=== PATIENT | male | born 1955 | race Caucasian/White ===

== ENCOUNTER 2019-11-02 08:08 | Outpatient (CLI) | payer OTHER, SELFPAY ==
--- NOTE | ~2019-11-02 | CT_ITS ---
EXAMINATION: CT chest abdomen pelvis w con EXAM DATE: 11/02/2019 08:56 INDICATION: Mantle cell lymphoma. TECHNIQUE: Spiral CT of the chest, abdomen and pelvis was performed following intravenous injection o f 100 mL Omnipaque 350. Axial, coronal and sagittal images were reviewed. Coronal maximum intensity pixel images of chest reviewed. The dose-length product (DLP) for this examination was 1792.43 mGy- cm. The exposure was tailored according to patient size (auto mA exposure control), and iterative re construction (ASIR) was used as additional dose reduction technique. Comparison is made to prior exam ination from 09/05/2018. FINDINGS: CHEST: Right-sided Chemo-Port. Numerous punctate lung granulomas, most of which are calcified, unchan ged. No suspicious pulmonary opacities. Mediastinal calcifications from prior treated lymphoma or gr anulomatous process. Tracheobronchial tree is patent. There is no mediastinal, hilar or axillary l ymphadenopathy. There are no pleural or pericardial effusions. There is no pneumothorax. Heart normal in size. No evidence of coronary arterial calcification. Mild emphysema. ABDOMEN PELVIS: The liver, spleen, adrenal glands and pancreas are unremarkable. Gallbladder is unre markable. No biliary obstruction. Portal and splenic veins are patent. Kidneys enhance symmetrical ly. There is no hydronephrosis. There is exophytic left renal cyst measuring 2.6 cm. There is puncta te right superior calyceal stone. The prostate is unremarkable. The bladder is unremarkable. There is no retroperitoneal or pelvic lymphadenopathy. 2 lipomas along the musculature, largest in right thigh measuring about 10 x 4 cm. The appendix is normal. There is minimal scattered colonic diverticulosis. There is no adjacent infl ammatory change to suggest diverticulitis. The stomach and small bowel are unremarkable. There is ex pected amount of colonic stool. No free intraperitoneal gas. Lumbar fusion hardware. There are no osteoblastic or osteolytic lesions identified. IMPRESSION: 1. No chest, abdomen or pelvis lymphadenopathy. Stable exam. 2. Mild scattered colonic diverticulosis. 3. Punctate right nephrolithiasis. 4. Mild emphysema. Reviewed, dictated and finalized at location A.
[2019-11-02 08:47] LABS: Estimated Glomerular Filt Rate > 60
== END 2019-11-02 08:09 | disposition home or self-care (01) ==
LOC: ANHIMG 08:18
PROVIDERS: PCP Family Medicine; Visit Provider Internal Medicine Hematology & Oncology
DX: C83.13 Mantle cell lymphoma, intra-abdominal lymph nodes (principal); J43.9 Emphysema, unspecified; N20.0 Calculus of kidney; K57.30 Diverticulosis of large intestine without perforation or abscess without bleeding
CPT/HCPCS: 36415; 71260; 74177; Q9967

== ENCOUNTER 2021-08-17 12:08 | Outpatient (CLI) | payer MEDICARE, BC, SELFPAY ==
--- NOTE | ~2021-08-17 | XR_ITS ---
EXAMINATION: XR fl port a cath w contrast DATE: 08/17/2021 13:01 INDICATION: Mantle cell lymphoma. Malfunctioning port catheter. TECHNIQUE: 180 images of the chest were obtained during injection of intravenous contrast into the pa warren's existing left subclavian central venous port catheter. The patient was flushed with sterile s erick at the conclusion of the procedure. The port was accessed and injections performed by the PICC line nurse, Maria A Akbar. The amount of fluoroscopy time used during this procedure was 0.7 minutes. COMPARISON: None. FINDINGS: Left subclavian central venous port catheter with distal tip at the caudal superior vena cava. There is free flow of the injected contrast from the tip of the catheter which extends into the right atriu m. No contrast tracking along the catheter to suggest a fibrin sleeve. Blood was able to be aspirated from the catheter both with the arms raised and at the patient's side. Visualized portion of the upp er lungs are clear. Plate and screw fixation for lower cervical anterior spinal fusion. IMPRESSION: 1. Patent tip of a left subclavian central venous port catheter. Reviewed, dictated and finalized at location A.
== END 2021-08-17 12:09 | disposition home or self-care (01) ==
PROVIDERS: PCP Family Medicine; Visit Provider Internal Medicine Hematology & Oncology
DX: Z45.2 Encounter for adjustment and management of vascular access device (principal); C83.13 Mantle cell lymphoma, intra-abdominal lymph nodes; Z98.1 Arthrodesis status
CPT/HCPCS: 36598; Q9966

== ENCOUNTER 2021-08-22 06:30 | Outpatient (CLI) | payer MEDICARE, BC, SELFPAY ==
--- NOTE | ~2021-08-22 | CT_ITS ---
EXAMINATION: CT abdomen pelvis w con INDICATION: Mantle cell lymphoma TECHNIQUE: Computed tomographic images of the abdomen and pelvis were obtained after the administrati on of 100 cc of Omnipaque 350 intravenous contrast. The dose-length product (DLP) was 1660.17 mGy-cm. Automated exposure control and iterative reconstruction technique were employed. COMPARISON: 11/02/2019 FINDINGS: Minimal dependent atelectasis is present in the lung bases. The heart size is normal. Calci fied pulmonary nodules are consistent with old granulomatous disease. Punctate calcifications in an o therwise normal spleen likely represent healed granulomatous disease. The liver, pancreas, gallbladde r, and adrenal glands are normal. There is a 3.2 cm cyst of the left kidney. There is a 4 mm nonobstr ucting stone of the right kidney. No pathologically enlarged abdominal or pelvic lymph nodes are iden tified. There is no free intraperitoneal gas or evidence of bowel obstruction. The appendix is normal . Intramuscular lipomas are again noted. There are changes of anterior and posterior fusion from L3 t hrough L5. There is severe disc space disease at L2-3. A small fat-containing umbilical hernia is not ed. IMPRESSION: 1. No pathologically enlarged lymph nodes in the abdomen or pelvis. 2. Right nephrolithiasis. Reviewed, dictated and finalized at location B.
== END 2021-08-22 06:31 | disposition home or self-care (01) ==
PROVIDERS: PCP Family Medicine; Visit Provider Internal Medicine Hematology & Oncology
DX: C83.13 Mantle cell lymphoma, intra-abdominal lymph nodes (principal); N20.0 Calculus of kidney
CPT/HCPCS: 74177; Q9967

== ENCOUNTER 2021-09-13 18:33 | Emergency (ER) | payer MEDICARE, BC, SELFPAY ==
--- NOTE | 2021-09-13 18:39 | ED.SKABFB ---
HPI - Skin/Abscess/Foreign Bdy General Chief complaint: Skin/Abscess/Foreign Body Stated complaint: L ARM INFECTION Time Seen by Provider: 09/13/21 18:39 Source: patient, family and RN notes reviewed History of Present Illness HPI narrative: Patient is 65-year-old male who presents the urgent care with complaints of possible infection to the left arm. Patient states that a couple days ago he hit the arm and is now having increased redness, swelling and pain. Patient states he is use hydrocortisone and Pred without any relief. States it is very itchy and feels warm to the touch. Denies any fevers, nausea or vomiting. No other complaints. No acute distress noted. Patient aware of the plan of care. Some parts of this dictation were generated by voice recognition software and may contain typographical and/or grammatical inaccuracies. Related Data Home Medications Medication Instructions Recorded Confirmed cyclobenzaprine 10 mg PO TID PRN 03/20/19 08/30/21 naproxen 500 mg PO BID PRN 03/20/19 08/30/21 tramadol 50 mg PO BID PRN 03/20/19 08/30/21 zolpidem 10 mg PO HS PRN 03/20/19 08/30/21 tramadol 100 mg tablet,extended 100 mg PO DAILY 07/25/20 08/30/21 release 24 hr vitamin B complex 1 cap PO DAILY 07/25/20 08/30/21 Allergies Allergy/AdvReac Type Severity Reaction Status Date / Time No Known Drug Allergies Allergy Unknown NKA Verified 08/30/21 08:21 Review of Systems Review of Systems: CONSTITUTIONAL: Denies fever, chills, or sweats. EYES: Denies visual changes, redness, or discharge. ENT: Denies rhinorrhea, congestion, sore throat, or otalgia. CARDIOVASCULAR: Denies chest pain, palpitations, or edema. RESPIRATORY: Denies cough or dyspnea. GASTROINTESTINAL: Denies abdominal pain, nausea, vomiting, or diarrhea. GENITOURINARY: Denies dysuria or hematuria. SKIN: Reports a possible infection to the left arm MUSCULOSKELETAL: Denies back pain, joint pain, or myalgia. NEUROLOGIC: Denies headache, numbness, or weakness. All other systems reviewed are negative, except as documented in HPI. [facility] Past Medical History Medical History (Updated 09/13/21 @ 18:50 by MARITZA Strong) Anxiety Diaphragmatic hernia without mention of obstruction or gangrene Encounter for monitoring diuretic therapy Enlarged prostate without lower urinary tract symptoms (luts) Essential hypertension Hypersomnolence Libido, decreased Mantle cell lymphoma Mixed hyperlipidemia Narcolepsy Other spondylosis, cervical region Personal history of colonic polyps Raynaud's syndrome Sleep paralysis Testicular hypofunction Vitamin D deficiency Family History Family History Father Family history of malignant neoplasm Hypertension Sibling Hypertension Social History Social History Second hand tobacco smoke exposure: Yes Smoking end date: 06/03/01 Alcohol intake: never Substance use: never Substance use type: does not use Gender identity (if verbalized by the patient): Male Comments At the time of my signature, I reviewed and agree with the nursing past medical, surgical, social, and family history. There is no relevant family history pertinent to the patient complaint. Exam Narrative: GENERAL: This is a well-nourished, well-developed patient, in no apparent distress. HEAD: normocephalic, atraumatic. EYES: PERRL. Sclera clear/white. Vision is grossly intact. EARS: External ears normal NOSE: External nose normal with no obvious nasal discharge, nares without redness, no rhinorrhea. THROAT: Mucous membranes moist NECK: Neck supple, non-tender without lymphadenopathy, masses or thyromegaly. CARDIOVASCULAR: Regular rate and rhythm without murmurs, gallops, or rubs. RESPIRATORY: Clear to auscultation. Breath sounds equal bilaterally. No wheezes, rales, or rhonchi. SKIN: 9 x 7 cm area of erythema and firm edema noted to th
[2021-09-13 18:42] VITALS: BP 170/85; PULSE 94; RESP 16; TEMP 36.2; O2SAT 98
== END 2021-09-13 18:55 | disposition home or self-care (01) ==
PROVIDERS: Emergency Provider Nurse Practitioner Family; PCP Family Medicine
DX: L03.114 Cellulitis of left upper limb (principal); I10 Essential (primary) hypertension; E78.2 Mixed hyperlipidemia; I73.00 Raynaud's syndrome without gangrene; N40.0 Benign prostatic hyperplasia without lower urinary tract symptoms; Z85.72 Personal history of non-Hodgkin lymphomas; G47.53 Recurrent isolated sleep paralysis
CPT/HCPCS: 99213; G0463

== ENCOUNTER 2022-01-24 08:52 | Outpatient (CLI) | payer MEDICARE, OTHER, SELFPAY ==
--- NOTE | ~2022-01-24 | CT_ITS ---
EXAMINATION: CT abdomen pelvis wo con DATE: 01/24/2022 09:07 INDICATION: Right flank pain, history of lymphoma TECHNIQUE: Computed tomography (CT) of the abdomen and pelvis was performed without intravenous contr ast. The dose-length product (DLP) was 630.87 mGy-cm. Automated exposure control and iterative recons truction technique were employed. COMPARISON: 08/22/2021 FINDINGS: Minimal dependent atelectasis is present in the lung bases. The heart size is normal. Punct ate calcifications in an otherwise normal spleen likely represent healed granulomatous disease. The l iver, pancreas, gallbladder, and adrenal glands are normal. There are two nonobstructing stones of th e right kidney which measure 2 mm and 1 mm. There is a 3.4 cm cyst of the left kidney. No stones are identified in the ureters or bladder. There is no hydronephrosis or hydroureter. The appendix is norm al. No pathologically enlarged abdominal or pelvic lymph nodes are identified. There is no free intra peritoneal gas or evidence of bowel obstruction. Intramuscular lipomas are again noted in the left ab dominal wall and proximal right leg. There are changes of anterior and posterior fusion from L3 throu gh L5. There is severe loss of intervertebral disc space height at L2-3. A fat-containing umbilical h ernia is noted. IMPRESSION: 1. No CT correlate for right flank pain. 2. Nonobstructing right nephrolithiasis. Reviewed, dictated and finalized at location B.
== END 2022-01-24 08:53 | disposition home or self-care (01) ==
LOC: ANHIMG 08:55
PROVIDERS: PCP Family Medicine; Visit Provider Physician Assistant Medical
DX: R10.9 Unspecified abdominal pain (principal); N20.0 Calculus of kidney
CPT/HCPCS: 74176

== ENCOUNTER 2022-02-28 10:01 | Outpatient (CLI) | payer MEDICARE, OTHER, SELFPAY ==
--- NOTE | ~2022-02-28 | XR_ITS ---
EXAMINATION: XR abdomen/kub 1V INDICATION: History of right-sided kidney stones TECHNIQUE: Supine views of the abdomen were obtained on 2 radiographs. COMPARISON: 01/24/2022 FINDINGS: Bowel contents project over the kidneys limiting sensitivity for renal stones. Right nephro lithiasis described on the comparison CT is not definitely identified. No stones are identified along the expected courses of the ureters or at the urinary bladder. There are phleboliths of the pelvis. The bowel gas pattern is normal. Surgical changes are noted in the lower lumbar spine. IMPRESSION: 1. No urolithiasis identified. Reviewed, dictated and finalized at location A.
== END 2022-02-28 10:02 | disposition home or self-care (01) ==
PROVIDERS: PCP Family Medicine; Visit Provider Family Medicine
DX: N20.0 Calculus of kidney (principal)
CPT/HCPCS: 74018

== ENCOUNTER 2022-06-14 06:42 | Day surgery (SDC) | payer MEDICARE, OTHER, SELFPAY ==
--- NOTE | ~2022-06-14 | BM_ITS ---
EXAMINATION: CCL bone marrow asp w bx diag DATE: 06/14/2022 09:07 INDICATION: Mantle cell lymphoma. TECHNIQUE: A time-out was performed to verify the patient's name, date of , and procedure to b e performed. The procedure including the risks, benefits, and alternatives was discussed with the pat ient. Risks discussed included bleeding and infection. The patient understood the risks and agreed to proceed. The skin overlying the left ilium was prepped and draped in usual sterile fashion. Anesth etic was administered with 1% lidocaine subcutaneously. Moderate sedation was achieved with 1 mg Vers ed IV and 50 mg fentanyl IV. An 11 gauge needle was inserted into the ilium with fluoroscopic guidan ce. Bone marrow was aspirated. An 8 gauge needle was then inserted into the ilium with fluoroscopic g uidance. A core bone marrow biopsy was obtained. There were no immediate complications. Fluoroscopy e xposure time was 0.0 minutes. The total number of images was 20. FINDINGS: Real-time fluoroscopy demonstrates a marker overlying the left posterior superior iliac spi ne. IMPRESSION: 1. Fluoro-guided bone marrow aspiration. 2. Fluoro-guided bone marrow core biopsy. Reviewed, dictated and finalized at location A. 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
[2022-06-14 07:10] VITALS: BP 134/79; PULSE 73; RESP 14; TEMP 36.6; O2SAT 96; BMI 32.8
[2022-06-14 07:26] LABS: Basophils Percent Auto 0.5 % (0.2-1.2); Eosinophils Absolute Auto 0.1 K/mm3 (0-0.3); Eosinophils Percent Auto 2.7 % (0-4.4); Hematocrit 32.6 % (42.0-52.0); Hemoglobin 10.7 g/dL (14.0-18.0); Immature Granulocyte Absolute 0.04 K/mm3 (0.00-0.031); Lymphocytes Absolute Auto 0.78 K/mm3 (0.9-3.2); Lymphocytes Percent Auto 18.9 % (18.3-44.2); Mean Corpuscular HGB Conc 32.8 g/dl (32-36); Mean Corpuscular Hemoglobin 29.9 pg (26-34); Mean Corpuscular Volume 91.1 fl (80-100); Monocytes Absolute Auto 0.5 K/mm3 (0.1-0.6); Monocytes Percent Auto 12.1 % (2.6-8.5); Neutrophils Absolute Auto 2.7 K/mm3 (1.3-6.7); Neutrophils Percent Auto 64.8 % (45.5-73.1); Platelet Count Result 150 k/mm3 (150-375); Red Blood Count 3.58 M/mm3 (4.6-6.20); Red Cell Distribution Width 14.8 % (11.5-14.5); White Blood Count 4.1 K/mm3 (4.5-10.0)
[2022-06-14 07:43] LABS: Prothrombin Time 12.6 Seconds (11.1-14.7)
--- NOTE | 2022-06-14 08:09 | WPDMODSED ---
Moderate Sedation Note-Pt Data Patient Data Diagnosis: Mantel cell lymphoma. Present Complaint: Mantle cell lymphoma. Procedure to be performed/Plan: Fluoro-guided bone marrow biopsy of ilium. Allergies Allergy/AdvReac Type Severity Reaction Status Date / Time cephalexin Allergy Mild mobiliform Verified 06/13/22 13:17 rash Home Medications Medication Instructions Recorded Confirmed Type cyclobenzaprine 10 mg tablet 10 mg PO TID 03/20/19 06/14/22 History zolpidem 10 mg tablet 10 mg PO HS PRN Insomnia 03/20/19 06/13/22 History tramadol 100 mg tablet,extended 100 mg PO TID 10/02/21 06/14/22 History release 24 hr multivitamin 1 tablet PO DAILY 01/22/22 06/13/22 History lisinopril 20 mg tablet 20 mg PO DAILY #90 tabs 02/20/22 06/13/22 Rx tamsulosin 0.4 mg capsule 0.4 mg PO DAILY #30 caps 04/30/22 06/13/22 Rx armodafinil 250 mg tablet (Nuvigil) 250 mg PO QAM #30 tabs 05/29/22 06/13/22 Rx diazepam 5 mg tablet 5 mg PO BID PRN anxiety #60 tabs 05/29/22 06/13/22 Rx hydrochlorothiazide 12.5 mg tablet 12.5 mg PO DAILY 06/13/22 06/13/22 History mupirocin 2 % topical ointment 1 applic topical BID PRN Wound Care 06/13/22 06/13/22 History mupirocin 2 % topical ointment 1 applic topical TID PRN Wound Care 06/13/22 06/13/22 History testosterone 1.62 % (20.25 mg/1.25 60.75 packet topical DAILY 06/13/22 06/13/22 History gram) transdermal gel packet tramadol 50 mg tablet 50 mg PO BID 06/13/22 06/14/22 History Sedation/Anesthesia: No previous sedation/anesthesia problems (including family history). ON LICENSE OF [facility] Past Medical History Medical History (Updated 02/20/22 @ 08:58 by Melanie Chavez MD) Acute parotitis Anxiety Calculus of kidney Cardiomegaly Chest pain, unspecified Chronic neck and back pain Degeneration of intervertebral disc at L5-S1 level Degeneration of L4-L5 intervertebral disc Diaphragmatic hernia without mention of obstruction or gangrene Disorder of intervertebral disc at C5-C6 level Dorsalgia, unspecified Encounter for monitoring diuretic therapy Enlarged prostate without lower urinary tract symptoms (luts) Essential hypertension Fibromyalgia Frostbite of other and unspecified sites Hematuria, unspecified Hypersomnolence Hypogonadism Libido, decreased Lower resp. 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 dysfunction with inhibited sexual excitement Pure hypercholesterolemia, unspecified Raynaud's syndrome Recurrent oral aphthae Right flank pain Sleep paralysis Testicular hypofunction Tick bite of neck Vitamin D deficiency Surgical History Surgical History Status post lumbar spinal fusion Family History Family History Father Family history of malignant neoplasm Hypertension Sibling Hypertension Social History Social History Smoking packs per day: 2 Smoking cigarettes per day: 40.0 Years smoked: 29 Smoking pack-years: 58.00 Smoking status: Former smoker Tobacco type: cigarettes Second hand tobacco smoke exposure: No Smoking end date: 06/03/03 Alcohol intake: former Drinks per week: 0 Substance use: never Substance use type: does not use Living arrangements: with family Gender identity (if verbalized by the patient): Male Spiritual care concerns: No Mod Sed Physical Exam Physical Exam Pre Procedural Exam: Normal:
[2022-06-14 08:45] VITALS: BP 111/68; PULSE 74; RESP 17; O2SAT 95
[2022-06-14 09:00] VITALS: BP 104/65; PULSE 67; RESP 19; O2SAT 96
[2022-06-14 09:15] VITALS: BP 102/55; PULSE 63; RESP 18; O2SAT 96
== END 2022-06-14 09:35 | disposition home or self-care (01) ==
PROVIDERS: Absent Provider Internal Medicine Hematology & Oncology; PCP Family Medicine; Referring Provider Internal Medicine Hematology & Oncology; Visit Provider Radiology Diagnostic Radiology
DX: C83.10 Mantle cell lymphoma, unspecified site (principal); I10 Essential (primary) hypertension; E78.2 Mixed hyperlipidemia; F41.9 Anxiety disorder, unspecified; Z98.1 Arthrodesis status; Z87.891 Personal history of nicotine dependence
CPT/HCPCS: 36415; 38222; 85025; 85610; 88184; 88185; 88305; 88311; 88313; 88341; 88342; J1642; J2250; J3010; J7040

== ENCOUNTER 2022-08-15 08:35 | Outpatient (CLI) | payer MEDICARE, OTHER, SELFPAY ==
--- NOTE | ~2022-08-15 | CT_ITS ---
Clinical Indication: Mantle cell lymphoma CT Scan of the Chest, Abdomen, and Pelvis with Contrast: Technique: Contiguous sections were acquired throughout the chest, abdomen, and pelvis after intraven ous administration of 100 cc of Omnipaque 350. Dose reduction technique was used on this scan by ailyn omer automated exposure control and iterative reconstruction technique. The dose-length product (DL P) was 1889.77 mGy-cm. COMPARISON: 01/24/2022 Findings: Densely calcified right paratracheal lymph nodes are present. No other enlarged lymphadenopathy ident ified in the chest.. The mediastinal vascular structures appear normal. There is no evidence of pleural or pericardial effusion. There are focal areas of irregular airspace space opacity in the right upper lobe (axial images 33 11 47). There is mild apparent dependent atelectatic change or residual prominence. Scattered calcified granulomas are noted. The liver, pancreas, gallbladder, adrenals and kidneys are within normal limits. Splenomegaly noted, spleen measuring 20.4 cm in length. No evidence of aortic aneurysm. No lymphadenopathy. No bowel obstruction or bowel wall thickening. There is no evidence to suggest acute appendicitis. Urinary bladder is unremarkable. Single mildly enlarged right inguinal lymph node measures 15 mm in s hort axis (axial image 267), essentially unchanged. Impression: Single mildly enlarged right inguinal lymph node is stable from prior exam. Lymphomatous involvement is not excluded. Marked splenomegaly. This is nonspecific, but could be due to lymphomatous infiltration. Again, clini janette correlation required. Focal irregular areas of airspace opacification in the right upper lobe, nonspecific. Appearance sugg ests infectious process or postinflammatory change. Morphology is not typical of neoplasm/lymphoma. Reviewed, dictated and finalized at [facility]. Impression: Single mildly enlarged right inguinal lymph node is stable from prior exam. Lym phomatous involvement is not excluded. Marked splenomegaly. This is nonspecific, but could be due to lymphomatous infi ltration. Again, clinical correlation required. Focal irregular areas of airspace opacification in the right upper lobe, nonspe cific. Appearance suggests infectious process or postinflammatory change. Morph ology is not typical of neoplasm/lymphoma.
[2022-08-15 08:56] LABS: Estimated Glomerular Filt Rate > 60
== END 2022-08-15 08:36 | disposition home or self-care (01) ==
PROVIDERS: PCP Family Medicine; Visit Provider Internal Medicine Hematology & Oncology
DX: C83.13 Mantle cell lymphoma, intra-abdominal lymph nodes (principal)
CPT/HCPCS: 36415; 71260; 74177; 80053; 85025; Q9967

== ENCOUNTER 2022-09-03 09:18 | Outpatient (CLI) | payer MEDICARE, OTHER, SELFPAY ==
[2022-09-03 10:30] LABS: Alanine Aminotransferase 22 U/L (6-50); Albumin Level 4.3 g/dL (3.5-5.1); Alkaline Phosphatase 118 U/L (38-126); Anion Gap 6 mmol/L (8-16); Aspartate Amino Transferase 36 U/L (17-59); Bilirubin,Total 1.4 mg/dL (0.2-1.3); Blood Urea Nitrogen 17 mg/dL (9-20); Calcium 8.6 mg/dL (8.4-10.2); Carbon Dioxide 31 mmol/L (22-30); Chloride 97 mmol/L (98-107); Cholesterol 202 mg/dL (0-200); Estimated Glomerular Filt Rate > 60; Glucose 108 mg/dL (65-110); HDL Direct 31 mg/dL; Potassium 4.1 mmol/L (3.4-5.0); Sodium 134 mmol/L (137-145); Triglycerides 128 mg/dL (<150)
[2022-09-03 10:38] LABS: Hemoglobin A1C 4.3 % (<5.7)
[2022-09-03 10:40] LABS: LDL Cholesterol Direct 137 mg/dL
== END 2022-09-03 09:19 | disposition home or self-care (01) ==
LOC: ANHLAB 09:21
PROVIDERS: PCP Family Medicine; Visit Provider Family Medicine
DX: E78.2 Mixed hyperlipidemia (principal); I10 Essential (primary) hypertension; R73.03 Prediabetes
CPT/HCPCS: 36415; 80053; 80061; 83036

== ENCOUNTER 2022-10-29 10:10 | Inpatient (IN) | payer MEDICARE, OTHER, SELFPAY ==
[2022-10-29] VITALS (7 sets, daily range): BP systolic 103–118; BP diastolic 63–79; PULSE 83–94; RESP 16–18; TEMP 36.3–37.2; O2SAT 93–100; BMI 34.3
--- NOTE | ~2022-10-29 | XR_ITS ---
EXAMINATION: XR chest 2V DATE: 10/29/2022 11:09 INDICATION: Spider bite. Weakness and shortness of breath. TECHNIQUE: Frontal and lateral views of the chest were obtained. COMPARISON: Chest 2 views 05/16/2018, chest CT 08/15/2022 FINDINGS: There is mild atelectasis in left lower lung zone. Calcified right lung nodules and calcifi ed mediastinal lymph nodes are consistent with old granulomatous disease. No pleural effusion or pneu mothorax. The heart size is normal. There is a left subclavian port with tip in superior vena cava. T here are changes of anterior fusion procedure in cervical spine. IMPRESSION: 1. Mild atelectasis in left lower lung zone. Reviewed, dictated and finalized at location A.
--- NOTE | ~2022-10-29 | US_ITS ---
. EXAMINATION: US renal BI DATE: 10/30/2022 10:12 INDICATION: Acute kidney injury. TECHNIQUE: Multiple ultrasound grayscale images of the kidneys were obtained. COMPARISON: CT abdomen and pelvis 08/15/2022 FINDINGS: The right kidney measures 12.1 x 5.4 x 5.6 cm. The left kidney measures 11.6 x 5.9 x 5.1 cm. The kidn eys demonstrate normal parenchymal echogenicity. There is a 3.1 cm cyst of left kidney. There is no h ydronephrosis. The bladder is normal. IMPRESSION: 1. Normal kidney sizes. No hydronephrosis. Reviewed, dictated and finalized at location L.
--- NOTE | 2022-10-29 10:22 | ED.GENADULT ---
HPI - General Adult General Chief complaint: Unspecified Stated complaint: bloody sputum Time Seen by Provider: 10/29/22 10:15 Source: patient and family Mode of arrival: ambulatory History of Present Illness HPI narrative: Patient is 66 years old white male came to the emergency room with his because of coughing, sore throat, fever, nasal congestion started 2 days ago. Patient is telling me that he had a brown recluse spider bite to his left lower leg and left arm x4, 1 week ago. Denies any systemic symptoms at that time. 5 days later went see his family physician and received a tetanus shot, 1 dose of antibiotic IM, and was discharged on doxycycline. 2 days later started having upper respiratory symptoms. Patient did not had any antipyretic medication today. Related Data Home Medications Medication Instructions Recorded Confirmed cyclobenzaprine 10 mg tablet 10 mg PO TID 03/20/19 10/10/22 zolpidem 10 mg tablet 10 mg PO HS PRN Insomnia 03/20/19 10/10/22 tramadol 100 mg tablet,extended 100 mg PO TID 10/02/21 10/10/22 release 24 hr multivitamin 1 tablet PO DAILY 01/22/22 10/10/22 hydrochlorothiazide 12.5 mg tablet 12.5 mg PO DAILY 06/13/22 10/10/22 testosterone 1.62 % (20.25 mg/1.25 60.75 packet topical DAILY 06/13/22 10/10/22 gram) transdermal gel packet tramadol 50 mg tablet 50 mg PO BID 06/13/22 10/10/22 turmeric 400 mg capsule mg PO 10/25/22 Allergies Allergy/AdvReac Type Severity Reaction Status Date / Time cephalexin Allergy Mild mobiliform Verified 10/29/22 10:29 rash Review of Systems Review of Systems: All systems reviewed & are unremarkable except as noted in HPI and below PMFSH Past Medical History Medical History Acute parotitis Anxiety Calculus of kidney Cardiomegaly Chest pain, unspecified Chronic neck and back pain Degeneration of intervertebral disc at L5-S1 level Degeneration of L4-L5 intervertebral disc Diaphragmatic hernia without mention of obstruction or gangrene Disorder of intervertebral disc at C5-C6 level Dorsalgia, unspecified Encounter for monitoring diuretic therapy Enlarged prostate without lower urinary tract symptoms (luts) Essential hypertension Fibromyalgia Frostbite of other and unspecified sites Hematuria, unspecified Hypersomnolence Hypogonadism Libido, decreased Lower resp. 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 dysfunction with inhibited sexual excitement Pure hypercholesterolemia, unspecified Raynaud's syndrome Recurrent oral aphthae Right flank pain Sleep paralysis Testicular hypofunction Tick bite of neck Vitamin D deficiency Surgical History Surgical History Status post lumbar spinal fusion Family History Family History Father Family history of malignant neoplasm Hypertension Sibling Hypertension Social History Social History Smoking packs per day: 2 Smoking cigarettes per day: 40.0 Years smoked: 29 Smoking pack-years: 58.00 Smoking status: Former smoker Tobacco type: cigarettes Second hand tobacco smoke exposure: No Smoking end date: 06/03/03 Alcohol intake: former Drinks per week: 0 Substance use: never Substance use type: does not use Lack of Transportation: No Lack of Food: Never True Current Housing: I Have Housing
--- NOTE | 2022-10-29 10:33 | ECG_ITS ---
Measurements Intervals [place] Rate: 87 P: 36 TX: 156 QRS: 13 QRSD: 117 T: 17 QT: 361 QTc: 435 Interpretive Statements SINUS RHYTHM INTRAVENTRICULAR CONDUCTION DELAY DELAYED PRECORDIAL R/S TRANSITION CONSIDER INFERIOR INFARCT, AGE INDETERMINATE ABNORMAL ECG NO PREVIOUS ECG AVAILABLE FOR COMPARISON Electronically Signed On 10-29-2022 13:50:50 CDT by Venu Roman D.O.
[2022-10-29] MEDS: ACETAMINOPHEN 325 MG TABLET 650 MG PO (11:00)
[2022-10-29] MEDS: KETOROLAC 30 MG/ML VIAL (*BKC) IV PUSH (11:05)
[2022-10-29] MEDS: SODIUM CHLORIDE 0.9% IV 1,000 ML 999 ML IV CONT ×2 (11:05→13:35)
[2022-10-29 11:27] LABS: Hematocrit 34.3 % (42.0-52.0); Mean Corpuscular Hemoglobin 31.2 pg (26-34); Mean Corpuscular Volume 89.1 fl (80-100); Platelet Count Result 201 k/mm3 (150-375); Red Blood Count 3.85 M/mm3 (4.6-6.20); White Blood Count 13.5 K/mm3 (4.5-10.0)
[2022-10-29 11:38] LABS: Alveolar/Arterial O2 Gradient 14.8 mmHg; Base Excess ABG -0.3 mEq/l (+/-2.0); Fractional Inspired Oxygen 21 %; HCO3 ABG 23.6 mEq/l (22.0-26.0); Oxygen Content ABG 17.2 %vol (16.0-22.0); Oxygen Saturation ABG 97.3 % (95.0-100.0); Oxyhemoglobin 95.9 % THb (90.0-100.0); PO2 ABG 91.8 mmHg (80.0-100.0); PO2 FiO2 Ratio Arterial Blood 4.37 %; Total Hemoglobin 12.7 g/dL (12.0-18.0); pH ABG 7.434 (7.350-7.450)
[2022-10-29 11:48] LABS: Device ROOM AIR; Modified Allen's Test Pass; Site Drawn RIGHT RADIAL
[2022-10-29 11:50] LABS: Alanine Aminotransferase 20 U/L (6-50); Albumin Level 3.3 g/dL (3.5-5.1); Alkaline Phosphatase 150 U/L (38-126); Anion Gap 11 mmol/L (8-16); Aspartate Amino Transferase 34 U/L (17-59); Bilirubin,Total 1.2 mg/dL (0.2-1.3); Blood Urea Nitrogen 72 mg/dL (9-20); Calcium 8.2 mg/dL (8.4-10.2); Carbon Dioxide 24 mmol/L (22-30); Chloride 88 mmol/L (98-107); Estimated CRCL calculation 29 ml/min; Estimated Glomerular Filt Rate 21; Glucose 105 mg/dL (65-110); Potassium 3.7 mmol/L (3.4-5.0); Sodium 123 mmol/L (137-145)
[2022-10-29 11:52] LABS: Band Neutrophils Percent 13 % (0-6); Basophils Absolute Manual 0.13 K/mm3 (0.0-0.1); Basophils Percent Manual 1 % (0-1); Lymphocytes Absolute Manual 0.27 K/mm3 (1.1-4.5); Metamyelocytes Percent 2 %; Monocytes Absolute Manual 0.94 K/mm3 (0.1-0.90); Monocytes Percent Manual 7 % (3-9); Myelocytes Percent 1 %; Neutrophils Absolute Manual 11.74 K/mm3 (1.3-6.7); Neutrophils Percent Manual 74 % (46-73); Total Cells Counted 100
[2022-10-29 11:53] LABS: Burr Cells 2+ (NORMAL); Platelet Estimate Adequate (Adequate); Schistocytes None Seen (NORMAL); Toxic Granulation Present (NORMAL)
[2022-10-29 11:53] LABS: Strep Group A RT-PCR NOT DETECTED (Negative)
[2022-10-29 11:54] LABS: Large Platelets Present
[2022-10-29 12:02] LABS: Influenza A QL RT-PCR Negative (Negative); Influenza B QL RT-PCR Negative (Negative); RSV RNA, RT-PCR Negative (Negative); SARS-CoV-2 RNA PCR Negative (Negative)
[2022-10-29 12:11] LABS: CRP 34.6 mg/dL (<1.0)
[2022-10-29 12:17] LABS: Appearance Urine Cloudy (Clear); Bacteria Urine None Seen /hpf; Bilirubin Urine Negative (Negative); Blood Urine Negative (Negative); Color Urine Dark Yellow (Yellow); Glucose Urine UA Negative (Negative); Ketones Urine Negative (Negative); Leukocyte Esterase Ur Negative LEU/UL (Negative); Nitrate Urine Negative (Negative); Protein Urine 1+ mg/dL (Negative); Specific Grav Ur 1.012 (1.001-1.035); Squamous Epithelial Cell Urine Few /hpf (Few); WBC Urine 0-5 /hpf
[2022-10-29 12:18] LABS: Add Urine Microscopic? YES
--- NOTE | 2022-10-29 14:30 | PM.IMHP ---
H&P: HPI History of Present Illness Date/Time: 10/29/22 14:30 Chief Complaint: Bloody sputum Narrative: this is a 66-year-old male patient who has a history of mantle cell lymphoma. The patient was in remission at 1 time but now is getting treatment. He came to the emergency room today with his because he was coughing had fever chills sinus congestion and sore throat for the past 2 days. Also the patient stated that he was in his father's garage and had gotten bitten by several brown recluse to his left foot and his left forearm. This was approximately 4 days ago and he has been taking doxycycline. The patient also received a tetanus shot and a dose of Rocephin IM at the clinic. His white count is noted to be 13.5 and his H&H is 12.0 in 34.3. He has 74% neutrophils. 13% bands. 2.0 lymphocytes. Absolute neutrophils is 11.74. ABGs were within normal limits. His sodium is 123, 121 and now 122 however it does appear that the patient recently had a sodium of 132. Initially the patient had 3 L of normal saline and he also had ketorolac for discomfort. His potassium is 3.2. BUN is 71 and his creatinine is 2.7. Early this month his creatinine was normal. Nephrology has been consulted for his acute renal failure as well as his hyponatremia. Patient's IV fluids were stopped and the patient was placed on a fluid restriction. Oncology was also consulted for the mantle cell Lymphoma The patient is being admitted to inpatient status on the date of service of 10/29/2022. Review of Systems Review of Systems: All systems reviewed & are unremarkable except as noted in HPI and below Constitutional: Constitutional: Reports as per HPI and Reports no additional constitutional complaints Eyes: Eyes: Reports as per HPI and Reports no additional eye complaints ENT: Reports system reviewed and no additional complaints, except as documented and Reports Normal hearing present Cardiovascular: Cardiovascular: Reports no additional cardiovascular complaints Respiratory: Respiratory: Reports no additional respiratory complaints and Reports no additional respiratory complaints Gastrointestinal: Gastrointestinal: Reports as per HPI and Reports no additional gastrointestinal complaints Musculoskeletal: Musculoskeletal: Reports no additional musculoskeletal complaints Integumentary/Breasts: Skin/Breast: Reports system reviewed and no additional complaints, except as docu and Reports as per HPI Neurologic: Reports system reviewed and no additional complaints, except as documented, Reports as per HPI and Reports Normal hearing present Psychiatric: Psychiatric: Reports no additional psychiatric complaints and Reports as per HPI Endocrine: Endocrine: Reports no additional endocrine complaints Hematologic/Lymphatic: Hematologic/Lymphatic: Reports no additional hematologic/lymphatic complaints Allergic/Immunologic: Allergic/Immunologic: Reports no additional allergic/immunologic complaints [facility] Past Medical History Medical History (Updated 10/29/22 @ 21:48 by Selene Galaviz NP) Acute parotitis Anxiety Calculus of kidney Cardiomegaly Chest pain, unspecified Chronic neck and back pain Degeneration of intervertebral disc at L5-S1 level Degeneration of L4-L5 intervertebral disc Diaphragmatic hernia without mention of obstruction or gangrene Disorder of intervertebral disc at C5-C6 level Dorsalgia, unspecified Encounter for monitoring diuretic therapy Enlarged prostate without lower urinary tract symptoms (luts) Essential hypertension Fibromyalgia Frostbite of other and unspecified sites Hematuria, unspecified Hypersomnolence Hypogonadism Libido, decreased Lower resp. tract infection Mantle cell lymphoma Memory loss Mixed hyperlipidemia Myalgia and myositis, unspecified Narcolepsy Non-recurrent acute serous otitis media of both ears Obesity, unspecified Other and unspecified hyperlipidemia Other chronic pain Other fatigue Other lym
--- NOTE | 2022-10-29 15:12 | ADMGEN ---
This patient, Min Toro, was admitted to [facility] Surg Room 307-02 at 1410. Patient/family oriented to hospital policies and general routines including ID bracelet, bed and alarms, visiting hours, pain management, procedures, bathroom and other care routines, personal items, smoking policy, room service/diet, and visiting hours. Information on how to activate the Rapid Response Team has been discussed. Patient/Family are encouraged to report perceived risks to care and to ask questions if they do not understand what they are told or what they should do.
--- NOTE | 2022-10-29 15:20 | P.CONNP_ITS ---
Assessment and Plan Assessment and plan (1) JOANN (acute kidney injury): Code(s): N17.9 - Acute kidney failure, unspecified Status: Acute Assessment and Plan: * etiology not clear * normal renal function by last 2 weeks ago (creatinine 1.0mg/dl on 10/10/22) * reported brown recluse spider bites around 10/22; since that time he reports: * fever up to 101 (about 48 hours after this incident) * mild headache * mild diffuse abdominal pain * coughing * sore throat * nasal congestion * drug reaction from chemotherapy or doxycycline (?) * however, the chemotherapy he is on not usually associated with JOANN... * doxycycline (and all tetracyclines) can cause a rise in BUN but not really affect creatinine.... * check urine electrolytes, urine eosinophils, and CPK * trial of IVFs (depending on trend of sodium levels - see #2) * check renal ultrasound * follow trend of repeat labs (2) Hyponatremia: Code(s): E87.1 - Hypo-osmolality and hyponatremia Status: Acute Assessment and Plan: * acute on chronic * some degree of hyponatremia since 2019 * sodium has been runnning 132 - 136mmol/L * although has been as high as 139mmol/L in the past * risk factors include: * HCTZ use * underlying malignancy * pain issues * checking urine electrolytes, TSH, cortisol, SPEP, UPEP, and serum/urine osmo * on trial of IVFs * if sodium worsens on normal saline IVF trial, will stop and add fluid restriction * follow repeat sodium levels (3) Upper respiratory infection, viral: Code(s): J06.9 - Acute upper respiratory infection, unspecified Status: Acute Assessment and Plan: * follow respiratory status * nebulizer treatments PRN * hold doxycycline and antibiotics (suspect more viral etiology) * supportive measures (4) Essential hypertension: Code(s): I10 - Essential (primary) hypertension Status: Acute Assessment and Plan: * reasonable control * HCTZ on hold * follow trend of hemodynamics (5) Mantle cell lymphoma: Code(s): C83.10 - Mantle cell lymphoma, unspecified site Status: Chronic Assessment and Plan: * follows with Oncology/Dr. Tripathi Long extensive discussion (greater than 20 minutes) with the patient as well as at bedside regarding his renal dysfunction, his hyponatremia, the proposed possible reasons for it and the treatment/therapy geared toward correcting these issues. I will continue to follow the patient with you while he remains hospitalized to make further recommendations during his hospital course Thank you for allowing me to participate in care this patient. History of Present Illness Reason for Consult Consult date: 10/29/22 Reason for consult: acute renal failure and hyponatremia Chief Complaint Chief complaint: JOANN,Hyponatremia,Upper Respiratory Infection History of Present Illness Narrative: The patient is a 66-year-old male with a past medical history as outlined below who presented to the emergency room for further evaluation of frequent coughing and generalized fatigue. The patient reports that he has been having coughing in association with subjective fevers and chills, some sinus congestion and a sore throat for the past 2-3 days. It should be noted that about a week ago he was cleaning his father's garage and apparently may have been bitten by several brown recluse spiders on his left lower extremity and left upper extremity. He did see his primary care physician about day or 2 after this occurred and given his
--- NOTE | 2022-10-29 15:20 | PM.CNNEP ---
Assessment and Plan Assessment and plan (1) JOANN (acute kidney injury): Code(s): N17.9 - Acute kidney failure, unspecified Status: Acute Assessment and Plan: etiology not clear normal renal function by last 2 weeks ago (creatinine 1.0mg/dl on 10/10/22) reported brown recluse spider bites around 10/22; since that time he reports: fever up to 101 (about 48 hours after this incident) mild headache mild diffuse abdominal pain coughing sore throat nasal congestion drug reaction from chemotherapy or doxycycline (?) however, the chemotherapy he is on not usually associated with JOANN... doxycycline (and all tetracyclines) can cause a rise in BUN but not really affect creatinine.... check urine electrolytes, urine eosinophils, and CPK trial of IVFs (depending on trend of sodium levels - see #2) check renal ultrasound follow trend of repeat labs (2) Hyponatremia: Code(s): E87.1 - Hypo-osmolality and hyponatremia Status: Acute Assessment and Plan: acute on chronic some degree of hyponatremia since 2019 sodium has been runnning 132 - 136mmol/L although has been as high as 139mmol/L in the past risk factors include: HCTZ use underlying malignancy pain issues checking urine electrolytes, TSH, cortisol, SPEP, UPEP, and serum/urine osmo on trial of IVFs if sodium worsens on normal saline IVF trial, will stop and add fluid restriction follow repeat sodium levels (3) Upper respiratory infection, viral: Code(s): J06.9 - Acute upper respiratory infection, unspecified Status: Acute Assessment and Plan: follow respiratory status nebulizer treatments PRN hold doxycycline and antibiotics (suspect more viral etiology) supportive measures (4) Essential hypertension: Code(s): I10 - Essential (primary) hypertension Status: Acute Assessment and Plan: reasonable control HCTZ on hold follow trend of hemodynamics (5) Mantle cell lymphoma: Code(s): C83.10 - Mantle cell lymphoma, unspecified site Status: Chronic Assessment and Plan: follows with Oncology/Dr. Tripathi Long extensive discussion (greater than 20 minutes) with the patient as well as at bedside regarding his renal dysfunction, his hyponatremia, the proposed possible reasons for it and the treatment/therapy geared toward correcting these issues. I will continue to follow the patient with you while he remains hospitalized to make further recommendations during his hospital course Thank you for allowing me to participate in care this patient. History of Present Illness Reason for Consult Consult date: 10/29/22 Reason for consult: acute renal failure and hyponatremia Chief Complaint Chief complaint: JOANN,Hyponatremia,Upper Respiratory Infection History of Present Illness Narrative: The patient is a 66-year-old male with a past medical history as outlined below who presented to the emergency room for further evaluation of frequent coughing and generalized fatigue. The patient reports that he has been having coughing in association with subjective fevers and chills, some sinus congestion and a sore throat for the past 2-3 days. It should be noted that about a week ago he was cleaning his father's garage and apparently may have been bitten by several brown recluse spiders on his left lower extremity and left upper extremity. He did see his primary care physician about day or 2 after this occurred and given his immunocompromised status, he received IM ceftriaxone and oral doxycycline for treatment of these spider bites. However, as already mentioned, the more recent symptoms the last few days concerned him and his and he was brought into the ER for further assessment. Workup and evaluation emergency room demonstrated the patient be hemodynamically stable but routine blood tests were significant for a mildly elevated white blood cell count with
[2022-10-29] MEDS: SODIUM CHLORIDE 0.9% IV 1,000 ML 150 ML IV CONT (15:49)
[2022-10-29 15:56] LABS: Sodium 121 mmol/L (137-145)
[2022-10-29 16:11] LABS: Total Protein Urine Random 24 mg/dL
[2022-10-29 16:55] LABS: Eosinophil Urine None Seen % (None Seen); Urine Eos QC 2nd Tech Confirmed
[2022-10-29 16:59] LABS: Creatinine Urine 89.3 mg/dL; Sodium Urine Random 16 meq/L; Ur Ttl Prot Creatinine Ratio 0.27 mg/mg (0-0.20)
[2022-10-29 17:00] LABS: Creatinine Urine 90.8 mg/dL
[2022-10-29 20:30] LABS: Anion Gap 12 mmol/L (8-16); Blood Urea Nitrogen 71 mg/dL (9-20); Calcium 7.8 mg/dL (8.4-10.2); Carbon Dioxide 20 mmol/L (22-30); Chloride 90 mmol/L (98-107); Estimated CRCL calculation 34 ml/min; Estimated Glomerular Filt Rate 24; Glucose 99 mg/dL (65-110); Potassium 3.2 mmol/L (3.4-5.0); Sodium 122 mmol/L (137-145)
[2022-10-30] VITALS (10 sets, daily range): BP systolic 105–122; BP diastolic 57–71; PULSE 86–95; RESP 14–20; TEMP 36.3–36.8; O2SAT 91–97
[2022-10-30] MEDS: IPRATROPIUM BR 0.02% INH SOLN 0.5 MG/2.5 ML VIAL INHALATION ×4 (01:14→21:57)
[2022-10-30] MEDS: LEVALBUTEROL NEB 1.25 MG/3 ML 0.63 MG INHALATION ×4 (01:14→21:57)
[2022-10-30 06:22] LABS: Basophils Percent Auto 0.2 % (0.2-1.2); Eosinophils Absolute Auto 0.1 K/mm3 (0-0.3); Eosinophils Percent Auto 0.6 % (0-4.4); Hematocrit 35.8 % (42.0-52.0); Hemoglobin 12.3 g/dL (14.0-18.0); Immature Granulocyte Absolute 0.89 K/mm3 (0.00-0.031); Immature Granulocyte Percent A 6.7 % (0-0.5); Lymphocytes Absolute Auto 0.14 K/mm3 (0.9-3.2); Lymphocytes Percent Auto 1.1 % (18.3-44.2); Mean Corpuscular HGB Conc 34.4 g/dl (32-36); Mean Corpuscular Hemoglobin 31.4 pg (26-34); Mean Corpuscular Volume 91.3 fl (80-100); Mean Platelet Volume 8.9 fl (7.4-10.4); Monocytes Absolute Auto 1.2 K/mm3 (0.1-0.6); Monocytes Percent Auto 8.7 % (2.6-8.5); Neutrophils Absolute Auto 10.9 K/mm3 (1.3-6.7); Neutrophils Percent Auto 82.7 % (45.5-73.1); Platelet Count Result 200 k/mm3 (150-375); Red Blood Count 3.92 M/mm3 (4.6-6.20); Red Cell Distribution Width 13.5 % (11.5-14.5); White Blood Count 13.2 K/mm3 (4.5-10.0)
[2022-10-30 06:35] LABS: Lactic Acid Reflex 0.9 mmol/L (0.7-2.0)
[2022-10-30 06:37] LABS: Anion Gap 13 mmol/L (8-16); Blood Urea Nitrogen 67 mg/dL (9-20); Calcium 8.4 mg/dL (8.4-10.2); Carbon Dioxide 23 mmol/L (22-30); Chloride 92 mmol/L (98-107); Estimated CRCL calculation 38 ml/min; Estimated Glomerular Filt Rate 27; Glucose 99 mg/dL (65-110); Magnesium 2.3 mg/dL (1.6-2.3); Phosphorus 4.5 mg/dL (2.5-4.5); Potassium 3.3 mmol/L (3.4-5.0); Sodium 128 mmol/L (137-145)
[2022-10-30] MEDS: ACETAMINOPHEN 325 MG TABLET 650 MG PO ×2 (09:25→20:00)
[2022-10-30] MEDS: TAMSULOSIN HCL 0.4 MG CAPSULE PO (09:26)
[2022-10-30] MEDS: CYCLOBENZAPRINE HCL 10 MG TABLET PO ×3 (09:26→17:25)
[2022-10-30] MEDS: MULTIVITAMINS THERAPEUTIC TAB (*BKC) 1 TABLET PO (09:26)
[2022-10-30] MEDS: POTASSIUM CHLORIDE 20 MEQ TABLET 40 MEQ PO (09:39)
--- NOTE | 2022-10-30 11:03 | P.PNNP_ITS ---
Progress Note: A&P Assessment and Plan (1) JOANN (acute kidney injury): Code(s): N17.9 - Acute kidney failure, unspecified Status: Acute Assessment and Plan: * resolving * normal renal function by last 2 weeks ago (creatinine 1.0mg/dl on 10/10/22) * reported brown recluse spider bites around 10/22; since that time he reports: * fever up to 101 (about 48 hours after this incident) * mild headache * mild diffuse abdominal pain * coughing * sore throat * nasal congestion * drug reaction from chemotherapy or doxycycline (?) * however, the chemotherapy he is on not usually associated with JOANN... * doxycycline (and all tetracyclines) can cause a rise in BUN but not really affect creatinine.... * evaluation to date: * renal ultrasound normal * urine electrolytes look prerena * urine eosinophils negative * CPK okay * trial of IVFs (improvement noted with use) * follow trend of repeat labs (2) Hyponatremia: Code(s): E87.1 - Hypo-osmolality and hyponatremia Status: Acute Assessment and Plan: * acute on chronic * some degree of hyponatremia since 2019 * sodium has been runnning 132 - 136mmol/L * although has been as high as 139mmol/L in the past * risk factors include: * HCTZ use * underlying malignancy * pain issues * evaluation to date: * TSH and cortisol okay * SPEP, UPEP, and serum/urine osmo * on trial of IVFs - wean as sodium improves * follow repeat sodium levels (3) Upper respiratory infection, viral: Code(s): J06.9 - Acute upper respiratory infection, unspecified Status: Acute Assessment and Plan: * follow respiratory status * nebulizer treatments PRN * hold doxycycline and antibiotics (suspect more viral etiology) * supportive measures (4) Essential hypertension: Code(s): I10 - Essential (primary) hypertension Status: Acute Assessment and Plan: * reasonable control * HCTZ on hold * follow trend of hemodynamics (5) Mantle cell lymphoma: Code(s): C83.10 - Mantle cell lymphoma, unspecified site Status: Chronic Assessment and Plan: * follows with Oncology/Dr. Tripathi Will continue to follow. Subjective Date/time seen: 10/30/22 11:03 Interval history: Follow-up for acute kidney injury/acute renal failure and acute hyponatremia. Renal function and sodium levels appear to be improving with current interventions; still has some cough and sore throat but seems a tad better in comparison to admission; no apparent distress noted. Exam Narrative: General: WD/WN male in NAD Heart: normal S1 and S2; no rub Lungs: coarse at bases Abdomen: soft, nontender, nondistended, positive bowel sounds Extremities: no cyanosis or clubbing; no edema Skin: warm and dry Objective Data Vital Signs Vital Signs: Vital Signs Temp Pulse Resp BP Pulse Ox O2 Del Method 10/30/22 08:00 Room Air 10/30/22 09:32 117/67 10/30/22 08:51 95 16 10/30/22 08:41 91 Room Air 10/30/22 08:40 94 16 10/30/22 06:00 97.4 F L 90 14 105/57 L 93 10/29/22 21:39 97.3 F L 83 16 103/63 94 10/29/22 17:09 Room Air 10/29/22 15:04 98.0 F 85 16 114/79 97 10/29/22 14:28 98.0 F 85 16 114/79 97
--- NOTE | 2022-10-30 11:03 | PM.PNNEP ---
Progress Note: A&P Assessment and Plan (1) JOANN (acute kidney injury): Code(s): N17.9 - Acute kidney failure, unspecified Status: Acute Assessment and Plan: resolving normal renal function by last 2 weeks ago (creatinine 1.0mg/dl on 10/10/22) reported brown recluse spider bites around 10/22; since that time he reports: fever up to 101 (about 48 hours after this incident) mild headache mild diffuse abdominal pain coughing sore throat nasal congestion drug reaction from chemotherapy or doxycycline (?) however, the chemotherapy he is on not usually associated with JOANN... doxycycline (and all tetracyclines) can cause a rise in BUN but not really affect creatinine.... evaluation to date: renal ultrasound normal urine electrolytes look prerena urine eosinophils negative CPK okay trial of IVFs (improvement noted with use) follow trend of repeat labs (2) Hyponatremia: Code(s): E87.1 - Hypo-osmolality and hyponatremia Status: Acute Assessment and Plan: acute on chronic some degree of hyponatremia since 2019 sodium has been runnning 132 - 136mmol/L although has been as high as 139mmol/L in the past risk factors include: HCTZ use underlying malignancy pain issues evaluation to date: TSH and cortisol okay SPEP, UPEP, and serum/urine osmo on trial of IVFs - wean as sodium improves follow repeat sodium levels (3) Upper respiratory infection, viral: Code(s): J06.9 - Acute upper respiratory infection, unspecified Status: Acute Assessment and Plan: follow respiratory status nebulizer treatments PRN hold doxycycline and antibiotics (suspect more viral etiology) supportive measures (4) Essential hypertension: Code(s): I10 - Essential (primary) hypertension Status: Acute Assessment and Plan: reasonable control HCTZ on hold follow trend of hemodynamics (5) Mantle cell lymphoma: Code(s): C83.10 - Mantle cell lymphoma, unspecified site Status: Chronic Assessment and Plan: follows with Oncology/Dr. Tripathi Will continue to follow. Subjective Date/time seen: 10/30/22 11:03 Interval history: Follow-up for acute kidney injury/acute renal failure and acute hyponatremia. Renal function and sodium levels appear to be improving with current interventions; still has some cough and sore throat but seems a tad better in comparison to admission; no apparent distress noted. Exam Narrative: General: WD/WN male in NAD Heart: normal S1 and S2; no rub Lungs: coarse at bases Abdomen: soft, nontender, nondistended, positive bowel sounds Extremities: no cyanosis or clubbing; no edema Skin: warm and dry Objective Data Vital Signs Vital Signs: Vital Signs Temp Pulse Resp BP Pulse Ox O2 Del Method 10/30/22 08:00 Room Air 10/30/22 09:32 117/67 10/30/22 08:51 95 16 10/30/22 08:41 91 Room Air 10/30/22 08:40 94 16 10/30/22 06:00 97.4 F L 90 14 105/57 L 93 10/29/22 21:39 97.3 F L 83 16 103/63 94 10/29/22 17:09 Room Air 10/29/22 15:04 98.0 F 85 16 114/79 97 10/29/22 14:28 98.0 F 85 16 114/79 97 10/29/22 14:04 85 18 111/75 100 Intake/Output Intake/Output: Intake & Output 10/27/22 10/28/22 10/29/22 10/30/22 23:59 23:59 23:59 23:59 Intake Total 1440 880 Output Total 400 350 Balance 1040 530 Meds/Results Medications: Active Medications Generic Name Dose Route Start Last Admin Trade Name Freq PRN Reason Stop Dose Admin Acetaminophen 650 mg 10/29/22 13:26 10/30/22 09:25 Acetaminophen 325 Mg Tablet PO 650 mg Q4H PRN Administration Mild Pain (1-3) or Fever Cyclobenzaprine HCl 10 mg 10/29/22 21:30 10/30/22 09:26 Cyclobenzaprine Hcl 10 Mg Tablet PO 10 mg TID DIANE Administration Diazepam 5 mg 10/29/22 21:30 Diazepam (*Crx) 5 Mg Table
[2022-10-30 11:11] LABS: Anion Gap 9 mmol/L (8-16); Blood Urea Nitrogen 65 mg/dL (9-20); Calcium 8.5 mg/dL (8.4-10.2); Carbon Dioxide 26 mmol/L (22-30); Chloride 95 mmol/L (98-107); Estimated CRCL calculation 39 ml/min; Estimated Glomerular Filt Rate 29; Glucose 116 mg/dL (65-110); Potassium 3.5 mmol/L (3.4-5.0); Sodium 130 mmol/L (137-145)
--- NOTE | 2022-10-30 12:53 | PDONCCN ---
HPI - Date of Consult Date/Time: 10/30/22 12:53 Requesting Physician: Gume Sharpe MD Primary Care Provider: Melanie Chavez MD - Consult Narrative Reason for consult: Mantle cell lymphoma and hypogammaglobinemia. Narrative: Min Toro is a 66 year old male with history of stage IV mantle cell lymphoma, splenomegaly and bone marrow involvement status post chemotherapy initially in September 2016. He had maintenance chemotherapy with Rituxan completed in November 2017. Recently he had relapse and had bone marrow biopsy done in June that showed bone marrow involvement with 30% mantle cell lymphoma. He was started treatment on a CT ibrutinib which he was not able to tolerate due to bilateral lower extremity edema and rash and treatment was subsequently discontinued in August of 2022. He was then started on chemotherapy with bendamustine Rituxan regimen and received cycle 2 on October 11, 2021. Patient also had brown recluse spider bite on left foot and left forearm. He received tetanus injection and Rocephin intramuscular at the primary care office. Labs showed creatinine of 2.7 with sodium of 123. Chest x-ray showed no evidence of pneumonia. Review of Systems - Review of Systems All systems reviewed & are unremarkable except as noted in HPI and bel - Neurologic Reports system reviewed and no additional complaints, except as documented, Reports hearing normal [facility] Medical History: Medical History (Last Updated 10/29/22 @ 21:48 by Selene Galaviz NP) Acute parotitis Anxiety Calculus of kidney Cardiomegaly Chest pain, unspecified Chronic neck and back pain Degeneration of intervertebral disc at L5-S1 level Degeneration of L4-L5 intervertebral disc Diaphragmatic hernia without mention of obstruction or gangrene Disorder of intervertebral disc at C5-C6 level Dorsalgia, unspecified Encounter for monitoring diuretic therapy Enlarged prostate without lower urinary tract symptoms (luts) Essential hypertension Fibromyalgia Frostbite of other and unspecified sites Hematuria, unspecified Hypersomnolence Hypogonadism Libido, decreased Lower resp. 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 dysfunction with inhibited sexual excitement Pure hypercholesterolemia, unspecified Raynaud's syndrome Recurrent oral aphthae Right flank pain Sleep paralysis Testicular hypofunction Tick bite of neck Vitamin D deficiency Surgical History: Surgical History (Last Updated 10/29/22 @ 21:38 by Selene Galaviz NP) H/O colonoscopy with polypectomy History of carpal tunnel release Status post lumbar spinal fusion Family History: Family History (Last Reviewed 10/29/22 @ 21:38 by Selene Galaviz NP) Father Family history of malignant neoplasm Hypertension Sibling Hypertension - Social History Social History: Social History (Last Updated 10/29/22 @ 21:39 by Selene Galaviz NP) Gender Identity: Gender identity (if verbalized by the patient): Male Alcohol Use: Alcohol intake: former Drinks per week: 0 Substance Use: Substance use: never Substance use type: does not use Others: Spiritual care concerns: No Living Arrangements: Living arrangements: with family Smoking Status: Smoking status: Former smoker Tobacco type: cigarettes Second hand tobacco smoke exposure: No Smoking Pack-years: Smoking packs per day: 2 Smoking cigarettes per day: 40.0 Years smoked: 29
[2022-10-30] MEDS: SODIUM CHLORIDE 0.45% 1,000 ML 75 ML IV CONT (13:14)
--- NOTE | 2022-10-30 13:18 | PM.IMPN ---
Progress Note: A&P Assessment and Plan (1) Hyponatremia: Code(s): E87.1 - Hypo-osmolality and hyponatremia Status: Acute Assessment and Plan: The patient was given 3 L of IV fluids without much difference in his sodium level. As a matter fact his sodium levels going down. Nephrology had been consulted and the patient is now off of his IV fluids in on a fluid restriction. Hold hydrochlorothiazide. Urine osmolarity has been ordered. Cortisol and TSH within normal limits. (2) JOANN (acute kidney injury): Code(s): N17.9 - Acute kidney failure, unspecified Status: Acute Assessment and Plan: Hold nephrotoxic medication. Hold hydrochlorothiazide. Hold turmeric. Initially the patient's creatinine was 3.0 with BUN is 72. Nephrology consulted 10/30 Patient's BUN creatinine 55/ 2.3 Patient on fluid restriction of 1800 mL Knee failure workup pending. Renal ultrasound normal kidney size, no hydronephrosis (3) Upper respiratory infection, viral: Code(s): J06.9 - Acute upper respiratory infection, unspecified Status: Acute Assessment and Plan: Continue with nebulizer treatments and obtain a sputum specimen. His doxycycline is D.C.. Chest x-ray showing mild atelectasis. Do not believe antibiotics for pneumonia are necessary at this time. (4) Anxiety: Code(s): F41.9 - Anxiety disorder, unspecified Status: Acute Assessment and Plan: Continue with Valium (5) Essential hypertension: Code(s): I10 - Essential (primary) hypertension Status: Acute Assessment and Plan: p.r.n. hydralazine hold hydrochlorothiazide (6) Mantle cell lymphoma: Code(s): C83.10 - Mantle cell lymphoma, unspecified site Status: Chronic Assessment and Plan: Oncology has been consulted. Patient has been started on prophylactic antibiotics. 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 He continues to have cough, shortness of breath, sore throat and sinus drainage. His spider bites are not as painful as they once were. I suspect that patient probably got bit by some insect, rather be a spider not, and developed cellulitis on his left ankle. Review of Systems Review of Systems: All systems reviewed & are unremarkable except as noted in HPI and below Exam Narrative: GENERAL: Comfortable, no acute distress HENMT: moist mucous membranes EYES: EOM intact b/l NECK: no lymphadenopathy RESPIRATORY: diffuse crackles CARDIO: RRR GI: soft, nontender, bowel sounds present SKIN: no rashes EXTREMITIES: no edema, redness or tenderness Objective Data Vital Signs Vital Signs: Vital Signs - 24 hr 10/29/22 14:04 10/29/22 14:28 10/29/22 15:04 Temperature 98.0 F 98.0 F Pulse Rate 85 85 85 Respiratory Rate 18 16 16 Blood Pressure 111/75 114/79 114/79 Pulse Oximetry 100 97 97 Oxygen Delivery 10/29/22 17:09 10/29/22 21:39 10/30/22 06:00 Temperature 97.3 F L 97.4 F L Pulse Rate 83 90 Respiratory Rate 16 14 Blood Pressure 103/63 105/57 L Pulse Oximetry 94 93 Oxygen Delivery Room Air 10/30/22 08:40 10/30/22 08:41 10/30/22 08:51 Temperature Pulse Rate 94 95 Respiratory Rate 16 16 Blood Pressure Pulse Oximetry 91 Oxygen Delivery Room Air 10/30/22 09:32 10/30/22 08:00 Temperature Pulse Rate Respiratory Rate Blood Pressure 117/67 Pulse Oximetry Oxygen Delivery Room Air Intake/Output Intake/Output: Intake & Output 10/27/22 10/28/22 10/29/22 10/30/22
[2022-10-30 13:24] LABS: Immunoglobulin G 289 mg/dL (700-1600)
[2022-10-30 13:25] LABS: Immunoglobulin A < 40 mg/dL (70-400); Immunoglobulin M < 25 mg/dL (40-230)
[2022-10-30 16:29] LABS: Anion Gap 10 mmol/L (8-16); Blood Urea Nitrogen 62 mg/dL (9-20); Calcium 8.8 mg/dL (8.4-10.2); Carbon Dioxide 26 mmol/L (22-30); Chloride 97 mmol/L (98-107); Estimated CRCL calculation 39 ml/min; Estimated Glomerular Filt Rate 29; Glucose 124 mg/dL (65-110); Potassium 3.3 mmol/L (3.4-5.0); Sodium 133 mmol/L (137-145)
[2022-10-30] MEDS: CEPHALEXIN 500 MG CAPSULE PO (17:25)
[2022-10-31] VITALS (7 sets, daily range): BP systolic 104–122; BP diastolic 62–67; PULSE 83–94; RESP 16–20; TEMP 36.2; O2SAT 93–98
[2022-10-31] MEDS: CEPHALEXIN 500 MG CAPSULE PO ×4 (01:15→17:34)
[2022-10-31] MEDS: SODIUM CHLORIDE 0.45% 1,000 ML 75 ML IV CONT ×2 (01:15→15:58)
[2022-10-31] MEDS: LEVALBUTEROL NEB 1.25 MG/3 ML 0.63 MG INHALATION ×3 (02:20→13:20)
[2022-10-31] MEDS: IPRATROPIUM BR 0.02% INH SOLN 0.5 MG/2.5 ML VIAL INHALATION ×3 (02:20→13:20)
[2022-10-31 06:28] LABS: Hematocrit 34.4 % (42.0-52.0); Hemoglobin 11.4 g/dL (14.0-18.0); Mean Corpuscular HGB Conc 33.1 g/dl (32-36); Mean Corpuscular Hemoglobin 30.5 pg (26-34); Mean Platelet Volume 8.4 fl (7.4-10.4); Platelet Count Result 224 k/mm3 (150-375); Red Blood Count 3.74 M/mm3 (4.6-6.20); White Blood Count 12.9 K/mm3 (4.5-10.0)
[2022-10-31 06:50] LABS: Alanine Aminotransferase 17 U/L (6-50); Albumin Level 3.1 g/dL (3.5-5.1); Alkaline Phosphatase 188 U/L (38-126); Anion Gap 8 mmol/L (8-16); Aspartate Amino Transferase 24 U/L (17-59); Bilirubin,Total 0.6 mg/dL (0.2-1.3); Blood Urea Nitrogen 46 mg/dL (9-20); Calcium 8.5 mg/dL (8.4-10.2); Carbon Dioxide 27 mmol/L (22-30); Chloride 101 mmol/L (98-107); Estimated CRCL calculation 60 ml/min; Estimated Glomerular Filt Rate 47; Glucose 120 mg/dL (65-110); Potassium 3.3 mmol/L (3.4-5.0); Sodium 136 mmol/L (137-145)
[2022-10-31 07:07] LABS: Band Neutrophils Percent 6 % (0-6); Lymphocytes Absolute Manual 0.38 K/mm3 (1.1-4.5); Lymphocytes Percent Manual 3 % (18-44); Monocytes Percent Manual 7 % (3-9); Neutrophils Absolute Manual 11.48 K/mm3 (1.3-6.7); Neutrophils Percent Manual 83 % (46-73); Total Cells Counted 100
[2022-10-31 07:08] LABS: Myelocytes Percent 1 %; Platelet Estimate Adequate (Adequate); Schistocytes None Seen (NORMAL)
[2022-10-31] MEDS: CYCLOBENZAPRINE HCL 10 MG TABLET PO ×3 (08:01→17:34)
[2022-10-31] MEDS: MULTIVITAMINS THERAPEUTIC TAB (*BKC) 1 TABLET PO (08:01)
[2022-10-31] MEDS: TAMSULOSIN HCL 0.4 MG CAPSULE PO (08:02)
--- NOTE | 2022-10-31 10:17 | PM.IMPN ---
Progress Note: A&P Assessment and Plan (1) Hyponatremia: Code(s): E87.1 - Hypo-osmolality and hyponatremia Status: Acute Assessment and Plan: The patient was given 3 L of IV fluids without much difference in his sodium level. As a matter fact his sodium levels going down. Nephrology had been consulted and the patient is now off of his IV fluids in on a fluid restriction. Hold hydrochlorothiazide. Urine osmolarity has been ordered. Cortisol and TSH within normal limits. (2) JOANN (acute kidney injury): Code(s): N17.9 - Acute kidney failure, unspecified Status: Acute Assessment and Plan: Hold nephrotoxic medication. Hold hydrochlorothiazide. Hold turmeric. Initially the patient's creatinine was 3.0 with BUN is 72. Nephrology consulted 10/30 Patient's BUN creatinine 55/ 2.3 Patient on fluid restriction of 1800 mL Knee failure workup pending. Renal ultrasound normal kidney size, no hydronephrosis (3) Upper respiratory infection, viral: Code(s): J06.9 - Acute upper respiratory infection, unspecified Status: Acute Assessment and Plan: Continue with nebulizer treatments and obtain a sputum specimen. His doxycycline is D.C.. Chest x-ray showing mild atelectasis. Do not believe antibiotics for pneumonia are necessary at this time. (4) Anxiety: Code(s): F41.9 - Anxiety disorder, unspecified Status: Acute Assessment and Plan: Continue with Valium (5) Essential hypertension: Code(s): I10 - Essential (primary) hypertension Status: Acute Assessment and Plan: p.r.n. hydralazine hold hydrochlorothiazide (6) Mantle cell lymphoma: Code(s): C83.10 - Mantle cell lymphoma, unspecified site Status: Chronic Assessment and Plan: Oncology has been consulted. Patient has been started on prophylactic antibiotics. 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 Mental Status/Psych: Awake, alert and oriented x4 with clear speech. Pleasant and cooperative. Skin: Skin fair, warm, dry and intact without rashes or lesions. No open wounds. Good turgor. HEENT: Normocephalic. Sclera is non-icteric. Pupils equal and round. Oral mucosa pink and moist. Neck: No JVD. Heart: S1 and S2 regular rate and rhythm. No murmurs, gallops, or rubs auscultated. Chest: Respirations even and unlabored. Lung sounds are clear to auscultation without wheezes, rhonchi, or rales. Abdomen: Soft, obese and non-tender to palpation. Bowel sounds present in all 4 quadrants. No guarding. Extremities: No edema, erythema or calf tenderness. Point tenderness right knee with palpation. No effusion. Grossly normal ROM. Neurological: No focal deficits. Sensation intact all extremities Objective Data Vital Signs Vital Signs: Vital Signs - 24 hr 10/30/22 13:44 10/30/22 14:29 10/30/22 14:36 Temperature 97.5 F L Pulse Rate 86 86 86 Respiratory Rate 20 16 16 Blood Pressure 113/59 L Pulse Oximetry 97 Oxygen Delivery 10/30/22 20:00 10/30/22 21:58 10/30/22 21:58 Temperature 98.3 F Pulse Rate 92 89 Respiratory Rate 18 16 Blood Pressure 122/71 Pulse Oximetry 94 Oxygen Delivery Room Air 10/30/22 22:13 10/30/22 22:13 10/31/22 02:20 Temperature Pulse Rate 92 88 Respiratory Rate 16 18 Blood Pressure Pulse Oximetry 93 Oxygen Delivery Room Air 10/31/22 02:30 10/31/22 03:45 10/31/22 06:00 Temperature 97.1 F L Pulse Rate 90 89 Respiratory Rate 16 20 Blood Pressure 104/67 Pulse Oximetry 93 Oxygen Delivery Ro
[2022-10-31] MEDS: POTASSIUM CHLORIDE 20 MEQ TABLET 40 MEQ PO (12:41)
--- NOTE | 2022-10-31 12:45 | PM.PNNEP ---
Progress Note: A&P Assessment and Plan (1) JOANN (acute kidney injury): Code(s): N17.9 - Acute kidney failure, unspecified Status: Acute Assessment and Plan: resolving normal renal function by last 2 weeks ago (creatinine 1.0mg/dl on 10/10/22) reported brown recluse spider bites around 10/22; since that time he reports: fever up to 101 (about 48 hours after this incident) mild headache mild diffuse abdominal pain coughing sore throat nasal congestion drug reaction from chemotherapy or doxycycline (?) however, the chemotherapy he is on not usually associated with JOANN... doxycycline (and all tetracyclines) can cause a rise in BUN but not really affect creatinine.... evaluation to date: renal ultrasound normal urine electrolytes look prerenal urine eosinophils negative CPK okay trial of IVFs (improvement noted with use) follow trend of repeat labs (2) Hyponatremia: Code(s): E87.1 - Hypo-osmolality and hyponatremia Status: Acute Assessment and Plan: improving acute on chronic some degree of hyponatremia since 2019 sodium has been runnning 132 - 136mmol/L although has been as high as 139mmol/L in the past risk factors include: HCTZ use underlying malignancy pain issues evaluation to date: TSH and cortisol okay SPEP, UPEP, and serum/urine osmo on trial of IVFs - probably okay to wean off follow repeat sodium levels (3) Upper respiratory infection, viral: Code(s): J06.9 - Acute upper respiratory infection, unspecified Status: Acute Assessment and Plan: follow respiratory status nebulizer treatments PRN hold doxycycline and antibiotics (suspect more viral etiology) supportive measures (4) Essential hypertension: Code(s): I10 - Essential (primary) hypertension Status: Acute Assessment and Plan: reasonable control HCTZ on hold follow trend of hemodynamics (5) Mantle cell lymphoma: Code(s): C83.10 - Mantle cell lymphoma, unspecified site Status: Chronic Assessment and Plan: follows with Oncology/Dr. Tripathi Will continue to follow. Subjective Date/time seen: 10/31/22 12:45 Interval history: Follow-up for acute kidney injury/acute renal failure and acute hyponatremia. Renal function and sodium levels continue to improve with current therapy; upper URI symptoms seems to be doing better; eating and drinking okay (eating lunch at the time of my visit); no other issues/evetns overnight or earlier this morning. Exam Narrative: General: WD/WN male in NAD Heart: normal S1 and S2; no rub Lungs: coarse at bases Abdomen: soft, nontender, nondistended, positive bowel sounds Extremities: no cyanosis or clubbing; no edema Skin: warm and intact Objective Data Vital Signs Vital Signs: Vital Signs Temp Pulse Resp BP Pulse Ox O2 Del Method 10/31/22 12:24 89 18 10/31/22 09:27 83 18 10/31/22 08:00 Room Air 10/31/22 09:17 85 18 10/31/22 06:00 97.1 F L 89 20 104/67 93 10/31/22 03:45 Room Air 10/31/22 02:30 90 16 10/31/22 02:20 88 18 10/30/22 22:13 93 Room Air 10/30/22 22:13 92 16 10/30/22 21:58 89 16 10/30/22 21:58 98.3 F 92 18 122/71 94 10/30/22 20:00 Room Air Intake/Output Intake/Output: Intake & Output 10/28/22 10/29/22 10/30/22 10/31/22 23:59 23:59 23:59 23:59 Intake Total 1440 1280 2360 Output Total 466 815 9777 Balance 1040 780 250 Meds/Results Medications: Active Medications Generic Name Dose Route Start Last Admin Trade Name Freq PRN Reason Stop Dose Admin Acetaminophen 650 mg 10/29/22 13:26 10/30/22 20:00 Acetaminophen 325 Mg Tablet PO 650 mg Q4H PRN Administration Mild Pain (1-3) or Fever Cephalexin HCl 500 mg 10/30/22 18:00 10/31/22 12:38 Cephalexin 500 Mg Capsule PO 11/06/22 17:59 500 mg
--- NOTE | 2022-10-31 12:45 | P.PNNP_ITS ---
Progress Note: A&P Assessment and Plan (1) JOANN (acute kidney injury): Code(s): N17.9 - Acute kidney failure, unspecified Status: Acute Assessment and Plan: * resolving * normal renal function by last 2 weeks ago (creatinine 1.0mg/dl on 10/10/22) * reported brown recluse spider bites around 10/22; since that time he reports: * fever up to 101 (about 48 hours after this incident) * mild headache * mild diffuse abdominal pain * coughing * sore throat * nasal congestion * drug reaction from chemotherapy or doxycycline (?) * however, the chemotherapy he is on not usually associated with JOANN... * doxycycline (and all tetracyclines) can cause a rise in BUN but not really affect creatinine.... * evaluation to date: * renal ultrasound normal * urine electrolytes look prerenal * urine eosinophils negative * CPK okay * trial of IVFs (improvement noted with use) * follow trend of repeat labs (2) Hyponatremia: Code(s): E87.1 - Hypo-osmolality and hyponatremia Status: Acute Assessment and Plan: * improving * acute on chronic * some degree of hyponatremia since 2019 * sodium has been runnning 132 - 136mmol/L * although has been as high as 139mmol/L in the past * risk factors include: * HCTZ use * underlying malignancy * pain issues * evaluation to date: * TSH and cortisol okay * SPEP, UPEP, and serum/urine osmo * on trial of IVFs - probably okay to wean off * follow repeat sodium levels (3) Upper respiratory infection, viral: Code(s): J06.9 - Acute upper respiratory infection, unspecified Status: Acute Assessment and Plan: * follow respiratory status * nebulizer treatments PRN * hold doxycycline and antibiotics (suspect more viral etiology) * supportive measures (4) Essential hypertension: Code(s): I10 - Essential (primary) hypertension Status: Acute Assessment and Plan: * reasonable control * HCTZ on hold * follow trend of hemodynamics (5) Mantle cell lymphoma: Code(s): C83.10 - Mantle cell lymphoma, unspecified site Status: Chronic Assessment and Plan: * follows with Oncology/Dr. Tripathi Will continue to follow. Subjective Date/time seen: 10/31/22 12:45 Interval history: Follow-up for acute kidney injury/acute renal failure and acute hyponatremia. Renal function and sodium levels continue to improve with current therapy; upper URI symptoms seems to be doing better; eating and drinking okay (eating lunch at the time of my visit); no other issues/evetns overnight or earlier this morning. Exam Narrative: General: WD/WN male in NAD Heart: normal S1 and S2; no rub Lungs: coarse at bases Abdomen: soft, nontender, nondistended, positive bowel sounds Extremities: no cyanosis or clubbing; no edema Skin: warm and intact Objective Data Vital Signs Vital Signs: Vital Signs Temp Pulse Resp BP Pulse Ox O2 Del Method 10/31/22 12:24 89 18 10/31/22 09:27 83 18 10/31/22 08:00 Room Air 10/31/22 09:17 85 18 10/31/22 06:00 97.1 F L 89 20 104/67 93 10/31/22 03:45 Room Air 10/31/22 02:30 90 16 10/31/22 02:20 88 18 10/30/22 22:13 93 Room Air 10/30/22 22:13 92 16
--- NOTE | 2022-10-31 16:59 | P.DS_ITS ---
DS: Admitting Diagnosis Discharge Date 10/31/2022 Admitting Diagnosis Hyponatremia Acute kidney failure, unspecified Acute upper respiratory infection, unspecified Anxiety disorder, unspecified, chronic Essential hypertension Mantle cell lymphoma DS: Discharge Diagnosis Discharge Diagnosis (1) Hyponatremia: Code(s): E87.1 - Hypo-osmolality and hyponatremia Status: Acute Assessment and Plan: The patient was given 3 L of IV fluids without improvement in his sodium level and was noted to have somewhat worsening sodium level following fluids. * Nephrology consulted and patient placed on a fluid restriction. * Held hydrochlorothiazide. * Urine osmolarity 203, urine sodium 16 * Cortisol and TSH within normal limits. * Sodium improved with HCTZ on hold and fluid restriction. Last sodium 136 (2) JOANN (acute kidney injury): Code(s): N17.9 - Acute kidney failure, unspecified Status: Acute Assessment and Plan: Initially the patient's creatinine was 3.0 with BUN is 72 on admission. Baseline renal function within normal limits prior to admission. * Nephrology consulted * Patient was treated with IV fluids with some improvement. * Held hydrochlorothiazide and turmeric which patient takes at home. .?? * fluid restriction of 1800 mL per Nephrology * SPEP and UPEP pending. * Renal ultrasound normal kidney size, no hydronephrosis * Renal function trending down. Cleared for discharge per Nephrology. * Repeat chemistry in 1 week and follow up with Nephrology outpatient. Patient was counseled on avoiding NSAID medications, dehydration, tumeric and HCTZ stopped at discharge. (3) Upper respiratory infection, viral: Code(s): J06.9 - Acute upper respiratory infection, unspecified Status: Acute Assessment and Plan: Continue with nebulizer treatments and obtain a sputum specimen. * doxycycline DC'd * Chest x-ray showing mild atelectasis. * Empiric keflex recommended per Hematology/Oncology. Patient with listed allergy to Keflex, however, he endorses rash may have been related to something else and was monitored on 24 hours of antibiotic therapy wihtout symptoms. * he was counseled on when to seek immediate care and s/s to stop taking antibiotics. * Patient discharged with PRN albuterol inhaler and supportive care. * Afebrile >24 hours piror to discharge and no supplemental O2 needs. (4) Anxiety: Code(s): F41.9 - Anxiety disorder, unspecified Status: Chronic Assessment and Plan: Continue with Valium. Stable. (5) Essential hypertension: Code(s): I10 - Essential (primary) hypertension Status: Chronic Assessment and Plan: Holding HCTZ due to JOANN. BP 122/62 and stable. * p.r.n. hydralazine ordered but not needed. * Discharged off HCTZ with stable BP. Continue to monitor at home. (6) Mantle cell lymphoma: Qualifiers: Lymphoma site: unspecified region Qualified Code(s): C83.10 - Mantle cell lymphoma, unspecified site Code(s): C83.10 - Mantle cell lymphoma, unspecified site Status: Chronic Assessment and Plan: Oncology has been consulted. Patient has been started on prophylactic antibiotics. 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
--- NOTE | 2022-10-31 16:59 | PM.DS ---
DS: Admitting Diagnosis Discharge Date 10/31/2022 Admitting Diagnosis Hyponatremia Acute kidney failure, unspecified Acute upper respiratory infection, unspecified Anxiety disorder, unspecified, chronic Essential hypertension Mantle cell lymphoma DS: Discharge Diagnosis Discharge Diagnosis (1) Hyponatremia: Code(s): E87.1 - Hypo-osmolality and hyponatremia Status: Acute Assessment and Plan: The patient was given 3 L of IV fluids without improvement in his sodium level and was noted to have somewhat worsening sodium level following fluids. Nephrology consulted and patient placed on a fluid restriction. Held hydrochlorothiazide. Urine osmolarity 203, urine sodium 16 Cortisol and TSH within normal limits. Sodium improved with HCTZ on hold and fluid restriction. Last sodium 136 (2) JOANN (acute kidney injury): Code(s): N17.9 - Acute kidney failure, unspecified Status: Acute Assessment and Plan: Initially the patient's creatinine was 3.0 with BUN is 72 on admission. Baseline renal function within normal limits prior to admission. Nephrology consulted Patient was treated with IV fluids with some improvement. Held hydrochlorothiazide and turmeric which patient takes at home. .?? fluid restriction of 1800 mL per Nephrology SPEP and UPEP pending. Renal ultrasound normal kidney size, no hydronephrosis Renal function trending down. Cleared for discharge per Nephrology. Repeat chemistry in 1 week and follow up with Nephrology outpatient. Patient was counseled on avoiding NSAID medications, dehydration, tumeric and HCTZ stopped at discharge. (3) Upper respiratory infection, viral: Code(s): J06.9 - Acute upper respiratory infection, unspecified Status: Acute Assessment and Plan: Continue with nebulizer treatments and obtain a sputum specimen. doxycycline DC'd Chest x-ray showing mild atelectasis. Empiric keflex recommended per Hematology/Oncology. Patient with listed allergy to Keflex, however, he endorses rash may have been related to something else and was monitored on 24 hours of antibiotic therapy wihtout symptoms. he was counseled on when to seek immediate care and s/s to stop taking antibiotics. Patient discharged with PRN albuterol inhaler and supportive care. Afebrile >24 hours piror to discharge and no supplemental O2 needs. (4) Anxiety: Code(s): F41.9 - Anxiety disorder, unspecified Status: Chronic Assessment and Plan: Continue with Valium. Stable. (5) Essential hypertension: Code(s): I10 - Essential (primary) hypertension Status: Chronic Assessment and Plan: Holding HCTZ due to JOANN. BP 122/62 and stable. p.r.n. hydralazine ordered but not needed. Discharged off HCTZ with stable BP. Continue to monitor at home. (6) Mantle cell lymphoma: Qualifiers: Lymphoma site: unspecified region Qualified Code(s): C83.10 - Mantle cell lymphoma, unspecified site Code(s): C83.10 - Mantle cell lymphoma, unspecified site Status: Chronic Assessment and Plan: Oncology has been consulted. Patient has been started on prophylactic antibiotics. 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 He presented to the emergency room with his for coughing, fever, chills, sinus congestion and sore throat for 2 days.? He also endorsed being bitten by several brown recluse spiders
[2022-11-01 23:49] LABS: Osmolality, Urine 203 mOsm/kg (50-1200)
[2022-11-02 20:54] LABS: Albumin 2.4 g/dL (3.8-4.8); Alpha 1 Globulin 0.7 g/dL (0.2-0.3); Alpha 2 Globulin 0.8 g/dL (0.5-0.9); Beta 1 Globulin 0.4 g/dL (0.4-0.6); Gamma Globulin 0.3 g/dL (0.8-1.7); Protein, Total 4.8 g/dL (6.1-8.1)
[2022-11-04 01:17] LABS: Creatinine, Random Urine 86 mg/dL (20-320); Total Protein/Creatinine Ratio 314 mg/g creat (25-148)
== END 2022-10-31 17:55 | disposition home or self-care (01) | DRG 683 ==
LOC: ANHED 13:26 → ANH3MEDSUR 13:42
PROVIDERS: Internal Medicine Critical Care Medicine; Internal Medicine Hematology & Oncology; Internal Medicine Nephrology; Nurse Practitioner; Admitting Provider Internal Medicine; Emergency Provider Emergency Medicine; PCP Family Medicine; Visit Provider Nurse Practitioner Family
DX: N17.9 Acute kidney failure, unspecified (principal); C83.10 Mantle cell lymphoma, unspecified site; E87.1 Hypo-osmolality and hyponatremia; J06.9 Acute upper respiratory infection, unspecified; T63.331A Toxic effect of venom of brown recluse spider, accidental (unintentional), initial encounter; F41.9 Anxiety disorder, unspecified; G47.419 Narcolepsy without cataplexy; M79.7 Fibromyalgia; Z20.822 Contact with and (suspected) exposure to COVID-19; I10 Essential (primary) hypertension; E66.9 Obesity, unspecified; Z68.34 Body mass index [BMI] 34.0-34.9, adult; Z87.891 Personal history of nicotine dependence; Z98.1 Arthrodesis status
CPT/HCPCS: 36415; 36600; 71046; 76775; 80048; 80053; 81001; 81050; 82533; 82570; 82784; 82805; 83605; 83735; 83930; 83935; 84100; 84155; 84156; 84165; 84166; 84295; 84300; 84443; 85025; 85999; 86140; 87040; 87070; 87205; 87637; 87651; 93005; 94640; 96361; 96374; 99285; A9270; J1885; J7030

== ENCOUNTER 2022-11-07 08:34 | Outpatient (CLI) | payer MEDICARE, OTHER, SELFPAY ==
[2022-11-07 10:08] LABS: Phosphorus 3.5 mg/dL (2.5-4.5)
== END 2022-11-07 08:35 | disposition home or self-care (01) ==
LOC: ANHLAB 08:36
PROVIDERS: Nurse Practitioner Family; PCP Family Medicine; Visit Provider Internal Medicine Hematology & Oncology
DX: E87.1 Hypo-osmolality and hyponatremia (principal); N17.9 Acute kidney failure, unspecified
CPT/HCPCS: 36415; 84100

== ENCOUNTER 2022-11-22 13:18 | Outpatient (CLI) | payer MEDICARE, OTHER, SELFPAY ==
--- NOTE | ~2022-11-22 | XR_ITS ---
EXAMINATION: XR chest 2V 11/22/2022 13:38 INDICATION: Cough for one month PROCEDURE: 2 view chest COMPARISON: Comparison to multiple prior studies sequentially, with oldest reviewed study dated 11/2015. FINDINGS: The lungs are clear. The cardiomediastinal silhouette is within normal limits. There are no pleural effusions. There is no pneumothorax suspected. Portacatheter tip in the SVC. There are c alcified mediastinal lymph nodes, consistent with chronic granulomatous disease. IMPRESSION: 1: NO ACUTE CARDIOPULMONARY DISEASE. Reviewed, dictated and finalized at location L.
== END 2022-11-22 13:19 | disposition home or self-care (01) ==
PROVIDERS: PCP Family Medicine; Visit Provider Physician Assistant
DX: R05.9 Cough, unspecified (principal)
CPT/HCPCS: 71046

== ENCOUNTER 2023-02-21 08:36 | Outpatient (CLI) | payer MEDICARE, OTHER, SELFPAY ==
--- NOTE | ~2023-02-21 | CT_ITS ---
Clinical Indication: Mantle cell lymphoma CT Scan of the Chest, Abdomen, and Pelvis with Contrast: Technique: Contiguous sections were acquired throughout the chest, abdomen, and pelvis after intraven ous administration of 100 cc of Omnipaque 350. Dose reduction technique was used on this scan by ailyn omer automated exposure control and iterative reconstruction technique. The dose-length product (DL P) was 1384.11 mGy-cm. COMPARISON: 08/15/2022 Findings: There is no evidence of any significant mediastinal, hilar or axillary lymphadenopathy. Stable densel y calcified right tracheal lymph node. No pulmonary embolus evident. No aortic aneurysm or dissection .. There is no evidence of pleural or pericardial effusion. Calcified granulomas are unchanged. No suspicious pulmonary nodule identified. The liver, spleen, pancreas, gallbladder, adrenals and kidneys are within normal limits. No evidence of aortic aneurysm. No lymphadenopathy. No bowel obstruction or bowel wall thickening. There is no evidence to suggest acute appendicitis. Urinary bladder is unremarkable. No pelvic mass seen. No ascites. Impression: No lymphadenopathy identified. No evidence for active malignancy or metastatic disease. Previously noted right inguinal lymphadenopathy is resolved. Spleen is now within normal size limits. Reviewed, dictated and finalized at location . Impression: No lymphadenopathy identified. No evidence for active malignancy or metastatic disease. Previously noted right inguinal lymphadenopathy is resolved. Spleen is now with in normal size limits.
== END 2023-02-21 08:37 | disposition home or self-care (01) ==
LOC: ANHIMG 08:40
PROVIDERS: PCP Family Medicine; Visit Provider Internal Medicine Hematology & Oncology
DX: C83.13 Mantle cell lymphoma, intra-abdominal lymph nodes (principal)
CPT/HCPCS: 71260; 74177; Q9967

== ENCOUNTER 2023-03-18 08:17 | Outpatient (CLI) | payer MEDICARE, OTHER, SELFPAY ==
[2023-03-18 12:05] LABS: Alanine Aminotransferase 88 U/L (6-50); Albumin Level 4.6 g/dL (3.5-5.1); Alkaline Phosphatase 153 U/L (38-126); Anion Gap 7 mmol/L (8-16); Aspartate Amino Transferase 74 U/L (17-59); Bilirubin,Total 0.6 mg/dL (0.2-1.3); Blood Urea Nitrogen 23 mg/dL (9-20); Calcium 9.9 mg/dL (8.4-10.2); Carbon Dioxide 29 mmol/L (22-30); Chloride 97 mmol/L (98-107); Cholesterol 321 mg/dL (0-200); Estimated CRCL calculation 90 ml/min; Estimated Glomerular Filt Rate > 60; Glucose 101 mg/dL (65-110); HDL Direct 60 mg/dL; Potassium 4.6 mmol/L (3.4-5.0); Sodium 133 mmol/L (137-145); Triglycerides 99 mg/dL (<150)
[2023-03-18 12:10] LABS: Immunoglobulin G 766 mg/dL (700-1600)
[2023-03-18 12:13] LABS: Hemoglobin A1C 5.4 % (<5.7)
[2023-03-18 12:16] LABS: LDL Cholesterol Direct 183 mg/dL
== END 2023-03-18 08:18 | disposition home or self-care (01) ==
LOC: ANHLAB 03-25 11:26
PROVIDERS: PCP Family Medicine; Visit Provider Family Medicine
DX: I10 Essential (primary) hypertension (principal); R73.9 Hyperglycemia, unspecified; E78.2 Mixed hyperlipidemia; R53.83 Other fatigue
CPT/HCPCS: 36415; 80053; 80061; 82784; 83036; 84443

== ENCOUNTER 2023-06-10 01:18 | Day surgery (SDC) | payer MEDICARE, OTHER, SELFPAY ==
[2023-05-16 09:46] VITALS: BMI 31.6
--- NOTE | 2023-06-07 10:17 | SUR.PREOP ---
Patient called regarding upcoming procedure. Reviewed preop instructions, appointment times, and procedure prep.
[2023-06-10 10:24] VITALS: BP 131/86; PULSE 92; RESP 18; TEMP 36.2; O2SAT 98
[2023-06-10] MEDS: LACTATED RINGERS 1,000 ML 150 ML IV CONT (10:39)
--- NOTE | 2023-06-10 11:13 | WPDANESEPPF ---
Anes - Initial Pre Proc Eval Procedure: Operation Date: 06/10/23 11:30 Proposed Procedures p Colonoscopy - Jamil Zuniga MD Date/Time: 06/10/23 11:13 Surgeon: Jamil Zuniga MD Pre Op Diagnosis: Mantle cell lymphoma unspecified, HX colon polyp Patient Data Age: 67 Gender: M Height: 1.85 m Weight: 106.5 kg Last Vital Signs Temp 97.2 F L 06/10/23 10:24 Pulse 92 06/10/23 10:24 Resp 18 06/10/23 10:24 BP 131/86 06/10/23 10:24 Pulse Ox 98 06/10/23 10:24 O2 Del Method Room Air 06/10/23 10:24 Allergies Allergy/AdvReac Type Severity Reaction Status Date / Time cephalexin Allergy Mild mobiliform Verified 06/10/23 10:22 rash Home Medications Medication Instructions Recorded Confirmed Type cyclobenzaprine 10 mg tablet 10 mg PO TID 03/20/19 05/16/23 History zolpidem 10 mg tablet 10 mg PO HS PRN Insomnia 03/20/19 05/16/23 History tramadol 100 mg tablet,extended 100 mg PO TID 10/02/21 05/16/23 History release 24 hr multivitamin 1 tablet PO DAILY 01/22/22 05/16/23 History testosterone 1.62 % (20.25 mg/1.25 60.75 packet topical DAILY 06/13/22 05/16/23 History gram) transdermal gel packet tramadol 50 mg tablet 50 mg PO BID 06/13/22 05/16/23 History mupirocin 2 % topical ointment 1 applic topical TID PRN Wound 10/25/22 05/16/23 Rx Care #22 grams albuterol sulfate 90 mcg/actuation 2 puff inhalation QID PRN 10/31/22 05/16/23 Rx aerosol inhaler shortness of breath or wheezing #8.5 grams ferrous sulfate 325 mg (65 mg 325 mg PO DAILY 11/15/22 05/16/23 History iron) tablet (FeroSul) tamsulosin 0.4 mg capsule 0.4 mg PO DAILY #30 caps 12/10/22 05/16/23 Rx hydrochlorothiazide 12.5 mg tablet 12.5 mg PO DAILY #90 tabs 12/12/22 05/16/23 Rx armodafinil 250 mg tablet (Nuvigil) 250 mg PO QAM #30 tabs 05/08/23 05/16/23 Rx diazepam 5 mg tablet 5 mg PO BID PRN anxiety #60 tabs 06/06/23 Rx lisinopril 10 mg tablet 20 mg PO DAILY #180 tabs 06/07/23 Rx Patient hx anesthesia problems: none Family hx anesthesia problems: none Results Review: All pre-operative results and documents have been reviewed as part of the pre-operative evaluation. [facility] Past Medical History Medical History Acute parotitis Anxiety Calculus of kidney Cardiomegaly Chest pain, unspecified Chronic neck and back pain Degeneration of intervertebral disc at L5-S1 level Degeneration of L4-L5 intervertebral disc Diaphragmatic hernia without mention of obstruction or gangrene Disorder of intervertebral disc at C5-C6 level Dorsalgia, unspecified Encounter for monitoring diuretic therapy Enlarged prostate without lower urinary tract symptoms (luts) Essential hypertension Fibromyalgia Frostbite of other and unspecified sites Hematuria, unspecified Hypersomnolence Hypogonadism Libido, decreased Lower resp. 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 dysfunction with inhibited sexual excitement Pure hypercholesterolemia, unspecified Raynaud's syndrome Recurrent oral aphthae Right flank pain Sleep paralysis Testicular hypofunction Tick bite of neck Vitamin D deficiency Surgical History Surgical History H/O colonoscopy with polypectomy History of carpal tunnel release Status post lumbar spinal fusion Family History Family History Father Family history of mal
--- NOTE | 2023-06-10 11:16 | PM.HPGS ---
History of Present Illness History of Present Illness Consent: Risks, benefits, and alternatives have been discussed and questions answered. Patient agrees to proceed with procedure. Chief complaint: Mantle cell lymphoma unspecified, HX colon polyp Narrative: Min Toro is a 67 year old male here for screening colonoscopy, last one about 10 years ago Review of Systems Constitutional: Constitutional: Denies headache(s) and Denies weakness Eyes: Eyes: Denies blurry vision ENT: Reports Normal hearing present, Denies headache(s) and Denies neck pain Cardiovascular: Cardiovascular: Denies chest pain and Denies dyspnea Respiratory: Respiratory: Denies dyspnea Gastrointestinal: Gastrointestinal: Reports no additional gastrointestinal complaints Genitourinary: Genitourinary: Denies dysuria Musculoskeletal: Musculoskeletal: Denies neck pain Integumentary/Breasts: Skin/Breast: Denies dry skin Neurologic: Reports Normal hearing present, Denies headache(s) and Denies weakness Psychiatric: Psychiatric: Denies anxiety Endocrine: Endocrine: Denies change in body appearance Hematologic/Lymphatic: Hematologic/Lymphatic: Denies easy bleeding Allergic/Immunologic: Allergic/Immunologic: Denies urticaria PMFSH Past Medical History Medical History (Updated 06/10/23 @ 11:17 by Jamil Zuniga MD) Acute parotitis Anxiety Calculus of kidney Cardiomegaly Chest pain, unspecified Chronic neck and back pain Colon cancer screening Degeneration of intervertebral disc at L5-S1 level Degeneration of L4-L5 intervertebral disc Diaphragmatic hernia without mention of obstruction or gangrene Disorder of intervertebral disc at C5-C6 level Dorsalgia, unspecified Encounter for monitoring diuretic therapy Enlarged prostate without lower urinary tract symptoms (luts) Essential hypertension Fibromyalgia Frostbite of other and unspecified sites Hematuria, unspecified Hypersomnolence Hypogonadism Libido, decreased Lower resp. 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 dysfunction with inhibited sexual excitement Pure hypercholesterolemia, unspecified Raynaud's syndrome Recurrent oral aphthae Right flank pain Sleep paralysis Testicular hypofunction Tick bite of neck Vitamin D deficiency Surgical History Surgical History H/O colonoscopy with polypectomy History of carpal tunnel release Status post lumbar spinal fusion Family History Family History Father Family history of malignant neoplasm Hypertension Sibling Hypertension Social History Social History Social History: the patient is to his share in they have 2 children. The patient is on disability. His is the durable power workers compensation attorney for healthcare. Code status full code Smoking packs per day: 2 Smoking cigarettes per day: 40.0 Years smoked: 30 Smoking pack-years: 60.00 Smoking status: Former smoker Tobacco type: cigarettes Second hand tobacco smoke exposure: No Alcohol intake: former Drinks per week: 0 Substance use: never Substance use type: does not use Lack of Transportation: No Lack of Food: Never True Current Housing: I Have Housing Concerned About Future Housing: No Difficulty Paying Gas/Electric Bills: No Difficulty Paying for Meds: No Currently Unemployed: No
[2023-06-10 11:36] VITALS: BP 91/59; PULSE 78; RESP 18; O2SAT 93
[2023-06-10 11:46] VITALS: BP 92/61; PULSE 73; RESP 18; O2SAT 96
[2023-06-10 11:55] VITALS: BP 107/68; PULSE 73; RESP 18; O2SAT 97
== END 2023-06-10 12:04 | disposition home or self-care (01) ==
PROVIDERS: PCP Family Medicine; Visit Provider Internal Medicine Gastroenterology
PROC: 0DJD8ZZ Inspection of Lower Intestinal Tract, Via Natural or Artificial Opening Endoscopic (ICD-10-PCS; CPT 45378; principal; 2023-06-10 11:30)
DX: Z12.11 Encounter for screening for malignant neoplasm of colon (principal); D12.3 Benign neoplasm of transverse colon; D12.4 Benign neoplasm of descending colon; K57.30 Diverticulosis of large intestine without perforation or abscess without bleeding; C83.10 Mantle cell lymphoma, unspecified site; I10 Essential (primary) hypertension; E78.2 Mixed hyperlipidemia; F41.9 Anxiety disorder, unspecified; E55.9 Vitamin D deficiency, unspecified; G89.29 Other chronic pain; R41.3 Other amnesia; I73.00 Raynaud's syndrome without gangrene; Z79.891 Long term (current) use of opiate analgesic; Z79.51 Long term (current) use of inhaled steroids; Z98.1 Arthrodesis status; Z87.891 Personal history of nicotine dependence; Z80.9 Family history of malignant neoplasm, unspecified
CPT/HCPCS: 45385; 88305; J2704; J7120

== ENCOUNTER 2023-09-04 09:40 | Outpatient (CLI) | payer MEDICARE, OTHER, SELFPAY ==
[2023-09-04 12:48] LABS: Alanine Aminotransferase 42 U/L (6-50); Albumin Level 4.5 g/dL (3.5-5.1); Alkaline Phosphatase 116 U/L (38-126); Anion Gap 5 mmol/L (4-12); Aspartate Amino Transferase 35 U/L (17-59); Bilirubin,Total 0.6 mg/dL (0.2-1.3); Blood Urea Nitrogen 22 mg/dL (9-20); Calcium 9.8 mg/dL (8.4-10.2); Carbon Dioxide 31 mmol/L (22-30); Chloride 97 mmol/L (98-107); Cholesterol 277 mg/dL (0-200); Estimated Glomerular Filt Rate > 60; Glucose 96 mg/dL (65-110); HDL Direct 50 mg/dL; Potassium 4.5 mmol/L (3.4-5.0); Sodium 133 mmol/L (137-145); Triglycerides 116 mg/dL (<150)
[2023-09-04 12:59] LABS: LDL Cholesterol Direct 184 mg/dL
[2023-09-05 00:41] LABS: Hemoglobin A1C 5.4 % (<5.7)
[2023-09-05 02:00] LABS: Iron 170 ug/dL (49-181)
[2023-09-05 02:16] LABS: Percent Iron Saturation 48 % (20-50)
== END 2023-09-04 09:41 | disposition home or self-care (01) ==
LOC: ANHLAB 09:43
PROVIDERS: PCP Family Medicine; Visit Provider Internal Medicine Hematology & Oncology
DX: E61.1 Iron deficiency (principal); E55.9 Vitamin D deficiency, unspecified; R73.03 Prediabetes; E78.2 Mixed hyperlipidemia; E87.1 Hypo-osmolality and hyponatremia
CPT/HCPCS: 36415; 80053; 80061; 82306; 82728; 83036; 83540; 83550

== ENCOUNTER 2023-09-25 10:20 | Outpatient (CLI) | payer MEDICARE, OTHER, SELFPAY ==
[2023-09-25 13:13] LABS: Anion Gap 5 mmol/L (4-12); Blood Urea Nitrogen 24 mg/dL (9-20); Calcium 10.2 mg/dL (8.4-10.2); Carbon Dioxide 30 mmol/L (22-30); Chloride 100 mmol/L (98-107); Estimated Glomerular Filt Rate > 60; Glucose 81 mg/dL (65-110); Potassium 4.1 mmol/L (3.4-5.0); Sodium 135 mmol/L (137-145)
[2023-09-25 13:16] LABS: Sodium Urine Random 62 meq/L
[2023-09-25 13:32] LABS: Immunoglobulin G 489 mg/dL (700-1600)
[2023-09-25 13:47] LABS: Cortisol Random 3.06 ug/dL
[2023-09-25 14:18] LABS: Immunoglobulin A < 40 mg/dL (70-400); Immunoglobulin M < 25 mg/dL (40-230)
[2023-09-27 15:07] LABS: Osmolality, Urine 254 mOsm/kg (50-1200)
== END 2023-09-25 10:21 | disposition home or self-care (01) ==
LOC: ANHLAB 10:23
PROVIDERS: PCP Family Medicine; Visit Provider Internal Medicine Hematology & Oncology
DX: C83.13 Mantle cell lymphoma, intra-abdominal lymph nodes (principal); E87.1 Hypo-osmolality and hyponatremia
CPT/HCPCS: 36415; 80048; 82533; 82784; 83930; 83935; 84300

== ENCOUNTER 2023-09-30 08:32 | Outpatient (CLI) | payer MEDICARE, OTHER, SELFPAY ==
--- NOTE | ~2023-09-30 | CT_ITS ---
EXAMINATION: CT chest abdomen pelvis w con DATE: 09/30/2023 09:08 CDT INDICATION: CT dated 02/21/2023 TECHNIQUE: Computed tomography (CT) of the chest, abdomen, and pelvis was performed without intraveno us contrast. The dose-length product was 1678.20 mGy-cm. Automated exposure control and iterative rec onstruction technique were employed. COMPARISON: CT dated 02/21/2023 FINDINGS: CHEST CT: Portacatheter tip in the SVC. Heart size normal. No significant pleural or pericardial effusion. Dens grecia calcified right paratracheal lymph nodes, consistent with chronic granulomatous disease. There is emphysema. There is calcified granulomas in the lungs bilaterally with focal scarring in the right u pper lobe unchanged. There is dependent atelectasis. There is gynecomastia. ABDOMEN/PELVIS CT: There are calcified granulomas of the spleen. Fatty infiltration of the liver. Gallbladder is present . The pancreas, adrenal glands are unremarkable. There is a 3 mm nonobstructing right renal stone. Th ere is an exophytic left renal cyst measuring 3.7 cm. Nonobstructive bowel gas pattern. No lymphadeno ilia. There are surgical fusion changes at the lumbosacral junction. No free air or free fluid. Smal l fat-containing inguinal hernias. IMPRESSION: 1. No evidence for adenopathy or malignancy. Reviewed, dictated and finalized at location B.
== END 2023-09-30 08:33 | disposition home or self-care (01) ==
LOC: ANHIMG 08:35
PROVIDERS: PCP Family Medicine; Visit Provider Internal Medicine Hematology & Oncology
DX: C83.13 Mantle cell lymphoma, intra-abdominal lymph nodes (principal)
CPT/HCPCS: 71260; 74177; Q9967

== ENCOUNTER 2023-10-07 09:22 | Outpatient (CLI) | payer MEDICARE, OTHER, SELFPAY ==
--- NOTE | 2023-10-24 22:06 | WPDSLEEPSTUD ---
Sleep Study Date of Study: 10/07/23 Ordering Provider: Christine Beck DO Interpreting Physician: Katelyn Putnam MD Sleep Study Type: Split Polysomnogram Height: 1.85 m Weight: 106.594 kg Body Mass Index: 30.9 Neck Circumference (inches): 15.5 [place]: 3 Reason for Sleep Study Hypersomnolence; narcolepsy Sleep History Min Toro is a 67-year-old man with a history of narcolepsy diagnosed in 2005 treated with armodafinil 250 mg since then. Armodafinil helps his symptoms. 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 Since 2018, he has had problems with his mind racing, not able to stop thinking when he is trying to go to sleep. He had a recurrence of lymphoma in June of 2023. His son has some of the narcolepsy symptoms that the patient has, however his son has not been evaluated. The patient answered the questions on this sleep questionnaire according to his symptoms while he is taking armodafinil 250 mg. If he were not to take armodafinil, he would have different responses including severe excessive daytime sleepiness, severe involuntary episodes of sleeping and frequent episodes of sleeping while driving. He would also have rare episodes of cataplexy, frequent episodes of sleep paralysis and frequent episodes of vivid dreamlike scenes upon awakening or falling asleep. He would frequently have nightmares as well as frequently remember his dreams. The patient stopped armodafinil for 3 days prior to this test. The patient never awakens from sleep feeling short of breath. He never wakes at night with heartburn, belching or coughing.??He occasionally snores, rarely snores loudly enough that others complain. He never has trouble sleeping when he has a cold. He never wakes up gasping for breath during the night. He never has breathing problems at night. He occasionally sweats excessively at night. He never notices his heart pounding or beating irregularly during the night. While taking armodafinil 250 mg, he never falls asleep during the day. He never falls asleep involuntarily, never falls asleep while driving. He never experiences loss of muscle tone with strong emotion. He never has daytime difficulty at work due to excessive sleepiness. He never feels paralyzed on waking or falling asleep. He occasional experiences vivid dreams upon waking or falling asleep. He never feels afraid of going to sleep. He rarely has nightmares. He frequently recalls his dreams. He frequently has thoughts racing through his mind. He rarely feels sad or depressed. He occasionally feels anxiety. He rarely notices parts of his body jerk. He never kicks during the night. He rarely feels crawling or aching feelings in his legs. He frequently feels leg pain at night. He never has morning jaw pain, rarely grinds his teeth at night. He constantly feels bothered by pain during the day, frequently awakened by pain during the night. He occasionally wakes up feeling stiff in the morning, and he occasionally wakes feeling sore or achy. He occasionally awakens with pain in his neck, spine, or joints. Normal bedtime is between 9:00 p.m. and 11:00 p.m., falling asleep almost instantly, probably within 3 minutes. He wakes once or maybe twice at night to urinate. He is able to return to sleep, wakes between 4:00 a.m. and 5:00 a.m.. His weekend schedule is the same. He is currently getting between 5 hours and 7 hours of sleep at night. When he was on armodafinil, he was getting closer to 8 hours of sleep at night. He takes no naps in the day. Habits:??Tobacco: never smoker Caffeine: 2-3 cups in the morning. Alcohol: none Recreational substances: none [facility] Past Medical History Medical History Acute parotitis Anxiety Calculus of kidney Cardiomegaly Cataracts, both eyes Chest pain, unspecified Chronic neck and b
[2023-10-24 22:52] VITALS: BMI 30.9
== END 2023-10-08 05:30 | disposition home or self-care (01) ==
LOC: ANHCSM 09:23
PROVIDERS: PCP Family Medicine; Visit Provider Family Medicine
DX: G47.33 Obstructive sleep apnea (adult) (pediatric) (principal); G47.10 Hypersomnia, unspecified; I10 Essential (primary) hypertension
CPT/HCPCS: 36415; 80047; 80053; 85025; 95811

== ENCOUNTER 2023-10-25 13:40 | Outpatient (CLI) | payer MEDICARE, OTHER, SELFPAY ==
--- NOTE | ~2023-10-25 | US_ITS ---
EXAMINATION: US arterial ankle brachial ind DATE: 10/25/2023 14:21 INDICATION: Peripheral vascular disease TECHNIQUE: Segmental pressures and plethysmographic and Doppler waveforms of the brachial and lower e xtremity arteries were obtained. COMPARISON: None. FINDINGS: Right and left brachial artery pressures of 115 mm Hg and 117 mm Hg, respectively, are concordant (no rmal difference <= 30 mmHg). The right ankle-brachial index (ROSE) is 1.19 (normal >= 0.9-1.0). The right great toe-brachial index (TBI) is 0.90 (normal >= 0.65). Arterial Doppler waveforms and biphasic with brisk systolic upstrokes at both right posterior tibial and dorsalis pedis arteries. The left ROSE is 1.12. The left TBI is 0.88. Arterial Doppler waveforms are biphasic with brisk systol ic upstrokes at both left posterior tibial and dorsalis pedis arteries. IMPRESSION: 1. No significant arterial occlusive disease to either lower limb with normal bilateral ABIs and TBIs Reviewed, dictated and finalized at location A. IMPRESSION: 1. No significant arterial occlusive disease to either lower limb with normal b ilateral ABIs and TBIs
== END 2023-10-25 13:41 | disposition home or self-care (01) ==
PROVIDERS: PCP Family Medicine; Visit Provider Family Medicine
DX: I73.9 Peripheral vascular disease, unspecified (principal)
CPT/HCPCS: 36415; 82784; 93922

== ENCOUNTER 2024-04-15 09:23 | Outpatient (CLI) | payer MEDICARE, OTHER, SELFPAY ==
[2024-04-15 17:37] LABS: Alanine Aminotransferase 49 U/L (6-50); Albumin Level 4.3 g/dL (3.5-5.1); Alkaline Phosphatase 99 U/L (38-126); Anion Gap 5 mmol/L (4-12); Aspartate Amino Transferase 68 U/L (17-59); Bilirubin,Total 0.8 mg/dL (0.2-1.3); Blood Urea Nitrogen 18 mg/dL (9-20); Calcium 9.3 mg/dL (8.4-10.2); Carbon Dioxide 32 mmol/L (22-30); Chloride 99 mmol/L (98-107); Cholesterol 166 mg/dL (0-200); Estimated Glomerular Filt Rate > 60; Glucose 88 mg/dL (65-110); HDL Direct 47 mg/dL; Potassium 4.6 mmol/L (3.4-5.0); Sodium 136 mmol/L (137-145); Triglycerides 89 mg/dL (<150)
[2024-04-15 17:48] LABS: LDL Cholesterol Direct 89 mg/dL
[2024-04-15 18:40] LABS: Hemoglobin A1C 5.7 % (<5.7)
== END 2024-04-15 09:24 | disposition home or self-care (01) ==
PROVIDERS: PCP Family Medicine; Visit Provider Internal Medicine Hematology & Oncology
DX: E78.2 Mixed hyperlipidemia (principal); R73.03 Prediabetes; I10 Essential (primary) hypertension; R53.83 Other fatigue
CPT/HCPCS: 36415; 80053; 80061; 83036; 84443

== ENCOUNTER 2024-06-15 08:25 | Outpatient (CLI) | payer MEDICARE, OTHER, SELFPAY ==
--- NOTE | ~2024-06-15 | CT_ITS ---
EXAMINATION: CT soft tiss nk chst ab pel w DATE: 06/15/2024 08:58 INDICATION: Mantle cell lymphoma. TECHNIQUE: Computed tomography (CT) of the neck, chest, abdomen, and pelvis was performed without int ravenous contrast. Automated exposure control and iterative reconstruction technique were employed. T he dose-length product was 2278.25 mGy-cm. COMPARISON: CT chest, abdomen, and pelvis 09/30/2023, neck CT 09/05/2018 FINDINGS: NECK CT: There are likely changes of ocular lens replacement surgeries. There are no pathologically enlarged l ymph nodes. There is a 2.8 x 1.6 cm mass in right parotid gland. CHEST CT: A calcified right lung nodule and calcified right hilar and mediastinal lymph nodes are consistent wi th old granulomatous disease. There is dependent atelectasis bilaterally. There is mild emphysema. No pleural effusion. The heart size is normal. No pericardial effusion. There is a left internal jugula r port with tip in the superior vena cava. There is mild bilateral gynecomastia. There is mild thorac ic spondylosis. ABDOMEN/PELVIS CT: The liver, gallbladder, spleen, pancreas, and adrenal glands are normal. There is cortical thinning o f the kidneys. There is a 3.7 cm cyst in left kidney. There are bilateral inguinal hernias containing fat. There is diverticulosis of the colon without evidence of diverticulitis. The appendix is normal . There are no dilated loops of bowel. There are no pathologically enlarged lymph nodes. There is no free intraperitoneal fluid. There are changes of anterior and posterior fusion procedures from L4 to S1 with interbody devices and pedicle screws. There is severe lumbar spondylosis. IMPRESSION: 1. 2.8 cm mass in right parotid gland, new from 09/05/2018. The differential diagnosis includes benign mixed tumor, Warthin tumor, primary malignancy, and domenica metastatic disease. Ultrasound-guided fine- needle aspiration is recommended. Reviewed, dictated and finalized at location A. [facility]ER IMPRESSION: 1. 2.8 cm mass in right parotid gland, new from 09/05/2018. The differential diag nosis includes benign mixed tumor, Warthin tumor, primary malignancy, and domenica metastatic disease. Ultrasound-guided fine-needle aspiration is recommended.
== END 2024-06-15 08:26 | disposition home or self-care (01) ==
PROVIDERS: PCP Family Medicine; Visit Provider Internal Medicine Hematology & Oncology
DX: K11.8 Other diseases of salivary glands (principal); C83.10 Mantle cell lymphoma, unspecified site; R59.0 Localized enlarged lymph nodes
CPT/HCPCS: 70491; 71260; 74177; Q9967

== ENCOUNTER 2024-07-15 12:33 | Outpatient (CLI) | payer MEDICARE, OTHER, SELFPAY ==
--- NOTE | ~2024-07-15 | US_ITS ---
EXAMINATION: US FNA w image guidance DATE: 07/15/2024 13:25 INDICATION: Right parotid mass. TECHNIQUE: The procedure and its benefits and risks were discussed with the patient. Risks specifically discusse d included bleeding. The patient verbalized understanding of the risks and agreed to proceed. The nec k was prepped and draped in the usual sterile manner. 1% lidocaine was used for local anesthesia. 6 passes were made with a 25G needle into the lesion under ultrasound guidance. There were no immedia te complications. FINDINGS: Grayscale ultrasound images demonstrate needles advanced into a 3.0 cm heterogeneously hypoechoic mas s in superficial right parotid gland for biopsy. IMPRESSION: 1. Ultrasound-guided fine needle aspiration of a right parotid mass. Reviewed, dictated and finalized at location A. INE TACK PULLER
--- OUTSIDE RECORDS SUMMARY | 2024-07-15 12:38 | XMS_ITS | Encounter Summary ---
Author Organization [facility] Address 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 Gender Identity Not on file Sexual Orientation Not on file documented as of this encounter Plan of Treatment Upcoming Encounters Date Type Department Care Team (Late st Contact Info) Description 07/22/2024 4:30 PM WIRELESS NETWORK ENGINEER Telephone Check Up [facility] Oncology and Hematology [facility] [address] [place] [address] Robbi Tripathi MD [address] [facility] [address] [place] [id number] 08/21/2024 10:45 AM CDT Office Visit [facility] Oncology and Hematology [facility] [address] [place] [address] Robbi Tripathi MD [address] [facility] [address] [place] [id number] documented as of this encounter Visit Diagnoses Diagnosis Displacement of lumbar intervertebral disc without myelopathy- Primary documented in this encounter Care Teams Solder Making Supervisor Relationship Specialty Start Date End Date Melanie Chavez MD [address] [place] [address] PCP - General Family Practice 09/12/18 documented as of this encounter
--- OUTSIDE RECORDS SUMMARY | 2024-07-15 12:38 | XMS_ITS | Encounter Summary ---
Author Organization [facility] Address [address] [place] [address] Care Team Providers Care Quality Assurance Supervisor Body Name Role Phone Melanie Chavez MD Primary Care Provider [phone] Encounter Details Date Type Department Care Team (Late Contact Info) Description 06/28/1999 Outpatient [facility] Division of [facility]rology [address] [facility] [address] [address] (Excluded Provider) [place] [address] [facility] [address] [place] [address] Social History Tobacco Use Types Packs/Day Years Used Date Smoking Tobacco: Never Assessed Sex and Gender Information Value Date Recorded Sex Assigned at Not on file Legal Sex Male 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 Gender Identity Not on file Sexual Orientation Not on file documented as of this encounter Plan of Treatment Upcoming Encounters Date Type Department Care Team (Late Contact Info) Description 07/22/2024 4:30 PM EMERGENCY VETERINARY TECHNICIAN Telephone Check Up [facility] Oncology and Hematology [place] [address] [place] [address] Robbi Tripathi MD [address] [facility] [address] [place] [address] 08/21/2024 10:45 AM CDT Office Visit [facility] Oncology and Hematology [place] [address] [place] [address] Robbi Tripathi MD [address] [id number] documented as of this encounter Visit Diagnoses Not on filedocumented in this encounter Care Teams Quality Assurance Supervisor Body Relationship Specialty Start Date End Date Melanie Chavez MD [address] [place] [address] PCP - General Family Practice 09/12/18 documented as of this encounter
--- OUTSIDE RECORDS SUMMARY | 2024-07-15 12:38 | XMS_ITS | Clinical Summary ---
Author Organization [facility] Address Replaced by [facility] [place] [address] Care Team Providers Care Methodologist Name Role Phone Melanie Chavez MD Primary Care Provider [phone] Allergies Active Allergy Reactions Criticality Noted Date Comments Adhesive Rash Medium 04/17/2016 Medications hydroCHLOROthia zide (HYDRODIURIL) 12.5 mg tablet take 1 tablet by oral route every day 0 09/29/2010 Active diazePAM (VALIUM) 10 mg tablet take 1 tablet (10MG) by oral route every day as needed 0 09/29/2010 Active lisinopril (PRINIVIL,ZESTR IL) 10 mg tablet take 1 tablet by oral route every day 0 09/29/2010 Active armodafinil (NUVIGIL) 250 mg tablet take 1 by Oral route every day 0 09/29/2010 Active traMADol (ULTRAM) 50 mg tablet take 1 tablet (50MG) by oral route every 6 hours as needed 0 09/29/2010 Active naproxen (NAPROSYN) 500 mg tablet Take 1 tablet (500 mg total) by mouth 2 (two) times a day 02/06/2022 Active cyclobenzaprine (FLEXERIL) 10 mg tablet 1 tablet (10 mg total) 04/03/2022 Active zolpidem (AMBIEN) 10 mg tablet TAKE 1 TABLET(10 MG) BY MOUTH EVERY NIGHT NEEDED FOR INSOMNIA 04/02/2022 Active tamsulosin (FLOMAX) 0.4 mg extended release capsule Take 1 capsule (0.4 mg total) by mouth daily 01/31/2022 Active Active Problems Problem Noted Date Diagnosed Date Hypogammaglobulinemia 03/11/2020 Non morbid obesity due to excess calories 2016 Benign hypertension 04/17/2016 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 Mantle cell lymphoma 04/17/2016 Osteoarthritis of lumbar spine 09/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 Lumbago 12/08/2012 Carpal tunnel syndrome 04/11/2012 Spinal stenosis of cervical region 10/12/2011 Cervical disc disorder with myelopathy 2 Cervicalgia 10/08/2011 Immunizations Name Administration Dates Next Due Influenza, Quadrivalent, Raina l Culture-based MDCK, Preservative Free, Antibiotic Free, Intramuscular 06/04/2017 Influenza, Unspecified 06/03/2015 Tetanus Toxoid, Unspecified 06/03/2013 Surgical History Surgery Date Site/Laterality Comments SPINE SURGERY Medical History Medical History Date Comments Hypertension Hypertension Hx Other Medical Back Pain Adiposity Obesity Anemia Cancer (CMS/HCC) (HCC) Disc disorder of lumbar region Lumbar stenosis Family History Medical History Relation Name Comments Other Brother 2 Renal Cell Canc er; Cancer Father Mitral valve prolapse Father Multip le Myeloma; Cancer Mother Hypertension Mother Relation Name Status Comments Brother 1 Alive Brother 2 Father Alive Mother Social History Tobacco Use Types Packs/Day Years Used Date Smoking Tobacco: Former Cigarettes 1 6 2001 Tobacco Cessation:Counseling Given: Not Answered AUDIT-C Answer Date Recorded Q1: How often do you have a drink containing alcohol? Never 04/16/2022 Q2: How many drinks containi ng alcohol do you have on a typical day when you are drinking? Patient does not drink Q3: How often do you have si x or more drinks on one occasion? Never 04/16/2022 Sex and Gender Information Value Date Recorded Sex Assigned at Not on file Legal Sex Male 5:48 AM CORPORATE TRAINER Gender Identity Not on file Sexual Orientation Not on file Obstetrics History Last Filed Vital Signs Vital Sign Reading Time Taken Comments Blood Pressure 116/78 04/16/2022 9:31 AM CORPORATE TRAINER Pulse 83 04/16/2022 9:31 AM CORPORATE TRAINER Temperature - - Respiratory Rate - - Oxygen Saturation 96% 08/11/2013 12: 30 PM CDT Inhaled Oxygen Concentration - - Weight 113.2 kg (249 lb 9.6 oz) 04/16/2022 9:31 AM CORPORATE TRAINER Height 185.4 cm (6' 1 ) 04/16/2022 9:31 AM CORPORATE TRAINER Body Mass Index 32.93 04/16/2022 9:31 AM CORPORATE TRAINER Plan of Treatment Health Maintenance Due Date Last Done Comments Colon Cancer Screening-Colonoscopy 1955 Depression Screening 1956 Fall Risk Assessment 1956 Hepatitis C Screening 1956 Prostate Cancer Screening-PSA 1956 Pneumococcal vaccine 65+ (1 of 2 - PCV) 1962 DTaP/Tdap/Td Vaccine (1 - Tdap) 12/31/1967 Hepatitis B Screening 1974 Zoster Vaccine (1 of 2) 12/31/1975 Abdominal Aortic Aneurysm (AAA) Screen 2021 Well Visit 65+ 2021 Influenza Vaccine (#1) 2024 06/04/2017, 2015 Insurance MEDICARE [facility] Address: [facility] [address] [place] [address] [facility] [address] [place] [id number] MEDICARE [employer] [facility] Care Teams Methodologist Relationship Specialty Start Date End Date Melanie Chavez MD PCP - General Family Medicine 03/09/22
--- OUTSIDE RECORDS SUMMARY | 2024-07-15 12:38 | XMS_ITS | Encounter Summary ---
Author Organization [facility] Address [address] [place] [address] Care Team Providers Care Railroad Car Repair Supervisor Name Role Phone Melanie Chavez MD Primary Care Provider [phone] Encounter Details Date Type Department Care Team (Latest Contact Info) Description 01/10/2005 Outpatient Historical [facility] BackerAkhil MD NO ADDRESS ON FILE LUMBAR DISC DISPLACEMENT (Primary Dx) Social History Tobacco Use Types Packs/Day Years Used Date Smoking Tobacco: Never Assessed Sex and Gender Information Value Date Recorded Sex Assigned at Not on file Legal Sex Male 4:57 AM TENT ASSEMBLER Gender Identity Not on file Sexual Orientation Not on file documented as of this encounter Plan of Treatment Upcoming Encounters Date Type Department Care Team (Late st Contact Info) Description 07/22/2024 4:30 PM TENT ASSEMBLER Telephone Check Up [facility] Oncology and Hematology [facility] [address] [place] [address] Robbi Tripathi MD [address] [facility] [employer] [address] [place] [address] 08/21/2024 10:45 AM CDT Office Visit [facility] Oncology and Hematology [facility] [address] [place] [address] Robbi Tripathi MD [address] [facility] [employer] [address] [place] [phone] documented as of this encounter Procedures Procedure Name Priority Date/Time Associated Diagnosis Comments HEMOGLOBIN AND HEMATOCRIT Routine 01/05/2005 3:12 PM CDT documented in this encounter Results * HEMOGLOBIN AND HEMATOCRIT (01/05/2005 3:12 PM CDT) HEMOGLOBIN 14.1 13.6 - 16.5 g/dL INTERFACE SYSTEM HEMATOCRIT 41.7 40.0 - 48.0 % INTERFACE SYSTEM 01/05/2005 3:12 PM CDT us Akhil Van MD HEMATOLOGY ORDERABLES Final R esult INTERFACE SYSTEM Refer to clinic/hospital department documented in this encounter Visit Diagnoses Diagnosis Displacement of lumbar intervertebral disc without myelopathy- Primary documented in this encounter Care Teams Railroad Car Repair Supervisor Relationship Specialty Start Date End Date Melanie Chavez MD [address] [place] [id number] PCP - General Family Practice 09/12/18 documented as of this encounter
--- OUTSIDE RECORDS SUMMARY | 2024-07-15 12:38 | XMS_ITS | Clinical Summary ---
Author Organization [facility] Address [address] [place] [address] Care Team Providers Care Labor Relations Or Personnel Negotiator Name Role Phone Mohan Daly MD Primary Care Provider [phone] Source Comments [facility],non-owned Affiliates and Associated Physician Practices is amultiple site organization consisting of ambulatory clinics and hospital sitesin [place], [place], [place] and [place]. This disclosure is being madepursuant to the Care Everywhere program and may not contain all information available regarding this patient. Last updated 18.[facility] [employer] Social History Tobacco Use Types Packs/Day Years Used Date Smoking Tobacco: Never Assessed Sex and Gender Information Value Date Recorded Sex Assigned at Not on file Gender Identity Not on file Sexual Orientation Not on file Plan of Treatment Health Maintenance Due Date Last Done Comments COLOGUARD (AGES 45-75) - COL ON CA SCREENING 1956 COLON MONITORING 1956 COLONOSCOPY - COLON CA SCREENING 1956 CT COLONOGRAPHY - COLON CA SCREENING 1956 Colorectal Cancer Screening 1956 FIT - COLON CA SCREENING 1956 FLEX SIG - COLON CA SCREENING 1956 LIPID TESTING 1956 MEDICARE AWV 12 MONTHS 1956 HEPATITIS C SCREENING 12/26/1974 DTAP/TDAP/TD VACCINES (1 - Tdap) 12/31/1975 PNEUMOCOCCAL VACCINE 50+ (1 of 1 - PCV) 2006 ZOSTER VACCINE (1 of 2) 2006 COVID-19 VACCINE (1 - 2023-2 5 season) 2024 INFLUENZA VACCINE (#1) 2024 DEPRESSION SCREENING 06/03/2024 Respiratory Syncytial Virus (RSV) Vaccine Pt: or over 60 yrs (1 - 1-dose 75+ series) 12/31/2031 HEPATITIS B VACCINE Aged Out No longe r eligible based on patient's age to complete this topic HIB VACCINE Aged Out No longer eligi ble based on patient's age to complete this topic HPV VACCINE Aged Out No longer eligi ble based on patient's age to complete this topic MENINGOCOCCAL (Group B) VACCINE Aged Out No longer eligible based on patient's age to complete this topic MENINGOCOCCAL VACCINE Aged Out No dago lula eligible based on patient's age to complete this topic Care Teams Labor Relations Or Personnel Negotiator Relationship Specialty Start Date End Date Mohan Daly MD [facility] [place] [address] PCP - General 03/12/08
--- OUTSIDE RECORDS SUMMARY | 2024-07-15 12:38 | XMS_ITS | Encounter Summary ---
Author Organization [facility] Address [address] [place] [address] Care Team Providers Care Printing Supervisor Name Role Phone Melanie Chavez MD Primary Care Provider [phone] Encounter Details Date Type Department Care Team (Latest Contact Info) Description 07/19/1999 Outpatient Historical [facility] Akhil Tiwari Disturbance of skin sensation (Primary Dx) Social History Tobacco Use Types Packs/Day Years Used Date Smoking Tobacco: Never Assessed Sex and Gender Information Value Date Recorded Sex Assigned at Not on file Legal Sex Male 4:57 AM CRAPS MANAGER Gender Identity Not on file Sexual Orientation Not on file documented as of this encounter Plan of Treatment Upcoming Encounters Date Type Department Care Team (Late st Contact Info) Description 07/22/2024 4:30 PM CRAPS MANAGER Telephone Check Up [facility] Oncology and Hematology [facility] [address] [place] [address] Robbi Tripathi MD [address] [employer] [address] [place] [phone] 08/21/2024 10:45 AM CDT Office Visit [facility] Oncology and Hematology [facility] [address] [place] [address] Robbi Tripathi MD [address] [employer] [address] [place] [phone] documented as of this encounter Visit Diagnoses Diagnosis Disturbance of skin sensation- Primary documented in this encounter Care Teams Printing Supervisor Relationship Specialty Start Date End Date Melanie Chavez MD [address] [place] [address] PCP - General Family Practice 09/12/18 documented as of this encounter
--- OUTSIDE RECORDS SUMMARY | 2024-07-15 12:38 | XMS_ITS | Encounter Summary ---
Author Organization [facility] Address [address] [place] [address] Care Team Providers Care Phosphorus Processing Supervisor Name Role Phone Melanie Chavez MD Primary Care Provider [phone] Encounter Details Date Type Department Care Team (Late st Contact Info) Description 04/26/2004 Outpatient Historical [facility] Support [facility]. ([facility]) [address] [place] [address] Miguel Carias Social History Tobacco Use Types Packs/Day Years Used Date Smoking Tobacco: Never Assessed Sex and Gender Information Value Date Recorded Sex Assigned at Not on file Legal Sex Male 4:57 AM GREEN MEAT PACKER Gender Identity Not on file Sexual Orientation Not on file documented as of this encounter Plan of Treatment Upcoming Encounters Date Type Department Care Team (Late st Contact Info) Description 07/22/2024 4:30 PM GREEN MEAT PACKER Telephone Check Up [facility] Oncology and Hematology - [facility] [address] [place] [address] Robbi Tripathi MD [facility] [employer] [address] [place] [phone] 08/21/2024 10:45 AM CDT Office Visit [facility] Oncology and Hematology - [facility] [address] [place] [address] Robbi Tripathi MD [address] [employer] [address] [place] [phone] documented as of this encounter Visit Diagnoses Not on filedocumented in this encounter Care Teams Phosphorus Processing Supervisor Relationship Specialty Start Date End Date Melanie Chavez MD [address] [place] [address] PCP - General Family Practice 09/12/18 documented as of this encounter
--- OUTSIDE RECORDS SUMMARY | 2024-07-15 12:38 | XMS_ITS | Encounter Summary ---
Author Organization [facility] Address [address] [facility] [place] [address] Care Team Providers Care Pharmacy Sales Assistant Name Role Phone Mohan Daly MD Primary Care Provider [phone] Encounter Details Date Type Department Care Team (Late st Contact Info) Description 06/14/2022 Lab Requisition [facility] Pathology Lab [address] [place] [address] Luiza Moncada MD [address] [place] [address] Mantle cell lymphoma, intra-abdominal lymph nodes (HCC) Social History Tobacco Use Types Packs/Day Years Used Date Smoking Tobacco: Never Assessed Sex and Gender Information Value Date Recorded Sex Assigned at Not on file Gender Identity Not on file Sexual Orientation Not on file documented as of this encounter Plan of Treatment Not on file documented as of this encounter Procedures Procedure Name Priority Date/Time Associated Diagnosis Comments FLOW CYTOMETRY BONE MARROW Routine 06/14/2022 8:30 AM DEPENDENCY PROGRAM DIRECTOR Mantle cell lymphoma, intra-abdominal lymph nodes (CMS/HCC) documented in this encounter Results * FLOW CYTOMETRY BONE MARROW (06/14/2022 8:30 AM DEPENDENCY PROGRAM DIRECTOR) Case Report Flow Cytometry Case: [id number] Authorizing Provider: Luiza Moncada MD Collected: 06/14/2022 08:30 AM Ordering Location: [facility] Pathology Lab Received: 06/14/2022 03:26 PM Pathologist: Kelsea Navarro Mai, DO Specimen: Bone Marrow, L Hip 06/14/2022 6:00 PM [facility] PATHOLOGY LAB Final Diagnosis Bone marrow, flow cytometric immunophenotypic analysis: - CD5-positive mature B-cell leukemia/lymphoma - See interpretation 06/14/2022 6:00 PM [facility] PATHOLOGY LAB Flow Cytometry Interpretation The bone marrow specimen has a viability of 93%. Within the lymphocyte gate, there is a CD5-positive, lambda restricted B-cell population expressing CD19, and CD20 (moderate). These cells lack/show no significant expression of CD10, CD23, CD34 and kappa light chains. There is no expanded T-cell population seen. By CD34, 0.5% of all events analyzed are blasts. A bone marrow aspirate smear prepared from the flow cytometry specimen is reviewed for quality analyst/technical writer purposes. The sample shows a minute marrow particle. The bone marrow aspirate specimen shows involvement by a CD5-positive mature B-cell leukemia/lymphoma. The patient's diagnosis of mantle cell lymphoma is noted and the immunophenotypic findings are compatible with the diagosis. Correlation with clinical findings, the concurrent bone marrow core biopsy (accession number pending), and relevant cytogenetic/molecu lar studies is required. 06/14/2022 6:00 PM [facility] PATHOLOGY LAB Flow Cytometry Results Differential Result Comment Flow Cell Count /uL 26,700 Total Viability % 93.0 Lymphocytes % 31 Dim CD45 Region % 6 Monocytes % 7 Granulocytes % 56 06/14/2022 6:00 PM [facility] PATHOLOGY LAB Reason for test Mantle cell lymphoma, intra-abdominal lymph nodes (CMS/HCC) 200.43 06/14/2022 6:00 PM [facility] PATHOLOGY LAB Client Specimen ID # [id number] 06/14/2022 6:00 PM [facility] PATHOLOGY LAB Number of markers 10 were performed. A-1 Flow CD3 A-3 Flow CD10 A-5 Flow CD20 A-6 Flow CD23 A-2 Flow CD5 A-4 Flow CD19 A-7 Flow CD34 A-8 Flow CD45 A-9 [place]+CD19+ A-10 Lambda+CD19+ 06/14/2022 6:00 PM [facility] PATHOLOGY LAB Disclaimer Test performed at [facility], [address] [place] [address], [id number]. *The established laboratory minimum viability is 70%. Values below the minimum may result in the failure to find an abnormal population of cells. This test was developed and its performance characteristics determined by the Flow Cytometry Laboratory. It has not been cleared by the [place] Food and Drug Administration (FDA). The FDA has determined that such clearance or approval is not necessary. This test is used for clinical purposes. It should not be regarded as investigational or for research. This laboratory is regulated under the Clinical Laboratory Improvement Amendments of 1998 (CLIA) as a qualified to perform high complexity clinical testing. 06/14/2022 6:00 PM DEPENDENCY PROGRAM DIRECTOR [facility] PATHOLOGY LAB Embedded Images 6:00 PM DEPENDENCY PROGRAM DIRECTOR [facility] PATHOLOGY LAB Pathology/Cytolo gy BONE MARROW SPECIMEN / Unknown 06/14/2022 8:30 AM DEPENDENCY PROGRAM DIRECTOR 06/14/2022 3:26 PM DEPENDENCY PROGRAM DIRECTOR Luiza Moncada MD LAB - PATHOLOGY/CYTO LOGY ORDERABLES Performing Organization Address City/State/[facility] Phone Number [facility] PATHOLOGY LAB [address] [phone] documented in this encounter Visit Diagnoses Diagnosis Mantle cell lymphoma, intra-abdominal lymph nodes (HCC) Mantle cell lymphoma, intra-abdominal lymph nodes documented in this encounter Care Teams Pharmacy Sales Assistant Relationship Specialty Start Date End Date Mohan Daly MD [address] [place] [phone] PCP - General 03/12/08 documented as of this encounter
--- OUTSIDE RECORDS SUMMARY | 2024-07-15 12:38 | XMS_ITS | Encounter Summary ---
Author Organization [facility] Address [address] [facility] [place] [address] Care Team Providers Care Lab Coordinator Name Role Phone Mohan Daly MD Primary Care Provider [phone] Encounter Details Date Type Department Care Team (Late st Contact Info) Description 06/18/2022 Lab Requisition [facility] Pathology Lab [address] [place] [address] Luiza Moncada MD [address] [place] [address] Illness, unspecified Social History Tobacco Use Types Packs/Day Years Used Date Smoking Tobacco: Never Assessed Sex and Gender Information Value Date Recorded Sex Assigned at Not on file Gender Identity Not on file Sexual Orientation Not on file documented as of this encounter Plan of Treatment Not on file documented as of this encounter Procedures Procedure Name Priority Date/Time Associated Diagnosis Comments BONE MARROW BIOPSY (STL) Routine 06/14/2022 8:30 AM ENGINEER INTERN Illness, unspecified documented in this encounter Results * BONE MARROW BIOPSY (STL) (06/14/2022 8:30 AM ENGINEER INTERN) Case Report Bone Marrow Patholog y Report Case: [id number] Authorizing Provider: Luiza Moncada MD Collected: 06/14/2022 08:30 AM Ordering Location: [facility] Pathology Lab Received: 06/18/2022 09:02 AM Pathologist: Ilene Nguyen MD Specimens: A) - Bone Marrow Clot B) - Bone Marrow Core 06/18/2022 4:[address] [facility] Final Diagnosis Bone marrow, aspirate, clot section, and core biopsy: - Variably cellular marrow with maturing trilineage hematopoiesis and ~30% involvement by mantle cell lymphoma. - See description. Peripheral blood smear: - Leukopenia. - Normochromic, normocytic anemia. - See description. 06/18/2022 4:[address] [facility] Comment Overall, the bone marrow specimen is variably cellular with foci of maturing trilineage hematopoiesis. There is extensive involvement by recurrent/residual mantle cell lymphoma, estimated to comprise 30% of the marrow cellularity by immunohistochemistry. Correlation with clinical findings and relevant cytogenetic/molecular testing is required. 06/18/2022 4:[address] [facility] Peripheral Smear Description CBC Data: WBC - 4.1, Hgb - 10.7, MCV - 91.1, MCHC - 32.8, and Platelets - 150. Manual Differential Count (100 cells): 76% neutrophils, 13% lymphocytes, 10% monocytes, and 1% eosinophils. Leukocyte number: decreased. Granulocyte morphology: normal. Lymphocyte morphology: normal. Erythrocyte number: decreased. Erythrocyte morphology: normochromic/normocyti c. Anisopoikilocytosis: not significant. Polychromasia: not significant. Platelet number: normal. Platelet morphology: normal. 06/18/2022 4:[address] [facility] Bone Marrow Aspirate Differential count (200 cells): 32% maturing myeloid precursors, 38% erythroid progenitors, 0.5% monocytes, 1.5% eosinophils, and 28% lymphocytes. Specimen quality: suboptimal. Spicules: few and small. Trilineage Hematopoiesis: present, but limited megakaryocytes present. Myeloid:Erythroid ratio: 0.9:1. Myeloid Maturation: normal. Erythroid Maturation: normal. Megakaryocyte morphology: too few to assess. Lymphocytes are small and mature in morphology. Storage iron (by special stain): focal, but limited by small, rare spicule. 06/18/2022 4:[address] [facility] Bone Marrow Core Biopsy and Clot Section Description Specimen quality: The decalcified bone marrow core biopsy is adequate with 1.7 cm of evaluable marrow. Cellularity: variable; areas of residual normal hematopoiesis are normocellular, estimated 30%; areas of lymphoid infiltrate are essentially 100% cellular. Trilineage Hematopoiesis: present. Myeloid to Erythroid ratio: normal. Myeloid maturation and localization: normal. Erythroid maturation and localization: normal. Megakaryocyte number: normal. Megakaryocyte distribution: normal. Lymphoid aggregates: present, comprised of small lymphocytes. Core biopsy iron (by special stain): decreased. Clot section marrow particles: few. Clot section morphology: similar to core biopsy. Given the suboptimal aspirate smears and the degree of core involvement by lymphoma, immunohistochemistry is performed to further characterize the infiltrate. Controls are appropriately reactive. The lymphoid aggregates and infiltrate is positive for CD20, CD5, cyclin D1, and SOX-11. CD23 is negative. CD3 and CD5 are expressed by admixed T-cells. RZ47-vplspxzh B-cells are estimated to comprise 30% of the marrow cellularity. 06/18/2022 4:[address] [facility] Flow Cytometry Summary Concurrent flow cytometry ([id number]) shows a CD5-positive mature B-cell leukemia/lymphoma. 06/18/2022 4:[address] [facility] Clinical History History of mantle cell lymphoma; last treatment in 2018. 06/18/2022 4:[address] [facility] Materials Received Received are 21 slides and three blocks (A1, A2, B1) labeled [id number] along with a copy of the outside pathology report. [place] [address]. All original materials are returned to the referring institution, along with a copy of our final report. 06/18/2022 4:[address] [facility] Disclaimer The performance characteristics of all immunohistochemical and indirect immunofluorescence stains (if any) cited in this report were determined by the Histopathology Laboratory of [facility]. Some of these tests were developed by our own laboratory and have not been cleared or approved by the US Food and Drug Administration. The FDA does not require this test to go through premarket FDA review. These tests are used for clinical purposes. They should not be regarded as investigational or for research. This laboratory is certified under the Clinical Laboratory Improvement Amendments (CLIA) as qualified to perform high complexity clinical laboratory testing. This case has been personally reviewed and interpreted by the attending (teaching) pathologist. The interpretation of this case is performed by [facility], [address] [place] [address]. 06/18/2022 4:38 PM ENGINEER INTERN [facility] Embedded Images 06/18/2022 4:38 PM ENGINEER INTERN [facility] Pathology/Cytology BONE MARROW SPECIMEN / Unknown 06/14/2022 8:30 AM ENGINEER INTERN 06/18/2022 9:02 AM ENGINEER INTERN Miscellaneous samples (specimen) BONE MARROW SPECIMEN / Unknown 06/14/2022 8:30 AM ENGINEER INTERN 06/18/2022 9:02 AM ENGINEER INTERN Luiza Moncada MD LAB - PATHOLOGY/CYTO LOGY ORDERABLES [facility] [address] [phone] documented in this encounter Visit Diagnoses Diagnosis Illness, unspecified documented in this encounter Care Teams Lab Coordinator Relationship Specialty Start Date End Date Mohan Daly MD [address] [place] [address] PCP - General 03/12/08 documented as of this encounter
--- OUTSIDE RECORDS SUMMARY | 2024-07-15 12:38 | XMS_ITS | Encounter Summary ---
Author Organization [facility] Address [address] [place] [address] Care Team Providers Care Manager Database Name Role Phone Melanie Chavez MD Primary Care Provider Encounter Details Date Type Department Care Team (Late Contact Info) Description 07/18/1999 Outpatient Historical HIS MRI DEPT (Excluded Provider) [place] [address] [facility] [address] [place], [place] [id number] Neuralgia, neuritis, and radiculitis, unspecified (Primary Dx) Social History Tobacco Use Types Packs/Day Years Used Date Smoking Tobacco: Never Assessed Sex and Gender Information Value Date Recorded Sex Assigned at Not on file Legal Sex Male 4:57 AM INDUSTRIAL CHEMISTRY TEACHER Gender Identity Not on file Sexual Orientation Not on file documented as of this encounter Plan of Treatment Upcoming Encounters Date Type Department Care Team ([facility] Contact Info) Description 07/22/2024 4:30 PM INDUSTRIAL CHEMISTRY TEACHER Telephone Check Up [facility] Oncology and Hematology - [address] [place] [address] Robbi Tripathi MD [address] [facility] [address] [place] [address] 08/21/2024 10:45 AM CDT Office Visit [facility] Oncology and Hematology [address] [place] [address] Robbi Tripathi MD [address] [address] documented as of this encounter Visit Diagnoses Diagnosis Neuralgia, neuritis, and radiculitis, unspecified- Primary documented in this encounter Care Teams Manager Database Relationship Specialty Start Date End Date Melanie Chavez MD [address] [place] [address] PCP - General Family Practice 09/12/18 documented as of this encounter
--- OUTSIDE RECORDS SUMMARY | 2024-07-15 12:38 | XMS_ITS | Referral Summary ---
Author Organization [facility] Address [address] [facility] [place] [place] [address] Care Team Providers Care Technical Designer Name Role Phone Mohan Daly MD Primary Care Provider [phone] Source Comments [facility],non-owned Affiliates and Associated Physician Practices is amultiple site organization consisting of ambulatory clinics and hospital sitesin [place], [place], [place] and [place]. This disclosure is being madepursuant to the Care Everywhere program and may not contain all information available regarding this patient. Last updated 18.[facility] Social History Tobacco Use Types Packs/Day Years Used Date Smoking Tobacco: Never Assessed Sex and Gender Information Value Date Recorded Sex Assigned at Not on file Gender Identity Not on file Sexual Orientation Not on file Plan of Treatment Not on file Care Teams Technical Designer Relationship Specialty Start Date End Date Mohan Daly MD [address] [place] [address] PCP - General 03/12/08
--- OUTSIDE RECORDS SUMMARY | 2024-07-15 12:38 | XMS_ITS | Encounter Summary ---
Author Organization [facility] Address [address] [place] [address] Care Team Providers Care Ring Rolling Machine Operator Name Role Phone Melanie Chavez MD Primary Care Provider [phone] Encounter Details Date Type Department Care Team (Late Contact Info) Description 02/03/2004 Outpatient Historical [facility] MRI DEPT Jacob Arshad MD [address] [place] [address] BACKACHE NOS (Primary Dx) Social History Tobacco Use Types Packs/Day Years Used Date Smoking Tobacco: Never Assessed Sex and Gender Information Value Date Recorded Sex Assigned at Not on file Legal Sex Male 4:57 AM PREPRINT ANALYST Gender Identity Not on file Sexual Orientation Not on file documented as of this encounter Plan of Treatment Upcoming Encounters Date Type Department Care Team ([facility] Contact Info) Description 07/22/2024 4:30 PM PREPRINT ANALYST Telephone Check Up [facility] Oncology and Hematology - [address] [place] [address] Robbi Tripathi MD [address] [employer] [address] [place] [address] 08/21/2024 10:45 AM CDT Office Visit [facility] Oncology and Hematology - [address] [place] [address] Robbi Tripathi MD [address] [employer] [address] [place] [address] documented as of this encounter Visit Diagnoses Diagnosis Backache, unspecified- Primary documented in this encounter Care Teams Ring Rolling Machine Operator Relationship Specialty Start Date End Date Melanie Chavez MD [address] [place] [address] PCP - General Family Practice 09/12/18 documented as of this encounter
--- OUTSIDE RECORDS SUMMARY | 2024-07-15 12:38 | XMS_ITS | Referral Summary ---
Author Organization [facility] Address [address] [place] [address] Care Team Providers Care Typewriter Aligner Name Role Phone Melanie Chavez MD Primary Care Provider [phone] Allergies Active Allergy Reactions Criticality Noted Date [...] Influenza, Unspecified 06/03/2015 Tetanus Toxoid, Unspecified 06/03/2013 Social History Tobacco Use Types Packs/Day Years Used Date Smoking Tobacco: Former Cigarettes 1 976 - 2001 Tobacco Cessation:Counseling Given: Not Answered AUDIT-C [...] on file Legal Sex Male 5:48 AM GLOBAL TECHNICAL WRITER Gender Identity Not on file Sexual Orientation Not on file Last Filed Vital Signs Vital Sign Reading Time Taken Comments Blood Pressure 116/78 04/16/2022 9:31 AM GLOBAL TECHNICAL WRITER Pulse 83 04/16/2022 9:31 AM GLOBAL TECHNICAL WRITER Temperature - - Respiratory Rate - - Oxygen Saturation 96% 08/11/2013 12: 30 PM CDT Inhaled Oxygen Concentration - - Weight 113.2 kg (249 lb 9.6 oz) 04/16/2022 9:31 AM GLOBAL TECHNICAL WRITER Height 185.4 cm (6' 1 ) 04/16/2022 9:31 AM GLOBAL TECHNICAL WRITER Body Mass Index 32.93 04/16/2022 9:31 AM GLOBAL TECHNICAL WRITER Plan of Treatment Not on file Insurance MEDICARE [place] [address] MEDICARE [facility] [place] [address] Care Teams Typewriter Aligner Relationship Specialty Start Date End Date Melanie Chavez MD PCP - General Family Medicine 03/09/22
--- OUTSIDE RECORDS SUMMARY | 2024-07-15 12:38 | XMS_ITS | Encounter Summary ---
Author Organization [facility] Address [address] [place] [address] Care Team Providers Care Salesperson China And Glassware Name Role Phone Melanie Chavez MD Primary Care Provider [phone] Encounter Details Date Type Department Care Team (Late Contact Info) Description 08/08/1999 Outpatient Historical HIS MRI DEPT (Excluded Provider) [place] [address] [facility] [address] [place] [id number] Cervicalgia (Primary Dx) Social History Tobacco Use Types Packs/Day Years Used Date Smoking Tobacco: Never Assessed Sex and Gender Information Value Date Recorded Sex Assigned at Not on file Legal Sex Male 4:57 AM ENGINEERING AND SCIENTIFIC PROGRAMMER Gender Identity Not on file Sexual Orientation Not on file documented as of this encounter Plan of Treatment Upcoming Encounters Date Type Department Care Team ([facility] Contact Info) Description 07/22/2024 4:30 PM ENGINEERING AND SCIENTIFIC PROGRAMMER Telephone Check Up [facility] Oncology and Hematology - [address] [place] [address] Robbi Tripathi MD [address] [employer] [address] [place] [address] 08/21/2024 10:45 AM CDT Office Visit [facility] Oncology and Hematology - [address] [place] [address] Robbi Tripathi MD [address] [address] documented as of this encounter Visit Diagnoses Diagnosis Cervicalgia- Primary documented in this encounter Care Teams Salesperson [employer] Relationship Specialty Start Date End Date Melanie Chavez MD [address] [place] [address] PCP - General Family Practice 09/12/18 documented as of this encounter
--- OUTSIDE RECORDS SUMMARY | 2024-07-15 12:38 | XMS_ITS | Encounter Summary ---
Author Organization [facility] [employer] [facility] Address [address] [place] [address] Care Team Providers Care Advanced Manager Name Role Phone Melanie Chavez MD Primary Care Provider [phone] Encounter Details Date Type Department Care Team (Late st Contact Info) Description 02/05/2019 Telephone [facility] Oncology and Hematology - [address] [facility] [address] [place] [address] Robbi Tripathi MD [address] [facility] [address] [place] [address] Social History Tobacco Use Types Packs/Day Years Used Date Smoking Tobacco: Former Cigarettes Q uit: 04/17/2004 Alcohol Use Standard Drinks/Week Comments No 0 (1 standard drink = 0.6 oz pur e alcohol) Sex and Gender Information Value Date Recorded Sex Assigned at Not on file Legal Sex Male 4:57 AM CUSTOMER SERVICE TECHNICIAN Gender Identity Not on file Sexual Orientation Not on file documented as of this encounter Miscellaneous Notes * Telephone Encounter - Magda Robbins - 02/05/2019 4:11 PM CDT Let pharmacy know that medicine will not be in on original date that was given pharmacy will call to let us know when medicine will be filled * Telephone Encounter - Chantal Valiente - 02/05/2019 10:46 AM CDT Kathie troy [place] [facility] Spec Pharm; [phone]; medication Privigen in all strenglths not available - not coming on 02/06/19. All IVIG drugs in this category are affected as well. Meds are sent out randomly, in different strengths & different quantity; not sent on supply & demand. documented in this encounter Plan of Treatment Upcoming Encounters Date Type Department Care Team (Late st Contact Info) Description 07/22/2024 4:30 PM CUSTOMER SERVICE TECHNICIAN Telephone Check Up [facility] Oncology and Hematology - Gio [facility] [address] [place] [phone] Robbi Tripathi MD [address] [place] [address] [employer] [address] [place] [address] 08/21/2024 10:45 AM CDT Office Visit [facility] Oncology and Hematology - [address] [place] [address] Robbi Tripathi MD [address] [place] [address] [employer] [address] [place] [address] documented as of this encounter Visit Diagnoses Not on filedocumented in this encounter Care Teams Advanced Manager Relationship Specialty Start Date End Date Melanie Chavez MD [address] [place] [address] PCP - General Family Practice 09/12/18 documented as of this encounter
--- OUTSIDE RECORDS SUMMARY | 2024-07-15 12:38 | XMS_ITS | Encounter Summary ---
Author Organization [facility] Address [address] [place] [address] Care Team Providers Care Junior Manufacturing Engineer Name Role Phone Melanie Chavez MD Primary Care Provider [phone] Reason for Visit * Reason Comments Medication Refill Encounter Details Date Type Department Care Team (Late Contact Info) Description 02/02/2019 Refill [facility] Oncology and Hematology [facility] [address] [place] [address] Robbi Tripathi MD [address] [employer] [address] [place] [address] Mantle cell lymphoma, unspecified body region (CMS/HCC) Social History Tobacco Use Types Packs/Day Years Used Date Smoking Tobacco: Former Cigarettes Q uit: 04/17/2004 Alcohol Use Standard Drinks/Week Comments No 0 (1 standard drink = 0.6 oz pur e alcohol) Sex and Gender Information Value Date Recorded Sex Assigned at Not on file Legal Sex Male 4:57 AM METAL TREATER Gender Identity Not on file Sexual Orientation Not on file documented as of this encounter Plan of Treatment Upcoming Encounters Date Type Department Care Team (Late Contact Info) Description 07/22/2024 4:30 PM METAL TREATER Telephone Check Up [facility] Oncology and Hematology [facility] [address] [place] [address] Robbi Tripathi MD [address] [employer] [address] [place] [address] 08/21/2024 10:45 AM CDT Office Visit [facility] Oncology and Hematology [facility] [address] [facility] [address] [place] [address] Robbi Tripathi MD [address] [facility] [address] [place] [address] documented as of this encounter Visit Diagnoses Diagnosis Mantle cell lymphoma, unspecified body region (CMS/HCC) documented in this encounter Care Teams Junior Manufacturing Engineer Relationship Specialty Start Date End Date Melanie Chavez MD [address] [place] [address] PCP - General Family Practice 09/12/18 documented as of this encounter
--- OUTSIDE RECORDS SUMMARY | 2024-07-15 12:38 | XMS_ITS | Encounter Summary ---
Author Organization [facility] Address [address] [place] [address] Care Team Providers Care Quality Control Supervisor Name Role Phone Melanie Chavez MD Primary Care Provider Reason for Visit * Reason Comments Medication Refill Encounter Details Date Type Department Care Team (Late Contact Info) Description 08/15/2018 Refill [facility] Oncology and Hematology [address] [place] [address] Robbi Tripathi MD [address] [employer] [address] [place] [address] Social History Tobacco Use Types Packs/Day Years Used Date Smoking Tobacco: Former Cigarettes Q uit: 04/17/2004 Alcohol Use Standard Drinks/Week Comments No 0 (1 standard drink = 0.6 oz pur e alcohol) Sex and Gender Information Value Date Recorded Sex Assigned at Not on file Legal Sex Male 4:57 AM HEEL MOLDER Gender Identity Not on file Sexual Orientation Not on file documented as of this encounter Plan of Treatment Upcoming Encounters Date Type Department Care Team (Late Contact Info) Description 07/22/2024 4:30 PM HEEL MOLDER Telephone Check Up [facility] Oncology and Hematology [address] [place] [address] Robbi Tripathi MD [address] [employer] [address] [place] [address] 08/21/2024 10:45 AM CDT Office Visit [facility] Oncology and Hematology - [place] [facility] [address] [place] [address] Robbi Tripathi MD [address] [facility] [address] [place] [address] documented as of this encounter Visit Diagnoses Not on filedocumented in this encounter Care Teams Quality Control Supervisor Relationship Specialty Start Date End Date Melanie Chavez MD [address] [place] [address] PCP - General Family Practice 09/12/18 documented as of this encounter
--- OUTSIDE RECORDS SUMMARY | 2024-07-15 12:38 | XMS_ITS | Encounter Summary ---
Author Organization [facility]z [facility] Address [address] [place] [address] Care Team Providers Care Byproducts Pump Operator Name Role Phone Melanie Chavez MD Primary Care Provider [phone] Reason for Visit * Reason Comments Medication Refill Encounter Details Date Type Department Care Team (Late Contact Info) Description 03/05/2019 Refill [facility] Oncology [facility] Hematology [facility] [address] [place] [address] Robbi Tripathi MD [address] [employer] [address] [place] [address] Mantle cell lymphoma, unspecified body region (CMS/HCC) Social History Tobacco Use Types Packs/Day Years Used Date Smoking Tobacco: Former Cigarettes Q uit: 04/17/2004 Alcohol Use Standard Drinks/Week Comments No 0 (1 standard drink = 0.6 oz pur e alcohol) Sex and Gender Information Value Date Recorded Sex Assigned at Not on file Legal Sex Male 4:57 AM ORACLE DBA Gender Identity Not on file Sexual Orientation Not on file documented as of this encounter Plan of Treatment Upcoming Encounters Date Type Department Care Team (Late Contact Info) Description 07/22/2024 4:30 PM ORACLE DBA Telephone Check Up [facility] Hematology [facility] [address] [place] [address] Robbi Tripathi MD [address] [employer] [address] [place] [address] 08/21/2024 10:45 AM CDT Office Visit [facility] [address] [facility] [address] [place] [address] Robbi Tripathi MD [address] [facility] [address] [place] [address] documented as of this encounter Visit Diagnoses Diagnosis Mantle cell lymphoma, unspecified body region (CMS/HCC) documented in this encounter Care Teams Byproducts Pump Operator Relationship Specialty Start Date End Date Melanie Chavez MD [address] [place] [address] PCP - General Family Practice 09/12/18 documented as of this encounter
--- OUTSIDE RECORDS SUMMARY | 2024-07-15 12:38 | XMS_ITS | Patient Health Summary ---
Author Organization [facility] Address [address] [address] Care Team Providers Care Leather Production Artisan Name Role Phone Mohan Daly MD Primary Care Provider [phone] Note from [facility],non-owned Affiliates and Associated Physician Practices is amultiple site organization consisting of ambulatory clinics and hospital sitesin [place], [place], [place] and [place]. This disclosure is being madepursuant to the Care Everywhere program and may not contain all information available regarding this patient. Last updated 18.[facility] Social History Tobacco Use Types Packs/Day Years Used Date Smoking Tobacco: Never Assessed Sex and Gender Information Value Date Recorded Sex Assigned at Not on file Gender Identity Not on file Sexual Orientation Not on file Procedures * BONE MARROW BIOPSY (STL)(Performed 06/14/2022) Performed for Illness, unspecified * FLOW CYTOMETRY BONE MARROW(Performed 06/14/2022) Performed for Mantle cell lymphoma, intra-abdominal lymph nodes (CMS/HCC) * PATHOLOGY/GENETICS HISTORICAL-ONBASE(Performed 04/23/2016) Results * FLOW CYTOMETRY BONE MARROW (06/14/2022 8:30 AM ARCHIVIST POLITICAL HISTORY) Case Report Flow Cytometry Case: [id number] Authorizing Provider: Luiza Moncada MD Collected: 06/14/2022 08:30 AM Ordering Location: [facility] Pathology Lab Received: 06/14/2022 03:26 PM Pathologist: Kelsea Navarro Mai, DO Specimen: Bone Marrow, L Hip 06/14/2022 6:00 PM ARCHIVIST POLITICAL HISTORY [facility] Final Diagnosis Bone [...] flow cytometry specimen is reviewed for quality control engineer purposes. The sample shows a minute marrow [...] CENTER PATHOLOGY LAB Client Specimen ID # [id number] 06/14/2022 6:00 PM [facility] PATHOLOGY LAB Number of markers 10 were performed. A-1 Flow CD3 A-3 Flow CD10 A-5 Flow CD20 A-6 Flow CD23 A-2 Flow CD5 A-4 Flow CD19 A-7 Flow CD34 A-8 Flow CD45 A-9 Pineland+CD19+ A-10 Lambda+CD19+ 06/14/2022 6:00 PM [facility] PATHOLOGY LAB Disclaimer Test performed at [facility], [address] [place] [address], [address]. *The established laboratory minimum viability is 70%. [...] high complexity clinical testing. 06/14/2022 6:00 PM [facility] PATHOLOGY LAB Embedded Images 6:00 PM [facility] PATH[facility] LAB Pathology/Cytolo gy BONE MARROW SPECIMEN / Unknown 06/14/2022 8:30 AM ARCHIVIST POLITICAL HISTORY 06/14/2022 3:26 PM ARCHIVIST POLITICAL HISTORY Luiza Moncada MD LAB - PATHOLOGY/CYTO LOGY ORDERABLES Performing Organization Address City/State/[facility] de Phone Number [facility] [address] [phone] * BONE MARROW BIOPSY (STL) (06/14/2022 8:30 AM ARCHIVIST POLITICAL HISTORY) Case Report Bone Marrow Patholog y Report Case: [id number] Authorizing Provider: Luiza Moncada MD Collected: 06/14/2022 08:30 AM Ordering Location: [facility] Pathology Lab Received: 06/18/2022 09:02 AM Pathologist: Ilene Nguyen MD Specimens: A) - Bone Marrow Clot B) - Bone Marrow Core 06/18/2022 4:38 PM [facility] PATH[facility] Final Diagnosis Bone marrow, aspirate, clot section, and core biopsy: - Variably cellular marrow with maturing trilineage hematopoiesis and ~30% involvement by mantle cell lymphoma. - See description. Peripheral blood smear: - Leukopenia. - Normochromic, normocytic anemia. - See description. 06/18/2022 4:38 PM [facility] Comment Overall, the bone marrow specimen is variably cellular with foci of maturing trilineage hematopoiesis. There is extensive involvement by recurrent/residual mantle cell lymphoma, estimated to comprise 30% of the marrow cellularity by immunohistochemistry. Correlation with clinical findings and relevant cytogenetic/molecular testing is required. 06/18/2022 4:38 PM [facility] PATH[facility] Peripheral Smear Description [...] normal. Platelet morphology: normal. 06/18/2022 4:38 PM [facility] Bone Marrow Aspirate [...] by small, rare spicule. 06/18/2022 4:38 PM [facility] Bone Marrow Core [...] and CD5 are expressed by admixed T-cells. QP41-smecgrxa B-cells are estimated to comprise 30% of the marrow cellularity. 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 06/18/2022 4:38 PM [facility] Clinical History History of mantle cell lymphoma; last treatment in 2018. 06/18/2022 4:38 PM [facility] Materials Received Received are 21 slides and three blocks (A1, A2, B1) labeled [id number] along with a copy of the outside pathology report. [place] [address]. All original materials are returned to the referring institution, along with a copy of our final report. 06/18/2022 4:38 PM [facility] Disclaimer The performance characteristics of all immunohistochemical and indirect immunofluorescence stains (if any) cited in this report were determined by the Histopathology Laboratory of [facility]. Some of these tests were developed by [...] interpretation of this case is performed [facility] at [facility], [address] [place] [address]. 06/18/2022 4:38 PM [facility] PATH[facility] LAB Embedded Images 06/18/2022 4:38 PM [facility] Pathology/Cytology BONE MARROW SPECIMEN / Unknown 06/14/2022 8:30 AM ARCHIVIST POLITICAL HISTORY 06/18/2022 9:02 AM ARCHIVIST POLITICAL HISTORY Miscellaneous samples (specimen) BONE MARROW SPECIMEN / Unknown 06/14/2022 8:30 AM ARCHIVIST POLITICAL HISTORY 06/18/2022 9:02 AM ARCHIVIST POLITICAL HISTORY Luiza Moncada MD LAB - PATHOLOGY/CYTO LOGY ORDERABLES Performing Organization Address City/[facility] Co de Phone Number [facility] [address] [facility] [phone] * PATHOLOGY/GENETICS HISTORICAL-ONBASE (04/23/2016) 04/23/2016 Historical Provider LAB - CHEMISTRY O RDERABLES Performing Organization Address [facility] Co de Phone Number [facility] [address] Care Teams Leather Production Artisan Relationship Specialty Start Date End Date Mohan Daly MD [address] [place] [phone] PCP - General 03/12/08
--- OUTSIDE RECORDS SUMMARY | 2024-07-15 12:38 | XMS_ITS | Encounter Summary ---
Author Organization [facility] Address [address] [place] [address] Care Team Providers Care Corporate Pilot Name Role Phone Melanie Chavez MD Primary Care Provider [phone] Encounter Details Date Type Department Care Team (Late Contact Info) Description 04/11/2004 Outpatient Historical HIS CARD LEGAL CONTRACTS SPECIALIST Anabella Otero MD [address] [facility] [address] [facility] [address] [place] [address] Akhil Van MD NO ADDRESS ON FILE LUMBAR DISC DISPLACEMENT (Primary Dx) Social History Tobacco Use Types Packs/Day Years Used Date Smoking Tobacco: Never Assessed Sex and Gender Information Value Date Recorded Sex Assigned at Not on file Legal Sex Male 4:57 AM ASSOCIATE ARTISTIC DIRECTOR Gender Identity Not on file Sexual Orientation Not on file documented as of this encounter Plan of Treatment Upcoming Encounters Date Type Department Care Team ([facility] Contact Info) Description 07/22/2024 4:30 PM ASSOCIATE ARTISTIC DIRECTOR Telephone Check Up [facility] Oncology and Hematology [place] [address] [place] [address] Robbi Tripathi MD [address] [place] [address] 08/21/2024 10:45 AM CDT Office Visit [facility] Oncology and Hematology [place] [address] [place] [address] oRbbi Tripathi MD [address] [address] documented as of this encounter Visit Diagnoses Diagnosis Displacement of lumbar intervertebral disc without myelopathy- Primary documented in this encounter Care Teams Corporate Pilot Relationship Specialty Start Date End Date Melanie Chavez MD [address] [place] [address] PCP - General Family Practice 09/12/18 documented as of this encounter
--- OUTSIDE RECORDS SUMMARY | 2024-07-15 12:38 | XMS_ITS | Clinical Summary ---
Author Organization [facility] Address [address] [facility] [facility] [place] [address] Care Team Providers Care Caretaker Name Role Phone Melanie Chavez MD Primary Care Provider [phone] Allergies Active Allergy Reactions Criticality Noted Date Comments Adhesive Rash Low 04/17/2016 Medications tamsulosin (FLOMAX) 0.4 mg capsule Take 0.4 mg by mouth daily. Active traMADol (ULTRAM) 50 mg tablet Take 100 mg by mouth 2 times daily. Active traMADol (ULTRAM ER) 100 mg Extended Release 24 hour tablet Take 100 mg by mouth 3 times daily. Active naproxen (NAPROSYN) 500 mg tablet Take 500 mg by mouth 2 times daily with meals. Active immune globulin G, IgG,-pro-IgA (PRIVIGEN) 10 % Solution injection INFUSE 120 GRAMS INTRAVENOUSLY EVERY 4 MONTHS (GIVEN AT PRESCRIBERS OFFICE). 1200 mL 6 9 Active armodafiniL (NUVIGIL) 250 mg tablet TK 1 T PO QD IN THE MORNING 0 Active cyclobenzaprin e (FLEXERIL) 10 mg tablet TAKE 1 TABLET BY MOUTH EVERY 8 HOURS NEEDED 0 Active lisinopriL (PRINIVIL) 10 mg tablet Take 10 mg by mouth daily. Active hydroCHLOROthi azide 12.5 mg tablet Take 12.5 mg by mouth daily. Active ferrous sulfate 325 mg (65 mg iron) tablet Take 325 mg by mouth daily. Active cyanocobalamin 1,000 mcg Tablet Take 1,000 mcg by mouth daily. Active Cholecalcifero l, Vitamin D3, 50 mcg (2,000 unit) Capsule Take by mouth. 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) 06/30/2024 External Device Data STL ABSTRACTION Provider, Abstract 06/24/2024 External Device Data STL ABSTRACTION Provider, Abstract 06/24/2024 External Device Data STL ABSTRACTION Provider, Abstract 06/22/2024 9:45 AM AIRPORT MAINTENANCE CHIEF Office Visit [facility] Oncology and Hematology - [address] [place] [address] Robbi Tripathi MD Parotid mass (Primary Dx); 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 ([facility]/HCC) 06/16/2024 Orders Only [facility] Oncology and Hematology - [address] [place] [address] Robbi Tripathi MD 06/15/2024 Orders Only [facility] Oncology and Hematology - [address] [place] [address] Robbi Tripathi MD 06/09/2024 External Device Data STL ABSTRACTION Provider, Abstract 06/08/2024 Orders Only [facility] Oncology and Hematology - [address] [place] [address] Robbi Tripathi MD 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) 05/25/2024 Orders Only [facility] Oncology and Hematology - [address] [place] [phone] Robbi Tripathi MD 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) 05/11/2024 Orders Only [facility] Oncology and Hematology - [address] [place] [phone] Robbi Tripathi MD 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) 04/27/2024 Orders Only [facility] Oncology and Hematology - [address] [place] [phone] Robbi Tripathi MD 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) 04/17/2024 Orders Only [facility] Oncology and Hematology - [address] [place] [phone] Scanning, Provider 04/15/2024 Orders Only [facility] Oncology and Hematology - [address] [place] [phone] Robbi Tripathi MD from Last 3 Months Family History Medical History Relation Name Comments Cancer Brother Cancer Father Relation Name Status Comments Brother Father Mother Alive Social History Tobacco Use Types Packs/Day Years Used Date Smoking Tobacco: Former Cigarettes Q uit: 04/17/2004 Tobacco Cessation:Counseling Given: Not Answered Alcohol Use Standard Drinks/Week Comments No 0 (1 standard drink = 0.6 oz pur e alcohol) Sex and Gender Information Value Date Recorded Sex Assigned at Not on file Legal Sex Male 4:57 AM AIRPORT MAINTENANCE CHIEF Gender Identity Not on file Sexual Orientation Not on file Last Filed Vital Signs Vital Sign Reading Time Taken Comments Blood Pressure 138/85 06/22/2024 9:41 AM AIRPORT MAINTENANCE CHIEF Pulse 72 06/22/2024 9:41 AM AIRPORT MAINTENANCE CHIEF Temperature 36.6 C (97.8 F) 06/22/2024 9:41 AM AIRPORT MAINTENANCE CHIEF Respiratory Rate 15 06/22/2024 9:41 AM AIRPORT MAINTENANCE CHIEF Oxygen Saturation 94% 06/22/2024 9:41 AM AIRPORT MAINTENANCE CHIEF Inhaled Oxygen Concentration - - Weight 109.5 kg (241 lb 6.4 oz) 06/22/2024 9:41 AM AIRPORT MAINTENANCE CHIEF Height 182.9 cm (6') 08/18/2021 9:05 AM CDT Body Mass Index 32.74 08/18/2021 9:05 AM CDT Plan of Treatment Upcoming Encounters Date Type Department Care Team (Late st Contact Info) Description 07/22/2024 4:30 PM AIRPORT MAINTENANCE CHIEF Telephone Check Up [facility] Oncology and Hematology [place] [address] [place] [phone] [place] [address] [place] [address] [employer] [address] [place] [phone] 08/21/2024 10:45 AM CDT Office Visit [facility] Oncology [facility] [address] [place] [address] Robbi Tripathi MD [address] [place] [address] [employer] [address] [place] [phone] Health Maintenance Due Date Last Done Comments Pre-Diabetes and Diabetes Screening 1955 DTAP/TDAP/TD VACCINES (1 - Tdap) 12/31/1975 PNEUMOCOCCAL VACCINE 65+ YEARS (1 of 2 - PCV) 12/30/18 77 Traditional Medicare ([facility]) Annual Wellness Visit 12/30 ZOSTER VACCINE (1 of 2) 12/31/1975 FIT-DNA Q 3 years 2001 FIT/FOBT Q 1 year 2001 Flex Sig/CT Colonography Q 5 years 2001 RSV VACCINE (60+ or ) (1 - Risk 60-74 years 1-dose series) 2016 Abdominal Aortic Aneurysm (AAA) Screening 2021 INFLUENZA VACCINE (#1) 2024 06/04/2017 COLORECTAL SCREENING 06/10/2033 06/10/2023 Colorectal Cancer Screening 06/10/2033 Procedures Procedure Name Priority Date/Time Associated Diagnosis Comments CT ST NECK CHEST PEL W + ABD W WO CONT Routine 06/15/2024 11:21 AM AIRPORT MAINTENANCE CHIEF COMPREHENSIVE METABOLIC PANEL Routine 06/10/2024 11:45 AM AIRPORT MAINTENANCE CHIEF TSH Routine 04/16/2024 11:02 AM AIRPORT MAINTENANCE CHIEF BASIC METABOLIC PANEL Routine 04/15/2024 3:40 PM AIRPORT MAINTENANCE CHIEF from Last 3 Months Results * CT ST NECK CHEST PEL W + ABD W WO CONT (06/15/2024 11:21 AM AIRPORT MAINTENANCE CHIEF) Anatomical Region Laterality Modality Neck Other Robbi Tripathi MD CT ORDERABLES Final Result * COMPREHENSIVE METABOLIC PANEL (06/10/2024 11:45 AM AIRPORT MAINTENANCE CHIEF) Blood Robbi Tripathi MD CHEMISTRY ORDERABLES Final Resu lt * TSH (04/16/2024 11:02 AM AIRPORT MAINTENANCE CHIEF) Blood Provider Scanning CHEMISTRY ORDERABLES Final Res ult * BASIC METABOLIC PANEL (04/15/2024 3:40 PM AIRPORT MAINTENANCE CHIEF) Blood Robbi Tripathi MD CHEMISTRY ORDERABLES Final Resu lt from Last 3 Months Insurance MEDICARE PART A AND B [facility] [place] [address] [place] [address] [place] [address] RX [employer] Member Subscriber Plan / Payer (Ef fective 2021-Present) Name:Min Toro Tio Relation to Subscriber:Self Name:Min Toro Payer ID:Not on file Group ID:[id number] Type:RX Medicare Part D Address: [address] [employer] [place] Commercial Advance Directives For more information, please contact: [phone] Documents on File Type Date Recorded Patient Coding Team Lead Expl anation Advance Directive Living Will 04/17/2016 1:05 PM Care Teams Caretaker Relationship Specialty Start Date End Date Melnaie Chavez MD [address] [place] [phone] PCP - General Family Practice 09/12/18
== END 2024-07-15 12:34 | disposition home or self-care (01) ==
PROVIDERS: PCP Family Medicine; Visit Provider Internal Medicine Hematology & Oncology
DX: K11.8 Other diseases of salivary glands (principal)
CPT/HCPCS: 10005; 88108; 88305; 88342

== ENCOUNTER 2024-09-28 07:52 | Outpatient (CLI) | payer MEDICARE, OTHER, SELFPAY ==
--- NOTE | 2024-09-28 08:00 | ECG_ITS ---
Test Date: 2024-09-28 08:10:07 Measurements Intervals [place] Rate: 67 P: 57 WA: 164 QRS: 48 QRSD: 115 T: 42 QT: 381 QTc: 402 Interpretive Statements SINUS RHYTHM INTRAVENTRICULAR CONDUCTION DELAY DELAYED PRECORDIAL R/S TRANSITION BASELINE ARTIFACT- I, II, III, AVR, AVL, AVF BORDERLINE ECG No previous ECG available for comparison Electronically Signed On 09-28-2024 08:28:57 CDT by Venu Roman D.O.
--- OUTSIDE RECORDS SUMMARY | 2024-09-28 08:02 | XMS_ITS | Encounter Summary ---
Author Organization [facility] Address [address] [place] [address] Care Team Providers Care Business Project Manager Name Role Phone Melanie Chavez MD Primary Care Provider [phone] Encounter Details Date Type Department Care Team (Latest Contact Info) Description 01/10/2005 Outpatient Historical [facility] BackerAkhil MD NO ADDRESS ON FILE LUMBAR DISC DISPLACEMENT (Primary Dx) Social History Tobacco Use Types Packs/Day Years Used Date Smoking Tobacco: Never Assessed Sex and Gender Information Value Date Recorded Sex Assigned at Not on file Legal Sex Male 4:57 AM MATERIAL CUTTER Gender Identity Not on file Sexual Orientation Not on file documented as of this encounter Plan of Treatment Upcoming Encounters Date Type Department Care Team (Late st Contact Info) Description 11/27/2024 8:45 AM CDT Office Visit [facility] Oncology and Hematology - Gio [address] [facility] [address] [place] [address] Robbi Tripathi MD [address] [facility] [address] [place] [address] documented as of this encounter Procedures [...] Primary documented in this encounter Care Teams Business Project Manager Relationship Specialty Start Date End Date Melanie Chavez MD [address] [place] [address] PCP - General Family Practice 09/12/18 documented as of this encounter
--- OUTSIDE RECORDS SUMMARY | 2024-09-28 08:02 | XMS_ITS | Encounter Summary ---
Author Organization [facility] Address [address] [place] [address] Care Team Providers Care Straw Hat Brim Raiser Operator Name Role Phone Melanie Chavez MD Primary Care Provider [phone] Encounter Details Date Type Department Care Team (Latest Contact Info) Description 04/26/2004 Outpatient Historical [facility] BackerAkhil MD NO ADDRESS ON FILE LUMBAR DISC DISPLACEMENT (Primary Dx) Social History Tobacco Use Types Packs/Day Years Used Date Smoking Tobacco: Never Assessed Sex and Gender Information Value Date Recorded Sex Assigned at Not on file Legal Sex Male 4:57 AM SCHOOL OF NURSING DIRECTOR Gender Identity Not on file Sexual Orientation Not on file documented as of this encounter Plan of Treatment Upcoming Encounters Date Type Department Care Team (Late st Contact Info) Description 11/27/2024 8:45 AM CDT Office Visit [facility] Oncology and Hematology - Gio [address] [facility] [address] [address] [place] [address] [place] [address] documented as of this encounter Visit Diagnoses Diagnosis Displacement of lumbar intervertebral disc without myelopathy- Primary documented in this encounter Care Teams Straw Hat Brim Raiser Operator Relationship Specialty Start Date End Date Melanie Chavez MD [address] [place] [address] PCP - General Family Practice 09/12/18 documented as of this encounter
--- OUTSIDE RECORDS SUMMARY | 2024-09-28 08:02 | XMS_ITS | Encounter Summary ---
Author Organization [facility] Address [address] [place] [address] Care Team Providers Care Hyperion Developer Name Role Phone Melanie Chavez MD Primary Care Provider [phone] Encounter Details Date Type Department Care Team (Late st Contact Info) Description 04/26/2004 Outpatient Historical [facility] [address] [place] [address] Miguel Carias Social History Tobacco Use Types Packs/Day Years Used Date Smoking Tobacco: Never Assessed Sex and Gender Information Value Date Recorded Sex Assigned at Not on file Legal Sex Male 4:57 AM ROLLER MACHINE OPERATOR Gender Identity Not on file Sexual Orientation Not on file documented as of this encounter Plan of Treatment Upcoming Encounters Date Type Department Care Team (Late st Contact Info) Description 11/27/2024 8:45 AM CDT Office Visit [facility] Oncology and Hematology - Gio [address] [address] Robbi Tripathi MD [address] [facility] [address] [place] [address] documented as of this encounter Visit Diagnoses Not on filedocumented in this encounter Care Teams Hyperion Developer Relationship Specialty Start Date End Date Melanie Chavez MD [address] [place] [address] PCP - General Family Practice 09/12/18 documented as of this encounter
--- OUTSIDE RECORDS SUMMARY | 2024-09-28 08:02 | XMS_ITS | Encounter Summary ---
Author Organization [facility] Address [address] [place] [address] Care Team Providers Care Chemical Radiation Technician Name Role Phone Melanie Chavez MD Primary Care Provider [phone] Encounter Details Date Type Department Care Team ([facility] Contact Info) Description 06/28/1999 Outpatient [facility] Division of Neurology [address] [address] (Excluded Provider) [place] [address] [address] [facility] [address] [place] [address] Social History Tobacco Use Types Packs/Day Years Used Date Smoking Tobacco: Never Assessed Sex and Gender Information Value Date Recorded Sex Assigned at Not on file Legal Sex Male 4:57 AM HEAD WAITER/WAITRESS Gender Identity Not on file Sexual Orientation Not on file documented as of this encounter Plan of Treatment Upcoming Encounters Date Type Department Care Team (Late Contact Info) Description 11/27/2024 8:45 AM CDT Office Visit [facility] Oncology and Hematology - Gio [address] [facility] [address] [place] [address] Robbi Tripathi MD [address] [facility] [address] [place] [address] documented as of this encounter Visit Diagnoses Not on filedocumented in this encounter Care Teams Chemical Radiation Technician Relationship Specialty Start Date End Date Melanie Chavez MD [address] [place] [phone] PCP - General Family Practice 09/12/18 documented as of this encounter
--- OUTSIDE RECORDS SUMMARY | 2024-09-28 08:02 | XMS_ITS | Clinical Summary ---
Author Organization [facility] Address [facility] [place] [address] Care Team Providers Care Computer Applications Engineer Name Role Phone Melanie Chavez MD Primary Care Provider [phone] Allergies Active Allergy Reactions Criticality Noted Date [...] disorder with myelopathy 2 Cervicalgia 10/08/2011 Immunizations Immunization Administration Dates Next Due Influenza, Quadrivalent, Raina l Culture-based MDCK, Preservative Free, Antibiotic Free, Intramuscular 06/04/2017 Influenza, Unspecified 06/03/2015 Tetanus Toxoid, Unspecified 06/03/2013 Surgical History Surgery Date Site/Laterality Comments SPINE SURGERY Medical History Medical History Date Comments Hypertension Hypertension Hx Other Medical Back Pain Adiposity Obesity Anemia Cancer (HCC) Disc disorder of lumbar region Lumbar stenosis Family History Medical History Relation Name Comments Other Brother 2 Renal Cell Canc er; Cancer Father Mitral valve prolapse Father Multip le Myeloma; Cancer Mother Hypertension Mother Relation Name Status Comments Brother 1 Alive Brother 2 Father Alive Mother Social History Tobacco Use Types Packs/Day Years Used Date Smoking Tobacco: Former Cigarettes 1 976 2001 Tobacco Cessation:Counseling Given: Not Answered AUDIT-C [...] on file Legal Sex Male 5:48 AM CANTEEN MANAGER Gender Identity Not on file Sexual Orientation Not on file Obstetrics History Last Filed Vital Signs Vital Sign Reading Time Taken Comments Blood Pressure 116/78 04/16/2022 9:31 AM CANTEEN MANAGER Pulse 83 04/16/2022 9:31 AM CANTEEN MANAGER Temperature - - Respiratory Rate - - Oxygen Saturation 96% 08/11/2013 12: 30 PM CDT Inhaled Oxygen Concentration - - Weight 113.2 kg (249 lb 9.6 oz) 04/16/2022 9:31 AM CANTEEN MANAGER Height 185.4 cm (6' 1 ) 04/16/2022 9:31 AM CANTEEN MANAGER Body Mass Index 32.93 04/16/2022 9:31 AM CANTEEN MANAGER Plan of Treatment Health Maintenance Due Date Last Done Comments Colon Cancer Screening-Colonoscopy 1956 Depression Screening 1956 Fall Risk Assessment 1956 Hepatitis C Screening 1956 Prostate Cancer Screening-PSA 1956 DTaP/Tdap/Td Vaccine (1 - Tdap) 12/31/1967 Hepatitis B Screening 1974 Pneumococcal vaccine 65+ (1 of 2 - PCV) 12/31/1975 Zoster Vaccine (1 of 2) 12/31/1975 Abdominal Aortic Aneurysm (AAA) Screen 2021 Well Visit 65+ 2021 Influenza Vaccine (Season Ended) 2025 06/04/19 18, 06/03/2015 Insurance MEDICARE [facility] [place] [id number] MEDICARE [employer] Care Teams Computer Applications Engineer Relationship Specialty Start Date End Date Melanie Chavez MD PCP - General Family Medicine 03/09/22
--- OUTSIDE RECORDS SUMMARY | 2024-09-28 08:02 | XMS_ITS | Encounter Summary ---
Author Organization [facility] Address [address] [place] [address] Care Team Providers Care Cinder Pit Worker Name Role Phone Melanie Chavez MD Primary Care Provider [phone] Encounter Details Date Type Department Care Team (Late Contact Info) Description 02/03/2004 Outpatient Historical [facility] Jacob Arshad MD [address] [place] [address] BACKACHE NOS (Primary Dx) Social History Tobacco Use Types Packs/Day Years Used Date Smoking Tobacco: Never Assessed Sex and Gender Information Value Date Recorded Sex Assigned at Not on file Legal Sex Male 4:57 AM SURVEYOR'S ASSISTANT Gender Identity Not on file Sexual Orientation Not on file documented as of this encounter Plan of Treatment Upcoming Encounters Date Type Department Care Team ([facility] Contact Info) Description 11/27/2024 8:45 AM CDT Office Visit [facility] Oncology and Hematology - Gio [address] [facility] [address] [address] Robbi Tripathi MD [address] [facility] [address] [place] [address] documented as of this encounter Visit Diagnoses Diagnosis Backache, unspecified- Primary documented in this encounter Care Teams Cinder Pit Worker Relationship Specialty Start Date End Date Melanie Chavez MD [address] [place] [address] PCP - General Family Practice 09/12/18 documented as of this encounter
--- OUTSIDE RECORDS SUMMARY | 2024-09-28 08:02 | XMS_ITS | Referral Summary ---
Author Organization [facility] Address [address] [place] [address] Care Team Providers Care Dispensing Optician Apprentice Name Role Phone Melanie Chavez MD Primary Care Provider [phone] Allergies Active Allergy Reactions Criticality Noted Date [...] on file Legal Sex Male 5:48 AM EDITORIAL ASSISTANT Gender Identity Not on file Sexual Orientation Not on file Last Filed Vital Signs Vital Sign Reading Time Taken Comments Blood Pressure 116/78 04/16/2022 9:31 AM EDITORIAL ASSISTANT Pulse 83 04/16/2022 9:31 AM EDITORIAL ASSISTANT Temperature - - Respiratory Rate - - Oxygen Saturation 96% 08/11/2013 12: 30 PM CDT Inhaled Oxygen Concentration - - Weight 113.2 kg (249 lb 9.6 oz) 04/16/2022 9:31 AM EDITORIAL ASSISTANT Height 185.4 cm (6' 1 ) 04/16/2022 9:31 AM EDITORIAL ASSISTANT Body Mass Index 32.93 04/16/2022 9:31 AM EDITORIAL ASSISTANT Plan of Treatment Not on file Insurance MEDICARE [address] [address] [facility] [place] [address] Care Teams Dispensing Optician Apprentice Relationship Specialty Start Date End Date Melanie Chavez MD PCP - General Family Medicine 03/09/22
--- OUTSIDE RECORDS SUMMARY | 2024-09-28 08:02 | XMS_ITS | Encounter Summary ---
Author Organization [facility] [employer] [facility] Address [address] [place] [address] Care Team Providers Care Hand Hose Cutter Name Role Phone Melanie Chavez MD Primary Care Provider [phone] Reason for Visit * Reason Comments Medication Refill Encounter Details Date Type Department Care Team (Late Contact Info) Description 03/05/2019 Refill [facility] Oncology and Hematology [facility] [address] [place] [address] Robbi Tripathi MD [address] [address] [place] [address] Mantle cell lymphoma, unspecified body region (CMS/HCC) Social History Tobacco Use Types Packs/Day Years Used Date Smoking Tobacco: Former Cigarettes Q uit: 04/17/2004 Alcohol Use Standard Drinks/Week Comments No 0 (1 standard drink = 0.6 oz pur e alcohol) Sex and Gender Information Value Date Recorded Sex Assigned at Not on file Legal Sex Male 4:57 AM HEAD OF MAINTENANCE Gender Identity Not on file Sexual Orientation Not on file documented as of this encounter Plan of Treatment Upcoming Encounters Date Type Department Care Team (Late Contact Info) Description 11/27/2024 8:45 AM CDT Office Visit [facility] Oncology and Hematology [facility] [address] [place] [address] Robbi Tripathi MD [address] [place] [address] documented as of this encounter Visit Diagnoses Diagnosis Mantle cell lymphoma, unspecified body region (CMS/HCC) documented in this encounter Care Teams Hand Hose Cutter Relationship Specialty Start Date End Date Melanie Chavez MD [address] [place] [address] PCP - General Family Practice 09/12/18 documented as of this encounter
--- OUTSIDE RECORDS SUMMARY | 2024-09-28 08:02 | XMS_ITS | Encounter Summary ---
Author Organization [facility] Address [address] [place] [address] Care Team Providers Care Sociology Research Assistant Name Role Phone Melanie Chavez MD Primary Care Provider [phone] Encounter Details Date Type Department Care Team (Late Contact Info) Description 07/18/1999 Outpatient Historical [facility] DEPT (Excluded Provider) [place] [address] [facility] [address] [place] [address] Neuralgia, neuritis, and radiculitis, unspecified (Primary Dx) Social History Tobacco Use Types Packs/Day Years Used Date Smoking Tobacco: Never Assessed Sex and Gender Information Value Date Recorded Sex Assigned at Not on file Legal 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 Gender Identity Not on file Sexual Orientation Not on file documented as of this encounter Plan of Treatment Upcoming Encounters Date Type Department Care Team ([facility] Contact Info) Description 11/27/2024 8:45 AM CDT Office Visit [facility] Oncology and Hematology - Gio [address] [facility] [address] [place] [address] Robbi Tripathi MD [address] [facility] [address] [place] [address] documented as of this encounter Visit Diagnoses Diagnosis Neuralgia, neuritis, and radiculitis, unspecified- Primary documented in this encounter Care Teams Sociology Research Assistant Relationship Specialty Start Date End Date Melanie Chavez MD [address] [place] [address] PCP - General Family Practice 09/12/18 documented as of this encounter
--- OUTSIDE RECORDS SUMMARY | 2024-09-28 08:02 | XMS_ITS | Encounter Summary ---
Author Organization [facility] Address 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 Gender Identity Not on file Sexual Orientation Not on file documented as of this encounter Plan of Treatment Upcoming Encounters Date Type Department Care Team ([facility] Contact Info) Description 11/27/2024 8:45 AM CDT [facility] Visit [facility] Oncology and Hematology - Gio [address] [facility] [address] [place] [address] Robbi Tripathi MD [address] [facility] [address] [place] [address] documented as of this encounter Visit Diagnoses Diagnosis Cervicalgia- Primary documented in this encounter Care Teams Machine Setter And Repairer Relationship Specialty Start Date End Date Melanie Chavez MD [address] [place] [address] PCP - General Family Practice 09/12/18 documented as of this encounter
--- OUTSIDE RECORDS SUMMARY | 2024-09-28 08:02 | XMS_ITS | Encounter Summary ---
Author Organization [facility] Address [address] [place] [address] Care Team Providers Care Vrt Mechanic Name Role Phone Melanie Chavez MD Primary Care Provider [phone] Encounter Details Date Type Department Care Team (Latest Contact Info) Description 07/19/1999 Outpatient Historical [facility] Akhil Tiwari Disturbance of skin sensation (Primary Dx) Social History Tobacco Use Types Packs/Day Years Used Date Smoking Tobacco: Never Assessed Sex and Gender Information Value Date Recorded Sex Assigned at Not on file Legal Sex Male 4:57 AM PLASTIC SURGERY COORDINATOR Gender Identity Not on file Sexual Orientation Not on file documented as of this encounter Plan of Treatment Upcoming Encounters Date Type Department Care Team (Late st Contact Info) Description 11/27/2024 8:45 AM CDT Office Visit [facility] Oncology and Hematology - Gio [address] [place] [address] [address] [place] [address] [place] [address] documented as of this encounter Visit Diagnoses Diagnosis Disturbance of skin sensation- Primary documented in this encounter Care Teams Vrt Mechanic Relationship Specialty Start Date End Date Melanie Chavez MD [address] [place] [address] PCP - General Family Practice 09/12/18 documented as of this encounter
--- OUTSIDE RECORDS SUMMARY | 2024-09-28 08:02 | XMS_ITS | Encounter Summary ---
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) Social History Tobacco Use Types Packs/Day Years Used Date Smoking Tobacco: Former Cigarettes Q uit: 04/17/2004 Alcohol Use Standard Drinks/Week Comments No 0 (1 standard drink = 0.6 oz pur e alcohol) Sex and Gender Information Value Date Recorded Sex Assigned at Not on file Legal Sex Male 4:57 AM 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 PUMP OPERATOR Gender Identity Not on file Sexual Orientation Not on file documented as of this encounter Plan of Treatment Upcoming Encounters Date Type Department Care Team (Late st Contact Info) Description 11/27/2024 8:45 AM CDT Office Visit [facility] Oncology and Hematology [facility] [address] [place] [address] Robbi Tripathi MD [address] [place] [address] documented as of this encounter Visit Diagnoses Diagnosis 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
--- OUTSIDE RECORDS SUMMARY | 2024-09-28 08:02 | XMS_ITS | Encounter Summary ---
Author Organization [facility] Address [address] [facility] [place] [address] Care Team Providers Care Career Transition Specialist Name Role Phone Mohan Daly MD Primary Care Provider [phone] Encounter Details Date Type Department Care Team (Late st Contact Info) Description 06/14/2022 Lab Requisition [facility] Care Pathology Lab [address] [place] [address] Luiza Moncada MD [facility] [address] [address] Mantle cell lymphoma, intra-abdominal lymph nodes Social History Tobacco Use Types Packs/Day Years Used Date Smoking Tobacco: Never Assessed Sex and Gender Information Value Date Recorded Sex Assigned at Not on file Legal Sex Male 5:48 PM FOOD SCIENCE TECHNICIAN Gender Identity Not on file Sexual Orientation Not on file documented as of this encounter Plan of Treatment Not on file documented as of this encounter Procedures Procedure Name Priority Date/Time Associated Diagnosis Comments FLOW CYTOMETRY BONE MARROW Routine 06/14/2022 8:30 AM FOOD SCIENCE TECHNICIAN Mantle cell lymphoma, intra-abdominal lymph nodes (CMS/HCC) documented in this encounter Results * FLOW CYTOMETRY BONE MARROW (06/14/2022 8:30 AM FOOD SCIENCE TECHNICIAN) Case Report Flow Cytometry Case: [id number] Authorizing Provider: Luiza Moncada MD Collected: 06/14/2022 08:30 AM Ordering Location: [facility] Pathology Lab Received: 06/14/2022 03:26 PM Pathologist: Kelsea Navarro Mai, DO Specimen: Bone Marrow, L Hip 06/14/2022 6:00 PM [facility] Final Diagnosis Bone marrow, flow cytometric immunophenotypic analysis: - CD5-positive mature B-cell leukemia/lymphoma - See interpretation 06/14/2022 6:00 PM [facility] Flow Cytometry Interpretation [...] the flow cytometry specimen is reviewed for senior software quality analyst purposes. The sample shows a minute marrow particle. The bone marrow aspirate specimen shows involvement by a CD5-positive mature B-cell leukemia/lymphoma. The patient's diagnosis of mantle cell lymphoma is noted and the immunophenotypic findings are compatible with the diagosis. Correlation with clinical findings, the concurrent bone marrow core biopsy (accession number pending), and relevant cytogenetic/molecu lar studies is required. 06/14/2022 6:00 PM [facility] Flow Cytometry Results Differential Result Comment Flow Cell Count /uL 26,700 Total Viability % 93.0 Lymphocytes % 31 Dim CD45 Region % 6 Monocytes % 7 Granulocytes % 56 06/14/2022 6:00 PM [facility] Reason for test Mantle cell lymphoma, intra-abdominal lymph nodes (CMS/HCC) 200.43 06/14/2022 6:00 PM [facility] Client Specimen ID # [id number] 06/14/2022 6:00 PM [facility] Number of markers 10 were performed. A-1 Flow CD3 A-3 Flow CD10 A-5 Flow CD20 A-6 Flow CD23 A-2 Flow CD5 A-4 Flow CD19 A-7 Flow CD34 A-8 Flow CD45 A-9 [place]+CD19+ A-10 Lambda+CD19+ 06/14/2022 6:00 PM [facility] Disclaimer Test performed at [facility], [address] [facility], [place], [place], [address]. *The established laboratory minimum viability is 70%. [...] high complexity clinical testing. 06/14/2022 6:00 PM [facility] Embedded Images 6:00 PM [facility] Pathology/Cytolo gy BONE MARROW SPECIMEN / Unknown 06/14/2022 8:30 AM FOOD SCIENCE TECHNICIAN 06/14/2022 3:26 PM FOOD SCIENCE TECHNICIAN Luiza Moncada MD LAB - PATHOLOGY/CYTOLOGY ORDERAB LES Final Result [facility] [address] [facility]. [address] [phone] documented in this encounter Visit Diagnoses Diagnosis Mantle cell lymphoma, intra-abdominal lymph nodes (HCC) Mantle cell lymphoma, intra-abdominal lymph nodes documented in this encounter Care Teams Career Transition Specialist Relationship Specialty Start Date End Date Mohan Daly MD [address] [place] [phone] PCP - General 03/12/08 documented as of this encounter
--- OUTSIDE RECORDS SUMMARY | 2024-09-28 08:02 | XMS_ITS | Encounter Summary ---
Author Organization [facility] Address [address] [place] [address] Care Team Providers Care Hands Parter Name Role Phone Melanie Chavez MD Primary Care Provider [phone] Encounter Details Date Type Department Care Team ([facility] Contact Info) Description 04/11/2004 Outpatient Historical [employer] LABORER Anabella Otero MD [address] [facility] [address] [place] [address] Akhil Van MD NO ADDRESS ON FILE LUMBAR DISC DISPLACEMENT (Primary Dx) Social History Tobacco Use Types Packs/Day Years Used Date Smoking Tobacco: Never Assessed Sex and Gender Information Value Date Recorded Sex Assigned at Not on file Legal 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 Male 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 Gender Identity Not on file Sexual Orientation Not on file documented as of this encounter Plan of Treatment Upcoming Encounters Date Type Department Care Team ([facility] Contact Info) Description 11/27/2024 8:45 AM CDT Office Visit [facility] Oncology and Hematology - Gio [address] [facility] [address] [place] [address] Robbi Tripathi MD [address] [facility] [address] [place] [address] documented as of this encounter Visit Diagnoses Diagnosis Displacement of lumbar intervertebral disc without myelopathy- Primary documented in this encounter Care Teams Hands Parter Relationship Specialty Start Date End Date Melanie Chavez MD [address] [place] [address] PCP - General Family Practice 09/12/18 documented as of this encounter
--- OUTSIDE RECORDS SUMMARY | 2024-09-28 08:02 | XMS_ITS | Encounter Summary ---
Author Organization [facility] Address [address] [place] [address] Care Team Providers Care Senior Principal Software Engineer Name Role Phone Melanie Chavez MD Primary Care Provider Encounter Details Date Type Department Care Team (Late st Contact Info) Description 02/05/[address] [facility] Oncology and Hematology - Gio [address] [facility] [address] [place] [address] Robbi Tripathi MD [address] [facility] [address] [place] [address] Social History Tobacco Use Types Packs/Day Years Used Date Smoking Tobacco: Former Cigarettes Q uit: 04/17/2004 Alcohol Use Standard Drinks/Week Comments No 0 (1 standard drink = 0.6 oz pur e alcohol) Sex and Gender Information Value Date Recorded Sex Assigned at Not on file Legal Sex Male 4:57 AM PERCOLATOR OPERATOR Gender Identity Not on file Sexual [...] - 02/05/2019 10:46 AM CDT [address] [facility] Spec Pharm; [phone]; medication Privigen in all strenglths not available [...] Description 11/27/2024 8:45 AM CDT Office Visit [facility] Oncology and Hematology - Gio [address] [facility] [address] [place] [address] Robbi Tripathi MD [address] [facility] [address] [place] [address] documented as of this encounter Visit Diagnoses Not on filedocumented in this encounter Care Teams Senior Principal Software Engineer Relationship Specialty Start Date End Date Melanie Chavez MD [address] [place] [address] PCP - General Family Practice 09/12/18 documented as of this encounter
--- OUTSIDE RECORDS SUMMARY | 2024-09-28 08:02 | XMS_ITS | Encounter Summary ---
Author Organization [facility] Address [address] [facility] [place] [address] Care Team Providers Care Animal Health Technician Name Role Phone Mohan Daly MD Primary Care Provider [phone] Encounter Details Date Type Department Care Team (Late st Contact Info) Description 06/18/2022 Lab Requisition [facility] [address] [place] [address] Luiza Moncada MD [facility] [address] [address] Illness, unspecified Social History Tobacco Use Types Packs/Day Years Used Date Smoking Tobacco: Never Assessed Sex and Gender Information Value Date Recorded Sex Assigned at Not on file Legal Sex Male 5:48 PM LAUNDRY MANAGER Gender Identity Not on file Sexual Orientation Not on file documented as of this encounter Plan of Treatment Not on file documented as of this encounter Procedures Procedure Name Priority Date/Time Associated Diagnosis Comments BONE MARROW BIOPSY (STL) Routine 06/14/2022 8:30 AM LAUNDRY MANAGER Illness, unspecified documented in this encounter Results * BONE MARROW BIOPSY (STL) (06/14/2022 8:30 AM LAUNDRY MANAGER) Case Report Bone Marrow Patholog y Report Case: [id number] Authorizing Provider: Luiza Moncada MD Collected: 06/14/2022 08:30 AM Ordering Location: [facility]ology Lab Received: 06/18/2022 09:02 AM Pathologist: Ilene Nguyen MD Specimens: A) - Bone Marrow Clot B) - Bone Marrow Core 06/18/2022 4:38 PM [facility] Final Diagnosis Bone marrow, aspirate, clot section, and core biopsy: - Variably cellular marrow with maturing trilineage hematopoiesis and ~30% involvement by mantle cell lymphoma. - See description. Peripheral blood smear: - Leukopenia. - Normochromic, normocytic anemia. - See description. 06/18/2022 4:38 PM [facility] Comment Overall, the bone marrow specimen is variably cellular with foci of maturing trilineage hematopoiesis. There is extensive involvement by recurrent/residual mantle cell lymphoma, estimated to comprise 30% of the marrow cellularity by immunohistochemistry. Correlation with clinical findings and relevant cytogenetic/molecular testing is required. 06/18/2022 4:38 PM [facility] Peripheral Smear Description CBC Data: [...] normal. Platelet morphology: normal. 06/18/2022 4:38 PM [facility] Bone Marrow Aspirate Differential count [...] by small, rare spicule. 06/18/2022 4:38 PM [facility] Bone Marrow Core Biopsy and [...] and CD5 are expressed by admixed T-cells. [id number] B-cells are estimated to comprise 30% of the marrow cellularity. 06/18/2022 4:38 PM [facility] Flow Cytometry Summary Concurrent flow cytometry ([id number]) shows a CD5-positive mature B-cell leukemia/lymphoma. 06/18/2022 4:38 PM [facility] Clinical History History of mantle cell lymphoma; last treatment in 2018. 06/18/2022 4:38 PM [facility] Materials Received Received are 21 slides and three blocks (A1, A2, B1) labeled [id number] along with a copy of the outside pathology report. [place] [address]. All original materials are returned to the referring institution, along with a copy of our final report. 06/18/2022 4:38 PM [facility] Disclaimer The performance characteristics of all immunohistochemical and indirect immunofluorescence stains (if any) cited in this report were determined by the Histopathology Laboratory of [facility]. Some of these tests were developed [...] interpretation of this case is performed by [facility] at [facility], [address] [place] [address]. 06/18/2022 4:38 PM LAUNDRY MANAGER [facility] Embedded Images 06/18/2022 4:38 PM LAUNDRY MANAGER [facility] Pathology/Cytology BONE MARROW SPECIMEN / Unknown 06/14/2022 8:30 AM LAUNDRY MANAGER 06/18/2022 9:02 AM LAUNDRY MANAGER Miscellaneous samples (specimen) BONE MARROW SPECIMEN / Unknown 06/14/2022 8:30 AM LAUNDRY MANAGER 06/18/2022 9:02 AM LAUNDRY MANAGER Luiza Moncada MD LAB - PATHOLOGY/CYTOLOGY ORDERAB LES Final Result [facility] [address] [phone] documented in this encounter Visit Diagnoses Diagnosis Illness, unspecified documented in this encounter Care Teams Animal Health Technician Relationship Specialty Start Date End Date Mohan Daly MD [address] [place] [address] PCP - General 03/12/08 documented as of this encounter
--- OUTSIDE RECORDS SUMMARY | 2024-09-28 08:02 | XMS_ITS | Clinical Summary ---
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) 09/25/2024 10:00 AM CDT Office Visit [facility] Oncology and Hematology - Gio Fatimah [address] [place] [address] Delfina Steele MD 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); Hypogammaglobulinem ia 09/15/2024 External Device Data STL ABSTRACTION Provider, Abstract 09/14/2024 Orders Only [facility] Oncology and Hematology - Gio Fatimah [address] [place] [address] Robbi Tripathi MD 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) 09/02/2024 Abstract [facility] Oncology and Hematology - Gio Fatimah [address]uff [address] [place] [address] Robbi Tripathi MD 09/01/2024 External Device Data STL ABSTRACTION Provider, Abstract 08/31/2024 Orders Only [facility] Oncology and Hematology - Gio Fatimah [address]uff [address] [place] [address] Robbi Tripathi MD 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) 08/19/2024 External Device Data STL ABSTRACTION Provider, Abstract 08/17/2024 Orders Only [facility] Oncology and Hematology - Gio Fatimah Duff [address] [place] [address] Robbi Tripathi MD 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) 08/08/2024 External Device Data STL ABSTRACTION Provider, Abstract 08/07/2024 External Device Data STL ABSTRACTION Provider, Abstract 08/04/2024 External Device Data STL ABSTRACTION Provider, Abstract 08/04/2024 Orders Only [facility] Oncology and Hematology - Gio [address] [place] [address] Robbi Tripathi MD 08/03/2024 Orders Only [facility] Oncology and Hematology - Gio [address] Robbi Tripathi MD 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) 07/22/2024 4:30 PM ACCOUNTS PAYABLE COORDINATOR Telephone Check Up [facility] Oncology and Hematology - Gio [address] Robbi Tripathi MD Parotid mass (Primary Dx); 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) 07/22/2024 External Device Data STL ABSTRACTION Provider, Abstract 07/21/2024 External Device Data STL ABSTRACTION Provider, Abstract 07/21/2024 Orders Only [facility] Oncology and Hematology - Gio [address] [place] [address] Robbi Tripathi MD 07/21/2024 Abstract [facility] Oncology and Hematology - Gio [address] [place] [address] Robbi Tripathi MD 07/20/2024 Orders Only [facility] Oncology and Hematology - Gio [address] [place] [address] Robbi Tripathi MD 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) 07/06/2024 Orders Only [facility] Oncology and Hematology - Gio [address] [place] [address] Robbi Tripathi MD 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) 06/30/2024 External Device Data STL ABSTRACTION Provider, Abstract from Last 3 Months Family History Medical [...] on file Legal Sex Male 4:57 AM ACCOUNTS PAYABLE COORDINATOR Gender Identity Not on file Sexual Orientation Not on file Last Filed Vital Signs Vital Sign Reading Time Taken Comments Blood Pressure 127/81 09/25/2024 9:49 AM CDT Pulse 69 09/25/2024 9:49 AM CDT Temperature 36.3 C (97.4 F) 09/25/2024 9:49 AM CDT Respiratory Rate 15 09/25/2024 9:49 AM CDT Oxygen Saturation 97% 09/25/2024 9:49 AM CDT Inhaled Oxygen Concentration - - Weight 106 kg (233 lb 9.6 oz) 09/25/2024 9:49 AM CDT Height 182.9 cm (6') 08/18/2021 9:05 AM CDT Body Mass Index 31.68 08/18/2021 9:05 AM CDT Plan of Treatment Upcoming Encounters Date Type Department Care Team (Late st Contact Info) Description 11/27/2024 8:45 AM CDT Office Visit [facility] Oncology and Hematology - Gio [address] [facility] [address] [place] [address] Robbi Tripathi MD [address] [facility] [address] [place] [address] Health Maintenance Due Date Last Done Comments Pre-Diabetes and Diabetes Screening 1955 DTAP/TDAP/TD VACCINES (1 - Tdap) 12/31/1975 PNEUMOCOCCAL VACCINE 50+ YEARS (1 of 2 - PCV) 12/30/18 76 ZOSTER VACCINE (1 of 2) 12/31/1975 FIT-DNA Q 3 years 2001 FIT/FOBT Q 1 year 2001 Flex Sig/CT Colonography Q 5 years 2001 RSV VACCINE (60+ or ) (1 - Risk 60-74 years 1-dose series) 2016 Abdominal Aortic Aneurysm (AAA) Screening 2021 INFLUENZA VACCINE (#1) 2024 06/04/2017 COLORECTAL SCREENING 06/10/2033 06/10/2023 Colorectal Cancer Screening 06/10/2033 Procedures Procedure Name Priority Date/Time Associated Diagnosis Comments COMPREHENSIVE METABOLIC PANEL Routine 08/04/2024 4:13 PM ACCOUNTS PAYABLE COORDINATOR CBC WITH AUTODIFFERENTIAL Routine 2024 2:25 PM ACCOUNTS PAYABLE COORDINATOR PATHOLOGY Routine 07/15/2024 1:00 PM ACCOUNTS PAYABLE COORDINATOR from Last 3 Months Results * COMPREHENSIVE METABOLIC PANEL (08/04/2024 4:13 PM ACCOUNTS PAYABLE COORDINATOR) Blood us Robbi Tripathi MD CHEMISTRY ORDERABLES Final Resu lt * CBC WITH AUTODIFFERENTIAL (08/04/2024 2:25 PM ACCOUNTS PAYABLE COORDINATOR) Blood us Robbi Tripathi MD HEMATOLOGY ORDERABLES Final Res ult * PATHOLOGY (07/15/2024 1:00 PM ACCOUNTS PAYABLE COORDINATOR) Tissue us Robbi Tripathi MD PATHOLOGY/CYTOLOGY ORDERABLES F inal Result from Last 3 Months Insurance MEDICARE PART A AND B [facility] [place] [address] [place] [address] RX [employer] RX Member Subscriber Plan / Payer (Ef fective 2021-Present) Name:Min Toro Relation to Subscriber:Self Name:Min Toro Payer ID:Not on file Group ID:[id number] Type:RX Medicare Part D Address: [address] [employer] [place] Commercial Advance Directives For more information, please contact: [phone] Documents on File Type Date Recorded Patient Livestock Ranch Hand Expl anation Advance Directive Living Will 04/17/2016 1:05 PM Care Teams Performing Arts Technicians Relationship Specialty Start Date End Date Melanie Chavez MD [address] [place] [address] PCP - General Family Practice 09/12/18
--- OUTSIDE RECORDS SUMMARY | 2024-09-28 08:02 | XMS_ITS | Encounter Summary ---
Author Organization [facility] Address [address] [place] [address] Care Team Providers Care Ladies Attendant Name Role Phone Melanie Chavez MD Primary Care Provider [phone] Reason for Visit * Reason Comments Medication Refill Encounter Details Date Type Department Care Team (Late Contact Info) Description 02/02/2019 Refill [facility] Oncology and [facility] [address] [place] [address] Robbi Tripathi MD [address] [employer] [facility] [employer] [address] [place] [address] Mantle cell lymphoma, unspecified body region (CMS/HCC) Social History Tobacco Use Types Packs/Day Years Used Date Smoking Tobacco: Former Cigarettes Q uit: 04/17/2004 Alcohol Use Standard Drinks/Week Comments No 0 (1 standard drink = 0.6 oz pur e alcohol) Sex and Gender Information Value Date Recorded Sex Assigned at Not on file 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 Gender Identity Not on file Sexual Orientation Not on file documented as of this encounter Plan of Treatment Upcoming Encounters Date Type Department Care Team (Late Contact Info) Description 11/27/2024 8:45 AM CDT Office Visit [facility] Oncology and Hematology [facility] [address] [place] [address] Robbi Tripathi MD [address] [facility] [address] [place] [address] documented as of this encounter Visit Diagnoses Diagnosis Mantle cell lymphoma, unspecified body region (CMS/HCC) documented in this encounter Care Teams Ladies Attendant Relationship Specialty Start Date End Date Melanie Chavez MD [address] [place] [address] PCP - General Family Practice 09/12/18 documented as of this encounter
--- OUTSIDE RECORDS SUMMARY | 2024-09-28 08:02 | XMS_ITS | Encounter Summary ---
Author Organization [facility] Address [address] [place] [address] Care Team Providers Care Supervisor Abattoir Name Role Phone Melanie Chavez MD Primary Care Provider [phone] Reason for Visit * Reason Comments Medication Refill Encounter Details Date Type Department Care Team (Late Contact Info) Description 02/03/[address] 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 Oncology and Hematology [facility] [address] [place] [address] Robbi Tripathi MD [address] [employer] [address] [place] [address] documented as of this encounter Visit Diagnoses Diagnosis Mantle cell lymphoma, unspecified body region (CMS/HCC) documented in this encounter Care Teams Supervisor Abattoir Relationship Specialty Start Date End Date Melanie Chavez MD [address] [place] [address] PCP - General Family Practice 09/12/18 documented as of this encounter
--- OUTSIDE RECORDS SUMMARY | 2024-09-28 08:02 | XMS_ITS | Clinical Summary ---
Author Organization [facility] Address [address] [facility] [place] [address] Care Team Providers Care Automotive Repair Technician Name Role Phone Mohan Daly MD Primary Care Provider [phone] Source Comments [facility],non-owned Affiliates and Associated Physician Practices is amultiple site organization consisting of ambulatory clinics and hospital sitesin [place], [place], [place] and [place]. This disclosure is being madepursuant to the Care Everywhere program and may not contain all information available regarding this patient. Last updated 18.[facility] Social History Tobacco Use Types Packs/Day Years Used Date Smoking Tobacco: Never Assessed Sex and Gender Information Value Date Recorded Sex Assigned at Not on file Legal Sex Male 5:48 PM SEQUINS WINDER Gender Identity Not on file Sexual Orientation [...] VACCINE (1 of 2) 2006 COVID-19 VACCINE (2023-2 5 season) 2024 DEPRESSION SCREENING 06/03/2024 INFLUENZA VACCINE (Season Ended) 2025 Respiratory Syncytial Virus (RSV) Vaccine Pt: or [...] to complete this topic MENINGOCOCCAL (Group B) VACC INE SHARED DECISION-MAKING Aged Out No longer eligibl e based on patient's age to complete this topic MENINGOCOCCAL GROUPS A/C/Y/W VACCINE Aged Out No longer eligible b ased on patient's age to complete this topic Insurance MEDICARE MEDICARE [employer] Care Teams Automotive Repair Technician Relationship Specialty Start Date End Date Mohan Daly MD [address] [place] [id number] PCP - General 03/12/08
--- OUTSIDE RECORDS SUMMARY | 2024-09-28 08:02 | XMS_ITS | Encounter Summary ---
Author Organization [facility] Address [address] [place] [address] Care Team Providers Care Valet Manager Name Role Phone Melanie Chavez MD Primary Care Provider [phone] Reason for Visit * Reason Comments Medication Refill Encounter Details Date Type Department Care Team (Late Contact Info) Description 08/15/2018 Refill [facility] Oncology and Hematology Gio [address] [place] [address] Robbi Tripathi MD [address] [place] [address] Social History Tobacco Use Types Packs/Day Years Used Date Smoking Tobacco: Former Cigarettes Q uit: 04/17/2004 Alcohol Use Standard Drinks/Week Comments No 0 (1 standard drink = 0.6 oz pur e alcohol) Sex and Gender Information Value Date Recorded Sex Assigned at Not on file 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 Gender Identity Not on file Sexual Orientation Not on file documented as of this encounter Plan of Treatment Upcoming Encounters Date Type Department Care Team (Late Contact Info) Description 11/27/2024 8:45 AM CDT Office Visit [facility] Oncology and Hematology Gio [address] [place] [address] Robbi Tripathi MD [address] [place] [address] documented as of this encounter Visit Diagnoses Not on filedocumented in this encounter Care Teams Valet Manager Relationship Specialty Start Date End Date Melanie Chavez MD [address] [place] [address] PCP - General Family Practice 09/12/18 documented as of this encounter
== END 2024-09-28 07:53 | disposition home or self-care (01) ==
LOC: ANHSURGERY 07:56
PROVIDERS: PCP Family Medicine; Visit Provider Otolaryngology
DX: R94.31 Abnormal electrocardiogram [ECG] [EKG] (principal); I10 Essential (primary) hypertension
CPT/HCPCS: 93005

== ENCOUNTER 2024-10-05 01:07 | Day surgery (SDC) | payer MEDICARE, OTHER, SELFPAY ==
--- NOTE | 2024-09-18 09:30 | PC.NURSE ---
Report to the Outpatient Waiting Room, entrance under the green pavilion located off [facility], at time __6AM on date __10/05/24 . Planned Procedure Time: _8 AM .? Time changes happen often and if your time is changed the preop area will call you the afternoon before. - You and your visitor will be asked to self-screen and do not enter if you have any COVID symptoms. Please call surgeon if you need to reschedule. - A mask is optional within the hospital at this time. Patients may have clear liquids (water, carbonated beverages, clear teas, apple juice) until 3 hours prior to surgery ( 5AM) with a maximum of 20 ounces. - No food from midnight until time of surgery and no smoking, or chewing tobacco (or any form of nicotine). No chewing gum, candy or mints. Take only the following medications with a SIP of water on the morning of surgery: ___TRAMADOL DO NOT STOP ANY OF YOUR OTHER PRESCRIPTION MEDICATIONS PRIOR TO SURGERY EXCEPT THE FOLLOWING Hold all vitamins and supplements for 3 days per anesthesiologist.LAST DOSE 10/01/24 Medications to discontinue per physician NONE Please no make-up, nail vietnamese, hairspray, perfume, deodorant, or body powder the day of surgery.? No jewelry (including any body piercings) or valuables the day of surgery, leave them at home.? Please take a shower or bath the night before, or the morning of, surgery with an antibacterial soap.? Wear comfortable, loose fitting clothing.? Children are encouraged to wear pajamas. - Jewelry must be removed prior to entering the operating room.? Rings and piercings that are not removed may be cut off. - The hospital will not accept responsibility for valuables.? - Please leave all valuables, including medications, at home the day of surgery. If you are going home after surgery, a licensed goat driver must drive you home.? - NO public transportation without another adult if you receive anesthesia. - We recommend that an adult stay with you for 24 hours following discharge. - We also recommend that you do not drive, make important decision, drink alcoholic beverages, or take any drugs that were not prescribed by your health care provider for at least 24 hours after your discharge time. For Pediatric surgeries, we recommend two adults accompany the child home. Follow any additional instructions given to you from your surgeon. Telephone instructions given to __PT'S SPOUSE AUGUSTINE and asked if any additional questions and then verbalized understanding. Patient advised to call surgeon office or pre surgery nurse liaison [phone] if any additional questions.
[2024-09-18 09:54] VITALS: BMI 30.3
[2024-10-05] VITALS (8 sets, daily range): BP systolic 112–154; BP diastolic 76–88; PULSE 64–71; RESP 14–15; TEMP 36.2; O2SAT 99–100
--- OUTSIDE RECORDS SUMMARY | 2024-10-05 01:12 | XMS_ITS | Clinical Summary ---
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 Gender Identity Not on file Sexual Orientation Not on file Obstetrics History Last Filed Vital Signs Vital Sign Reading Time Taken Comments Blood Pressure 116/78 04/16/2022 9:31 AM VOICE DATA COMMUNICATIONS ENGINEER Pulse 83 04/16/2022 9:31 AM VOICE DATA COMMUNICATIONS ENGINEER Temperature - - Respiratory Rate - - Oxygen Saturation 96% 08/11/2013 12: 30 PM CDT Inhaled Oxygen Concentration - - Weight 113.2 kg (249 lb 9.6 oz) 04/16/2022 9:31 AM VOICE DATA COMMUNICATIONS ENGINEER Height 185.4 cm (6' 1 ) 04/16/2022 9:31 AM VOICE DATA COMMUNICATIONS ENGINEER Body Mass Index 32.93 04/16/2022 9:31 AM VOICE DATA COMMUNICATIONS ENGINEER Plan of Treatment Health Maintenance Due Date [...] Ended) 2025 06/04/19 18, 06/03/2015 Insurance MEDICARE [facility] [place] [id number] MEDICARE [employer] [place] [employer] Care Teams Folder Tier Relationship Specialty Start Date End Date Melanie Chavez MD PCP - General Family Medicine 03/09/22
--- OUTSIDE RECORDS SUMMARY | 2024-10-05 01:12 | XMS_ITS | Encounter Summary ---
Author Organization [facility] Address [address] [place] [address] Care Team Providers Care Drawing In Machine Tender Helper Name Role Phone Melanie Chavez MD Primary [...] on file Legal Sex Male 4:57 AM RECEIVING CHECKER Gender Identity Not on file Sexual Orientation Not on file documented as of this encounter Plan of Treatment Upcoming Encounters Date Type Department Care Team (Late st Contact Info) Description 11/27/2024 8:45 AM CDT Office Visit [facility] Oncology and Hematology - Gio [address] [facility] [address] [address] [place] [address] [place] [address] documented as of this encounter Visit Diagnoses Diagnosis 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
--- OUTSIDE RECORDS SUMMARY | 2024-10-05 01:12 | XMS_ITS | Encounter Summary ---
Author Organization [facility] Address [address] [place] [address] Care Team Providers Care Claims Examiner Name Role Phone Melanie Chavez MD Primary Care Provider [phone] Encounter Details Date Type Department Care Team (Late st Contact Info) Description 02/05/2019 Telephone [facility] Oncology and Hematology - Gio [address] [facility] [address] [place] [address] Robbi Tripathi MD [address] [facility] [address] [place] [address] Social History Tobacco Use Types Packs/Day Years Used Date Smoking Tobacco: Former Cigarettes Q uit: 04/17/2004 Alcohol Use Standard Drinks/Week Comments No 0 (1 standard drink = 0.6 oz pur e alcohol) Sex and Gender Information Value Date Recorded Sex Assigned at Not on file 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 Spec Pharm; [phone]; medication Privigen in all strenglths not available [...] Description 11/27/2024 8:45 AM CDT Office Visit [facility] Oncology and Hematology - Gio 2227 [facility] [address] [place] [address] Robbi Tripathi MD [address] [facility] [address] [place] [address] documented as of this encounter Visit Diagnoses Not on filedocumented in this encounter Care Teams Claims Examiner Relationship Specialty Start Date End Date Melanie Chavez MD [address] [place] [address] PCP - General Family Practice 09/12/18 documented as of this encounter
--- OUTSIDE RECORDS SUMMARY | 2024-10-05 01:12 | XMS_ITS | Encounter Summary ---
Author Organization [facility] Address [address] [place] [address] Care Team Providers Care Senior Hr Business Partner Name Role Phone Melanie Chavez MD Primary Care Provider [phone] Encounter Details Date Type Department Care Team (Late Contact Info) Description 10/01/2024 Orders Only [facility] Oncology and Hematology Gio [address] [place] [address] Robbi Tripathi MD [address] [place] [address] Social History Tobacco Use Types Packs/Day Years Used Date Smoking Tobacco: Former Cigarettes Q uit: 04/17/2004 Alcohol Use Standard Drinks/Week Comments No 0 (1 standard drink = 0.6 oz pur e alcohol) Sex and Gender Information Value Date Recorded Sex Assigned at Not on file Legal Sex Male 4:57 AM MEDICAL COLLECTIONS SPECIALIST Gender Identity Not on file Sexual Orientation Not on file documented as of this encounter Plan of Treatment Upcoming Encounters Date Type Department Care Team (Late st Contact Info) Description 11/27/2024 8:45 AM CDT Office Visit [facility] Oncology and Hematology - Gio [address] [place] [address] Robbi Tripathi MD [address] [place] [address] documented as of this encounter Procedures Procedure Name Priority Date/Time Associated Diagnosis Comments HEPATITIS B SURFACE ANTIGEN Routine 10/01/2024 4:07 PM CDT documented in this encounter Results * HEPATITIS B SURFACE ANTIGEN (10/01/2024 4:07 PM CDT) Blood Robbi Tripathi MD CHEMISTRY ORDERABLES Final Resu lt documented in this encounter Visit Diagnoses Not on filedocumented in this encounter Care Teams Senior Hr Business Partner Relationship Specialty Start Date End Date Melanie Chavez MD [address] [place] [phone] PCP - General Family Practice 09/12/18 documented as of this encounter
--- OUTSIDE RECORDS SUMMARY | 2024-10-05 01:12 | XMS_ITS | Clinical Summary ---
Author Organization [facility] Address [address] [facility] [place] [address] Care Team Providers Care Ladle Car Operator Name Role Phone Mohan Daly MD Primary Care Provider [phone] Source Comments [facility],non-owned Affiliates and Associated Physician Practices is amultiple site organization consisting of ambulatory clinics and hospital sitesin [place], [place], [place] and [place]. This disclosure is being madepursuant to the Care Everywhere program and may not contain all information available regarding this patient. Last updated 18.[facility] Social History Tobacco Use Types Packs/Day Years Used Date Smoking Tobacco: Never Assessed Sex and Gender Information Value Date Recorded Sex Assigned at Not on file Legal Sex Male 5:48 PM ICE GRINDER Gender Identity Not on file Sexual Orientation [...] this topic Insurance MEDICARE MEDICARE [employer] Care Teams Ladle Car Operator Relationship Specialty Start Date End Date Mohan Daly MD [address] [place] [id number] PCP - General 03/12/08
--- OUTSIDE RECORDS SUMMARY | 2024-10-05 01:12 | XMS_ITS | Encounter Summary ---
Author Organization [facility] Address [address] [place] [address] Care Team Providers Care Finance Consultant Name Role Phone Melanie Chavez MD Primary Care Provider [phone] Encounter Details Date Type Department Care Team (Late Contact Info) Description 08/08/1999 Outpatient Historical [facility] MRI DEPT (Excluded Provider) [place] [address] [facility] [address] [place] [address] Cervicalgia (Primary Dx) Social History Tobacco Use Types Packs/Day Years Used Date Smoking Tobacco: Never Assessed Sex and Gender Information Value Date Recorded Sex Assigned at Not on file Legal 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 Male 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 Gender Identity Not on file Sexual Orientation Not on file documented as of this encounter Plan of Treatment Upcoming Encounters Date Type Department Care Team ([facility] Contact Info) Description 11/27/2024 8:45 AM CDT Office Visit [facility] Oncology and Hematology - Gio [address] [facility] [address] [place] [address] Robbi Tripathi MD 2227 [facility] [address] [place] [address] documented as of this encounter Visit Diagnoses Diagnosis Cervicalgia- Primary documented in this encounter Care Teams Finance Consultant Relationship Specialty Start Date End Date Melanie Chavez MD [address] [place] [address] PCP - General Family Practice 09/12/18 documented as of this encounter
--- OUTSIDE RECORDS SUMMARY | 2024-10-05 01:12 | XMS_ITS | Encounter Summary ---
Author Organization [facility] Address [address] [place] [address] Care Team Providers Care Engine Room Helper Name Role Phone Melanie Chavez MD Primary Care Provider Reason for Visit * Reason Comments Medication Refill Encounter Details Date Type Department Care Team (Late Contact Info) Description 02/02/2019 Refill [facility] On[facility] and [facility] [address] [place] [address] Robbi Tripathi MD [address] [employer] [address] [place] [address] Mantle cell lymphoma, unspecified body region (CMS/HCC) Social History Tobacco Use Types Packs/Day Years Used Date Smoking Tobacco: Former Cigarettes Q uit: 04/17/2004 Alcohol Use Standard Drinks/Week Comments No 0 (1 standard drink = 0.6 oz pur e alcohol) Sex and Gender Information Value Date Recorded Sex Assigned at Not on file 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 Gender Identity Not on file Sexual Orientation Not on file documented as of this encounter Plan of Treatment Upcoming Encounters Date Type Department Care Team (Late Contact Info) Description 11/27/2024 8:45 AM CDT Office Visit [facility] Oncology and Hematology [facility] [address] [place] [address] Robbi Tripathi MD [address] [employer] [address] [place] [address] documented as of this encounter Visit Diagnoses Diagnosis Mantle cell lymphoma, unspecified body region (CMS/HCC) documented in this encounter Care Teams Engine Room Helper Relationship Specialty Start Date End Date Melanie Chavez MD [address] [place] [address] PCP - General Family Practice 09/12/18 documented as of this encounter
--- OUTSIDE RECORDS SUMMARY | 2024-10-05 01:12 | XMS_ITS | Encounter Summary ---
Author Organization [facility] Address [address] [place] [address] Care Team Providers Care Evp Managing Director Name Role Phone Melanie Chavez MD Primary Care Provider Encounter Details Date Type Department Care Team (Late st Contact Info) Description 04/26/2004 Outpatient Historical [facility] [place] [place] Support Serv. ([facility] Cardiology[facility]) [address] 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 Gender Identity Not on file Sexual Orientation Not on file documented as of this encounter Plan of Treatment Upcoming Encounters Date Type Department Care Team (Late st Contact Info) Description 11/27/2024 8:45 AM CDT Office Visit [facility] Oncology and Hematology - Gio [address] [address] Robbi Tripathi MD 2227 [facility] [address] [place] [address] documented as of this encounter Visit Diagnoses Not on filedocumented in this encounter Care Teams Evp Managing Director Relationship Specialty Start Date End Date Melanie Chavez MD [address] [place] [address] PCP - General Family Practice 09/12/18 documented as of this encounter
--- OUTSIDE RECORDS SUMMARY | 2024-10-05 01:12 | XMS_ITS | Encounter Summary ---
Author Organization [facility] Address [address] [facility] [place] [address] Care Team Providers Care Exhaust Machine Operator Name Role Phone Mohan Daly MD Primary Care Provider [phone] Encounter Details Date Type Department Care Team (Late st Contact Info) Description 06/18/2022 Lab Requisition [facility] [address] [place] [address] Luiza Moncada MD [facility] [address] [address] Illness, unspecified Social History Tobacco Use Types Packs/Day Years Used Date Smoking Tobacco: Never Assessed Sex and Gender Information Value Date Recorded Sex Assigned at Not on file Legal Sex Male 5:48 PM ASSEMBLY LOADER Gender Identity Not on file Sexual Orientation Not on file documented as of this encounter Plan of Treatment Not on file documented as of this encounter Procedures Procedure Name Priority Date/Time Associated Diagnosis Comments BONE MARROW BIOPSY (STL) Routine 06/14/2022 8:30 AM ASSEMBLY LOADER Illness, unspecified documented in this encounter Results * BONE MARROW BIOPSY (STL) (06/14/2022 8:30 AM ASSEMBLY LOADER) Case Report Bone Marrow Patholog y Report Case: [id number] Authorizing Provider: Luiza Moncada MD Collected: 06/14/2022 08:30 AM Ordering Location: [facility] Pathology Lab Received: 06/18/2022 09:02 AM Pathologist: Ilene Nguyen MD Specimens: A) - Bone Marrow Clot B) - Bone Marrow Core 06/18/2022 4:38 PM [facility] Final Diagnosis Bone marrow, aspirate, clot section, and core biopsy: - Variably cellular marrow with maturing trilineage hematopoiesis and ~30% involvement by mantle cell lymphoma. - See description. Peripheral blood smear: - Leukopenia. - Normochromic, normocytic anemia. - See description. 06/18/2022 4:38 PM [facility] Comment Overall, the bone marrow specimen is variably cellular with foci of maturing trilineage hematopoiesis. There is extensive involvement by recurrent/residual mantle cell lymphoma, estimated to comprise 30% of the marrow cellularity by immunohistochemistry. Correlation with clinical findings and relevant cytogenetic/molecular testing is required. 06/18/2022 4:38 PM [facility] Peripheral Smear Description CBC Data: [...] normal. Platelet morphology: normal. 06/18/2022 4:38 PM [facility] Bone Marrow Aspirate Differential count [...] by small, rare spicule. 06/18/2022 4:38 PM [facility] Bone Marrow Core Biopsy and [...] and CD5 are expressed by admixed T-cells. [id number] B-cells are estimated to comprise 30% of the marrow cellularity. 06/18/2022 4:38 PM 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 06/18/2022 4:38 PM [facility] Clinical History History of mantle cell lymphoma; last treatment in 2018. 06/18/2022 4:38 PM [facility] Materials Received Received are 21 slides and three blocks (A1, A2, B1) labeled [id number] along with a copy of the outside pathology report. [place] [address]. All original materials are returned to the referring institution, along with a copy of our final report. 06/18/2022 4:38 PM [facility] Disclaimer The performance characteristics of all immunohistochemical and indirect immunofluorescence stains (if any) cited in this report were determined by the Histopathology Laboratory of [facility]. Some of these tests were developed [...] interpretation of this case is performed [facility], [address] [place] [address]. 06/18/2022 4:38 PM ASSEMBLY LOADER [facility] Embedded Images 06/18/2022 4:38 PM ASSEMBLY LOADER [facility] Pathology/Cytology BONE MARROW SPECIMEN / Unknown 06/14/2022 8:30 AM ASSEMBLY LOADER 06/18/2022 9:02 AM ASSEMBLY LOADER Miscellaneous samples (specimen) BONE MARROW SPECIMEN / Unknown 06/14/2022 8:30 AM ASSEMBLY LOADER 06/18/2022 9:02 AM ASSEMBLY LOADER Luiza Moncada MD LAB - PATHOLOGY/CYTOLOGY ORDERAB LES Final Result [facility] [address] [phone] documented in this encounter Visit Diagnoses Diagnosis Illness, unspecified documented in this encounter Care Teams Exhaust Machine Operator Relationship Specialty Start Date End Date Mohan Daly MD [address] [place] [address] PCP - General 03/12/08 documented as of this encounter
--- OUTSIDE RECORDS SUMMARY | 2024-10-05 01:12 | XMS_ITS | Encounter Summary ---
Author Organization [facility] Address [address] [place] [address] Care Team Providers Care Instructor Substitute Cosmetology Name Role Phone Melanie Chavez MD Primary Care Provider [phone] Reason for Visit * Reason Comments Medication Refill Encounter Details Date Type Department Care Team (Late Contact Info) Description 02/03/2019 Refill [facility] Oncology and [facility] [address] [place] [address] Robbi Tripathi MD [address] [employer] [address] [place] [address] Mantle cell lymphoma, unspecified body region (CMS/HCC) Social History Tobacco Use Types Packs/Day Years Used Date Smoking Tobacco: Former Cigarettes Q uit: 04/17/2004 Alcohol Use Standard Drinks/Week Comments No 0 (1 standard drink = 0.6 oz pur e alcohol) Sex and Gender Information Value Date Recorded Sex Assigned at Not on file Legal 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 Gender Identity Not on file Sexual Orientation Not on file documented as of this encounter Plan of Treatment Upcoming Encounters Date Type Department Care Team (Late Contact Info) Description 11/27/2024 8:45 AM CDT Office Visit [facility] Oncology and Hematology [facility] [address] [place] [address] Robbi Tripathi MD [address] [employer] [address] [place] [address] documented as of this encounter Visit Diagnoses Diagnosis Mantle cell lymphoma, unspecified body region (CMS/HCC) documented in this encounter Care Teams Instructor Substitute Cosmetology Relationship Specialty Start Date End Date Melanie Chavez MD [address] [place] [address] PCP - General Family Practice 09/12/18 documented as of this encounter
--- OUTSIDE RECORDS SUMMARY | 2024-10-05 01:12 | XMS_ITS | Encounter Summary ---
Author Organization [facility] Address [address] [place] [address] Care Team Providers Care Accounting Clerk Name Role Phone Melanie Chavez MD Primary Care Provider [phone] Encounter Details Date Type Department Care Team (Late Contact Info) Description 07/18/1999 Outpatient Historical HIS MRI DEPT (Excluded Provider) [place] [address] [facility] [address] [place] [address] Neuralgia, neuritis, and radiculitis, unspecified (Primary Dx) Social History Tobacco Use Types Packs/Day Years Used Date Smoking Tobacco: Never Assessed Sex and Gender Information Value Date Recorded Sex Assigned at Not on file Legal Sex Male 4:57 AM MARKET RISK 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 Gender Identity Not on file Sexual Orientation Not on file documented as of this encounter Plan of Treatment Upcoming Encounters Date Type Department Care Team ([facility] Contact Info) Description 11/27/2024 8:45 AM CDT Office Visit [facility] Oncology and Hematology - [place] [address] [facility] [address] [place] [address] Robbi Tripathi MD [address] [facility] [address] [place] [address] documented as of this encounter Visit Diagnoses Diagnosis Neuralgia, neuritis, and radiculitis, unspecified- Primary documented in this encounter Care Teams Accounting Clerk Relationship Specialty Start Date End Date Melanie Chavez MD [address] [place] [address] PCP - General Family Practice 09/12/18 documented as of this encounter
--- OUTSIDE RECORDS SUMMARY | 2024-10-05 01:12 | XMS_ITS | Encounter Summary ---
Author Organization [facility] Address [address] [place] [address] Care Team Providers Care Mercantile Agent Name Role Phone Melanie Chavez MD Primary Care Provider [phone] Encounter Details Date Type Department Care Team ([facility] Contact Info) Description 04/11/2004 Outpatient Historical [facility] CARD ETCHER HAND Anabella Otero MD [address] [facility] [address] [place] [address] Akhil Van MD NO ADDRESS ON FILE LUMBAR DISC DISPLACEMENT (Primary Dx) Social History Tobacco Use Types Packs/Day Years Used Date Smoking Tobacco: Never Assessed Sex and Gender Information Value Date Recorded Sex Assigned at Not on file Legal Sex Male 4:57 AM CLOTHING WORKER Gender Identity Not on file Sexual Orientation Not on file documented as of this encounter Plan of Treatment Upcoming Encounters Date Type Department Care Team ([facility] Contact Info) Description 11/27/2024 8:45 AM CDT [facility] On[facility] Hematology - Gio [address] [facility] [address] [place] [address] Robbi Tripathi MD [address] [facility] [address] [place] [address] documented as of this encounter Visit Diagnoses Diagnosis Displacement of lumbar intervertebral disc without myelopathy- Primary documented in this encounter Care Teams Mercantile Agent Relationship Specialty Start Date End Date Melanie Chavez MD [address] [place] [address] PCP - General Family Practice 09/12/18 documented as of this encounter
--- OUTSIDE RECORDS SUMMARY | 2024-10-05 01:12 | XMS_ITS | Encounter Summary ---
Author Organization [facility] Address [address] [place] [address] Care Team Providers Care Research Support Specialist Name Role Phone Melanie Chavez MD Primary Care Provider [phone] Encounter Details Date Type Department Care Team (Latest Contact Info) Description 01/10/2005 Outpatient Historical [facility] BackerAkhil MD NO ADDRESS ON FILE LUMBAR DISC DISPLACEMENT (Primary Dx) Social History Tobacco Use Types Packs/Day Years Used Date Smoking Tobacco: Never Assessed Sex and Gender Information Value Date Recorded Sex Assigned at Not on file Legal Sex Male 4:57 AM STUDIO MUSICIAN Gender Identity Not on file Sexual Orientation Not on file documented as of this encounter Plan of Treatment Upcoming Encounters Date Type Department Care Team (Late st Contact Info) Description 11/27/2024 8:45 AM CDT Office Visit [facility] Oncology and Hematology - [place] 2[address] [facility] [address] [place] [address] Robbi Tripathi MD [address] [facility] [address] [place] [address] documented as of this encounter [...] Primary documented in this encounter Care Teams Research Support Specialist Relationship Specialty Start Date End Date Melanie Chavez MD [address] [place] [address] PCP - General Family Practice 09/12/18 documented as of this encounter
--- OUTSIDE RECORDS SUMMARY | 2024-10-05 01:12 | XMS_ITS | Encounter Summary ---
Author Organization [facility] Address [address] [place] [address] Care Team Providers Care Assembly Line Worker Name Role Phone Melanie Chavez MD Primary Care Provider [phone] Encounter Details Date Type Department Care Team ([facility] Contact Info) Description 06/28/1999 Outpatient [facility] Division of Neurology [address] [facility] [address] [address] (Excluded Provider) [place] [address] [facility] [address] [place] [address] Social History Tobacco Use Types Packs/Day Years Used Date Smoking Tobacco: Never Assessed Sex and Gender Information Value Date Recorded Sex Assigned at Not on file Legal Sex Male 4:57 AM BUSINESS 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 Gender Identity Not on file Sexual Orientation Not on file documented as of this encounter Plan of Treatment Upcoming Encounters Date Type Department Care Team (Late Contact Info) Description 11/27/2024 8:45 AM CDT Office Visit [facility] Oncology and Hematology - Gio [address] [facility] [address] [place] [address] Robbi Tripathi MD [address] [facility] [address] [place] [address] documented as of this encounter Visit Diagnoses Not on filedocumented in this encounter Care Teams Assembly Line Worker Relationship Specialty Start Date End Date Melanie Chavez MD [address] [place] [phone] PCP - General Family Practice 09/12/18 documented as of this encounter
--- OUTSIDE RECORDS SUMMARY | 2024-10-05 01:12 | XMS_ITS | Encounter Summary ---
Author Organization [facility] agencyQ [facility] Address [address] [place] [address] Care Team Providers Care Mortgage Manager Name Role Phone Melanie Chavez MD Primary Care Provider [phone] Reason for Visit * Reason Comments Medication Refill Encounter Details Date Type Department Care Team (Late Contact Info) Description 03/05/2019 Refill [facility] Oncology and Hematology [facility] [address] [place] [address] Robbi Tripathi MD [address] [place] [address] Mantle cell lymphoma, unspecified body region (CMS/HCC) Social History Tobacco Use Types Packs/Day Years Used Date Smoking Tobacco: Former Cigarettes Q uit: 04/17/2004 Alcohol Use Standard Drinks/Week Comments No 0 (1 standard drink = 0.6 oz pur e alcohol) Sex and Gender Information Value Date Recorded Sex Assigned at Not on file Legal Sex Male 4:57 AM GRINDING ROOM SUPERVISOR Gender Identity Not on file Sexual Orientation Not on file documented as of this encounter Plan of Treatment Upcoming Encounters Date Type Department Care Team (Late Contact Info) Description 11/27/2024 8:45 AM CDT Office Visit [facility] Oncology and Hematology [facility] [address] [place] [address] Robbi Tripathi MD [address] [place] [address] documented as of this encounter Visit Diagnoses Diagnosis Mantle cell lymphoma, unspecified body region (CMS/HCC) documented in this encounter Care Teams Mortgage Manager Relationship Specialty Start Date End Date Melanie Chavez MD [address] [place] [address] PCP - General Family Practice 09/12/18 documented as of this encounter
--- OUTSIDE RECORDS SUMMARY | 2024-10-05 01:12 | XMS_ITS | Encounter Summary ---
Author Organization [facility] Address 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 Gender Identity Not on file Sexual Orientation Not on file documented as of this encounter Plan of Treatment Upcoming Encounters Date Type Department Care Team (Late st Contact Info) Description 11/27/2024 8:45 AM CDT Office Visit [facility] Oncology and Hematology - [place] [address] [place] [address] [address] [place] [address] [place] [address] documented as of this encounter Visit Diagnoses Diagnosis Disturbance of skin sensation- Primary documented in this encounter Care Teams Obstetrical Anesthesiologist Relationship Specialty Start Date End Date Melanie Chavez MD [address] [place] [address] PCP - General Family Practice 09/12/18 documented as of this encounter
--- OUTSIDE RECORDS SUMMARY | 2024-10-05 01:12 | XMS_ITS | Encounter Summary ---
Author Organization [facility] Address [address] [place] [address] Care Team Providers Care Clothing Busheler Name Role Phone Melanie Chavez MD Primary Care Provider [phone] Encounter Details Date Type Department Care Team (Late Contact Info) Description 02/03/2004 Outpatient Historical [facility] Jacob Arshad MD [address] [place] [address] BACKACHE NOS (Primary Dx) Social History Tobacco Use Types Packs/Day Years Used Date Smoking Tobacco: Never Assessed Sex and Gender Information Value Date Recorded Sex Assigned at Not on file Legal Sex Male 4:57 AM QUALITY TESTER Gender Identity Not on file Sexual Orientation Not on file documented as of this encounter Plan of Treatment Upcoming Encounters Date Type Department Care Team ([facility] Contact Info) Description 11/27/2024 8:45 AM CDT Office Visit [facility] Oncology and Hematology - [place] [address] [address] Robbi Tripathi MD [address] [facility] [address] [place] [address] documented as of this encounter Visit Diagnoses Diagnosis Backache, unspecified- Primary documented in this encounter Care Teams Clothing Busheler Relationship Specialty Start Date End Date Melanie Chavez MD [address] [place] [address] PCP - General Family Practice 09/12/18 documented as of this encounter
--- OUTSIDE RECORDS SUMMARY | 2024-10-05 01:12 | XMS_ITS | Encounter Summary ---
Author Organization [facility] Address [address] [place] [address] Care Team Providers Care Automobile Leasing Supervisor Name Role Phone Melanie Chavez MD Primary Care Provider [phone] Reason for Visit * Reason Comments Medication Refill Encounter Details Date Type Department Care Team (Late Contact Info) Description 08/15/2018 Refill [facility] Oncology and Hematology [place] [address] [place] [address] Robbi Tripathi MD [address] [employer] [address] [place] [address] Social History Tobacco Use Types Packs/Day Years Used Date Smoking Tobacco: Former Cigarettes Q uit: 04/17/2004 Alcohol Use Standard Drinks/Week Comments No 0 (1 standard drink = 0.6 oz pur e alcohol) Sex and Gender Information Value Date Recorded Sex Assigned at Not on file Legal Sex Male 4: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 BOARD OF COMMISSIONERS Gender Identity Not on file Sexual Orientation Not on file documented as of this encounter Plan of Treatment Upcoming Encounters Date Type Department Care Team (Late Contact Info) Description 11/27/2024 8:45 AM CDT Office Visit [facility] Oncology and Hematology [place] [address] [place] [address] Robbi Tripathi MD [address] [employer] [address] [place] [address] documented as of this encounter Visit Diagnoses Not on filedocumented in this encounter Care Teams Automobile Leasing Supervisor Relationship Specialty Start Date End Date Melanie Chavez MD [address] [place] [address] PCP - General Family Practice 09/12/18 documented as of this encounter
--- OUTSIDE RECORDS SUMMARY | 2024-10-05 01:12 | XMS_ITS | Clinical Summary ---
Author Organization [facility] Address [address] [facility] [place] [address] Care Team Providers Care Riveter Automobile Brakes Name Role Phone Melanie Chavez MD Primary Care Provider [phone] Allergies Active Allergy Reactions Criticality Noted Date [...] Encounters Date Type Department Care Team Description 10/01/2024 Orders Only [facility] Oncology and Hematology - [place] [address] [place] [address] Robbi Tripathi MD 09/28/2024 Orders Only [facility] Oncology and Hematology - [place] [address] [place] [address] Robbi Tripathi MD 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) 09/25/2024 10:00 AM CDT Office Visit [facility] Oncology and Hematology - [place] [address] [place] [address] Delfina Steele MD 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); Hypogammaglobulinem ia 09/15/2024 External Device Data STL ABSTRACTION Provider, Abstract 09/14/2024 Orders Only [facility] Oncology and Hematology - [place] [address] [place] [address] Robbi Tripathi MD 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) 09/02/2024 Abstract [facility] Oncology and Hematology [place] [address] [place] [address] Robbi Tripathi MD 09/01/2024 External Device Data STL ABSTRACTION Provider, Abstract 08/31/2024 Orders Only [facility] Oncology and Hematology - [place] [address] [place] [address] Robbi Tripathi MD 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) 08/19/2024 External Device Data STL ABSTRACTION Provider, Abstract 08/17/2024 Orders Only [facility] Oncology and Hematology - [place] [address] [place] [phone] Robbi Tripathi MD 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) 08/08/2024 External Device Data STL ABSTRACTION Provider, Abstract 08/07/2024 External Device Data STL ABSTRACTION Provider, Abstract 08/04/2024 External Device Data STL ABSTRACTION Provider, Abstract 08/04/2024 Orders Only [facility] Oncology and Hematology - [place] [address] Robbi Tripathi MD 08/03/2024 Orders Only [facility] Oncology and Hematology - [place] [address] [place] [address] Robbi Tripathi MD 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) 07/22/2024 4:30 PM WELDER EXPERIMENTAL Telephone Check Up [facility] Oncology and Hematology [facility] [address] Robbi Tripathi MD Parotid mass (Primary Dx); 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 ([facility]/HCC) 07/22/2024 External Device Data STL ABSTRACTION Provider, Abstract 07/21/2024 External Device Data STL ABSTRACTION Provider, Abstract 07/21/2024 Orders Only [facility] Oncology and Hematology - [place] [address] [place] [address] Robbi Tripathi MD 07/21/2024 Abstract [facility] Oncology and Hematology - [place] [address] [place] [address] Robbi Tripathi MD 07/20/2024 Orders Only [facility] Oncology and Hematology - [place] [address] [place] [phone] Robbi Tripathi MD 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) from Last 3 Months Family History Medical [...] on file Legal Sex Male 4:57 AM WELDER EXPERIMENTAL Gender Identity Not on file Sexual Orientation [...] Description 11/27/2024 8:45 AM CDT Office Visit [facility] Oncology and Hematology - [place] [address] [facility] [address] [place] [address] Robbi Tripathi MD [address] [facility] [address] [place] [address] Health Maintenance Due Date Last [...] Diagnosis Comments HEPATITIS B SURFACE ANTIGEN Routine 06/2024 4:07 PM CDT COMPREHENSIVE METABOLIC PANEL Routine 08/04/2024 4:13 PM WELDER EXPERIMENTAL CBC WITH AUTODIFFERENTIAL Routine 2024 2:25 PM WELDER EXPERIMENTAL PATHOLOGY Routine 07/15/2024 1:00 PM WELDER EXPERIMENTAL from Last 3 Months Results * HEPATITIS B SURFACE ANTIGEN (10/01/2024 4:07 PM CDT) Blood us Robbi Tripathi MD CHEMISTRY ORDERABLES Final Resu lt * COMPREHENSIVE METABOLIC PANEL (08/04/2024 4:13 PM WELDER EXPERIMENTAL) Blood us Robbi Tripathi MD CHEMISTRY ORDERABLES Final Resu lt * CBC WITH AUTODIFFERENTIAL (08/04/2024 2:25 PM WELDER EXPERIMENTAL) Blood us Robbi Tripathi MD HEMATOLOGY ORDERABLES Final Res ult * PATHOLOGY (07/15/2024 1:00 PM WELDER EXPERIMENTAL) Tissue us Robbi Tripathi MD PATHOLOGY/CYTOLOGY ORDERABLES F inal Result from Last 3 Months Insurance MEDICARE PART A AND B [facility]MERLY [facility] [place] [address] [place] [address] RX [employer] RX Member Subscriber Plan / Payer (Ef fective 2021-Present) Name:Min Toro Relation to Subscriber:Self Name:Min Toro Payer ID:Not on file Group ID:[id number] Type:RX Medicare Part D Address: [address] [employer] [place] Commercial Advance Directives For more information, please contact: [phone] Documents on File Type Date Recorded Patient Tank Tender Expl anation Advance Directive Living Will 04/17/2016 1:05 PM Care Teams Riveter Automobile Brakes Relationship Specialty Start Date End Date Melanie Chavez MD [address] [place] [address] PCP - General Family Practice 09/12/18
--- OUTSIDE RECORDS SUMMARY | 2024-10-05 01:12 | XMS_ITS | Encounter Summary ---
Author Organization [facility] Address [address] [facility] [place] [address] Care Team Providers Care Carpet Installer Helper Name Role Phone Mohan Daly MD Primary Care Provider [phone] Encounter Details Date Type Department Care Team (Late st Contact Info) Description 06/14/2022 Lab Requisition [facility] Care Pathology Lab [address] [place] [address] Luiza Moncada MD [facility] [address] [address] Mantle cell lymphoma, intra-abdominal lymph nodes Social History Tobacco Use Types Packs/Day Years Used Date Smoking Tobacco: Never Assessed Sex and Gender Information Value Date Recorded Sex Assigned at Not on file Legal Sex Male 5:48 PM DIRECTOR OF CATERING SALES Gender Identity Not on file Sexual Orientation Not on file documented as of this encounter Plan of Treatment Not on file documented as of this encounter Procedures Procedure Name Priority Date/Time Associated Diagnosis Comments FLOW CYTOMETRY BONE MARROW Routine 06/14/2022 8:30 AM DIRECTOR OF CATERING SALES Mantle cell lymphoma, intra-abdominal lymph nodes (CMS/HCC) documented in this encounter Results * FLOW CYTOMETRY BONE MARROW (06/14/2022 8:30 AM DIRECTOR OF CATERING SALES) Case Report Flow Cytometry Case: [id number] Authorizing Provider: Luiza Moncada MD Collected: 06/14/2022 08:30 AM Ordering Location: [facility] Pathology Lab Received: 06/14/2022 03:26 PM Pathologist: Kelsea Navarro Mai, DO Specimen: Bone Marrow, L Hip 06/14/2022 6:00 PM [facility] PATHOLOGY LAB Final Diagnosis Bone marrow, flow cytometric immunophenotypic analysis: - CD5-positive mature B-cell leukemia/lymphoma - See interpretation 06/14/2022 6:00 PM [facility] Flow Cytometry Interpretation The bone [...] the flow cytometry specimen is reviewed for corporate quality manager purposes. The sample shows a minute marrow particle. The bone marrow aspirate specimen shows involvement by a CD5-positive mature B-cell leukemia/lymphoma. The patient's diagnosis of mantle cell lymphoma is noted and the immunophenotypic findings are compatible with the diagosis. Correlation with clinical findings, the concurrent bone marrow core biopsy (accession number pending), and relevant cytogenetic/molecu lar studies is required. 06/14/2022 6:00 PM [facility] Flow Cytometry Results Differential Result Comment Flow Cell Count /uL 26,700 Total Viability % 93.0 Lymphocytes % 31 Dim CD45 Region % 6 Monocytes % 7 Granulocytes % 56 06/14/2022 6:00 PM [facility] Reason for test Mantle cell lymphoma, intra-abdominal lymph nodes (CMS/HCC) 200.43 06/14/2022 6:00 PM [facility] Client Specimen ID # [id number] 06/14/2022 6:00 PM [facility] Number of markers 10 were performed. A-1 Flow CD3 A-3 Flow CD10 A-5 Flow CD20 A-6 Flow CD23 A-2 Flow CD5 A-4 Flow CD19 A-7 Flow CD34 A-8 Flow CD45 A-9 Auberry+CD19+ A-10 Lambda+CD19+ 06/14/2022 6:00 PM [facility] Disclaimer Test performed at [facility], [address] [facility], [place], [place], [address]. *The established laboratory minimum viability is 70%. [...] high complexity clinical testing. 06/14/2022 6:00 PM [facility] Embedded Images 6:00 PM [facility] Pathology/Cytolo gy BONE MARROW SPECIMEN / Unknown 06/14/2022 8:30 AM DIRECTOR OF CATERING SALES 06/14/2022 3:26 PM DIRECTOR OF CATERING SALES Luiza Moncada MD LAB - PATHOLOGY/CYTOLOGY ORDERAB LES Final Result [facility] PATHOLOGY LAB [address] [facility] [phone] documented in this encounter Visit Diagnoses Diagnosis Mantle cell lymphoma, intra-abdominal lymph nodes (HCC) Mantle cell lymphoma, intra-abdominal lymph nodes documented in this encounter Care Teams Carpet Installer Helper Relationship Specialty Start Date End Date Mohan Daly MD [address] [place] [phone] PCP - General 03/12/08 documented as of this encounter
--- OUTSIDE RECORDS SUMMARY | 2024-10-05 01:12 | XMS_ITS | Referral Summary ---
Author Organization [facility] Address [address] [place] [address] Care Team Providers Care Remote Operations Producer Name Role Phone Melanie Chavez MD Primary Care Provider [phone] Allergies Active Allergy Reactions Criticality Noted Date [...] on file Legal Sex Male 5:48 AM POWER GENERATION PLANT OPERATOR Gender Identity Not on file Sexual Orientation Not on file Last Filed Vital Signs Vital Sign Reading Time Taken Comments Blood Pressure 116/78 04/16/2022 9:31 AM POWER GENERATION PLANT OPERATOR Pulse 83 04/16/2022 9:31 AM POWER GENERATION PLANT OPERATOR Temperature - - Respiratory Rate - - Oxygen Saturation 96% 08/11/2013 12: 30 PM CDT Inhaled Oxygen Concentration - - Weight 113.2 kg (249 lb 9.6 oz) 04/16/2022 9:31 AM POWER GENERATION PLANT OPERATOR Height 185.4 cm (6' 1 ) 04/16/2022 9:31 AM POWER GENERATION PLANT OPERATOR Body Mass Index 32.93 04/16/2022 9:31 AM POWER GENERATION PLANT OPERATOR Plan of Treatment Not on file Insurance MEDICARE [facility] [address] [place] [address] MEDICARE [facility] [place] [address] Care Teams Remote Operations Producer Relationship Specialty Start Date End Date Melanie Chavez MD PCP - General Family Medicine 03/09/22
[2024-10-05] MEDS: LACTATED RINGERS 1,000 ML 30 ML IV CONT ×2 (06:50→11:24)
--- NOTE | 2024-10-05 07:15 | P.HP_ITS ---
H&P: HPI History of Present Illness Date/Time: 10/05/24 07:15 Chief Complaint: right tail of parotid mass Review of Systems Review of Systems: All systems reviewed & are unremarkable except as noted in HPI and below PMFSH Past Medical History Medical History Cataracts, both eyes Colon cancer screening Calculus of kidney Right flank pain Tick bite of neck Recurrent oral aphthae Pure hypercholesterolemia, unspecified Psychosexual dysfunction with inhibited sexual excitement Primary narcolepsy without cataplexy Phlebitis Palpitations Other sleep disorders Other psoriasis Other lymphedema Other chronic pain Other and unspecified hyperlipidemia Other specified types of non-hodgkin lymphoma, unspecified site Obesity, unspecified Non-recurrent acute serous otitis media of both ears Myalgia and myositis, unspecified Memory loss Lower resp. tract infection Hematuria, unspecified Frostbite of other and unspecified sites Fibromyalgia Other fatigue Dorsalgia, unspecified Chronic neck and back pain Chest pain, unspecified Cardiomegaly Acute parotitis Degeneration of intervertebral disc at L5-S1 level Degeneration of L4-L5 intervertebral disc Disorder of intervertebral disc at C5-C6 level Hypogonadism Encounter for monitoring diuretic therapy Libido, decreased Sleep paralysis Anxiety Essential hypertension Diaphragmatic hernia without mention of obstruction or gangrene Enlarged prostate without lower urinary tract symptoms (luts) Mantle cell lymphoma Mixed hyperlipidemia Other spondylosis, cervical region Personal history of colonic polyps Raynaud's syndrome Testicular hypofunction Vitamin D deficiency Narcolepsy Hypersomnolence Surgical History Surgical History History of carpal tunnel release H/O colonoscopy with polypectomy Status post lumbar spinal fusion Family History Family History Father Family history of malignant neoplasm Hypertension Sibling Hypertension Social History Social History Social History: the patient is to his share in they have 2 children. The patient is on disability. His is the durable power transactional attorney for healthcare. Code status full code Smoking packs per day: 2 Smoking cigarettes per day: 40.0 Years smoked: 30 Smoking pack-years: 60.00 Smoking status: Former smoker Tobacco type: cigarettes Second hand tobacco smoke exposure: No Smoking end date: 06/03/03 Alcohol intake: former Drinks per week: 0 Substance use: never Substance use type: does not use Do You Feel Safe in your Home?: Yes Lack of Transportation: No Lack of Food: Never True Current Housing: I Have Housing Concerned About Future Housing: No Difficulty Paying Gas/Electric Bills: No Difficulty Paying for Meds: No Currently Unemployed: No Education: Trade/Vocational Certificate Difficulty w/ Childcare or Family Care: No Living arrangements: with family Gender identity (if verbalized by the patient): Male Spiritual care concerns: No Meds Home Medications and Allergies Home Medications ?Medication ?Instructions ?Recorded ?Confirmed ?Type cyclobenzaprine 10 mg tablet 10 mg PO TID 03/20/19 09/18/24 History tramadol 100 mg tablet,extended 100 mg PO TID 10/02/21 09/18/24 History release 24 hr tramadol 50 mg tablet 50 mg PO BID 06/13/22 09/18/24 History naproxen 500 mg tablet 500 mg PO BID 09/19/23 09/18/24 History ascorbic acid (vitamin C) 1,000 mg 1 g PO DAILY #1 cap 11/20/23 09/18/24 Rx capsule ferrous sulfate 325 mg (65 mg 325 mg PO DAILY #1 tablet 11/20/23 09/18/24 Rx iron) tablet (Feosol) immune glob,gamm(IgG) 10 %-pro-IgA 120 g IV Q2-3M 11/20/23 09/18/24 History 0 to 50 mcg/mL intravenous solution (Privigen) lisinopril 10 mg tablet 10 mg PO DAILY #60 tabs 11/20/23 09/18/24 Rx mupirocin calcium 2 % topical cream 1 applic topical DAILY #15 grams 11/20/23 09/18/24 Rx testosterone 1.62 % (20.25 mg/1.25 1 packet transdermal DAILY #37.5 11/20/23 09/18/24 Rx gram) transdermal gel packet grams vitamin B complex 1 cap PO DAILY #1 cap 11/20/23 09/18/24 Rx CPAP Equipment #1 ea 02/20/24 05/15/24 Rx hydrochlorothiazide 12.5 mg tablet 12.5 mg PO DAILY #90 tabs 02/20/24 09/18/24 Rx tadalafil 20 mg tablet (Cialis) 20 mg PO DAILY PRN sexual activity 02/20/24 09/18/24 Rx #10 tabs atorvastatin 20 mg tablet 20 mg PO DAILY #90 tabs 08/11/24 10/01/24 Rx tamsulosin 0.4 mg capsule 0.4 mg PO DAILY #30 caps 10/02/24 Rx Allergies Allergy/AdvReac Type Severity Reaction Status Date / Time adhesive AdvReac Unknown Rash Verified 10/01/24 09:03 Exam Narrative: 3cm right tail of parotid mass, FNA non diagnostic, rest of exam wnl Assessment and Plan Assessment and plan (1) Parotid mass: Code(s): K11.8 - Other diseases of salivary glands Status: Acute Plan Right tail of parotid mass, here for right superficial parotidectomy. Facial nerve monitoring. r/b/a reviewed, all questions answered for patient, right ear marked.
--- NOTE | 2024-10-05 07:17 | WPDHPUPDATE1 ---
History and Physical Update Update Date/Time: 10/05/24 07:17 History and Physical has been reviewed, including an updated exam of the patient. There are NO changes in the patient's condition. Risks, benefits, and alternatives have been discussed and questions answered. Patient agrees to proceed with procedure.
--- NOTE | 2024-10-05 07:23 | WPDANESEPPF ---
Anes - Initial Pre Proc Eval Procedure: Operation Date: 10/05/24 08:00 Proposed Procedures p Right Superficial Parotidectomy - Alec Weaver MD Date/Time: 10/05/24 07:23 Surgeon: Alec Weaver MD Pre Op Diagnosis: Parotid Mass, Right Patient Data Age: 68 Gender: M Height: 1.85 m Weight: 104.35 kg Allergies Allergy/AdvReac Type Severity Reaction Status Date / Time adhesive AdvReac Unknown Rash Verified 10/01/24 09:03 Home Medications ?Medication ?Instructions ?Recorded ?Confirmed ?Type cyclobenzaprine 10 mg tablet 10 mg PO TID 03/20/19 09/18/24 History tramadol 100 mg tablet,extended 100 mg PO TID 10/02/21 09/18/24 History release 24 hr tramadol 50 mg tablet 50 mg PO BID 06/13/22 09/18/24 History naproxen 500 mg tablet 500 mg PO BID 09/19/23 09/18/24 History ascorbic acid (vitamin C) 1,000 mg 1 g PO DAILY #1 cap 11/20/23 09/18/24 Rx capsule ferrous sulfate 325 mg (65 mg 325 mg PO DAILY #1 tablet 11/20/23 09/18/24 Rx iron) tablet (Feosol) immune glob,gamm(IgG) 10 %-pro-IgA 120 g IV Q2-3M 11/20/23 09/18/24 History 0 to 50 mcg/mL intravenous solution (Privigen) lisinopril 10 mg tablet 10 mg PO DAILY #60 tabs 11/20/23 09/18/24 Rx mupirocin calcium 2 % topical cream 1 applic topical DAILY #15 grams 11/20/23 09/18/24 Rx testosterone 1.62 % (20.25 mg/1.25 1 packet transdermal DAILY #37.5 11/20/23 09/18/24 Rx gram) transdermal gel packet grams vitamin B complex 1 cap PO DAILY #1 cap 11/20/23 09/18/24 Rx CPAP Equipment #1 ea 02/20/24 05/15/24 Rx hydrochlorothiazide 12.5 mg tablet 12.5 mg PO DAILY #90 tabs 02/20/24 09/18/24 Rx tadalafil 20 mg tablet (Cialis) 20 mg PO DAILY PRN sexual activity 02/20/24 09/18/24 Rx #10 tabs atorvastatin 20 mg tablet 20 mg PO DAILY #90 tabs 08/11/24 10/01/24 Rx tamsulosin 0.4 mg capsule 0.4 mg PO DAILY #30 caps 10/02/24 Rx Patient hx anesthesia problems: none Family hx anesthesia problems: none Results Review: All pre-operative results and documents have been reviewed as part of the pre-operative evaluation. [facility] Past Medical History Medical History Cataracts, both eyes Colon cancer screening Calculus of kidney Right flank pain Tick bite of neck Recurrent oral aphthae Pure hypercholesterolemia, unspecified Psychosexual dysfunction with inhibited sexual excitement Primary narcolepsy without cataplexy Phlebitis Palpitations Other sleep disorders Other psoriasis Other lymphedema Other chronic pain Other and unspecified hyperlipidemia Other specified types of non-hodgkin lymphoma, unspecified site Obesity, unspecified Non-recurrent acute serous otitis media of both ears Myalgia and myositis, unspecified Memory loss Lower resp. tract infection Hematuria, unspecified Frostbite of other and unspecified sites Fibromyalgia Other fatigue Dorsalgia, unspecified Chronic neck and back pain Chest pain, unspecified Cardiomegaly Acute parotitis Degeneration of intervertebral disc at L5-S1 level Degeneration of L4-L5 intervertebral disc Disorder of intervertebral disc at C5-C6 level Hypogonadism Encounter for monitoring diuretic therapy Libido, decreased Sleep paralysis Anxiety Essential hypertension Diaphragmatic hernia without mention of obstruction or gangrene Enlarged prostate without lower urinary tract symptoms (luts) Mantle cell lymphoma Mixed hyperlipidemia Other spondylosis, cervical region Personal history of colonic polyps Raynaud's syndrome Testicular hypofunction Vitamin D deficiency Narcolepsy Hypersomnolence Surgical History Surgical History History of carpal tunnel release H/O colonoscopy with polypectomy Status post lumbar spinal fusion Family History Family History Father Family history of malignant neoplasm Hypertension Sibling Hypertension Social History Social History Social History: the patient is to his share in they have 2 children. The patient is on disability. His is the durable power attorney lawyer for healthcare. Code status full code Smoking packs per day: 2 Smoking cigarettes per day: 40.0 Years smoked: 30 Smoking pack-years: 60.00 Smoking status: Former smoker Tobacco type: cigarettes Second hand tobacco smoke exposure: No Smoking end date: 06/03/03 Alcohol intake: former Drinks per week: 0 Substance use: never Substance use type: does not use Do You Feel Safe in your Home?: Yes Lack of Transportation: No Lack of Food: Never True Current Housing: I Have Housing Concerned About Future Housing: No Difficulty Paying Gas/Electric Bills: No Difficulty Paying for Meds: No Currently Unemployed: No Education: Trade/Vocational Certificate Difficulty w/ Childcare or Family Care: No Living arrangements: with family Gender identity (if verbalized by the patient): Male Spiritual care concerns: No Anes - Eval Final PreProcedure Day of Procedure 10/05/24 07:23 Patient weight: overweight Heart: regular rate and rhythm Lungs: clear to auscultation Airway: Mallampati scale class 1 Neurological: alert and oriented Last oral intake: >/= 8 hours ASA classification: III Emergent: no Anesthetic plan: proceed Anesthesia type and monitoring: general ETT and standard monitoring Results Review: All pre-operative results and documents have been reviewed as part of the pre-operative evaluation. Informed Consent: The patient's anesthetic plan and its attendant risks and benefits were discussed with the patient/family/POA. Questions were solicited and answers provided to the satisfaction of the patient/family/POA.
--- NOTE | 2024-10-05 07:41 | W.PM.PROC2 ---
Procedure Note - Detailed Date of Procedure 10/05/24 Pre-op Diagnosis Parotid Mass, Right Post-op Diagnosis Same Procedure Performed Right superficial parotidectomy Surgeon Alec Weaver MD Anesthesia General Indications Right parotid mass Description of Procedure After informed consent was obtained the time out procedure was performed the patient was brought to the operating room placed on the operating table in the supine position. The patient was placed under general endotracheal anesthesia. A modified Rashaad incision was marked out in the patient's right preauricular crease. 1% lidocaine with one 100,000 epinephrine was injected into the marked incision. The patient was prepped and draped in the usual fashion. A #15 scalpel was used to make the skin incision. This was carried down to the level of the greater auricular nerve.this nerve was dissected superiorly up to the patient's earlobe. The preauricular incision was also carried down to the level of the parotid fascia. The underlying tumor was easily palpated. Next the preauricular incision was carried down along the tragal cartilage and the tragal pointer using a fine dissector and bipolar electrocautery. The greater auricular nerve was preserved.? The external jugular vein was sacrificed. The posterior belly of the digastric muscle was identified after retracting the sternocleidomastoid muscle laterally. The main trunk of the facial nerve was identified in its normal anatomic position and preserved. The nerve intraoperative monitor was utilized throughout the case and the facial nerve was confirmed using the prass probe.? Next the facial nerve was dissected laterally to the pes and the upper lobe and lower divisions were identified. The superficial parotid gland containing the tumor was dissected away from the lateral portion of the facial nerve. Once the specimen was passed off the field the wound bed was carefully irrigated using warm saline solution, there is no evidence of any significant bleeding. The upper and lower divisions of the facial nerve were then stimulated at 1 milliamp, and found to have greater than 1000 microvolts of stimulation. The wound was then closed in layers over a? Bobby drain using 3-0 Vicryl 4-0 Monocryl, and 4-0 and? 5-0 Prolene suture. A fluff dressing along with a jaw bra were then placed on the patient. The Bobby drain was noted to be holding suction. The patient was then awakened from general anesthesia, extubated and transferred to recovery in stable condition. Estimated Blood Loss 50 Drains Yes Packing No Pathology Yes (right parotid mass, fresh) Complications No immediate complications Condition Stable Disposition PACU
[2024-10-05] MEDS: ceFAZolin 2 GM/D5W 50 ML 2 GM/50 ML BAG IVPB (08:00)
[2024-10-05] MEDS: LIDOCAINE/EPINEPHRINE 0.5%/1:200,000 50 ML VIAL INFILTRATE (08:32)
--- NOTE | 2024-10-05 10:51 | SUR.OPER ---
Specimen right partoid sent with Angelena. MCKEON and received in pathology by Lynn
[2024-10-05] MEDS: MUPIROCIN 2% OINT 22 GM TUBE 1 APPLIC TOPICAL (11:15)
[2024-10-05] MEDS: oxyCODONE HCL (*CRX) 5 MG TAB IR PO (13:08)
== END 2024-10-05 13:52 | disposition home or self-care (01) ==
PROVIDERS: PCP Family Medicine; Visit Provider Otolaryngology
PROC: (CPT 42410; principal; 2024-10-05 08:00)
DX: C83.11 Mantle cell lymphoma, lymph nodes of head, face, and neck (principal); M79.7 Fibromyalgia; E29.1 Testicular hypofunction; F52.21 Male erectile disorder; I10 Essential (primary) hypertension; N40.0 Benign prostatic hyperplasia without lower urinary tract symptoms; I73.00 Raynaud's syndrome without gangrene; E55.9 Vitamin D deficiency, unspecified; G47.10 Hypersomnia, unspecified; F41.9 Anxiety disorder, unspecified; R00.2 Palpitations; G47.8 Other sleep disorders; G47.419 Narcolepsy without cataplexy; L40.8 Other psoriasis; R41.3 Other amnesia; R31.9 Hematuria, unspecified; R53.83 Other fatigue; G89.29 Other chronic pain; M54.9 Dorsalgia, unspecified; M51.379 Other intervertebral disc degeneration, lumbosacral region without mention of lumbar back pain or lower extremity pain; M51.369 Other intervertebral disc degeneration, lumbar region without mention of lumbar back pain or lower extremity pain; M50.922 Unspecified cervical disc disorder at C5-C6 level; R68.82 Decreased libido; G47.53 Recurrent isolated sleep paralysis; Z79.891 Long term (current) use of opiate analgesic; Z79.1 Long term (current) use of non-steroidal anti-inflammatories (NSAID); Z99.89 Dependence on other enabling machines and devices; Z98.890 Other specified postprocedural states; Z98.1 Arthrodesis status; Z87.891 Personal history of nicotine dependence; Z87.442 Personal history of urinary calculi; Z86.0100 Personal history of colon polyps, unspecified; Z80.9 Family history of malignant neoplasm, unspecified
CPT/HCPCS: 42415; 88305; 88342; A9270; J0690; J1100; J2003; J2004; J2250; J2405; J2704; J3010; J7120

== ENCOUNTER 2024-12-10 09:21 | Outpatient (CLI) | payer MEDICARE, OTHER, SELFPAY ==
--- NOTE | ~2024-12-10 | PE_ITS ---
EXAMINATION: PET skull to mid thigh DATE: 12/10/2024 11:13 INDICATION: Mantle cell lymphoma TECHNIQUE: Blood glucose level was 96 mg/dL. 10.112 mCi of 18-fluorodeoxyglucose (18-FDG) was adminis tered i.v. Low dose computed tomography (CT) images were acquired from the base of the brain to the p roximal thighs for attenuation correction and anatomic localization. Positron emission tomography (PE T) images were acquired in the same distribution beginning 55 minutes after injection. Images includi ng fused PET/CT images were reconstructed in axial, coronal, and sagittal planes. Automated exposure control technique was employed. The dose-length product was 1294.65mGy-cm. COMPARISON: None FINDINGS: Head/neck: There is symmetric increased activity in the oral cavity, laryngeal muscles, longus capitis and ocula r muscles without CT correlate, likely physiologic. There is prominent asymmetric increased uptake at the right lingual tonsil. There is also asymmetric increased uptake with thickened soft tissue densi ty in the subcutaneous fat posterior to the prostate along the posterior inferior junction of the ear and the scalp with maximal SUV of 5.9. This location was biopsied on 07/15/2024. There are couple nor mal-sized but asymmetrically FDG avid lymph nodes versus subcentimeter subcutaneous nodules along the deep and superficial margin of the right sternocleidomastoid muscle with maximal SUV values measurin g up to 5.6. Chest: There are few scattered bilateral calcified pulmonary nodules along with calcified right hilar and me diastinal lymph nodes consistent with old granulomatous disease. Mild dependent atelectasis in both l ungs with no other airspace opacities, suspicious pulmonary nodules or pleural effusion. Heart size i s normal. No pericardial effusion. There are a few normal sized, mildly FDG avid bilateral hilar and mediastinal lymph nodes with maximal SUV values up to 5.9. Abdomen/pelvis/proximal thighs: Physiologic renal accumulation and excretion of FDG activity in the kidneys, bladder and along portio ns of ureters. Normal degree and heterogenous pattern of increased uptake throughout the liver withou t radiologic correlate or dominant FDG avid lesion. The gallbladder, pancreas, spleen and bilateral a drenal glands are normal. Mild uptake scattered throughout the bowels without radiologic correlate, a lso likely physiologic. There are multiple FDG avid subcutaneous nodules about the abdomen, pelvis an d proximal thighs. For reference, the largest positioned to the left of midline in the subcutaneous t issues overlying the lower lumbar spine which measures 4.7 x 2.7 cm with maximal SUV of 7.6. This is additional prominent soft tissue deposit in the right inguinal region potentially a conglomeration of lymph nodes which measures 4.6 x 2.0 cm with maximal SUV of 7.6. No pathologically enlarged or abnor anisa FDG avid lymphadenopathy in the abdomen or pelvis. Musculoskeletal: Intramuscular lipoma within the lateral left lower quadrant abdominal wall musculature near the anter ior iliac spine. Postoperative change of prior L4-S1 anterior and posterior spinal fusion with interb lucia bone graft cages at both levels and bilateral vertical richar and pedicle screw fixation. Severe spo ndylosis at L3-L4. Additional instrumented anterior spinal fusion with anterior plate and screw fixat ion at C5-C6. There are no suspicious lytic or blastic bone lesions. There is somewhat heterogeneous uptake in the bones with maximal SUV values up to 4.7 in the T9 vertebral body and in the L2 spinous process with maximal SUV of 3.1. There is likely physiologic increased muscular activity at the shoul ders and bilateral hands and forearms. IMPRESSION: 1. Increased uptake within multiple subcutaneous soft tissue density nodules within the abdominal/pel jared wall and the proximal thighs concerning for recurrent mantle cell lymphoma. There is also increas ed uptake within the conglomeration of mildly enlarged right inguinal lymph nodes as well as several normal sized mediastinal and bilateral hilar and right cervical lymph nodes also concerning for recur rent disease. 2. Persistent mild increased uptake in the subcutaneous fat along the posterior margin of the right p arotid gland, posterior inferior margin of the inferior also likely related to lymphoma. Correlate [facility] pathology from biopsy performed on 07/15/2024. 3. Prominent asymmetric uptake in the right lingual tonsil also suspicious for lymphoma. 4. Heterogeneous bone marrow uptake pattern with a few regions of mildly increased activity which are equivocal for lymphoma. Reviewed, dictated and finalized at location A. IMPRESSION: 1. Increased uptake within multiple subcutaneous soft tissue density nodules wi thin the abdominal/pelvic wall and the proximal thighs concerning for recurrent mantle cell lymphoma. There is also increased uptake within the conglomeration of mildly enlarged right inguinal lymph nodes as well as several normal sized mediastinal and bilateral hilar and right cervical lymph nodes also concerning for recurrent disease. 2. Persistent mild increased uptake in the subcutaneous fat along the posterior margin of the right parotid gland, posterior inferior margin of the inferior a lso likely related to lymphoma. Correlate with pathology from biopsy performed on 07/15/2024. 3. Prominent asymmetric uptake in the right lingual tonsil also suspicious for lymphoma. 4. Heterogeneous bone marrow uptake pattern with a few regions of mildly increa sed activity which are equivocal for lymphoma.
--- OUTSIDE RECORDS SUMMARY | 2024-12-10 09:31 | XMS_ITS | Referral Summary ---
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 Gender Identity Not on file Sexual Orientation Not on file Last Filed Vital Signs Vital Sign Reading Time Taken Comments Blood Pressure 116/78 04/16/2022 9:31 AM DIETETIC TECHNICIAN Pulse 83 04/16/2022 9:31 AM DIETETIC TECHNICIAN Temperature - - Respiratory Rate - - Oxygen Saturation 96% 08/11/2013 12: 30 PM CDT Inhaled Oxygen Concentration - - Weight 113.2 kg (249 lb 9.6 oz) 04/16/2022 9:31 AM DIETETIC TECHNICIAN Height 185.4 cm (6' 1) 04/16/2022 9:31 AM DIETETIC TECHNICIAN Body Mass Index 32.93 04/16/2022 9:31 AM DIETETIC TECHNICIAN Plan of Treatment Not on file Insurance MEDICARE [facility] [place] [place] [address] MEDICARE [facility] [place] [address] Care Teams Utility Mechanic Supervisor Relationship Specialty Start Date End Date Melanie Chavez MD PCP - General Family Medicine 03/09/22
--- OUTSIDE RECORDS SUMMARY | 2024-12-10 09:31 | XMS_ITS | Clinical Summary ---
Author Organization [facility] Address [address] [address] Care Team Providers Care Shredding Machine Tender Name Role Phone Mohan Daly MD Primary Care Provider [phone] Source Comments [facility],non-owned Affiliates and Associated Physician Practices is amultiple site organization consisting of ambulatory clinics and hospital sitesin [place], [place], [place] and [place]. This disclosure is being madepursuant to the Care Everywhere program and may not contain all information available regarding this patient. 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 Gender Identity Not on file Sexual [...] TESTING 1955 MEDICARE AWV 12 MONTHS 1955 COVID-19 VACCINE (#1) 1961 HEPATITIS C SCREENING 12/26/1974 DTAP/TDAP/TD VACCINES (1 - Tdap) 12/31/1975 PNEUMOCOCCAL VACCINE 50+ (1 of 2 - PCV) 12/31/1975 ZOSTER VACCINE (1 of 2) 12/31/1975 Respiratory Syncytial Virus (RSV) Vaccine Pt: or over 60 yrs (1 - Risk 60-74 years 1-dose series) 2016 DEPRESSION SCREENING 06/03/2024 INFLUENZA VACCINE (Season Ended) 2025 HEPATITIS B VACCINE Aged Out No longe [...] on patient's age to complete this topic Procedures Procedure Name Priority Date/Time Associated Diagnosis Comments PATHOLOGY TISSUE Routine 10/05/2024 1:52 PM CDT Illness, unspecified from Last 3 Months Results * PATHOLOGY TISSUE (10/05/2024 1:52 PM CDT) Case Report Surgical Pathology Report Case: [id number] Authorizing Provider: Steven Nava Collected: 10/05/2024 01:52 PM MD Daniel Ordering Location: [facility] - Received: 10/07/2024 02:13 PM Pathology Lab Pathologist: Jayne Mari MD Specimen: Parotid Gland 10/08/2024 9:43 AM CDT [facility] Final Diagnosis Right parotid gland, parotidectomy: - Involved by mantle cell lymphoma 10/08/2024 9:43 AM CDT [facility] at 0942 CDT Microscopic Description and Comment Histologic sections show effacement of normal glandular structures by a dense lymphoid infiltrate. Immunohistochemistry performed at the referring institution ([facility]) shows the lymphoid infiltrate to be immunoreactive for CD45. MCK (cytokeratin) and synaptophysin are negative. Additional immunohistochemistry performed at [facility] shows that the lymphoma cells are positive for CD20, PAX-5, or cyclin D1. 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 10/08/2024 9:43 AM [facility] Clinical History Mantle cell lymphoma. 10/08/2024 9:43 AM [facility] Materials Received Received are 6 slide(s) and 1 block(s) labeled [id number] along with a copy of the outside pathology report. [place] [address]. All original materials are returned to the referring institution, along with a copy of our final report. 10/08/2024 9:43 AM [facility] Pathologist Location at [facility] 10/08/2024 9:43 AM [facility] Disclaimer The performance characteristics of all immunohistochemical and indirect immunofluorescence stains (if any) cited in this report were determined by the Histopathology Laboratory of [facility]. Some of these tests were developed [...] and interpreted by the attending (teaching) pathologist. 10/08/2024 9:43 AM [facility] Embedded Images 10/08/2024 9:43 AM [facility] Pathology/Cytolo gy ENTIRE PAROTID GLAND / Unknown 10/05/2024 1:52 PM CDT 10/07/2024 2:13 PM CDT Steven Nava MD LAB - PATHOLOGY/CYT OLOGY ORDERABLES Final Result [facility] [address] [place], [place] [address] [phone] from Last 3 Months Insurance MEDICARE MEDICARE [facility] [place] [facility] Address: [address] [address] [facility] [place] [address] SELF PAY NO INSURANCE Member Subscriber Plan / Payer (Ef fective for All Dates) Name:Min Toro Member ID:Not on file Relation to Subscriber:Not on file Name:MIN TORO Subscriber ID:Not on file (Home) Address: [address] [place] [address] Payer ID:Not on file Group ID:Not on file Type:Self Pay Address: [place], [place] MEDICARE [facility] Address: [facility] [address] [facility] [address] Care Teams Shredding Machine Tender Relationship Specialty Start Date End Date Mohan Daly MD [facility] [place] [id number] PCP - General 03/12/08
--- OUTSIDE RECORDS SUMMARY | 2024-12-10 09:31 | XMS_ITS | Encounter Summary ---
Author Organization [facility] Address [address] [place] [address] Care Team Providers Care Entry Level Machine Operator Name Role Phone Melanie Chavez MD Primary Care Provider [phone] Encounter Details Date Type Department Care Team ([facility] Contact Info) Description 04/11/2004 Outpatient Historical HIS CARD TAILER OUT Anabella Otero MD [address] 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 Gender Identity Not on file Sexual Orientation Not on file documented as of this encounter Plan of Treatment Upcoming Encounters Date Type Department Care Team ([facility] Contact Info) Description 12/18/2024 8:30 AM CDT Office Visit [facility] Oncology and Hematology - [place] [address] [facility] [address] [place] [address] Robbi Tripathi MD [address] [place] [address] documented as of this encounter Visit Diagnoses Diagnosis Displacement of lumbar intervertebral disc without myelopathy- Primary documented in this encounter Care Teams Entry Level Machine Operator Relationship Specialty Start Date End Date Melanie Chavez MD [address] [place] [address] PCP - General Family Practice 09/12/18 documented as of this encounter
--- OUTSIDE RECORDS SUMMARY | 2024-12-10 09:31 | XMS_ITS | Encounter Summary ---
Author Organization [facility] Address [address] [place] [address] Care Team Providers Care Legal Arbitrator Name Role Phone Mealnie Chavez MD Primary Care Provider [phone] Encounter Details Date Type Department Care Team (Late st Contact Info) Description 12/09/2024 Specialty Pharmacy [facility] [address] [place] [phone] Anastasia Bower, PHARMACIST Specialty Pharmacy Clinical Assessment Social History Tobacco Use Types Packs/Day Years Used Date Smoking Tobacco: Former Cigarettes Q uit: 04/17/2004 Alcohol Use Standard Drinks/Week Comments No 0 (1 standard drink = 0.6 oz pur e alcohol) Sex and Gender Information Value Date Recorded Sex Assigned at Not on file 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 [facility] Clinical Pharmacist Initial Assessment Oncology Therapy Patient Name: Min Toro Medication Information Specialty Medication / Dose / Frequency: zanubrutinib 80 mg capsule Take 2 Capsules (160 mg) by mouth 2 times daily. Indication: Mantle cell lymphoma (CMS/HCC) C83.10 Therapy Start Date: STARYT UPON RECEIVING MEDICATION Pertinent Medical History: SEE BELOW Allergies Allergen Reactions Adhesive Rash Current Outpatient Medications on File Prior to Visit Medication Sig Dispense Refill zanubrutinib 80 mg capsule Take 2 Capsules (160 mg) by mouth 2 times daily. 120 Capsule 2 lisinopriL (PRINIVIL) 10 mg tablet Take 10 mg by mouth daily. hydroCHLOROthiazide 12.5 mg tablet Take 12.5 mg by mouth daily. ferrous sulfate 325 mg (65 mg iron) tablet Take 325 mg by mouth daily. cyanocobalamin 1,000 mcg Tablet Take 1,000 mcg by mouth daily. Cholecalciferol, Vitamin D3, 50 mcg (2,000 unit) Capsule Take by mouth. cyclobenzaprine (FLEXERIL) 10 mg tablet TAKE 1 TABLET BY MOUTH EVERY 8 HOURS NEEDED armodafiniL (NUVIGIL) 250 mg tablet TK 1 T PO QD IN THE MORNING immune globulin G, IgG,-pro-IgA (PRIVIGEN) 10 % Solution injection INFUSE 120 GRAMS INTRAVENOUSLY EVERY 4 MONTHS (GIVEN AT PRESCRIBERS OFFICE). 1200 mL 6 tamsulosin (FLOMAX) 0.4 mg capsule Take 0.4 mg by mouth daily. traMADol (ULTRAM) 50 mg tablet Take 100 mg by mouth 2 times daily. traMADol (ULTRAM ER) 100 mg Extended Release 24 hour tablet Take 100 mg by mouth 3 times daily. naproxen (NAPROSYN) 500 mg tablet Take 500 mg by mouth 2 times daily with meals. No current facility-administered medications on file prior to visit. 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 Storage precautions Store at controlled room temperature 20 degrees C to 25 degrees C (68 degrees F to 77 degrees F). Excursions permitted between 15 degrees C and 30 degrees C (59 degrees F and 86 degrees F). Special handling/disposal No special handling precautions Special handling/disposal Inform patient on proper disposal. Administration precautions Advise patient to take on a regular dosing schedule and to take consistently either with or withoutfood. Inform patient on actions for missed medication dose. Instruct patient to swallow the capsule whole; do not cut, break, chew, crush or dissolve capsule. Inform patient to take missed dose as as soon as possible the same day. Common adverse events Inform patient on common adverse reactions and to report if any become severe. zanubrutinib: neutrophil count decreased, platelet count decreased, upper respiratory tract infection, hemorrhage, and musculoskeletal pain Inform patient of possible side effect mitigation strategies. Severe adverse reactions Advise patient to report any signs or symptoms of bleeding. Advise patient to report any signs or symptoms of infection (e.g. fever, chills, sore throat, flu-like symptoms). Inform patient on risk of malignancy and the need for protection from sunlight and UV light. Use protective clothing as well as sunscreen with higher SPF. Inform patient on risk of induced arrhythmias. Patient should report any rapid or irregular heartbeat, dizziness, shortness of breath, faintness. Inform patient on the risk of bone marrow toxicity and to report any signs or symptoms of anemia, neutropenia or thrombocytopenia. Inform patient about hepatotoxicity risk and to report any early signs or symptoms. Signs and symptoms may include fatigue, weakness, lack of appetite. later signs may include discolored feces, abdominal swelling, confusion, yellowing of eyes or skin, Drug/OTC interactions Advise patient to inform healthcare provider of all medication they take, including OTC products, vitamins and herbal drugs (e.g., Penny's Wort). Inform patient about risks and the need for contraception during therapy and for one weekafter the final dose. Contraception recommended Advise male patient with female partner of reproductive potential to use effective contraception during treatment and for at least 1 week after last dose. Lactating mother Advise a lactating woman not to breastfeed during treatment and for 2 weeks after the last dose. Additional warnings Advise patient to complete necessary lab work at the intervals requested by their physician and to practice medication adherence. Inform patient of any pre-existing conditions where treatment should be avoided. Inform patient on vaccines requirements prior to treatment. Special drug handling/storage-patient Safety and handling precautions No specific handling precautions. Therapeutic Goals: Prolongation of Survival: Extending overall life expectancy beyond typical prognosis., Improvement in Quality of Life: Enhancing physical, emotional, and social well-being., and Prevention of Complications: Minimizing the risk or severity of treatment-related or disease-related complications. Pharmacist conducted an assessment prior to first fill of the medication to determine the appropriateness of therapy. Factors evaluated include medication prescribed, treatment diagnosis, currently prescribed medications (including prescription and OTC meds detailed above), reported/documented allergies, pertinent medical history, patient's ability to self-administer medication, and therapeutic goals based on possible outcomes of therapy. Given the patient's treatment diagnosis, concurrent medications, comorbidities, reported/documentedallergies, and pertinent medical history, therapy is appropriate as currently prescribed. Barrier to medication administration identified. FINANCIAL, PATIENT QUALIFIES FOR FINANCIAL JOHN TO HELP WITH OUT OF POCKET COST Medication is appropriate as prescribed and will be dispensed. Upon Initial Fill, the Patient/Caregiver is provided information via the Welcome Packet and verbal discussion with pharmacy co-workers regarding: Enrollment in the Patient Management Program Contacting pharmacy representatives Expected mdc-rr-ppbsic costs Juarez michael of medication (upon request) Filling and refilling a prescription Obtaining order status and information regarding potential delays Transferring prescriptions Reporting a suspected medication issue Offer of counseling from a Clinical Specialty Pharmacist upon request and as needed Patient/Caregiver provided education regarding medication therapy via written materials, verbal instruction, and pharmacist counseling. This initial and ongoing education includes: Expectations and potential outcomes of therapy Proper use, administration, and duration of therapy Potential side effects and side effect management Missed dose management Safe handling, storage, and disposal of medication Assessment completed by Anastasia Bower, PHARMACIST on 12/09/24 documented in this encounter Plan of Treatment Upcoming Encounters Date Type Department Care Team (Late st Contact Info) Description 12/18/2024 8:30 AM CDT Office Visit [facility] Oncology and Hematology - [place] [address] [facility] [address] [place] [address] Robbi Tripathi MD [address] [facility] [address] [place] [address] documented as of this encounter Visit Diagnoses Not on filedocumented in this encounter Care Teams Legal Arbitrator Relationship Specialty Start Date End Date Melanie Chavez MD [address] [place] [address] PCP - General Family Practice 09/12/18 documented as of this encounter
--- OUTSIDE RECORDS SUMMARY | 2024-12-10 09:31 | XMS_ITS | Encounter Summary ---
Author Organization [facility] Address [address] [place] [address] Care Team Providers Care Office Technologist Name Role Phone Melanie Chavez MD Primary Care Provider Encounter Details Date Type Department Care Team (Late st Contact Info) Description 04/26/2004 Outpatient Historical [facility] Support Serv. (Adt Cardiology[facility]) [address] 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 Oncology and Hematology - [place] [address] [address] Robbi Tripathi MD [address] [facility] [address] [place] [address] documented as of this encounter Visit Diagnoses Not on filedocumented in this encounter Care Teams Office Technologist Relationship Specialty Start Date End Date Melanie Chavez MD [address] [place] [address] PCP - General Family Practice 09/12/18 documented as of this encounter
--- OUTSIDE RECORDS SUMMARY | 2024-12-10 09:31 | XMS_ITS | Encounter Summary ---
Author Organization [facility] Address 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 [address] [place] [address] Robbi Tripathi MD [address] [facility] [address] [place] [address] documented as of this encounter [...] Primary documented in this encounter Care Teams Quality Assurance Qa Lab Analyst Relationship Specialty Start Date End Date Melanie Chavez MD [address] [place] [phone] PCP - General Family Practice 09/12/18 documented as of this encounter
--- OUTSIDE RECORDS SUMMARY | 2024-12-10 09:31 | XMS_ITS | Encounter Summary ---
Author Organization [facility] Address [address] [place] [address] Care Team Providers Care Public Health Sanitarian Technician Name Role Phone Melanie Chavez MD Primary Care Provider [phone] Reason for Visit * Reason Comments Medication Refill Encounter Details Date Type Department Care Team (Late Contact Info) Description 08/15/2018 Refill [facility] Oncology and Hematology [place] [address] [place] [address] Robbi Tripathi MD [address] [place] [address] Social History Tobacco Use Types Packs/Day Years Used Date Smoking Tobacco: Former Cigarettes Q uit: 04/17/2004 Alcohol Use Standard Drinks/Week Comments No 0 (1 standard drink = 0.6 oz pur e alcohol) Sex and Gender Information Value Date Recorded Sex Assigned at Not on file 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 Gender Identity Not on file Sexual Orientation Not on file documented as of this encounter Plan of Treatment Upcoming Encounters Date Type Department Care Team (Late Contact Info) Description 12/18/2024 8:30 AM CDT Office Visit [facility] Oncology and Hematology [place] [address] [place] [address] Robbi Tripathi MD [address] [place] [address] documented as of this encounter Visit Diagnoses Not on filedocumented in this encounter Care Teams Public Health Sanitarian Technician Relationship Specialty Start Date End Date Melanie Chavez MD [address] [place] [address] PCP - General Family Practice 09/12/18 documented as of this encounter
--- OUTSIDE RECORDS SUMMARY | 2024-12-10 09:31 | XMS_ITS | Clinical Summary ---
Author Organization [facility] Address [facility]ly [facility] [place] [address] Care Team Providers Care Broach Operator Name Role Phone Melanie Chavez MD Primary Care Provider [phone] Allergies Active Allergy Reactions Criticality Noted Date [...] on file Legal Sex Male 5:48 AM SUBSTATION INSPECTOR Gender Identity Not on file Sexual Orientation Not on file Obstetrics History Last Filed Vital Signs Vital Sign Reading Time Taken Comments Blood Pressure 116/78 04/16/2022 9:31 AM SUBSTATION INSPECTOR Pulse 83 04/16/2022 9:31 AM SUBSTATION INSPECTOR Temperature - - Respiratory Rate - - Oxygen Saturation 96% 08/11/2013 12: 30 PM CDT Inhaled Oxygen Concentration - - Weight 113.2 kg (249 lb 9.6 oz) 04/16/2022 9:31 AM SUBSTATION INSPECTOR Height 185.4 cm (6' 1) 04/16/2022 9:31 AM SUBSTATION INSPECTOR Body Mass Index 32.93 04/16/2022 9:31 AM SUBSTATION INSPECTOR Plan of Treatment Health Maintenance Due Date [...] Ended) 2025 06/04/19 18, 06/03/2015 Insurance MEDICARE [facility] [place] [id number] MEDICARE [employer] Care Teams Broach Operator Relationship Specialty Start Date End Date Melanie Chavez MD PCP - General Family Medicine 03/09/22
--- OUTSIDE RECORDS SUMMARY | 2024-12-10 09:31 | XMS_ITS | Encounter Summary ---
Author Organization [facility] Address [address] [place] [address] Care Team Providers Care Nursery Rn Name Role Phone Mohan Daly MD Primary Care Provider [phone] Encounter Details Date Type Department Care Team (Late st Contact Info) Description 06/14/2022 Lab Requisition [facility] Care Pathology Lab [address] [place] [address] Luiza Moncada MD [facility] [address] [address] Mantle cell lymphoma, intra-abdominal lymph nodes Social History Tobacco Use Types Packs/Day Years Used Date Smoking Tobacco: Never Assessed Sex and Gender Information Value Date Recorded Sex Assigned at Not on file Legal Sex Male 5:48 PM ACCOUNT SOLUTIONS ANALYST Gender Identity Not on file Sexual Orientation Not on file documented as of this encounter Plan of Treatment Not on file documented as of this encounter Procedures Procedure Name Priority Date/Time Associated Diagnosis Comments FLOW CYTOMETRY BONE MARROW Routine 06/14/2022 8:30 AM ACCOUNT SOLUTIONS ANALYST Mantle cell lymphoma, intra-abdominal lymph nodes (CMS/HCC) documented in this encounter Results * FLOW CYTOMETRY BONE MARROW (06/14/2022 8:30 AM ACCOUNT SOLUTIONS ANALYST) Case Report Flow Cytometry Case: [id number] Authorizing Provider: Luiza Moncada MD Collected: 06/14/2022 08:30 AM Ordering Location: [facility] Pathology Lab Received: 06/14/2022 03:26 PM Pathologist: Kelsea Navarro Mai, DO Specimen: Bone Marrow, L Hip 06/14/2022 6:00 PM [facility] Final Diagnosis Bone marrow, flow cytometric immunophenotypic analysis: - CD5-positive mature B-cell leukemia/lymphoma - See interpretation 06/14/2022 6:00 PM [facility] at 1800 ACCOUNT SOLUTIONS ANALYST Flow Cytometry Interpretation The bone marrow specimen [...] flow cytometry specimen is reviewed for quality assurance lead purposes. The sample shows a minute marrow particle. The bone marrow aspirate specimen shows involvement by a CD5-positive mature B-cell leukemia/lymphoma. The patient's diagnosis of mantle cell lymphoma is noted and the immunophenotypic findings are compatible with the diagosis. Correlation with clinical findings, the concurrent bone marrow core biopsy (accession number pending), and relevant cytogenetic/molecu lar studies is required. 06/14/2022 6:00 PM [facility] Flow Cytometry Results Differential Result Comment Flow Cell Count /uL 26,700 Total Viability % 93.0 Lymphocytes % 31 Dim CD45 Region % 6 Monocytes % 7 Granulocytes % 56 06/14/2022 6:00 PM [facility] Reason for test Mantle cell lymphoma, intra-abdominal lymph nodes (CMS/HCC) 200.43 06/14/2022 6:00 PM [facility] Client Specimen ID # [id number] 06/14/2022 6:00 PM [facility] Number of markers 10 were performed. A-1 Flow CD3 A-3 Flow CD10 A-5 Flow CD20 A-6 Flow CD23 A-2 Flow CD5 A-4 Flow CD19 A-7 Flow CD34 A-8 Flow CD45 A-9 [place]como+CD19+ A-10 Lambda+CD19+ 06/14/2022 6:00 PM [facility] Disclaimer Test performed at [facility], [address] [facility], [place], [place], [address]. *The established laboratory minimum viability is 70%. [...] high complexity clinical testing. 06/14/2022 6:00 PM [facility] Embedded Images 6:00 PM [facility] Pathology/Cytolo gy BONE MARROW SPECIMEN / Unknown 06/14/2022 8:30 AM ACCOUNT SOLUTIONS ANALYST 06/14/2022 3:26 PM ACCOUNT SOLUTIONS ANALYST Luiza Moncada MD LAB - PATHOLOGY/CYTOLOGY ORDERAB LES Final Result [facility] [address] [facility]. [address] [phone] documented in this encounter Visit Diagnoses Diagnosis Mantle cell lymphoma, intra-abdominal lymph nodes (HCC) Mantle cell lymphoma, intra-abdominal lymph nodes documented in this encounter Care Teams Nursery Rn Relationship Specialty Start Date End Date Mohan Daly MD [address] [place] [id number] PCP - General 03/12/08 documented as of this encounter
--- OUTSIDE RECORDS SUMMARY | 2024-12-10 09:31 | XMS_ITS | Encounter Summary ---
Author Organization [facility] Address 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 Gender Identity Not on file Sexual Orientation Not on file documented as of this encounter Plan of Treatment Upcoming Encounters Date Type Department Care Team (Late st Contact Info) Description 12/18/2024 8:30 AM CDT Office Visit [facility] Oncology and Hematology - [place] [address] [place] [address] [address] [place] [address] [place] [address] documented as of this encounter Visit Diagnoses Diagnosis Disturbance of skin sensation- Primary documented in this encounter Care Teams Manufacturing Chief Engineer Relationship Specialty Start Date End Date Melanie Chavez MD [address] [place] [address] PCP - General Family Practice 09/12/18 documented as of this encounter
--- OUTSIDE RECORDS SUMMARY | 2024-12-10 09:31 | XMS_ITS | Encounter Summary ---
Author Organization [facility] Address 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 Gender Identity Not on file Sexual Orientation Not on file documented as of this encounter Plan of Treatment Upcoming Encounters Date Type Department Care Team ([facility] Contact Info) Description 12/18/2024 8:30 AM CDT Office Visit [facility] Oncology and Hematology - [place] [address] [facility] [address] [place] [address] Robbi Tripathi MD [address] [facility] [address] [place] [address] documented as of this encounter Visit Diagnoses Diagnosis Neuralgia, neuritis, and radiculitis, unspecified- Primary documented in this encounter Care Teams Guest Associate Relationship Specialty Start Date End Date Melanie Chavez MD [address] [place] [address] PCP - General Family Practice 09/12/18 documented as of this encounter
--- OUTSIDE RECORDS SUMMARY | 2024-12-10 09:31 | XMS_ITS | Encounter Summary ---
Author Organization [facility] Address [address] [place] [address] Care Team Providers Care Batting Machine Operator Insulation Name Role Phone Melanie Chavez MD Primary Care Provider [phone] Encounter Details Date Type Department Care Team ([facility] Contact Info) Description 06/28/1999 Outpatient [facility] Division of Neurology [address] [facility] [address] [address] (Excluded Provider) [place] [address] [facility] [address] [place] [address] Social History Tobacco Use Types Packs/Day Years Used Date Smoking Tobacco: Never Assessed Sex and Gender Information Value Date Recorded Sex Assigned at Not on file 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 Gender Identity Not on file Sexual Orientation Not on file documented as of this encounter Plan of Treatment Upcoming Encounters Date Type Department Care Team (Late Contact Info) Description 12/18/2024 8:30 AM CDT Office Visit [facility] Oncology and Hematology - G[place] [address] [facility] [address] [place] [address] Robbi Tripathi MD [address] [facility] [address] [place] [address] documented as of this encounter Visit Diagnoses Not on filedocumented in this encounter Care Teams Batting Machine Operator Insulation Relationship Specialty Start Date End Date Melanie Chavez MD [address] [place] [phone] PCP - General Family Practice 09/12/18 documented as of this encounter
--- OUTSIDE RECORDS SUMMARY | 2024-12-10 09:31 | XMS_ITS | Encounter Summary ---
Author Organization [facility] Address 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 [address] [address] [place] [address] [place] [address] documented as of this encounter Visit Diagnoses Diagnosis Displacement of lumbar intervertebral disc without myelopathy- Primary documented in this encounter Care Teams Consumer Recruiter Relationship Specialty Start Date End Date Melanie Chavez MD [address] [place] [address] PCP - General Family Practice 09/12/18 documented as of this encounter
--- OUTSIDE RECORDS SUMMARY | 2024-12-10 09:31 | XMS_ITS | Clinical Summary ---
Author Organization [facility] Address [address] [facility] [place] [address] Care Team Providers Care Spa Experience Coordinator Name Role Phone Melanie Chavez MD Primary Care Provider [phone] Allergies Active Allergy Reactions Criticality Noted Date [...] unit) Capsule Take by mouth. A ctive zanubrutinib 80 mg capsule Take 2 Capsules (160 mg) by mouth 2 times daily. 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 Mantle cell lymphoma 04/17/2016 Encounters Date Type Department Care Team Description 12/09/2024 Specialty Pharmacy [facility] [address] [place] [phone] Anastasia Bower, PHARMACIST Specialty Pharmacy Clinical Assessment 12/08/2024 Specialty Pharmacy [facility] [address] [place] [phone] Anastasia Bower, PHARMACIST Specialty Pharmacy Refill Coordination 12/08/2024 Specialty Pharmacy [facility] [address] [place] [phone] Anastasia Bower, PHARMACIST Specialty Pharmacy Financial Assistance 12/07/2024 Orders Only [facility] Oncology and Hematology - [place]io [address] [place] [phone] Robbi Tripathi MD 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) 11/27/2024 8:45 AM CDT Office Visit [facility] Oncology and Hematology - [place] [address] [place] [address] Robbi Tripathi MD 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) 11/27/2024 Specialty Pharmacy [facility] [address] [place] [phone] Shantelle Grijalva, PHARMACIST Specialty Pharmacy Prior Auth Coordination 11/26/2024 Orders Only [facility] Oncology and Hematology - [place]io [address] [place] [address] Robbi Tripathi MD 11/23/2024 Orders Only [facility] Oncology and Hematology - [place] [address] [place] [address] Robbi Tripathi MD 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) 11/17/2024 External Device Data STL ABSTRACTION Provider, Abstract 11/09/2024 Orders Only [facility] Oncology and Hematology - [place] [address] [place] [address] Robbi Tripathi MD 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) 11/03/2024 External Device Data STL ABSTRACTION Provider, Abstract 10/30/2024 Orders Only [facility] Oncology and Hematology - [place] [address] [place] [address] Robib Tripathi MD 10/28/2024 Abstract [facility] Oncology and Hematology - [place] [address] [place] [address] Robbi Tripathi MD 10/26/2024 Orders Only [facility] Oncology and Hematology - [place] [address] [place] [address] Robbi Tripathi MD 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 ([facility]/HCC) 10/22/2024 External Device Data STL ABSTRACTION Provider, Abstract 10/21/2024 External Device Data STL ABSTRACTION Provider, Abstract 10/20/2024 External Device Data STL ABSTRACTION Provider, Abstract 10/15/2024 Abstract [facility] Oncology and Hematology - [place] [address] [place] [address] Robbi Tripathi MD 10/12/2024 Abstract [facility] Oncology and Hematology - [place] [address] [place] [address] Robbi Tripathi MD 10/12/2024 Orders Only [facility] Oncology and Hematology - [place] [address] [place] [address] Robbi Tripathi MD 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) 10/01/2024 Orders Only [facility] Oncology and Hematology - [place] [address] [place] [address] Robbi Tripathi MD 09/28/2024 Orders Only [facility] Oncology and Hematology - [place] [address] [place] [address] Robbi Tripathi MD 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) 09/25/2024 10:00 AM CDT Office Visit [facility] Oncology and Hematology [facility] [address] [place] [address] Delfina Steele MD 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); Hypogammaglobulinem ia 09/15/2024 External Device Data STL ABSTRACTION Provider, Abstract 09/14/2024 Orders Only [facility] Oncology and Hematology - [place] [address] [place] [address] Robbi Tripathi MD Mantle cell lymphoma of [...] on file Legal 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 Gender Identity Not on file Sexual Orientation Not on file Last Filed Vital Signs Vital Sign Reading Time Taken Comments Blood Pressure 135/88 11/27/2024 8:29 AM CDT Pulse 78 11/27/2024 8:27 AM CDT Temperature 36.4 C (97.6 F) 11/27/2024 8:27 AM CDT Respiratory Rate 15 11/27/2024 8:27 AM CDT Oxygen Saturation 90% 11/27/2024 8:27 AM CDT Inhaled Oxygen Concentration - - Weight 106.4 kg (234 lb 9.6 oz) 11/27/2024 8:27 AM CDT Height 182.9 cm (6') 08/18/2021 9:05 AM CDT Body Mass Index 31.82 08/18/2021 9:05 AM CDT Plan of Treatment Upcoming Encounters Date Type Department Care Team (Late st Contact Info) Description 12/18/2024 8:30 AM CDT Office Visit [facility] Oncology and Hematology - [place] [address] [facility] [address] [place] [address] Robbi Tripathi MD [address] [facility] [address] [place] [address] Health Maintenance Due Date Last [...] 2016 Abdominal Aortic Aneurysm (AAA) Screening 2021 Preventative Visit- Commercial 06/03/2024 INFLUENZA VACCINE (#1) 2025 06/04/2017 COLORECTAL SCREENING 06/10/2033 06/10/2023 Colorectal Cancer Screening 06/10/2033 Procedures Procedure Name Priority Date/Time Associated Diagnosis Comments IGG Routine 11/25/2024 4:44 PM CDT COMPREHENSIVE METABOLIC PANEL Routine 11/25/2024 2:46 PM CDT CBC WITH DIFFERENTIAL Routine 10/23/2024 4:22 PM CDT BASIC METABOLIC PANEL Routine 10/23/2024 4:20 PM CDT HEPATITIS B SURFACE ANTIGEN Routine 10/01/2024 4:07 PM CDT from Last 3 Months Results * IGG (11/25/2024 4:44 PM CDT) Blood us Robbi Tripathi MD CHEMISTRY ORDERABLES Final Resu lt * COMPREHENSIVE METABOLIC PANEL (11/25/2024 2:46 PM CDT) Blood us Robbi Tripathi MD CHEMISTRY ORDERABLES Final Resu lt * CBC WITH DIFFERENTIAL (10/23/2024 4:22 PM CDT) Blood us Robbi Tripathi MD HEMATOLOGY ORDERABLES Final Res ult * BASIC METABOLIC PANEL (10/23/2024 4:20 PM CDT) Blood Result [facility] us Robbi Tripathi MD CHEMISTRY ORDERABLES Final Resu lt * HEPATITIS B SURFACE ANTIGEN (10/01/2024 4:07 PM CDT) Blood Result [facility] us Robbi Tripathi MD CHEMISTRY ORDERABLES Final Resu lt from Last 3 Months Insurance MEDICARE PART A AND B [facility] MEDICARE PART A AND B RX [employer] Commercial RX [employer] Medicare Part D RX [employer] Commercial Advance Directives For more information, please contact: [phone] Documents on File Type Date Recorded Patient Seaman Officer Expl anation Advance Directive Living Will 04/17/2016 1:05 PM Care Teams Spa Experience Coordinator Relationship Specialty Start Date End Date Melanie Chavez MD [address] [place] [address] PCP - General Family Practice 09/12/18
--- OUTSIDE RECORDS SUMMARY | 2024-12-10 09:31 | XMS_ITS | Encounter Summary ---
Author Organization [facility] Address 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 [address] [address] Robbi Tripathi MD [address] [facility] [address] [place] [address] documented as of this encounter Visit Diagnoses Diagnosis Backache, unspecified- Primary documented in this encounter Care Teams Primary Health Care Nurse Relationship Specialty Start Date End Date Melanie Chavez MD [address] [place] [address] PCP - General Family Practice 09/12/18 documented as of this encounter
--- OUTSIDE RECORDS SUMMARY | 2024-12-10 09:31 | XMS_ITS | Encounter Summary ---
Author Organization [facility] Address [address] [facility] [place] [address] Care Team Providers Care Drilling And Production Superintendent Name Role Phone Mohan Daly MD Primary Care Provider [phone] Encounter Details Date Type Department Care Team (Late st Contact Info) Description 06/18/2022 Lab Requisition [facility] Care Pathology Lab [address] [place] [address] Luiza Moncada MD [facility] [address] [address] Illness, unspecified Social History Tobacco Use Types Packs/Day Years Used Date Smoking Tobacco: Never Assessed Sex and Gender Information Value Date Recorded Sex Assigned at Not on file Legal Sex Male 5:48 PM OBSERVER GRAVITY PROSPECTING Gender Identity Not on file Sexual Orientation Not on file documented as of this encounter Plan of Treatment Not on file documented as of this encounter Procedures Procedure Name Priority Date/Time Associated Diagnosis Comments BONE MARROW BIOPSY (STL) Routine 06/14/2022 8:30 AM OBSERVER GRAVITY PROSPECTING Illness, unspecified documented in this encounter Results * BONE MARROW BIOPSY (STL) (06/14/2022 8:30 AM OBSERVER GRAVITY PROSPECTING) Case Report Bone Marrow Patholog y Report Case: [id number] Authorizing Provider: Luiza Moncada MD Collected: 06/14/2022 08:30 AM Ordering Location: [facility] Pathology Lab Received: 06/18/2022 09:02 AM Pathologist: Ilene Nguyen MD Specimens: A) - Bone Marrow Clot B) - Bone Marrow Core 06/18/2022 4:38 PM [facility] PATHOLOGY LAB Final Diagnosis Bone marrow, aspirate, clot section, and core biopsy: - Variably cellular marrow with maturing trilineage hematopoiesis and ~30% involvement by mantle cell lymphoma. - See description. Peripheral blood smear: - Leukopenia. - Normochromic, normocytic anemia. - See description. 06/18/2022 4:38 PM [facility] PATHOLOGY LAB at [address] OBSERVER GRAVITY PROSPECTING AP Comment Overall, the bone marrow specimen is variably cellular with foci of maturing trilineage hematopoiesis. There is extensive involvement by recurrent/residual mantle cell lymphoma, estimated to comprise 30% of the marrow cellularity by immunohistochemistry. Correlation with clinical findings and relevant cytogenetic/molecular testing is required. 06/18/2022 4:38 PM [facility] PATH[facility] LAB Peripheral Smear Description CBC [...] normal. Platelet morphology: normal. 06/18/2022 4:38 PM [facility] PATH[facility] Bone Marrow Aspirate Differential [...] by small, rare spicule. 06/18/2022 4:38 PM [facility] PATH[facility] Bone Marrow Core Biopsy [...] and CD5 are expressed by admixed T-cells. [id number] B-cells are estimated to comprise 30% of the marrow cellularity. 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 06/18/2022 4:38 PM [facility] Clinical History History of mantle cell lymphoma; last treatment in 2018. 06/18/2022 4:38 PM [facility] PATH[facility] Materials Received Received are 21 slides and three blocks (A1, A2, B1) labeled [id number] along with a copy of the outside pathology report. The [place] [address]. All original materials are returned to the referring institution, along with a copy of our final report. 06/18/2022 4:38 PM [facility] Disclaimer The performance characteristics of all immunohistochemical and indirect immunofluorescence stains (if any) cited in this report were determined by the Histopathology Laboratory of [facility]. Some of these tests were developed [...] interpretation of this case is performed by [facility] Pathology at [facility], [facility] [place] [address]. 06/18/2022 4:38 PM OBSERVER GRAVITY PROSPECTING [facility] PATHOLOGY LAB Embedded Images 06/18/2022 4:38 PM OBSERVER GRAVITY PROSPECTING [facility] PATHOLOGY LAB Pathology/Cytology BONE MARROW SPECIMEN / Unknown 06/14/2022 8:30 AM OBSERVER GRAVITY PROSPECTING 06/18/2022 9:02 AM OBSERVER GRAVITY PROSPECTING Miscellaneous samples (specimen) BONE MARROW SPECIMEN / Unknown 06/14/2022 8:30 AM OBSERVER GRAVITY PROSPECTING 06/18/2022 9:02 AM OBSERVER GRAVITY PROSPECTING Luiza Moncada MD LAB - PATHOLOGY/CYTOLOGY ORDERAB LES Final Result [facility] PATHOLOGY LAB [facility] [address] [phone] documented in this encounter Visit Diagnoses Diagnosis Illness, unspecified documented in this encounter Care Teams Drilling And Production Superintendent Relationship Specialty Start Date End Date Mohan Daly MD [address] [place] [address] PCP - General 03/12/08 documented as of this encounter
--- OUTSIDE RECORDS SUMMARY | 2024-12-10 09:31 | XMS_ITS | Encounter Summary ---
Author Organization [facility] Address [address] [facility] [place] [address] Care Team Providers Care Robotic Toy Inventor Name Role Phone Mohan Daly MD Primary Care Provider [phone] Encounter Details Date Type Department Care Team (Late st Contact Info) Description 10/07/2024 Lab Requisition [facility] - Pathology Lab [address] [place] [address] Steven Nava MD [address] [facility] [address] [place] [address] Illness, unspecified Social History Tobacco Use Types Packs/Day Years Used Date Smoking Tobacco: Never Assessed Sex and Gender Information Value Date Recorded Sex Assigned at Not on file Legal Sex Male 5:48 PM APPEALS COORDINATOR Gender Identity Not on file Sexual Orientation Not on file documented as of this encounter Plan of Treatment Not on file documented as of this encounter Procedures Procedure Name Priority Date/Time Associated Diagnosis Comments PATHOLOGY TISSUE Routine 10/05/2024 1:52 PM CDT Illness, unspecified documented in this encounter Results * PATHOLOGY TISSUE (10/05/2024 1:52 PM CDT) Case Report Surgical Pathology Report Case: [id number] Authorizing Provider: Steven Nava Collected: 10/05/2024 01:52 PM MD Daniel Ordering Location: [facility] - Received: 10/07/2024 02:13 PM Pathology Lab Pathologist: Jayne Mari MD Specimen: Parotid Gland 10/08/2024 9:43 AM [facility] PATH[facility] Final Diagnosis Right parotid gland, parotidectomy: - Involved by mantle cell lymphoma 10/08/2024 9:43 AM [facility] PATH[facility] at 0942 CDT Microscopic Description and Comment Histologic sections show effacement of normal glandular structures by a dense lymphoid infiltrate. Immunohistochemistry performed at the referring institution ([facility]) shows the lymphoid infiltrate to be immunoreactive for CD45. MCK (cytokeratin) and synaptophysin are negative. Additional immunohistochemistry performed at [facility] Histology Laboratory shows that the lymphoma cells are positive for CD20, PAX-5, or cyclin D1. 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 10/08/2024 9:43 AM [facility] Clinical History Mantle cell lymphoma. 10/08/2024 9:43 AM [facility] Materials Received Received are 6 slide(s) and 1 block(s) labeled [id number] along with a copy of the outside pathology report. [place] [address]. All original materials are returned to the referring institution, along with a copy of our final report. 10/08/2024 9:43 AM [facility] Pathologist Location at [facility] 10/08/2024 9:43 AM [facility] Disclaimer The performance characteristics of all immunohistochemical and indirect immunofluorescence stains (if any) cited in this report were determined by the Histopathology Laboratory of [facility]. Some of these tests were developed by [...] the attending (teaching) pathologist. 10/08/2024 9:43 AM [facility] Embedded Images 10/08/2024 9:43 AM CDT [facility] PATH[facility] Pathology/Cytolo gy ENTIRE PAROTID GLAND / Unknown 10/05/2024 1:52 PM CDT 10/07/2024 2:13 PM CDT Steven Nava MD LAB - PATHOLOGY/CYT OLOGY ORDERABLES Final Result Performing Organization Address City/State/[facility] Co de Phone Number [facility] [address] [phone] documented in this encounter Visit Diagnoses Diagnosis Illness, unspecified documented in this encounter Care Teams Robotic Toy Inventor Relationship Specialty Start Date End Date Mohan Daly MD [address] [place] [address] PCP - General 03/12/08 documented as of this encounter
--- OUTSIDE RECORDS SUMMARY | 2024-12-10 09:31 | XMS_ITS | Encounter Summary ---
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) Social History Tobacco Use Types Packs/Day Years Used Date Smoking Tobacco: Former Cigarettes Q uit: 04/17/2004 Alcohol Use Standard Drinks/Week Comments No 0 (1 standard drink = 0.6 oz pur e alcohol) Sex and Gender Information Value Date Recorded Sex Assigned at Not on file 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 Gender Identity Not on file Sexual Orientation Not on file documented as of this encounter Plan of Treatment Upcoming Encounters Date Type Department Care Team (Late st Contact Info) Description 12/18/2024 8:30 AM CDT Office Visit [facility] Oncology and Hematology [facility] [address] [place] [address] Robbi Tripathi MD [address] [place] [address] documented as of this encounter Visit Diagnoses Diagnosis 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
--- OUTSIDE RECORDS SUMMARY | 2024-12-10 09:31 | XMS_ITS | Encounter Summary ---
Author Organization [facility] Address [address] [place] [address] Care Team Providers Care Communications Engineering Technician Name Role Phone Melanie Chavez MD Primary Care Provider [phone] Encounter Details Date Type Department Care Team (Late Contact Info) Description 08/08/1999 Outpatient Historical [facility] MRI DEPT (Excluded Provider) [place] [address] [facility] [address] [place] [address] Cervicalgia (Primary Dx) Social History Tobacco Use Types Packs/Day Years Used Date Smoking Tobacco: Never Assessed Sex and Gender Information Value Date Recorded Sex Assigned at Not on file Legal Sex Male 4:57 AM LINEN CHECKER Gender Identity Not on file Sexual Orientation Not on file documented as of this encounter Plan of Treatment Upcoming Encounters Date Type Department Care Team ([facility] Contact Info) Description 12/18/2024 8:30 AM CDT Office Visit [facility] Oncology and Hematology - [place] [address] [facility] [address] [place] [address] Robbi Tripathi MD [address] [facility] [address] [place] [address] documented as of this encounter Visit Diagnoses Diagnosis Cervicalgia- Primary documented in this encounter Care Teams Communications Engineering Technician Relationship Specialty Start Date End Date Melanie Chavez MD [address] [place] [address] PCP - General Family Practice 09/12/18 documented as of this encounter
--- OUTSIDE RECORDS SUMMARY | 2024-12-10 09:32 | XMS_ITS | Encounter Summary ---
Author Organization [facility] Address [address] [place] [address] Care Team Providers Care Tour Manager Name Role Phone Melanie Chavez MD Primary Care Provider [phone] Reason for Visit * Reason Comments Medication Refill Encounter Details Date Type Department Care Team (Late Contact Info) Description 02/03/2019 Refill [facility]cology and [facility] [address] [place] [address] Robbi Tripathi MD [address] [place] [address] Mantle cell lymphoma, unspecified body region (CMS/HCC) Social History Tobacco Use Types Packs/Day Years Used Date Smoking Tobacco: Former Cigarettes Q uit: 04/17/2004 Alcohol Use Standard Drinks/Week Comments No 0 (1 standard drink = 0.6 oz pur e alcohol) Sex and Gender Information Value Date Recorded Sex Assigned at Not on file Legal Sex Male 4:57 AM PLASTIC ROLLER Gender Identity Not on file Sexual Orientation Not on file documented as of this encounter Plan of Treatment Upcoming Encounters Date Type Department Care Team (Late Contact Info) Description 12/18/2024 8:30 AM CDT Office Visit [facility] Oncology and Hematology [facility] [address] [place] [address] Robbi Tripathi MD [address] [place] [address] documented as of this encounter Visit Diagnoses Diagnosis Mantle cell lymphoma, unspecified body region (CMS/HCC) documented in this encounter Care Teams Tour Manager Relationship Specialty Start Date End Date Melanie Chavez MD [address] [place] [address] PCP - General Family Practice 09/12/18 documented as of this encounter
--- OUTSIDE RECORDS SUMMARY | 2024-12-10 09:32 | XMS_ITS | Encounter Summary ---
Author Organization [facility] [employer] [facility] Address [address] [place] [address] Care Team Providers Care Theatrical Dresser Name Role Phone Melanie Chavez MD Primary Care Provider [phone] Encounter Details Date Type Department Care Team (Late st Contact Info) Description 02/05/2019 Telephone [facility] Oncology and Hematology - [place] [address] [facility] [address] [place] [address] Robbi Tripathi MD [address] [facility] [address] [place] [address] Social History Tobacco Use Types Packs/Day Years Used Date Smoking Tobacco: Former Cigarettes Q uit: 04/17/2004 Alcohol Use Standard Drinks/Week Comments No 0 (1 standard drink = 0.6 oz pur e alcohol) Sex and Gender Information Value Date Recorded Sex Assigned at Not on file Legal Sex Male 4:57 AM TRANSPORT SPECIALIST Gender Identity Not on file Sexual [...] - 02/05/2019 10:46 AM CDT Kathie troy [facility] Spec Pharm; [phone]; medication Privigen in all strenglths not available [...] Center Oncology and Hematology - [place] [address] [facility] [address] [place] [address] Robbi Tripathi MD [address] [facility] [address] [place] [address] documented as of this encounter Visit Diagnoses Not on filedocumented in this encounter Care Teams Theatrical Dresser Relationship Specialty Start Date End Date Melanie Chavez MD [address] [place] [address] PCP - General Family Practice 09/12/18 documented as of this encounter
--- OUTSIDE RECORDS SUMMARY | 2024-12-10 09:32 | XMS_ITS | Encounter Summary ---
Author Organization [facility] Address [address] [place] [address] Care Team Providers Care Jewel Hole Rough Opener Name Role Phone Melanie Chavez MD Primary Care Provider [phone] Reason for Visit * Reason Comments Medication Refill Encounter Details Date Type Department Care Team (Late Contact Info) Description 02/02/2019 Refill [facility] Oncology and [facility] [address] [place] [address] Robbi Tripathi MD [address] [place] [address] Mantle cell lymphoma, unspecified body region (CMS/HCC) Social History Tobacco Use Types Packs/Day Years Used Date Smoking Tobacco: Former Cigarettes Q uit: 04/17/2004 Alcohol Use Standard Drinks/Week Comments No 0 (1 standard drink = 0.6 oz pur e alcohol) Sex and Gender Information Value Date Recorded Sex Assigned at Not on file Legal Sex Male 4:57 AM PROTECTIVE SIGNAL OPERATOR Gender Identity Not on file Sexual Orientation Not on file documented as of this encounter Plan of Treatment Upcoming Encounters Date Type Department Care Team (Late Contact Info) Description 12/18/2024 8:30 AM CDT Office Visit [facility] Oncology and Hematology [facility] [address] [place] [address] Robbi Tripathi MD [address] [place] [address] documented as of this encounter Visit Diagnoses Diagnosis Mantle cell lymphoma, unspecified body region (CMS/HCC) documented in this encounter Care Teams Jewel Hole Rough Opener Relationship Specialty Start Date End Date Melanie Chavez MD [address] [place] [address] PCP - General Family Practice 09/12/18 documented as of this encounter
--- OUTSIDE RECORDS SUMMARY | 2024-12-10 09:32 | XMS_ITS | Encounter Summary ---
Author Organization [facility] [employer] [facility] Address [address] [place] [address] Care Team Providers Care Protocol Officer Name Role Phone Melanie Chavez MD Primary Care Provider [phone] Reason for Visit * Reason Comments Medication Refill Encounter Details Date Type Department Care Team (Late Contact Info) Description 03/05/2019 Refill [facility] Oncology and Hematology [facility] [address] [place] [address] Robbi Tripathi MD [address] [email or web address] [address] [place] [address] Mantle cell lymphoma, unspecified body region (CMS/HCC) Social History Tobacco Use Types Packs/Day Years Used Date Smoking Tobacco: Former Cigarettes Q uit: 04/17/2004 Alcohol Use Standard Drinks/Week Comments No 0 (1 standard drink = 0.6 oz pur e alcohol) Sex and Gender Information Value Date Recorded Sex Assigned at Not on file 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 Gender Identity Not on file Sexual Orientation Not on file documented as of this encounter Plan of Treatment Upcoming Encounters Date Type Department Care Team (Late Contact Info) Description 12/18/2024 8:30 AM CDT Office Visit [facility] Oncology and Hematology [facility] [address] [place] [address] Robbi Tripathi MD [email or web address] [address] [place] [address] documented as of this encounter Visit Diagnoses Diagnosis Mantle cell lymphoma, unspecified body region (CMS/HCC) documented in this encounter Care Teams Protocol Officer Relationship Specialty Start Date End Date Melanie Chavez MD [address] [place] [address] PCP - General Family Practice 09/12/18 documented as of this encounter
== END 2024-12-10 09:22 | disposition home or self-care (01) ==
PROVIDERS: PCP Family Medicine; Visit Provider Internal Medicine Hematology & Oncology
DX: C83.13 Mantle cell lymphoma, intra-abdominal lymph nodes (principal)
CPT/HCPCS: 78815; A9552

== ENCOUNTER 2025-01-19 10:13 | Outpatient (CLI) | payer MEDICARE, OTHER, SELFPAY ==
--- OUTSIDE RECORDS SUMMARY | 2025-01-19 10:40 | XMS_ITS | Encounter Summary ---
Author Organization [facility] Address [address] [place] [address] Care Team Providers Care Air Brake Man Name Role Phone Melanie Chavez MD Primary Care Provider [phone] Encounter Details Date Type Department Care Team (Late Contact Info) Description 06/28/1999 Outpatient Historical Division of Neurology [address] [facility] [address] (Excluded Provider) [place] [address] [facility] [address] [place] [address] Social History Tobacco Use Types Packs/Day Years Used Date Smoking Tobacco: Never Assessed Sex and Gender Information Value Date Recorded Sex Assigned at Not on file 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 Gender Identity Not on file Sexual Orientation Not on file documented as of this encounter Plan of Treatment Upcoming Encounters Date Type Department Care Team (Late st Contact Info) Description 01/21/2025 8:30 AM CDT Office Visit [facility] Oncology and Hematology - Gio [address] [facility] [address] [place] [address] Robbi Tripathi MD [address] [facility] [address] [place] [address] documented as of this encounter Visit Diagnoses Not on filedocumented in this encounter Care Teams Air Brake Man Relationship Specialty Start Date End Date Melanie Chavez MD [address] [place] [address] PCP - General Family Practice 09/12/18 documented as of this encounter
--- OUTSIDE RECORDS SUMMARY | 2025-01-19 10:40 | XMS_ITS | Encounter Summary ---
Author Organization [facility] [employer] [facility] Address [address] [place] [address] Care Team Providers Care Aluminizer Name Role Phone Melanie Chavez MD Primary Care Provider [phone] Encounter Details Date Type Department Care Team (Late st Contact Info) Description 02/05/2019 Telephone [facility] Oncology and Hematology - G[place] [address] [facility] [address] [place] [address] Robbi Tripathi MD [address] [facility] [address] [place] [address] Social History Tobacco Use Types Packs/Day Years Used Date Smoking Tobacco: Former Cigarettes Q uit: 04/17/2004 Alcohol Use Standard Drinks/Week Comments No 0 (1 standard drink = 0.6 oz pur e alcohol) Sex and Gender Information Value Date Recorded Sex Assigned at Not on file 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 Gender Identity Not on file Sexual [...] - 02/05/2019 10:46 AM CDT Kathie troy [facility] Spec Pharm; [phone]; medication Privigen in all strenglths not available [...] Description 01/21/2025 8:30 AM CDT Office Visit [facility] Oncology and Hematology - Gio 2[address] [facility] [address] [place] [address] Robbi Tripathi MD 2[address] [facility] [address] [place] [address] documented as of this encounter Visit Diagnoses Not on filedocumented in this encounter Care Teams Aluminizer Relationship Specialty Start Date End Date Melanie Chavez MD [address] [place] [address] PCP - General Family Practice 09/12/18 documented as of this encounter
--- OUTSIDE RECORDS SUMMARY | 2025-01-19 10:40 | XMS_ITS | Encounter Summary ---
Author Organization [facility] Address 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 Gender Identity Not on file Sexual Orientation Not on file documented as of this encounter Plan of Treatment Upcoming Encounters Date Type Department Care Team (Late st Contact Info) Description 01/21/2025 8:30 AM CDT Office Visit [facility] Oncology and Hematology - Gio [address] [facility] [address] [address] [place] [address] [place] [address] documented as of this encounter Visit Diagnoses Diagnosis Displacement of lumbar intervertebral disc without myelopathy- Primary documented in this encounter Care Teams Delivery Nurse Relationship Specialty Start Date End Date Melanie Chavez MD [address] [place] [address] PCP - General Family Practice 09/12/18 documented as of this encounter
--- OUTSIDE RECORDS SUMMARY | 2025-01-19 10:40 | XMS_ITS | Encounter Summary ---
Author Organization [facility] Address [address] [place] [address] Care Team Providers Care Lamp Replacer Name Role Phone Melanie Chavez MD Primary Care Provider [phone] Encounter Details Date Type Department Care Team (Late Contact Info) Description 07/18/1999 Outpatient Historical [facility] (Excluded Provider) [place] [address] 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 Gender Identity Not on file Sexual Orientation Not on file documented as of this encounter Plan of Treatment Upcoming Encounters Date Type Department Care Team (Late Contact Info) Description 01/21/2025 8:30 AM CDT Office Visit [facility] Oncology and Hematology - Gio [address] [facility] [address] [place] [address] Robbi Tripathi MD 2[address] [facility] [address] [place] [address] documented as of this encounter Visit Diagnoses Diagnosis Neuralgia, neuritis, and radiculitis, unspecified- Primary documented in this encounter Care Teams Lamp Replacer Relationship Specialty Start Date End Date Melanie Chavez MD [address] [place] [address] PCP - General Family Practice 09/12/18 documented as of this encounter
--- OUTSIDE RECORDS SUMMARY | 2025-01-19 10:40 | XMS_ITS | Encounter Summary ---
Author Organization [facility] Address [address] [place] [address] Care Team Providers Care Steaming Cabinet Tender Name Role Phone Melanie Chavez MD Primary Care Provider Encounter Details Date Type Department Care Team (Late st Contact Info) Description 04/26/2004 Outpatient Historical [facility] ([facility]) [address] 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 Gender Identity Not on file Sexual Orientation Not on file documented as of this encounter Plan of Treatment Upcoming Encounters Date Type Department Care Team (Late st Contact Info) Description 01/21/2025 8:30 AM CDT Office Visit [facility] Oncology and Hematology - [place] [address] [place] [address] [address] Robbi Tripathi MD 2[address] [facility] [address] [place] [address] documented as of this encounter Visit Diagnoses Not on filedocumented in this encounter Care Teams Steaming Cabinet Tender Relationship Specialty Start Date End Date Melanie Chavez MD [address] [place] [address] PCP - General Family Practice 09/12/18 documented as of this encounter
--- OUTSIDE RECORDS SUMMARY | 2025-01-19 10:40 | XMS_ITS | Encounter Summary ---
Author Organization [facility] Address 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 Gender Identity Not on file Sexual Orientation Not on file documented as of this encounter Plan of Treatment Upcoming Encounters Date Type Department Care Team (Late st Contact Info) Description 01/21/2025 8:30 AM CDT Office Visit [facility] Oncology and Hematology - Gio [address] [place] [address] [address] Robbi Tripathi MD [address] [place] [address] documented as of this encounter Visit Diagnoses Diagnosis Disturbance of skin sensation- Primary documented in this encounter Care Teams Arts And Crafts Teacher Relationship Specialty Start Date End Date Melanie Chavez MD [address] [place] [address] PCP - General Family Practice 09/12/18 documented as of this encounter
--- OUTSIDE RECORDS SUMMARY | 2025-01-19 10:40 | XMS_ITS | Encounter Summary ---
Author Organization [facility] Address [address] [place] [address] Care Team Providers Care Blow Torch Operator Name Role Phone Melanie Chavez MD Primary Care Provider [phone] Reason for Visit * Reason Comments Medication Refill Encounter Details Date Type Department Care Team (Late Contact Info) Description 08/15/2018 Refill [facility] Oncology [facility] Hematology [facility] [address] [place] [address] Robbi Tripathi MD [address] [place] [address] Social History Tobacco Use Types Packs/Day Years Used Date Smoking Tobacco: Former Cigarettes Q uit: 04/17/2004 Alcohol Use Standard Drinks/Week Comments No 0 (1 standard drink = 0.6 oz pur e alcohol) Sex and Gender Information Value Date Recorded Sex Assigned at Not on file 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 Gender Identity Not on file Sexual Orientation Not on file documented as of this encounter Plan of Treatment Upcoming Encounters Date Type Department Care Team (Late st Contact Info) Description 01/21/2025 8:30 AM CDT Office Visit [facility] Oncology [facility] [address] [place] [address] Robbi Tripathi MD [address] [place] [address] documented as of this encounter Visit Diagnoses Not on filedocumented in this encounter Care Teams Blow Torch Operator Relationship Specialty Start Date End Date Melanie Chavez MD [address] [place] [address] PCP - General Family Practice 09/12/18 documented as of this encounter
--- OUTSIDE RECORDS SUMMARY | 2025-01-19 10:40 | XMS_ITS | Encounter Summary ---
Author Organization [facility] [employer] [facility] Address [address] [place] [address] Care Team Providers Care Production Mechanic Name Role Phone Melanie Chavez MD Primary Care Provider [phone] Reason for Visit * Reason Comments Medication Refill Encounter Details Date Type Department Care Team (Late Contact Info) Description 03/05/2019 Refill [facility] Oncology [facility] [address] [place] [address] Robbi Tripathi MD [facility] [address] [place] [phone] Mantle cell lymphoma, unspecified body region (CMS/HCC) Social History Tobacco Use Types Packs/Day Years Used Date Smoking Tobacco: Former Cigarettes Q uit: 04/17/2004 Alcohol Use Standard Drinks/Week Comments No 0 (1 standard drink = 0.6 oz pur e alcohol) Sex and Gender Information Value Date Recorded Sex Assigned at Not on file 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 Gender Identity Not on file Sexual Orientation Not on file documented as of this encounter Plan of Treatment Upcoming Encounters Date Type Department Care Team (Late Contact Info) Description 01/21/2025 8:30 AM CDT Office Visit [facility] Oncology [facility] Estuardo Duff [address] [place] [address] Robbi Tripathi MD [address] [place] [phone] documented as of this encounter Visit Diagnoses Diagnosis Mantle cell lymphoma, unspecified body region (CMS/HCC) documented in this encounter Care Teams Production Mechanic Relationship Specialty Start Date End Date Melanie Chavez MD [address] [place] [id number] PCP - General Family Practice 09/12/18 documented as of this encounter
--- OUTSIDE RECORDS SUMMARY | 2025-01-19 10:40 | XMS_ITS | Clinical Summary ---
Author Organization [facility] [employer] Address [address] [place] [address] Care Team Providers Care Forklift Truck Operator Name Role Phone Mohan Daly MD Primary Care Provider [phone] Source Comments [facility] [employer],non-owned Affiliates and Associated Physician Practices is amultiple site organization consisting of ambulatory clinics and hospital sitesin [place], [place], [place] and [place]. This disclosure is being madepursuant to the Care Everywhere program and may not contain all information available regarding this patient. 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 Gender Identity Not on file Sexual [...] series) 2016 DEPRESSION SCREENING 06/03/2024 INFLUENZA VACCINE (#1) 2025 HEPATITIS B VACCINE Aged Out No [...] this topic Insurance MEDICARE [employer] [employer] [place] SELF PAY NO INSURANCE Member Subscriber Plan / Payer (Ef fective for All Dates) Name:Min Toro Member ID:Not on file Relation to Subscriber:Not on file Name:MIN TORO Subscriber ID:Not on file (Home) Address: [address] [place] [address] [place] [address] Payer ID:Not on file Group ID:Not on file Type:Self Pay Address: [place], [place] [address] MEDICARE [employer] [place] Care Teams Forklift Truck Operator Relationship Specialty Start Date End Date Mohan Daly MD [facility] [place] [address] PCP - General 03/12/08
--- OUTSIDE RECORDS SUMMARY | 2025-01-19 10:40 | XMS_ITS | Encounter Summary ---
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) Social History Tobacco Use Types Packs/Day Years Used Date Smoking Tobacco: Former Cigarettes Q uit: 04/17/2004 Alcohol Use Standard Drinks/Week Comments No 0 (1 standard drink = 0.6 oz pur e alcohol) Sex and Gender Information Value Date Recorded Sex Assigned at Not on file 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 Gender Identity Not on file Sexual Orientation Not on file documented as of this encounter Plan of Treatment Upcoming Encounters Date Type Department Care Team (Late st Contact Info) Description 01/21/2025 8:30 AM CDT Office Visit [facility] [address] [place] [address] Robbi Tripathi MD [address] [employer] [address] [place] [address] documented as of this encounter Visit Diagnoses Diagnosis 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
--- OUTSIDE RECORDS SUMMARY | 2025-01-19 10:40 | XMS_ITS | Clinical Summary ---
Author Organization [facility] Address [facility] [place] [address] Care Team Providers Care Seating Upholsterer Name Role Phone Melanie Chavez MD Primary Care Provider Allergies Active Allergy Reactions Criticality Noted Date [...] on file Legal Sex Male 5:48 AM MANAGER OF CASE MANAGEMENT Gender Identity Not on file Sexual Orientation Not on file Obstetrics History Last Filed Vital Signs Vital Sign Reading Time Taken Comments Blood Pressure 116/78 04/16/2022 9:31 AM MANAGER OF CASE MANAGEMENT Pulse 83 04/16/2022 9:31 AM MANAGER OF CASE MANAGEMENT Temperature - - Respiratory Rate - - Oxygen Saturation 96% 08/11/2013 12: 30 PM CDT Inhaled Oxygen Concentration - - Weight 113.2 kg (249 lb 9.6 oz) 04/16/2022 9:31 AM MANAGER OF CASE MANAGEMENT Height 185.4 cm (6' 1) 04/16/2022 9:31 AM MANAGER OF CASE MANAGEMENT Body Mass Index 32.93 04/16/2022 9:31 AM MANAGER OF CASE MANAGEMENT Plan of Treatment Health Maintenance Due Date [...] Well Visit 65+ 2021 Influenza Vaccine (#1) 2025 06/04/2017, 2015 [place] [address] [facility] [place] [id number] [facility] Care Teams Seating Upholsterer Relationship Specialty Start Date End Date Melanie Chavez MD PCP - General Family Medicine 03/09/22
--- OUTSIDE RECORDS SUMMARY | 2025-01-19 10:40 | XMS_ITS | Encounter Summary ---
Author Organization [facility] Address [address] [place] [address] Care Team Providers Care Senior Sales Engineer Name Role Phone Mohan Daly MD Primary Care Provider [phone] Encounter Details Date Type Department Care Team (Late st Contact Info) Description 06/18/2022 Lab Requisition [facility] Care Pathology Lab [address] [place] [address] Luiza Moncada MD [facility] [address] [address] Illness, unspecified Social History Tobacco Use Types Packs/Day Years Used Date Smoking Tobacco: Never Assessed Sex and Gender Information Value Date Recorded Sex Assigned at Not on file Legal Sex Male 5:48 PM ENTOMOLOGY TEACHER Gender Identity Not on file Sexual Orientation Not on file documented as of this encounter Plan of Treatment Not on file documented as of this encounter Procedures Procedure Name Priority Date/Time Associated Diagnosis Comments BONE MARROW BIOPSY (STL) Routine 06/14/2022 8:30 AM ENTOMOLOGY TEACHER Illness, unspecified documented in this encounter Results * BONE MARROW BIOPSY (STL) (06/14/2022 8:30 AM ENTOMOLOGY TEACHER) Case Report Bone Marrow Patholog y Report Case: [id number] Authorizing Provider: Luiza Moncada MD Collected: 06/14/2022 08:30 AM Ordering Location: [facility] Pathology Lab Received: 06/18/2022 09:02 AM Pathologist: Ilene Nguyen MD Specimens: A) - Bone Marrow Clot B) - Bone Marrow Core 06/18/2022 4:38 PM [facility] Final Diagnosis Bone marrow, aspirate, clot section, and core biopsy: - Variably cellular marrow with maturing trilineage hematopoiesis and ~30% involvement by mantle cell lymphoma. - See description. Peripheral blood smear: - Leukopenia. - Normochromic, normocytic anemia. - See description. 06/18/2022 4:38 PM [facility] at [address] ENTOMOLOGY TEACHER AP Comment Overall, the bone marrow specimen is variably cellular with foci of maturing trilineage hematopoiesis. There is extensive involvement by recurrent/residual mantle cell lymphoma, estimated to comprise 30% of the marrow cellularity by immunohistochemistry. Correlation with clinical findings and relevant cytogenetic/molecular testing is required. 06/18/2022 4:38 PM [facility] Peripheral Smear Description CBC Data: [...] normal. Platelet morphology: normal. 06/18/2022 4:38 PM [facility] Bone Marrow Aspirate Differential count [...] by small, rare spicule. 06/18/2022 4:38 PM [facility] Bone Marrow Core Biopsy and [...] and CD5 are expressed by admixed T-cells. YX31-ddonagwe B-cells are estimated to comprise 30% of the marrow cellularity. 06/18/2022 4:38 PM [facility] Flow Cytometry Summary Concurrent flow cytometry ([id number]) shows a CD5-positive mature B-cell leukemia/lymphoma. 06/18/2022 4:38 PM [facility] Clinical History History of mantle cell lymphoma; last treatment in 2018. 06/18/2022 4:38 PM [facility] Materials Received Received are 21 slides and three blocks (A1, A2, B1) labeled [id number] along with a copy of the outside pathology report. [place] [address]. All original materials are returned to the referring institution, along with a copy of our final report. 06/18/2022 4:38 PM [facility] Disclaimer The performance characteristics of all immunohistochemical and indirect immunofluorescence stains (if any) cited in this report were determined by the Histopathology Laboratory of [facility] [place] [facility]. Some of these tests were developed [...] interpretation of this case is performed by [facility] Pathology at [facility], [facility] [place] [address]. 06/18/2022 4:38 PM ENTOMOLOGY TEACHER [facility] PATHOLOG[facility] LAB Embedded Images 06/18/2022 4:38 PM ENTOMOLOGY TEACHER [facility] LAB Pathology/Cytology BONE MARROW SPECIMEN / Unknown 06/14/2022 8:30 AM ENTOMOLOGY TEACHER 06/18/2022 9:02 AM ENTOMOLOGY TEACHER Miscellaneous samples (specimen) BONE MARROW SPECIMEN / Unknown 06/14/2022 8:30 AM ENTOMOLOGY TEACHER 06/18/2022 9:02 AM ENTOMOLOGY TEACHER Luiza Moncada MD LAB - PATHOLOGY/CYTOLOGY ORDERAB LES Final Result [facility] PATH[facility] LAB [facility] [address] [phone] documented in this encounter Visit Diagnoses Diagnosis Illness, unspecified documented in this encounter Care Teams Senior Sales Engineer Relationship Specialty Start Date End Date Mohan Daly MD [address] [place] [phone] PCP - General 03/12/08 documented as of this encounter
--- OUTSIDE RECORDS SUMMARY | 2025-01-19 10:40 | XMS_ITS | Encounter Summary ---
Author Organization [facility] Address [address] [facility] [place] [address] Care Team Providers Care Fire Equipment Repairer Inspector Name Role Phone Mohan Daly MD Primary Care Provider [phone]- [phone] Encounter Details Date Type Department Care Team (Late st Contact Info) Description 06/14/2022 Lab Requisition [facility] Care Pathology Lab [address] [place] [address] Luiza Moncada MD [facility] [address] [address] Mantle cell lymphoma, intra-abdominal lymph nodes Social History Tobacco Use Types Packs/Day Years Used Date Smoking Tobacco: Never Assessed Sex and Gender Information Value Date Recorded Sex Assigned at Not on file Legal Sex Male 5:48 PM CHOKER HOOKER Gender Identity Not on file Sexual Orientation Not on file documented as of this encounter Plan of Treatment Not on file documented as of this encounter Procedures Procedure Name Priority Date/Time Associated Diagnosis Comments FLOW CYTOMETRY BONE MARROW Routine 06/14/2022 8:30 AM CHOKER HOOKER Mantle cell lymphoma, intra-abdominal lymph nodes (CMS/HCC) documented in this encounter Results * FLOW CYTOMETRY BONE MARROW (06/14/2022 8:30 AM CHOKER HOOKER) Case Report Flow Cytometry Case: [id number] Authorizing Provider: Luiza Moncada MD Collected: 06/14/2022 08:30 AM Ordering Location: [facility] Pathology Lab Received: 06/14/2022 03:26 PM Pathologist: Kelsea Navarro Mai, DO Specimen: Bone Marrow, L Hip 06/14/2022 6:00 PM [facility] Final Diagnosis Bone marrow, flow cytometric immunophenotypic analysis: - CD5-positive mature B-cell leukemia/lymphoma - See interpretation 06/14/2022 6:00 PM [facility] at [address] CHOKER HOOKER Flow Cytometry Interpretation The bone marrow specimen [...] flow cytometry specimen is reviewed for senior quality methods specialist purposes. The sample shows a minute marrow particle. The bone marrow aspirate specimen shows involvement by a CD5-positive mature B-cell leukemia/lymphoma. The patient's diagnosis of mantle cell lymphoma is noted and the immunophenotypic findings are compatible with the diagosis. Correlation with clinical findings, the concurrent bone marrow core biopsy (accession number pending), and relevant cytogenetic/molecu lar studies is required. 06/14/2022 6:00 PM [facility] Flow Cytometry Results Differential Result Comment Flow Cell Count /uL 26,700 Total Viability % 93.0 Lymphocytes % 31 Dim CD45 Region % 6 Monocytes % 7 Granulocytes % 56 06/14/2022 6:00 PM [facility] Reason for test Mantle cell lymphoma, intra-abdominal lymph nodes (CMS/HCC) 200.43 06/14/2022 6:00 PM [facility] Client Specimen ID # [id number] 06/14/2022 6:00 PM [facility] Number of markers 10 were performed. A-1 Flow CD3 A-3 Flow CD10 A-5 Flow CD20 A-6 Flow CD23 A-2 Flow CD5 A-4 Flow CD19 A-7 Flow CD34 A-8 Flow CD45 A-9 [place]+CD19+ A-10 Lambda+CD19+ 06/14/2022 6:00 PM [facility] Disclaimer Test performed at [facility], [address] [facility], [place], [place], [address]. *The established laboratory minimum viability is 70%. [...] high complexity clinical testing. 06/14/2022 6:00 PM [facility] Embedded Images 6:00 PM [facility] Pathology/Cytolo gy BONE MARROW SPECIMEN / Unknown 06/14/2022 8:30 AM CHOKER HOOKER 06/14/2022 3:26 PM CHOKER HOOKER Luiza Moncada MD LAB - PATHOLOGY/CYTOLOGY ORDERAB LES Final Result [facility] [address] [facility] [phone] documented in this encounter Visit Diagnoses Diagnosis Mantle cell lymphoma, intra-abdominal lymph nodes (HCC) Mantle cell lymphoma, intra-abdominal lymph nodes documented in this encounter Care Teams Fire Equipment Repairer Inspector Relationship Specialty Start Date End Date Mohan Daly MD [address] [place] [phone] PCP - General 03/12/08 documented as of this encounter
--- OUTSIDE RECORDS SUMMARY | 2025-01-19 10:40 | XMS_ITS | Encounter Summary ---
Author Organization [facility] Address [address] [place] [address] Care Team Providers Care Developmental Therapist Name Role Phone Melanie Chavez MD Primary Care Provider [phone] Encounter Details Date Type Department Care Team (Latest Contact Info) Description 01/10/2005 Outpatient Historical [facility] BackerAkhil MD NO ADDRESS ON FILE LUMBAR DISC DISPLACEMENT (Primary Dx) Social History Tobacco Use Types Packs/Day Years Used Date Smoking Tobacco: Never Assessed Sex and Gender Information Value Date Recorded Sex Assigned at Not on file Legal Sex Male 4:57 AM RAG COLLECTOR Gender Identity Not on file Sexual Orientation Not on file documented as of this encounter Plan of Treatment Upcoming Encounters Date Type Department Care Team (Late st Contact Info) Description 01/21/2025 8:30 AM CDT Office Visit [facility] Oncology and Hematology - [place] [address] [facility] [address] [place] [address] Robbi Tripathi MD [address] [facility] [place] [facility] [address] [place] [address] documented as of this encounter [...] Primary documented in this encounter Care Teams Developmental Therapist Relationship Specialty Start Date End Date Melanie Chavez MD [address] [place] [address] PCP - General Family Practice 09/12/18 documented as of this encounter
--- OUTSIDE RECORDS SUMMARY | 2025-01-19 10:40 | XMS_ITS | Clinical Summary ---
Author Organization [facility] Address [address] [place] [address] Care Team Providers Care Learning Consultant Name Role Phone Melanie Chavez MD Primary Care Provider [phone] Allergies Active Allergy Reactions Criticality Noted Date [...] mouth 2 times daily. 120 Capsule 2 01/12/2025 8:57 AM CDT Active anastrozole (ARIMIDEX) 1 mg tablet Take 1 Tablet by mouth every 7 days. 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 Mantle cell lymphoma 04/17/2016 Encounters Date Type Department Care Team Description 01/18/2025 Orders Only [facility] Oncology and Hematology - [place] [address] [place] [address] Robbi Tripathi MD 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) 01/05/2025 External Device Data STL ABSTRACTION Provider, Abstract 01/04/2025 Orders Only [facility] Oncology and Hematology [facility] [address] [place] [address] Robbi Tripathi MD 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) 2024 Specialty Pharmacy [facility] [address] [place] [phone] Rosmery Rodríguez, PHARMACIST Specialty Pharmacy Refill Coordination 12/21/2024 Telephone [facility] Oncology [facility] Hematology - [place] [address] [place] [address] Robbi Tripathi MD Medication Review 12/21/2024 Orders Only [facility] Oncology and Hematology [facility] [address] [place] [address] Robbi Tripathi MD 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) 12/18/2024 8:30 AM CDT Office Visit [facility] On[facility] Hematology [facility] [address] [place] [address] Robbi Tripathi MD 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) 12/16/2024 External Device Data STL ABSTRACTION Provider, Abstract 12/16/2024 Abstract [facility] Oncology and Hematology - [place] [address] [place] [address] Robbi Tripathi MD 12/15/2024 External Device Data STL ABSTRACTION Provider, Abstract 12/09/2024 Specialty Pharmacy [facility] [address] [place] [phone] Anastasia Bower, PHARMACIST Specialty Pharmacy Clinical Assessment 12/08/2024 Specialty Pharmacy [facility] [address] [place] [phone] Anastasia Bower, PHARMACIST Specialty Pharmacy Refill Coordination 12/08/2024 Specialty Pharmacy [facility] [address] [place] [phone] Anastasia Bower, PHARMACIST Specialty Pharmacy Financial Assistance 12/07/2024 Orders Only [facility] Oncology and Hematology - [place] [address] [place] [address] Robbi Tripathi MD 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) 11/27/2024 8:45 AM CDT Office Visit [facility] Oncology and Hematology - [place] [address] [place] [address] Robbi Tripathi MD 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) 11/27/2024 Specialty Pharmacy [facility] [address] [place] [phone] Shantelle Grijalva, PHARMACIST Specialty Pharmacy Prior Auth Coordination 11/26/2024 Orders Only [facility] Oncology and Hematology - [place] [address] [place] [address] Robbi Tripathi MD 11/23/2024 Orders Only [facility] Oncology and Hematology - [place] [address] [place] [address] Robbi Tripathi MD 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 ([facility]/HCC) 11/17/2024 External Device Data STL ABSTRACTION Provider, Abstract 11/09/2024 Orders Only [facility] Oncology and Hematology - [place] [address] [place] [address] Robbi Tripathi MD 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 ([facility]/HCC) 11/03/2024 External Device Data STL ABSTRACTION Provider, Abstract 10/30/2024 Orders Only [facility] Oncology and Hematology - [place] [address] [place] [address] Robbi Tripathi MD 10/28/2024 Abstract [facility] Oncology and Hematology - [place] [address] [place] [address] Robbi Tripathi MD 10/26/2024 Orders Only [facility] Oncology and Hematology - [place] [address] [place] [address] Robbi Tripathi MD 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 ([facility]/HCC) 10/22/2024 External Device Data STL ABSTRACTION Provider, [...] on file Legal Sex Male 4:57 AM COOK STARCH Gender Identity Not on file Sexual Orientation Not on file Last Filed Vital Signs Vital Sign Reading Time Taken Comments Blood Pressure 125/74 12/18/2024 8:36 AM CDT Pulse 88 12/18/2024 8:36 AM CDT Temperature 36.4 C (97.5 F) 12/18/2024 8:36 AM CDT Respiratory Rate 15 12/18/2024 8:36 AM CDT Oxygen Saturation 93% 12/18/2024 8:36 AM CDT Inhaled Oxygen Concentration - - Weight 105.8 kg (233 lb 3.2 oz) 12/18/2024 8:36 AM CDT Height 182.9 cm (6') 08/18/2021 9:05 AM CDT Body Mass Index 31.63 08/18/2021 9:05 AM CDT Plan of Treatment Upcoming Encounters Date Type Department Care Team (Late st Contact Info) Description 01/21/2025 8:30 AM CDT Office Visit [facility] Oncology and Hematology [facility] [address] [facility] [address] [place] [address] Robbi Tripathi MD [address] [facility] [address] [place] [address] Health Maintenance Due Date Last Done Comments Pre-Diabetes and Diabetes Screening 1955 DTAP/TDAP/TD VACCINES (1 - Tdap) 12/31/1975 PNEUMOCOCCAL VACCINE 50+ YEARS (1 of 2 - PCV) 12/30/18 77 Traditional Medicare (O) Annual Wellness Visit 12/30 ZOSTER VACCINE (1 of 2) 12/31/1975 FIT-DNA Q 3 years 2001 FIT/FOBT Q 1 year 2001 Flex Sig/CT Colonography Q 5 years 2001 RSV VACCINE (60+ or ) (1 - Risk 60-74 years 1-dose series) 2016 Abdominal Aortic Aneurysm (AAA) Screening 2021 INFLUENZA VACCINE (#1) 2025 06/04/2017 COLORECTAL SCREENING 06/10/2033 06/10/2023 Colorectal Cancer Screening 06/10/2033 Procedures Procedure Name Priority Date/Time Associated Diagnosis Comments BASIC METABOLIC PANEL Routine 12/17/2024 5:08 PM CDT CBC WITH DIFFERENTIAL Routine 12/17/2024 5:05 PM CDT IGG Routine 11/25/2024 4:44 PM CDT COMPREHENSIVE METABOLIC PANEL Routine 11/25/2024 2:46 PM CDT CBC WITH DIFFERENTIAL Routine 10/23/2024 4:22 PM CDT BASIC METABOLIC PANEL Routine 10/23/2024 4:20 PM CDT from Last 3 Months Results * BASIC METABOLIC PANEL (12/17/2024 5:08 PM CDT) Only the most recent of2 resultswithin the time period is included. Blood us Robbi Tripathi MD CHEMISTRY ORDERABLES Final Resu lt * CBC WITH DIFFERENTIAL (12/17/2024 5:05 PM CDT) Only the most recent of2 resultswithin the time period is included. Blood us Robbi Tripathi MD HEMATOLOGY ORDERABLES Final Res ult * IGG (11/25/2024 4:44 PM CDT) Blood us Robbi Tripathi MD CHEMISTRY ORDERABLES Final Resu lt * COMPREHENSIVE METABOLIC PANEL (11/25/2024 2:46 PM CDT) Blood us Robbi Tripathi MD CHEMISTRY ORDERABLES Final Resu lt from Last 3 Months Insurance MEDICARE PART A AND B [facility] MEDICARE PART A [place] [address] RX [place] Commercial RX [employer] Medicare Part D RX [facility] Commercial Advance Directives For more information, please contact: [phone] Documents on File Type Date Recorded Patient Retail Sales Specialist Expl anation Advance Directive Living Will 04/17/2016 1:05 PM Care Teams Learning Consultant Relationship Specialty Start Date End Date Melanie Chavez MD [address] [place] [phone] PCP - General Family Practice 09/12/18
--- OUTSIDE RECORDS SUMMARY | 2025-01-19 10:40 | XMS_ITS | Encounter Summary ---
Author Organization [facility] Address [address] [place] [address] Care Team Providers Care Railroad Wheels And Axle Inspector Name Role Phone Mohan Daly MD Primary Care Provider [phone] Encounter Details Date Type Department Care Team (Late st Contact Info) Description 10/07/2024 Lab Requisition [facility] - Pathology Lab [address] [place] [address] Steven Nava MD [address] [facility] [address] [place] [address] Illness, unspecified Social History Tobacco Use Types Packs/Day Years Used Date Smoking Tobacco: Never Assessed Sex and Gender Information Value Date Recorded Sex Assigned at Not on file Legal Sex Male 5:48 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 Gender Identity Not on file Sexual Orientation Not on file documented as of this encounter Plan of Treatment Not on file documented as of this encounter Procedures Procedure Name Priority Date/Time Associated Diagnosis Comments PATHOLOGY TISSUE Routine 10/05/2024 1:52 PM CDT Illness, unspecified documented in this encounter Results * PATHOLOGY TISSUE (10/05/2024 1:52 PM CDT) Case Report Surgical Pathology Report Case: [id number] Authorizing Provider: Steven Nava Collected: 10/05/2024 01:52 PM MD Daniel Ordering Location: [facility] - Received: 10/07/2024 02:13 PM Pathology Lab Pathologist: Jayne Mari MD Specimen: Parotid Gland 10/08/2024 9:43 AM [facility] Final Diagnosis Right parotid gland, parotidectomy: - Involved by mantle cell lymphoma 10/08/2024 9:43 AM [facility] at 0942 CDT Microscopic Description and Comment Histologic sections show effacement of normal glandular structures by a dense lymphoid infiltrate. Immunohistochemistry performed at the referring institution ([facility]) shows the lymphoid infiltrate to be immunoreactive for CD45. MCK (cytokeratin) and synaptophysin are negative. Additional immunohistochemistry performed at [facility] shows that the lymphoma cells are positive for CD20, PAX-5, or cyclin D1. 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 10/08/2024 9:43 AM [facility] Clinical History Mantle cell lymphoma. 10/08/2024 9:43 AM [facility] Materials Received Received are 6 slide(s) and 1 block(s) labeled [id number] along with a copy of the outside pathology report. [place] [address]. All original materials are returned to the referring institution, along with a copy of our final report. 10/08/2024 9:43 AM [facility] Pathologist Location at [facility] 10/08/2024 9:43 AM [facility] Disclaimer The performance characteristics of [...] the attending (teaching) pathologist. 10/08/2024 9:43 AM [facility] Embedded Images 10/08/2024 9:43 AM CDT [facility] Pathology/Cytolo gy ENTIRE PAROTID GLAND / Unknown 10/05/2024 1:52 PM CDT 10/07/2024 2:13 PM CDT Steven Nava MD LAB - PATHOLOGY/CYT OLOGY ORDERABLES Final Result Performing Organization Address City/State/[facility] Co de Phone Number [facility] [address] [phone] documented in this encounter Visit Diagnoses Diagnosis Illness, unspecified documented in this encounter Care Teams Railroad Wheels And Axle Inspector Relationship Specialty Start Date End Date Mohan Daly MD [address] [place] [address] PCP - General 03/12/08 documented as of this encounter
--- OUTSIDE RECORDS SUMMARY | 2025-01-19 10:40 | XMS_ITS | Encounter Summary ---
Author Organization [facility] Address [address] [place] [address] Care Team Providers Care Flotation Tank Operator Name Role Phone Melanie Chavez MD Primary Care Provider Reason for Visit * Reason Comments Medication Refill Encounter Details Date Type Department Care Team (Late Contact Info) Description 02/03/2019 Refill [facility] Oncology [facility] [address] [place] [address] Robbi Tripathi MD [facility] [address] [place] [address] Mantle cell lymphoma, unspecified body region (CMS/HCC) Social History Tobacco Use Types Packs/Day Years Used Date Smoking Tobacco: Former Cigarettes Q uit: 04/17/2004 Alcohol Use Standard Drinks/Week Comments No 0 (1 standard drink = 0.6 oz pur e alcohol) Sex and Gender Information Value Date Recorded Sex Assigned at Not on file Legal Sex Male 4: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 Gender Identity Not on file Sexual Orientation Not on file documented as of this encounter Plan of Treatment Upcoming Encounters Date Type Department Care Team (Late Contact Info) Description 01/21/2025 8:30 AM CDT Office Visit [facility] Oncology [facility] [address] [place] [address] Robbi Tripathi MD [address] [place] [address] documented as of this encounter Visit Diagnoses Diagnosis Mantle cell lymphoma, unspecified body region (CMS/HCC) documented in this encounter Care Teams Flotation Tank Operator Relationship Specialty Start Date End Date Melanie Chavez MD [address] [place] [address] PCP - General Family Practice 09/12/18 documented as of this encounter
--- OUTSIDE RECORDS SUMMARY | 2025-01-19 10:40 | XMS_ITS | Encounter Summary ---
Author Organization [facility] Address [address] [place] [address] Care Team Providers Care Screen Operator Name Role Phone Melanie Chavez MD Primary Care Provider [phone] Encounter Details Date Type Department Care Team (Late Contact Info) Description 04/11/2004 Outpatient Historical HIS CARD TOUCH UP EDGER Anabella Otero MD [address] [facility] [address] [place] [address] Akhil Van MD NO ADDRESS ON FILE LUMBAR DISC DISPLACEMENT (Primary Dx) Social History Tobacco Use Types Packs/Day Years Used Date Smoking Tobacco: Never Assessed Sex and Gender Information Value Date Recorded Sex Assigned at Not on file Legal Sex Male 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 OPERATOR Gender Identity Not on file Sexual Orientation Not on file documented as of this encounter Plan of Treatment Upcoming Encounters Date Type Department Care Team (Late Contact Info) Description 01/21/2025 8:30 AM CDT Office Visit [facility] Oncology and Hematology - [place] [address] [facility] [address] [place] [address] Robbi Tripathi MD [address] [facility] [address] [place] [address] documented as of this encounter Visit Diagnoses Diagnosis Displacement of lumbar intervertebral disc without myelopathy- Primary documented in this encounter Care Teams Screen Operator Relationship Specialty Start Date End Date Melanie Chavez MD [address] [place] [address] PCP - General Family Practice 09/12/18 documented as of this encounter
--- OUTSIDE RECORDS SUMMARY | 2025-01-19 10:40 | XMS_ITS | Encounter Summary ---
Author Organization [facility] Address [address] [place] [address] Care Team Providers Care Ticket Manager Name Role Phone Melanie Chavez MD Primary Care Provider [phone] Encounter Details Date Type Department Care Team (Late Contact Info) Description 08/08/1999 Outpatient Historical HIS MRI DEPT (Excluded Provider) [place] [address] [facility] [address] [place] [address] Cervicalgia (Primary Dx) Social History Tobacco Use Types Packs/Day Years Used Date Smoking Tobacco: Never Assessed Sex and Gender Information Value Date Recorded Sex Assigned at Not on file 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 Gender Identity Not on file Sexual Orientation Not on file documented as of this encounter Plan of Treatment Upcoming Encounters Date Type Department Care Team (Late Contact Info) Description 01/21/2025 8:30 AM CDT Office Visit [facility] Oncology and Hematology - [place] [address] [facility] [address] [address] Robbi Tripathi MD [address] [facility] [address] [place] [address] documented as of this encounter Visit Diagnoses Diagnosis Cervicalgia- Primary documented in this encounter Care Teams Ticket Manager Relationship Specialty Start Date End Date Melanie Chavez MD [address] [place] [address] PCP - General Family Practice 09/12/18 documented as of this encounter
--- OUTSIDE RECORDS SUMMARY | 2025-01-19 10:40 | XMS_ITS | Encounter Summary ---
Author Organization [facility] Address 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 Gender Identity Not on file Sexual Orientation Not on file documented as of this encounter Plan of Treatment Upcoming Encounters Date Type Department Care Team (Late st Contact Info) Description 01/21/2025 8:30 AM CDT Office Visit [facility] Oncology and Hematology - [place] [address] [place] [address] [address] Robbi Tripathi MD [address] [facility] [address] [place] [address] documented as of this encounter Visit Diagnoses Diagnosis Backache, unspecified- Primary documented in this encounter Care Teams Digital Court Reporter Relationship Specialty Start Date End Date Melanie Chavez MD [address] [place] [address] PCP - General Family Practice 09/12/18 documented as of this encounter
--- OUTSIDE RECORDS SUMMARY | 2025-01-19 10:40 | XMS_ITS | Encounter Summary ---
Author Organization [facility] Address [address] [place] [address] Care Team Providers Care Building Mover Name Role Phone Melanie Chavez MD Primary Care Provider [phone] Reason for Visit * Reason Comments Medication Refill Encounter Details Date Type Department Care Team (Late Contact Info) Description 02/02/2019 Refill [facility] Oncology [facility] [address] [place] [address] Robbi Tripathi MD [facility] [address] [place] [address] Mantle cell lymphoma, unspecified body region (CMS/HCC) Social History Tobacco Use Types Packs/Day Years Used Date Smoking Tobacco: Former Cigarettes Q uit: 04/17/2004 Alcohol Use Standard Drinks/Week Comments No 0 (1 standard drink = 0.6 oz pur e alcohol) Sex and Gender Information Value Date Recorded Sex Assigned at Not on file Legal Sex Male 4:57 AM FINANCIAL MANAGEMENT Gender Identity Not on file Sexual Orientation Not on file documented as of this encounter Plan of Treatment Upcoming Encounters Date Type Department Care Team (Late Contact Info) Description 01/21/2025 8:30 AM CDT Office Visit [facility] Oncology [facility] [address] [place] [address] Robbi Tripathi MD [address] [place] [address] documented as of this encounter Visit Diagnoses Diagnosis Mantle cell lymphoma, unspecified body region (CMS/HCC) documented in this encounter Care Teams Building Mover Relationship Specialty Start Date End Date Melanie Chavez MD [address] [place] [address] PCP - General Family Practice 09/12/18 documented as of this encounter
[2025-01-19 10:57] LABS: Alanine Aminotransferase 102 U/L (6-50); Albumin Level 4.2 g/dL (3.5-5.1); Alkaline Phosphatase 119 U/L (38-126); Anion Gap 5 mmol/L (4-12); Aspartate Amino Transferase 72 U/L (17-59); Bilirubin,Total 0.5 mg/dL (0.2-1.3); Blood Urea Nitrogen 18 mg/dL (9-20); Calcium 9.1 mg/dL (8.4-10.2); Carbon Dioxide 31 mmol/L (22-30); Chloride 101 mmol/L (98-107); Cholesterol 189 mg/dL (0-200); Estimated Glomerular Filt Rate > 60; Glucose 103 mg/dL (65-110); HDL Direct 57 mg/dL; Potassium 4.4 mmol/L (3.4-5.0); Sodium 137 mmol/L (137-145); Total Protein 6.9 g/dL (6.3-8.2); Triglycerides 120 mg/dL (<150)
[2025-01-19 11:18] LABS: Hemoglobin A1C 5.8 % (<5.7)
== END 2025-01-19 10:14 | disposition home or self-care (01) ==
LOC: ANHLAB 10:14
PROVIDERS: PCP Family Medicine; Visit Provider Family Medicine
DX: E78.2 Mixed hyperlipidemia (principal); I10 Essential (primary) hypertension; R73.03 Prediabetes
CPT/HCPCS: 36415; 80053; 80061; 83036

== ENCOUNTER 2025-02-08 09:05 | Outpatient (CLI) | payer MEDICARE, OTHER, SELFPAY ==
--- OUTSIDE RECORDS SUMMARY | 2025-02-08 09:12 | XMS_ITS | Encounter Summary ---
Author Organization [facility] Address [address] [facility] [place] [address] Care Team Providers Care Accounting System Expert Name Role Phone Mohan Daly MD Primary Care Provider [phone] Encounter Details Date Type Department Care Team (Late st Contact Info) Description 10/07/2024 Lab Requisition [facility] - Pathology Lab [address] [place] [address] Steven Nava MD [address] [facility] [address] [place] [address] Illness, unspecified Social History Tobacco Use Types Packs/Day Years Used Date Smoking Tobacco: Never Assessed Sex and Gender Information Value Date Recorded Sex Assigned at Not on file Legal Sex Male 5:48 PM INTERNATIONAL MANAGER Gender Identity Not on file Sexual Orientation Not on file documented as of this encounter Plan of Treatment Not on file documented as of this encounter Procedures Procedure Name Priority Date/Time Associated Diagnosis Comments PATHOLOGY TISSUE Routine 10/05/2024 1:52 PM CDT Illness, unspecified documented in this encounter Results * PATHOLOGY TISSUE (10/05/2024 1:52 PM CDT) Case Report Surgical Pathology Report Case: [id number] Authorizing Provider: Steven Nava Collected: 10/05/2024 01:52 PM MD Daniel Ordering Location: [facility] - Received: 10/07/2024 02:13 PM Pathology Lab Pathologist: Jayne Mari MD Specimen: Parotid Gland 10/08/2024 9:43 AM [facility] PATHOLOGY LAB Final Diagnosis Right parotid gland, parotidectomy: - Involved by mantle cell lymphoma 10/08/2024 9:43 AM [facility] PATHOLOGY LAB at 0942 CDT Microscopic Description and Comment Histologic sections show effacement of normal glandular structures by a dense lymphoid infiltrate. Immunohistochemistry performed at the referring institution ([facility]) shows the lymphoid infiltrate to be immunoreactive for CD45. MCK (cytokeratin) and synaptophysin are negative. Additional immunohistochemistry performed at [facility] Histology Laboratory shows that the lymphoma cells are positive for CD20, PAX-5, or cyclin D1. 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 10/08/2024 9:43 AM [facility] PATHOLOGY LAB Clinical History Mantle cell lymphoma. 10/08/2024 9:43 AM [facility] PATHOLOGY LAB Materials Received Received are 6 slide(s) and 1 block(s) labeled [id number] along with a copy of the outside pathology report. [place] [address]. All original materials are returned to the referring institution, along with a copy of our final report. 10/08/2024 9:43 AM [facility] PATHOLOGY LAB Pathologist Location at [facility] 10/08/2024 9:43 AM [facility] PATHOLOGY LAB Disclaimer The performance characteristics of all immunohistochemical and indirect immunofluorescence stains (if any) cited in this report were determined by the Histopathology Laboratory of [facility]. Some of these tests were developed by [...] the attending (teaching) pathologist. 10/08/2024 9:43 AM [facility] PATHOLOGY LAB Embedded Images 10/08/2024 9:43 AM CDT [facility] PATHOLOGY LAB Pathology/Cytolo gy ENTIRE PAROTID GLAND / Unknown 10/05/2024 1:52 PM CDT 10/07/2024 2:13 PM CDT Steven Nava MD LAB - PATHOLOGY/CYT OLOGY ORDERABLES Final Result Performing Organization Address City/State/[facility] Co de Phone Number [facility] PATHOLOGY LAB [address] [phone] documented in this encounter Visit Diagnoses Diagnosis Illness, unspecified documented in this encounter Care Teams Accounting System Expert Relationship Specialty Start Date End Date Mohan Daly MD [address] [place] [address] PCP - General 03/12/08 documented as of this encounter
--- OUTSIDE RECORDS SUMMARY | 2025-02-08 09:12 | XMS_ITS | Encounter Summary ---
Author Organization [facility] Address [address] [facility] [place] [address] Care Team Providers Care Chef De Froid Name Role Phone Mohna Daly MD Primary Care Provider [phone]- [phone] Encounter Details Date Type Department Care Team (Late st Contact Info) Description 06/18/2022 Lab Requisition [facility] Care Pathology Lab [address] [place] [address] Luiza Moncada MD [facility] [address] [address] Illness, unspecified Social History Tobacco Use Types Packs/Day Years Used Date Smoking Tobacco: Never Assessed Sex and Gender Information Value Date Recorded Sex Assigned at Not on file Legal Sex Male 5:48 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 Gender Identity Not on file Sexual Orientation Not on file documented as of this encounter Plan of Treatment Not on file documented as of this encounter Procedures Procedure Name Priority Date/Time Associated Diagnosis Comments BONE MARROW BIOPSY (STL) Routine 06/14/2022 8:30 AM LEAD ELECTRICAL ENGINEER Illness, unspecified documented in this encounter Results * BONE MARROW BIOPSY (STL) (06/14/2022 8:30 AM LEAD ELECTRICAL ENGINEER) Case Report Bone Marrow Patholog y Report Case: [id number] Authorizing Provider: Luiza Moncada MD Collected: 06/14/2022 08:30 AM Ordering Location: [facility] Pathology Lab Received: 06/18/2022 09:02 AM Pathologist: [...] [facility] PATHOLOGY LAB at 1638 LEAD ELECTRICAL ENGINEER AP Comment Overall, the bone marrow specimen [...] and CD5 are expressed by admixed T-cells. [id number] B-cells are estimated to comprise 30% of [...] outside pathology report. The [place] [address]. All original materials are returned to the referring institution, along with a copy of our final report. 06/18/2022 4:38 PM [facility] PATHOLOGY LAB Disclaimer The performance characteristics of all immunohistochemical and indirect immunofluorescence stains (if any) cited in this report were determined by the Histopathology Laboratory of [facility]. Some of these tests were developed [...] of this case is performed by [facility] Pathology at [facility], [facility] [place] [address]. 06/18/2022 4:38 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 [facility] PATHOLOGY LAB Embedded Images 06/18/2022 4:38 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 [facility] PATHOLOGY LAB Pathology/Cytology BONE MARROW SPECIMEN / Unknown 06/14/2022 8:30 AM LEAD ELECTRICAL ENGINEER 06/18/2022 9:02 AM LEAD ELECTRICAL ENGINEER Miscellaneous samples (specimen) BONE MARROW SPECIMEN / Unknown 06/14/2022 8:30 AM LEAD ELECTRICAL ENGINEER 06/18/2022 9:02 AM LEAD ELECTRICAL ENGINEER Luiza Moncada MD LAB - PATHOLOGY/CYTOLOGY ORDERAB LES Final Result [facility] PATHOLOGY LAB [facility] [address] [phone] documented in this encounter Visit Diagnoses Diagnosis Illness, unspecified documented in this encounter Care Teams Chef De Froid Relationship Specialty Start Date End Date Mohan Daly MD [address] [place] [address] PCP - General 03/12/08 documented as of this encounter
--- OUTSIDE RECORDS SUMMARY | 2025-02-08 09:13 | XMS_ITS | Encounter Summary ---
Author Organization [facility] Address [address] [place] [address] Care Team Providers Care Brick Yard Hand Name Role Phone Melanie Chavez MD Primary Care Provider Encounter Details Date Type Department Care Team (Late Contact Info) Description 06/28/1999 Outpatient Historical Division of Neurology [address] [facility] [address] [place] [address] (Excluded Provider) [place] [address] [facility] [facility] [address] [place] [address] Social History Tobacco Use Types Packs/Day Years Used Date Smoking Tobacco: Never Assessed Sex and Gender Information Value Date Recorded Sex Assigned at Not on file 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 Gender Identity Not on file Sexual Orientation Not on file documented as of this encounter Plan of Treatment Upcoming Encounters Date Type Department Care Team (Late st Contact Info) Description 03/18/2025 8:30 AM CDT Office Visit [facility] Oncology and Hematology - Gio [address] [facility] [address] [place] [address] Robbi Tripathi MD [address] [facility] [address] [place] [address] documented as of this encounter Visit Diagnoses Not on filedocumented in this encounter Care Teams Brick Yard Hand Relationship Specialty Start Date End Date Melanie Chavez MD [address] [place] [address] PCP - General Family Practice 09/12/18 documented as of this encounter
--- OUTSIDE RECORDS SUMMARY | 2025-02-08 09:13 | XMS_ITS | Encounter Summary ---
Author Organization [facility] Address [address] [place] [address] Care Team Providers Care Roof Bolter Name Role Phone Melanie Chavez MD Primary Care Provider [phone] Encounter Details Date Type Department Care Team (Late Contact Info) Description 07/18/1999 Outpatient Historical [facility] MRI DEPT (Excluded Provider) [place] [address] [facility] [address] [place] [address] Neuralgia, neuritis, and radiculitis, unspecified (Primary Dx) Social History Tobacco Use Types Packs/Day Years Used Date Smoking Tobacco: Never Assessed Sex and Gender Information Value Date Recorded Sex Assigned at Not on file Legal Sex Male 4:57 AM HOTEL YARDPERSON Gender Identity Not on file Sexual Orientation Not on file documented as of this encounter Plan of Treatment Upcoming Encounters Date Type Department Care Team (Late Contact Info) Description 03/18/2025 8:30 AM CDT Office Visit [facility] Oncology and Hematology - Gio [address] [facility] [address] [place] [address] Robbi Tripathi MD [address] [facility] [address] [place] [address] documented as of this encounter Visit Diagnoses Diagnosis Neuralgia, neuritis, and radiculitis, unspecified- Primary documented in this encounter Care Teams Roof Bolter Relationship Specialty Start Date End Date Melanie Chavez MD [address] [place] [address] PCP - General Family Practice 09/12/18 documented as of this encounter
--- OUTSIDE RECORDS SUMMARY | 2025-02-08 09:13 | XMS_ITS | Encounter Summary ---
Author Organization [facility] Address [address] [place] [address] Care Team Providers Care Bridge Painter Helper Name Role Phone Melanie Chavez MD Primary Care Provider [phone] Encounter Details Date Type Department Care Team (Latest Contact Info) Description 04/26/2004 Outpatient Historical [facility] BackerAkhil MD NO ADDRESS ON FILE LUMBAR DISC DISPLACEMENT (Primary Dx) Social History Tobacco Use Types Packs/Day Years Used Date Smoking Tobacco: Never Assessed Sex and Gender Information Value Date Recorded Sex Assigned at Not on file Legal Sex Male 4:57 AM BRYOLOGIST Gender Identity Not on file Sexual Orientation Not on file documented as of this encounter Plan of Treatment Upcoming Encounters Date Type Department Care Team (Late st Contact Info) Description 03/18/2025 8:30 AM CDT Office Visit [facility] Oncology and Hematology - Gio [address] [facility] [address] [address] [place] [address] [place] [address] documented as of this encounter Visit Diagnoses Diagnosis 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
--- OUTSIDE RECORDS SUMMARY | 2025-02-08 09:13 | XMS_ITS | Encounter Summary ---
Author Organization [facility] Address [address] [place] [address] Care Team Providers Care Cattle Trader Name Role Phone Melanie Chavez MD Primary Care Provider [phone] Reason for Visit * Reason Comments Medication Refill Encounter Details Date Type Department Care Team (Late Contact Info) Description 08/15/[address] 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 Oncology [facility] Hematology [facility] [address] [place] [address] Robbi Tripathi MD [address] [place] [address] documented as of this encounter Visit Diagnoses Not on filedocumented in this encounter Care Teams Cattle Trader Relationship Specialty Start Date End Date Melanie Chavez MD [address] [place] [address] PCP - General Family Practice 09/12/18 documented as of this encounter
--- OUTSIDE RECORDS SUMMARY | 2025-02-08 09:13 | XMS_ITS | Encounter Summary ---
Author Organization [facility] Address 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 Gender Identity Not on file Sexual Orientation Not on file documented as of this encounter Plan of Treatment Upcoming Encounters Date Type Department Care Team (Late st Contact Info) Description 03/18/2025 8:30 AM CDT Office Visit [facility] Oncology and Hematology - Gio [address] [facility] [address] [place] [address] Robbi Tripathi MD [address] [facility] [address] [place] [address] documented as of this encounter [...] Primary documented in this encounter Care Teams Material Cutter Relationship Specialty Start Date End Date Melanie Chavez MD [address] [place] [address] PCP - General Family Practice 09/12/18 documented as of this encounter
--- OUTSIDE RECORDS SUMMARY | 2025-02-08 09:13 | XMS_ITS | Encounter Summary ---
Author Organization [facility] [employer] [facility] Address [address] [place] [address] Care Team Providers Care Inspector Rough Castings Name Role Phone Melanie Chavez MD Primary Care Provider [phone] Encounter Details Date Type Department Care Team (Late st Contact Info) Description 02/05/2019 Telephone [facility] Oncology and Hematology - Gio [address] [facility] [address] [place] [address] Robbi Tripathi MD [address] [facility] [address] [place] [address] Social History Tobacco Use Types Packs/Day Years Used Date Smoking Tobacco: Former Cigarettes Q uit: 04/17/2004 Alcohol Use Standard Drinks/Week Comments No 0 (1 standard drink = 0.6 oz pur e alcohol) Sex and Gender Information Value Date Recorded Sex Assigned at Not on file Legal Sex Male 4:57 AM LEGAL DOCUMENT ASSISTANT Gender Identity Not on file Sexual [...] Kathie troy [facility] Spec Pharm; [phone]; medication Privigen in all strenglths not available [...] Description 03/18/2025 8:30 AM CDT Office Visit [facility] Oncology and Hematology - Gio [address] [facility] [address] [place] [address] Robbi Tripathi MD [address] [facility] [address] [place] [address] documented as of this encounter Visit Diagnoses Not on filedocumented in this encounter Care Teams Inspector Rough Castings Relationship Specialty Start Date End Date Melanie Chavez MD [address] [place] [address] PCP - General Family Practice 09/12/18 documented as of this encounter
--- OUTSIDE RECORDS SUMMARY | 2025-02-08 09:13 | XMS_ITS | Encounter Summary ---
Author Organization [facility] Address [address] [place] [address] Care Team Providers Care Molecular Genetic Pathologist Name Role Phone Melanie Chavez MD Primary Care Provider [phone] Encounter Details Date Type Department Care Team (Late Contact Info) Description 04/11/2004 Outpatient Historical HIS CARD NETWORK ADMINISTRATOR Anabella Otero MD [address] [facility] [address] [place] [address] Akhil Van MD NO ADDRESS ON FILE LUMBAR DISC DISPLACEMENT (Primary Dx) Social History Tobacco Use Types Packs/Day Years Used Date Smoking Tobacco: Never Assessed Sex and Gender Information Value Date Recorded Sex Assigned at Not on file Legal Sex Male 4:57 AM 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 SERVICE 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 Gender Identity Not on file Sexual Orientation Not on file documented as of this encounter Plan of Treatment Upcoming Encounters Date Type Department Care Team (Late Contact Info) Description 03/18/2025 8:30 AM CDT Office Visit [facility] Oncology and Hematology - [place] [facility] [address] [place] [address] Robbi Tripathi MD [address] [facility] [address] [place] [address] documented as of this encounter Visit Diagnoses Diagnosis 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
--- OUTSIDE RECORDS SUMMARY | 2025-02-08 09:13 | XMS_ITS | Encounter Summary ---
Author Organization [facility] Address [address] [place] [address] Care Team Providers Care Patcher Wood Welder Name Role Phone Mohan Daly MD Primary Care Provider [phone] Encounter Details Date Type Department Care Team (Late st Contact Info) Description 06/14/[address] [facility] Care Pathology Lab [address] [place] [address] Luiza Moncada MD [facility] [address] [address] Mantle cell lymphoma, intra-abdominal lymph nodes Social History Tobacco Use Types Packs/Day Years Used Date Smoking Tobacco: Never Assessed Sex and Gender Information Value Date Recorded Sex Assigned at Not on file Legal Sex Male 5:48 PM TRIAL JUSTICE Gender Identity Not on file Sexual Orientation Not on file documented as of this encounter Plan of Treatment Not on file documented as of this encounter Procedures Procedure Name Priority Date/Time Associated Diagnosis Comments FLOW CYTOMETRY BONE MARROW Routine 06/14/2022 8:30 AM TRIAL JUSTICE Mantle cell lymphoma, intra-abdominal lymph nodes (CMS/HCC) documented in this encounter Results * FLOW CYTOMETRY BONE MARROW (06/14/2022 8:30 AM TRIAL JUSTICE) Case Report Flow Cytometry Case: [id number] Authorizing Provider: Luiza Moncada MD Collected: 06/14/2022 08:30 AM Ordering Location: [facility] Pathology Lab Received: 06/14/2022 03:26 PM Pathologist: Kelsea Navarro Mai, DO Specimen: Bone Marrow, L Hip 06/14/2022 6:00 PM [facility] PATHOLOGY LAB Final Diagnosis Bone marrow, flow cytometric immunophenotypic analysis: - CD5-positive mature B-cell leukemia/lymphoma - See interpretation 06/14/2022 6:00 PM [facility] PATHOLOGY LAB at 1800 TRIAL JUSTICE Flow Cytometry Interpretation The bone marrow specimen [...] cytometry specimen is reviewed for quality assurance lab technician purposes. The sample shows a minute marrow particle. The bone marrow aspirate specimen shows involvement by a CD5-positive mature B-cell leukemia/lymphoma. The patient's diagnosis of mantle cell lymphoma is noted and the immunophenotypic findings are compatible with the diagosis. Correlation with clinical findings, the concurrent bone marrow core biopsy (accession number pending), and relevant cytogenetic/molecu lar studies is required. 06/14/2022 6:00 PM [facility] PATHOLOGY LAB Flow Cytometry Results Differential Result Comment Flow Cell Count /uL 26,700 Total Viability % 93.0 Lymphocytes % 31 Dim CD45 Region % 6 Monocytes % 7 Granulocytes % 56 06/14/2022 6:00 PM [facility] PATHOLOGY LAB Reason for test Mantle cell lymphoma, intra-abdominal lymph nodes (CMS/HCC) 200.43 06/14/2022 6:00 PM [facility] PATHOLOGY LAB Client Specimen ID # [id number] 06/14/2022 6:00 PM [facility] PATHOLOGY LAB Number of markers 10 were performed. A-1 Flow CD3 A-3 Flow CD10 A-5 Flow CD20 A-6 Flow CD23 A-2 Flow CD5 A-4 Flow CD19 A-7 Flow CD34 A-8 Flow CD45 A-9 [place]+CD19+ A-10 Lambda+CD19+ 06/14/2022 6:00 PM [facility] PATHOLOGY LAB Disclaimer Test performed at [facility], [address] [facility], [place], [place], [address]. *The established laboratory minimum viability is 70%. [...] high complexity clinical testing. 06/14/2022 6:00 PM [facility] PATHOLOGY LAB Embedded Images 6:00 PM [facility] PATHOLOGY LAB Pathology/Cytolo gy BONE MARROW SPECIMEN / Unknown 06/14/2022 8:30 AM TRIAL JUSTICE 06/14/2022 3:26 PM TRIAL JUSTICE Luiza Moncada MD LAB - PATHOLOGY/CYTOLOGY ORDERAB LES Final Result [facility] PATHOLOGY LAB [address] [facility]. [address] [phone] documented in this encounter Visit Diagnoses Diagnosis Mantle cell lymphoma, intra-abdominal lymph nodes (HCC) Mantle cell lymphoma, intra-abdominal lymph nodes documented in this encounter Care Teams Patcher Wood Welder Relationship Specialty Start Date End Date Mohan Daly MD [address] [place] [phone] PCP - General 03/12/08 documented as of this encounter
--- OUTSIDE RECORDS SUMMARY | 2025-02-08 09:13 | XMS_ITS | Encounter Summary ---
Author Organization [facility] Address [address] [place] [address] Care Team Providers Care Tobacco Cutter Name Role Phone Melanie Chavez MD Primary Care Provider [phone] Reason for Visit * Reason Comments Medication Refill Encounter Details Date Type Department Care Team (Late Contact Info) Description 02/03/2019 Refill [facility] Oncology [facility] [address] [place] [address] Robbi Tripathi MD [facility] [employer] [address] [address] Mantle cell lymphoma, unspecified body region (CMS/HCC) Social History Tobacco Use Types Packs/Day Years Used Date Smoking Tobacco: Former Cigarettes Q uit: 04/17/2004 Alcohol Use Standard Drinks/Week Comments No 0 (1 standard drink = 0.6 oz pur e alcohol) Sex and Gender Information Value Date Recorded Sex Assigned at Not on file 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 Gender Identity Not on file Sexual Orientation Not on file documented as of this encounter Plan of Treatment Upcoming Encounters Date Type Department Care Team (Late Contact Info) Description 03/18/2025 8:30 AM CDT Office Visit [facility] Oncology [facility] [address] [place] [address] Robbi Tripathi MD [address] [email or web address] [address] [address] documented as of this encounter Visit Diagnoses Diagnosis Mantle cell lymphoma, unspecified body region (CMS/HCC) documented in this encounter Care Teams Tobacco Cutter Relationship Specialty Start Date End Date Melanie Chavez MD [address] [place] [address] PCP - General Family Practice 09/12/18 documented as of this encounter
--- OUTSIDE RECORDS SUMMARY | 2025-02-08 09:13 | XMS_ITS | Clinical Summary ---
Author Organization [facility] Address [address] [place] [place] [address] Care Team Providers Care Tank Furnace Operator Name Role Phone Melanie Chavez MD Primary Care Provider [phone] Allergies Active Allergy Reactions Criticality Noted Date [...] 120 Capsule 2 01/12/2025 8:57 AM CDT 5 Active anastrozole (ARIMIDEX) 1 mg tablet Take 1 Tablet by mouth every 7 days. 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 Mantle cell lymphoma 04/17/2016 Encounters Date Type Department Care Team Description 02/02/2025 External Device Data STL ABSTRACTION Provider, Abstract 02/01/2025 Orders Only [facility] Oncology and Hematology - Gio [address] [place] [address] Robbi Tripathi MD 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) 01/21/2025 8:30 AM CDT Office Visit [facility] Oncology and Hematology - Gio [address] [place] [address] Robbi Tripathi MD 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) 01/21/2025 Orders Only [facility] Oncology and Hematology - Gio [address] [place] [address] Robbi Tripathi MD 01/19/2025 External Device Data STL ABSTRACTION Provider, Abstract 01/19/2025 External Device Data STL ABSTRACTION Provider, Abstract 01/19/2025 Orders Only [facility] Oncology and Hematology - Gio [address] [place] [address] Robbi Tripathi MD 01/18/2025 Orders Only [facility] Oncology and Hematology - Gio [address] [place] [address] Robbi Tripathi MD 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) 01/05/2025 External Device Data STL ABSTRACTION Provider, Abstract 01/04/2025 Orders Only [facility] Oncology and Hematology - Gio [address] [place] [address] Robbi Tripathi MD 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) 2024 Special[facility] [facility] [address] [place] [phone] Rosmery Rodríguez, PHARMACIST Specialty Pharmacy Refill Coordination 12/21/2024 Telephone [facility] Oncology and Hematology - Gio [address] [place] [address] Robbi Tripathi MD Medication Review 12/21/2024 Orders Only [facility] Oncology and Hematology - Gio [address] [place] [address] Robbi Tripathi MD 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) 12/18/2024 8:30 AM CDT Office Visit [facility] Oncology and Hematology - Gio [address] [place] [address] Robbi Tripathi MD 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) 12/16/2024 External Device Data STL ABSTRACTION Provider, Abstract 12/16/2024 Abstract [facility] Oncology and Hematology - Gio [address] [place] [address] Robbi Tripathi MD 12/15/2024 External Device Data STL ABSTRACTION Provider, Abstract 12/09/2024 Specialty [address] [facility] [address] [place] [phone] Anastasia Bower, PHARMACIST Specialty Pharmacy Clinical Assessment 12/08/2024 [address] [facility] [address] [place] [phone] Anastasia Bower, PHARMACIST Specialty Pharmacy Refill Coordination 12/08/2024 Specialty Pharmacy [facility] [address] [place] [address] [place] [address] Anastasia Bower, PHARMACIST Specialty Pharmacy Financial Assistance 12/07/2024 Orders Only [facility] Oncology and Hematology - Gio [address] [place] [address] Robbi Tripathi MD 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) 11/27/2024 8:45 AM CDT Office Visit [facility] Oncology and Hematology - Gio [address] [place] [address] Robbi Tripathi MD 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) 11/27/2024 Specialty [address] [facility] [address] [place] [address] [place] [address] Shantelle Grijalva, PHARMACIST Specialty Pharmacy Prior Auth Coordination 11/26/2024 Orders Only [facility] Oncology and Hematology - Gio [address] [place] [address] Robbi Tripathi MD 11/23/2024 Orders Only [facility] Oncology and Hematology - Gio [address] [place] [address] Robbi Tripathi MD 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) 11/17/2024 External Device Data STL ABSTRACTION Provider, Abstract 11/09/2024 Orders Only [facility] Oncology and Hematology - Gio [address] [place] [address] Robbi Tripathi MD Mantle cell lymphoma of [...] on file Legal Sex Male 4:57 AM 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 Gender Identity Not on file Sexual Orientation Not on file Last Filed Vital Signs Vital Sign Reading Time Taken Comments Blood Pressure 137/84 01/21/2025 8:26 AM CDT Pulse 72 01/21/2025 8:26 AM CDT Temperature 36.4 C (97.6 F) 01/21/2025 8:26 AM CDT Respiratory Rate 15 01/21/2025 8:26 AM CDT Oxygen Saturation 91% 01/21/2025 8:26 AM CDT Inhaled Oxygen Concentration - - Weight 104.8 kg (231 lb) 01/21/2025 8:26 AM CDT Height 182.9 cm (6') 08/18/2021 9:05 AM CDT Body Mass Index 31.33 08/18/2021 9:05 AM CDT Plan of Treatment Upcoming Encounters Date Type Department Care Team (Late st Contact Info) Description 03/18/2025 8:30 AM CDT Office Visit [facility] Oncology and Hematology - Gio [address] [facility] [address] [place] [address] Robbi Tripathi MD [address] [facility] [address] [place] [address] Health Maintenance Due Date Last Done Comments Pre-Diabetes and Diabetes Screening 1955 PNEUMOCOCCAL VACCINE 50+ YEA RS (1 of 2 - PCV) 12/31/1975 ZOSTER VACCINE (1 of 2) 12/31/1975 FIT-DNA Q 3 years 2001 FIT/FOBT Q 1 year 2001 Flex Sig/CT Colonography Q 5 years 2001 RSV VACCINE (60+ or ) (1 - Risk 60-74 years 1-dose series) 2016 Abdominal Aortic Aneurysm (A AA) Screening 2021 INFLUENZA VACCINE (#1) 2025 8, 06/04/2017, 04/18/2016, Additional history exists DTAP/TDAP/TD VACCINES (3 - T d or Tdap) 10/25/2032 10/25/2022, 04/17/2016, 06/03/2013 COLORECTAL SCREENING 06/10/2033 06/10/2023 Colorectal Cancer Screening 06/10/2033 Procedures Procedure Name Priority Date/Time Associated Diagnosis Comments BASIC METABOLIC PANEL Routine 01/19/2025 12:53 PM CDT IMMUNOGLOBULINS IGG IGA IGM Routine 01/19/2025 9:43 AM CDT BASIC METABOLIC PANEL Routine 12/17/2024 5:08 PM CDT CBC WITH DIFFERENTIAL Routine 12/17/2024 5:05 PM CDT IGG Routine 11/25/2024 4:44 PM CDT COMPREHENSIVE METABOLIC PANEL Routine 11/25/2024 2:46 PM CDT from Last 3 Months Results * BASIC METABOLIC PANEL (01/19/2025 12:53 PM CDT) Only the most recent of2 resultswithin the time period is included. Blood us Robbi Tripathi MD CHEMISTRY ORDERABLES Final Resu lt * IMMUNOGLOBULINS IGG IGA IGM (01/19/2025 9:43 AM CDT) Blood us Robbi Tripathi MD CHEMISTRY ORDERABLES Final Resu lt * CBC WITH DIFFERENTIAL (12/17/2024 5:05 PM CDT) Blood us Robbi Tripathi MD HEMATOLOGY ORDERABLES Final Res ult * IGG (11/25/2024 4:44 PM CDT) Blood us Robbi Tripathi MD CHEMISTRY ORDERABLES Final Resu lt * COMPREHENSIVE METABOLIC PANEL (11/25/2024 2:46 PM CDT) Blood us Robbi Tripathi MD CHEMISTRY ORDERABLES Final Resu lt from Last 3 Months Insurance MEDICARE PART A AND B [facility] MEDICARE PART A AND B RX [employer] Commercial RX [employer] Medicare Part D RX [facility] [employer] Commercial Advance Directives For more information, please contact: [phone] Documents on File Type Date Recorded Patient Telephone Sterilizer Expl anation Advance Directive Living Will 04/17/2016 1:05 PM Care Teams Tank Furnace Operator Relationship Specialty Start Date End Date Melanie Chavez MD [address] [place] [address] PCP - General Family Practice 09/12/18
--- OUTSIDE RECORDS SUMMARY | 2025-02-08 09:13 | XMS_ITS | Encounter Summary ---
Author Organization [facility] Address [address] [place] [address] Care Team Providers Care Licensed Physical Therapist Name Role Phone Melanie Chavez MD Primary Care Provider [phone] Reason for Visit * Reason Comments Medication Refill Encounter Details Date Type Department Care Team (Late Contact Info) Description 02/02/2019 Refill [facility] Oncology [facility] [address] [place] [address] Robbi Tripathi MD [facility] [employer] [address] [place] [address] Mantle cell lymphoma, unspecified body region (CMS/HCC) Social History Tobacco Use Types Packs/Day Years Used Date Smoking Tobacco: Former Cigarettes Q uit: 04/17/2004 Alcohol Use Standard Drinks/Week Comments No 0 (1 standard drink = 0.6 oz pur e alcohol) Sex and Gender Information Value Date Recorded Sex Assigned at Not on file 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 Gender Identity Not on file Sexual Orientation Not on file documented as of this encounter Plan of Treatment Upcoming Encounters Date Type Department Care Team (Late Contact Info) Description 03/18/2025 8:30 AM CDT Office Visit [facility] Oncology [facility] [address] [place] [address] Robbi Tripathi MD [address] [employer] [address] [place] [address] documented as of this encounter Visit Diagnoses Diagnosis Mantle cell lymphoma, unspecified body region (CMS/HCC) documented in this encounter Care Teams Licensed Physical Therapist Relationship Specialty Start Date End Date Melanie Chavez MD [address] [place] [address] PCP - General Family Practice 09/12/18 documented as of this encounter
--- OUTSIDE RECORDS SUMMARY | 2025-02-08 09:13 | XMS_ITS | Clinical Summary ---
Author Organization [facility] Address [facility] [place] [address] Care Team Providers Care Aniline Press Worker Name Role Phone Melanie Chavez MD Primary Care Provider [phone] Allergies Active Allergy Reactions Criticality Noted Date [...] Immunization Administration Dates Next Due Influenza, Quadrivalent, Riana l Culture-based MDCK, Preservative Free, Antibiotic Free, [...] on file Legal Sex Male 5:48 AM ADMINISTRATIVE PROFESSIONAL Gender Identity Not on file Sexual Orientation Not on file Obstetrics History Last Filed Vital Signs Vital Sign Reading Time Taken Comments Blood Pressure 116/78 04/16/2022 9:31 AM ADMINISTRATIVE PROFESSIONAL Pulse 83 04/16/2022 9:31 AM ADMINISTRATIVE PROFESSIONAL Temperature - - Respiratory Rate - - Oxygen Saturation 96% 08/11/2013 12: 30 PM CDT Inhaled Oxygen Concentration - - Weight 113.2 kg (249 lb 9.6 oz) 04/16/2022 9:31 AM ADMINISTRATIVE PROFESSIONAL Height 185.4 cm (6' 1) 04/16/2022 9:31 AM ADMINISTRATIVE PROFESSIONAL Body Mass Index 32.93 04/16/2022 9:31 AM ADMINISTRATIVE PROFESSIONAL Plan of Treatment Health Maintenance Due Date [...] Vaccine (#1) 2025 06/04/2017, 2015 Insurance MEDICARE [facility] Address: [facility] [address] [place] [address] [facility] [place] [id number] MEDICARE [employer] [facility] Care Teams Aniline Press Worker Relationship Specialty Start Date End Date Melanie Chavez MD PCP - General Family Medicine 03/09/22
--- OUTSIDE RECORDS SUMMARY | 2025-02-08 09:13 | XMS_ITS | Encounter Summary ---
Author Organization [facility] Address [address] [address] [place] [address] Care Team Providers Care Tamping Machine Operator Road Forms Name Role Phone Melanie Chavez MD Primary Care Provider [phone] Encounter Details Date Type Department Care Team (Late Contact Info) Description 08/08/1999 Outpatient Historical [facility] MRI DEPT (Excluded Provider) [place] [address] [facility] [address] [place] [address] Cervicalgia (Primary Dx) Social History Tobacco Use Types Packs/Day Years Used Date Smoking Tobacco: Never Assessed Sex and Gender Information Value Date Recorded Sex Assigned at Not on file 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 Gender Identity Not on file Sexual Orientation Not on file documented as of this encounter Plan of Treatment Upcoming Encounters Date Type Department Care Team (Late st Contact Info) Description 03/18/2025 8:30 AM CDT Office Visit [facility] Oncology and Hematology - Gio [address] [facility] [address] [address] Robbi Tripathi MD [address] [facility] [address] [place] [address] documented as of this encounter Visit Diagnoses Diagnosis Cervicalgia- Primary documented in this encounter Care Teams Tamping Machine Operator Road Forms Relationship Specialty Start Date End Date Melanie Chavez MD [address] [place] [address] PCP - General Family Practice 09/12/18 documented as of this encounter
--- OUTSIDE RECORDS SUMMARY | 2025-02-08 09:13 | XMS_ITS | Clinical Summary ---
Author Organization [facility] Address [address] [place] [address] Care Team Providers Care Gunner'S Mate M Name Role Phone Mohan Daly MD Primary Care Provider [phone] Source Comments [facility],non-owned Affiliates and Associated Physician Practices is amultiple site organization consisting of ambulatory clinics and hospital sitesin [place], [place], [place]. This disclosure is being madepursuant to the Care Everywhere program and may not contain all information available regarding this patient. 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 Gender Identity Not on file Sexual [...] this topic Insurance MEDICARE MEDICARE [employer] [facility] SELF PAY NO INSURANCE Member Subscriber Plan / Payer (Ef fective for All Dates) Name:Min Toro Member ID:Not on file Relation to Subscriber:Not on file Name:MIN TORO Subscriber ID:Not on file (Home) Address: [address] [place] [address] [place] [address] Payer ID:Not on file Group ID:Not on file Type:Self Pay Address: [place] [place] [address] MEDICARE [employer] [facility] Care Teams Gunner'S Mate M Relationship Specialty Start Date End Date Mohan Daly MD [facility] [place] [address] PCP - General 03/12/08
--- OUTSIDE RECORDS SUMMARY | 2025-02-08 09:13 | XMS_ITS | Encounter Summary ---
Author Organization [facility] Address [address] [place] [address] Care Team Providers Care Certified Home Health Aide Name Role Phone Melanie Chavez MD Primary Care Provider [phone] Encounter Details Date Type Department Care Team (Late st Contact Info) Description 04/26/2004 Outpatient Historical [facility] Support Serv. (Adt Cardiology[facility]) [address] 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 [address] [address] Robbi Tripathi MD [address] [facility] [address] [place] [address] documented as of this encounter Visit Diagnoses Not on filedocumented in this encounter Care Teams Certified Home Health Aide Relationship Specialty Start Date End Date Melanie Chavez MD [address] [place] [address] PCP - General Family Practice 09/12/18 documented as of this encounter
--- OUTSIDE RECORDS SUMMARY | 2025-02-08 09:13 | XMS_ITS | Encounter Summary ---
Author Organization [facility] Address 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 TESTER Gender Identity Not on file Sexual Orientation Not on file documented as of this encounter Plan of Treatment Upcoming Encounters Date Type Department Care Team (Late st Contact Info) Description 03/18/2025 8:30 AM CDT Office Visit [facility] Oncology and Hematology - Gio [address] [place] [address] [address] Robbi Tripathi MD [address] [facility] [address] [place] [address] documented as of this encounter Visit Diagnoses Diagnosis Backache, unspecified- Primary documented in this encounter Care Teams Lighting Fixtures Decorator Relationship Specialty Start Date End Date Melanie Chavez MD [address] [place] [address] PCP - General Family Practice 09/12/18 documented as of this encounter
--- OUTSIDE RECORDS SUMMARY | 2025-02-08 09:13 | XMS_ITS | Encounter Summary ---
Author Organization [facility] Address 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 SERVICE MAN Gender Identity Not on file Sexual Orientation Not on file documented as of this encounter Plan of Treatment Upcoming Encounters Date Type Department Care Team (Late st Contact Info) Description 03/18/2025 8:30 AM CDT Office Visit [facility] Oncology and Hematology - Gio [address] [place] [address] [address] Robbi Tripathi MD [address] [place] [address] documented as of this encounter Visit Diagnoses Diagnosis Disturbance of skin sensation- Primary documented in this encounter Care Teams Scallop Cutter Machine Relationship Specialty Start Date End Date Melanie Chavez MD [address] [place] [address] PCP - General Family Practice 09/12/18 documented as of this encounter
--- OUTSIDE RECORDS SUMMARY | 2025-02-08 09:13 | XMS_ITS | Encounter Summary ---
Author Organization [facility] Address [address] [place] [address] Care Team Providers Care Manager Operations Name Role Phone Melanie Chavez MD Primary Care Provider [phone] Reason for Visit * Reason Comments Medication Refill Encounter Details Date Type Department Care Team (Late Contact Info) Description 03/05/2019 Refill [facility] Oncology 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 [address] [place] [address] Robbi Tripathi MD [address] [employer] [address] [place] [address] documented as of this encounter Visit Diagnoses Diagnosis Mantle cell lymphoma, unspecified body region (CMS/HCC) documented in this encounter Care Teams Manager Operations Relationship Specialty Start Date End Date Melanie Chavez MD [address] [place] [address] PCP - General Family Practice 09/12/18 documented as of this encounter
[2025-02-08 09:18] LABS: Hematocrit 47.0 % (42.0-52.0); Hemoglobin 15.6 g/dL (14.0-18.0)
[2025-02-12 19:08] LABS: Estradiol, Sensitive 21.0 pg/mL (8.0-35.0)
[2025-02-16 18:08] LABS: Testosterone, Total, LC/MS 277 ng/dL (.)
== END 2025-02-08 09:06 | disposition home or self-care (01) ==
LOC: ANHLAB 09:05
PROVIDERS: PCP Family Medicine; Visit Provider Nurse Practitioner Family
DX: E29.1 Testicular hypofunction (principal)
CPT/HCPCS: 36415; 82670; 84403; 85014; 85018

== ENCOUNTER 2025-05-06 08:45 | Outpatient (CLI) | payer MEDICARE, OTHER, SELFPAY ==
--- NOTE | ~2025-05-06 | PE_ITS ---
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 10.925i mCi of 18- fluorodeoxyglucose (18-FDG) was administered i.v. Low dose computed tomography (CT) images were acquired from the base of the brain to the proximal thighs for attenuation correction and anatomic localization. Positron emission tomography ( PET) images were acquired in the same distribution beginning 76 minutes after injection. Images including fused PET/CT images were reconstructed in axial, coronal, and sagittal planes. Automated exposure control technique was employed. The dose-length product was 1297.37mGy-cm. COMPARISON: PET/CT dated 12/10/2024 FINDINGS: Head/neck: There is symmetric increased activity in the oral cavity, palatine tonsils, laryngeal muscles and ocular muscles without CT correlate, likely physiologic. The previously seen prominent asymmetric increased uptake at the right lingual tonsil and in the posterior right parotid and right periauricular soft tissues have resolved consistent with likely response to treatment of reported mantle cell lymphoma. No pathologically enlarged cervical lymphadenopathy or suspicious foci of increased FDG uptake in the visualized head or neck. Chest: Left subclavian central venous port catheter with distal tip at the caudal superior vena cava. Mild emphysema with mild dependent atelectasis in both lungs. Multiple scattered calcified pulmonary nodules in the right upper and middle and bilateral lower lobes which along with large calcified mediastinal and right hilar lymph nodes are consistent with old granulomatous disease. No other suspicious pulmonary nodules, pneumonia, pulmonary edema or pleural effusion. Heart size is normal. No pericardial effusion. Thoracic aorta is normal in caliber. Again seen is increased FDG uptake associated with several normal sized mediastinal and bilateral hilar lymph nodes with maximal SUV values of 7.7 at the right hilum, 6.7 at the subcarinal region and 7.4 at the left hilum. The subcarinal lymph node measures 11 x 6 mm which is unchanged since the prior study. The hilar lymph nodes are unable to be clearly distinguished from the hilar vasculature for quantitative assessment but are not enlarged. Abdomen/pelvis/proximal thighs: Physiologic renal accumulation and excretion of FDG activity in the kidneys, bladder and along portions of ureters. Normal degree and heterogenous pattern of increased uptake throughout the liver without radiologic correlate or dominant FDG avid lesion. The gallbladder, pancreas, spleen and bilateral adrenal glands are normal. Likely pathologic uptake without radiologic correlate scattered throughout the bowels, mild in the small bowel and moderate in the colon. The previously seen scattered FDG avid soft tissue nodules or masses in the subcutaneous tissues of the low back, pelvis and proximal thighs have resolved of reported mantle cell lymphoma. There are prominent FDG avid soft tissue densities in the right inguinal region which could represent additional subcutaneous nodules or inguinal lymph nodes has also resolved. No other abnormal foci of increased FDG uptake or pathologically enlarged lymphadenopathy in the abdomen, pelvis or proximal thighs. Musculoskeletal: Unchanged intramuscular lipoma within the lateral left lower quadrant abdominal wall musculature near the anterior iliac spine. Postoperative change of prior L4-S1 anterior and posterior spinal fusion with interbody bone graft cages at both levels and bilateral vertical richar and pedicle screw fixation. Severe spondylosis at L3-L4. Additional instrumented anterior spinal fusion with anterior plate and screw fixation at C5-C6. There are no suspicious lytic, blastic or abnormal FDG avid bone lesions. Likely physiologic increased muscular activity without radiologic correlate at the left teres minor, right short head biceps muscle belly and at the muscle belly bilateral hands and forearms. IMPRESSION: 1. Interval resolution of the multiple previously seen FDG avid subcutaneous soft tissues density nodules and masses along the lumbar spine and in the pelvis and proximal thighs consistent with response to treatment of mental cell lymphoma. Also resolved likely related to treated disease are prior FDG avid lesions at the right lingual tonsil and at the posterior right parotid and right periauricular soft tissues. 2. Persistent mildly FDG avid normal sized mediastinal and bilateral hilar lymph nodes which are more likely to represent reactive lymph nodes rather than residual isolated treatment resistant lymphoma. Reviewed, dictated and finalized at location A. HYGIENIST IMPRESSION: 1. Interval resolution of the multiple previously seen FDG avid subcutaneous so ft tissues density nodules and masses along the lumbar spine and in the pelvis and proximal thighs consistent with response to treatment of mental cell lympho ma. Also resolved likely related to treated disease are prior FDG avid lesions at the right lingual tonsil and at the posterior right parotid and right periau ricular soft tissues. 2. Persistent mildly FDG avid normal sized mediastinal and bilateral hilar lymp h nodes which are more likely to represent reactive lymph nodes rather than res idual isolated treatment resistant lymphoma.
--- OUTSIDE RECORDS SUMMARY | 2025-05-06 09:09 | XMS_ITS | Encounter Summary ---
Author Organization [facility] Healthcare Address [address] [place] [address] Care Team Providers Care Senior Technical Editor Name Role Phone Melanie Chavez MD Primary Care Provider [phone] Encounter Details Date Type Department Care Team (Late st Contact Info) Description 04/19/2025 Telephone [facility] at [address] [place] [address] Melanie Chavez MD [address] [place] [address] [address] MENDIOLA B [facility] [address] [place] [address] Social History Tobacco Use Types Packs/Day Years Used Date Smoking Tobacco: Former Cigarettes 2001 AUDIT-C Answer Date Recorded Q1: How often [...] on file Legal Sex Male 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
--- OUTSIDE RECORDS SUMMARY | 2025-05-06 09:09 | XMS_ITS | Encounter Summary ---
Author Organization [facility] Address [address] [place] [address] Care Team Providers Care Contract Post Office Clerk Name Role Phone Melanie Chavez MD Primary Care Provider [phone] Reason for Visit * Reason Comments Medication Refill Encounter Details Date Type Department Care Team (Late Contact Info) Description 02/03/2019 Refill [facility] Oncology [facility] Hematology [facility] [address] [place] [address] Robbi Tripathi MD [address] [employer] [address] [place] [address] Mantle cell lymphoma, unspecified body region (CMS/HCC) Social History Tobacco Use Types Packs/Day Years Used Date Smoking Tobacco: Former Cigarettes 0 Q uit: 04/17/2004 Alcohol Use Standard Drinks/Week Comments No 0 (1 standard drink = 0.6 oz pur e alcohol) Sex and Gender Information Value Date Recorded Sex Assigned at Not on file Legal Sex Male 4:57 AM 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 SQL DEVELOPER Gender Identity Not on file Sexual Orientation Not on file documented as of this encounter Plan of Treatment Upcoming Encounters Date Type Department Care Team (Late st Contact Info) Description 05/13/2025 8:30 AM ORACLE SQL DEVELOPER Office Visit [facility] Oncology [facility] Hematology [facility] [address] [place] [address] Robbi Tripathi MD [address] [employer] [address] [place] [address] documented as of this encounter Visit Diagnoses Diagnosis Mantle cell lymphoma, unspecified body region (CMS/HCC) documented in this encounter Care Teams Contract Post Office Clerk Relationship Specialty Start Date End Date Melanie Chavez MD [address] [place] [phone] PCP - General Family Practice 09/12/18 documented as of this encounter
--- OUTSIDE RECORDS SUMMARY | 2025-05-06 09:09 | XMS_ITS | Encounter Summary ---
Author Organization [facility] Address [address] [place] [address] Care Team Providers Care Metal Fabricator Welder Name Role Phone Melanie Chavez MD Primary Care Provider [phone] Encounter Details Date Type Department Care Team (Late Contact Info) Description 07/18/1999 Outpatient Historical [facility] MRI DEPT (Excluded Provider) [place] [address] [facility] [address] [place] [address] Neuralgia, neuritis, and radiculitis, unspecified (Primary Dx) Social History Tobacco Use Types Packs/Day Years Used Date Smoking Tobacco: Never Assessed Sex and Gender Information Value Date Recorded Sex Assigned at Not on file Legal Sex Male 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 IRON PLASTIC BULLET 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 Gender Identity Not on file Sexual Orientation Not on file documented as of this encounter Plan of Treatment Upcoming Encounters Date Type Department Care Team (Late Contact Info) Description 05/13/2025 8:30 AM IRON PLASTIC BULLET MAKER Office Visit [facility] Oncology and Hematology - Gio [address] [facility] [address] [place] [address] Robbi Tripathi MD [address] [facility] [address] [place] [address] documented as of this encounter Visit Diagnoses Diagnosis Neuralgia, neuritis, and radiculitis, unspecified- Primary documented in this encounter Care Teams Metal Fabricator Welder Relationship Specialty [place] [address] [place] [address] PCP - General Family Practice 09/12/18 documented as of this encounter
--- OUTSIDE RECORDS SUMMARY | 2025-05-06 09:09 | XMS_ITS | Encounter Summary ---
Author Organization [facility] Address 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 Gender Identity Not on file Sexual Orientation Not on file documented as of this encounter Plan of Treatment Upcoming Encounters Date Type Department Care Team (Late st Contact Info) Description 05/13/2025 8:30 AM MACHINING AND ASSEMBLY SUPERVISOR Office Visit [facility] Oncology and Hematology - Gio [address] [facility] [address] [address] Robbi Tripathi MD [address] [place] [address] documented as of this encounter Visit Diagnoses Diagnosis Displacement of lumbar intervertebral disc without myelopathy- Primary documented in this encounter Care Teams Vehicle Service Agent Relationship Specialty Start Date End Date Melanie Chavez MD [address] [place] [address] PCP - General Family Practice 09/12/18 documented as of this encounter
--- OUTSIDE RECORDS SUMMARY | 2025-05-06 09:09 | XMS_ITS | Encounter Summary ---
Author Organization [facility] Address [address] [place] [address] Care Team Providers Care Wooden Fence Erector Name Role Phone Melanie Chavez MD Primary Care Provider [phone] Encounter Details Date Type Department Care Team (Late Contact Info) Description 04/11/2004 Outpatient Historical HIS CARD PHARMACOGENETICIST Anabella Otero MD [address] [facility] [address] [place] [address] BackerAkhil MD NO ADDRESS ON FILE LUMBAR DISC DISPLACEMENT (Primary Dx) Social History Tobacco Use Types Packs/Day Years Used Date Smoking Tobacco: Never Assessed Sex and Gender Information Value Date Recorded Sex Assigned at Not on file Legal Sex Male 4:57 AM SEATER GRINDER Gender Identity Not on file Sexual Orientation Not on file documented as of this encounter Plan of Treatment Upcoming Encounters Date Type Department Care Team (Late Contact Info) Description 05/13/2025 8:30 AM SEATER GRINDER Office Visit [facility] Oncology and Hematology - Gio [address] [facility] [address] [address] Robbi Tripathi MD [address] [facility] [address] [place] [address] documented as of this encounter Visit Diagnoses Diagnosis Displacement of lumbar intervertebral disc without myelopathy- Primary documented in this encounter Care Teams Wooden Fence Erector Relationship Specialty Start Date End Date Melanie Chavez MD [address] [place] [address] PCP - General Family Practice 09/12/18 documented as of this encounter
--- OUTSIDE RECORDS SUMMARY | 2025-05-06 09:09 | XMS_ITS | Encounter Summary ---
Author Organization [facility] Address [address] [place] [address] Care Team Providers Care Viscose Cellar Charge Hand Name Role Phone Melanie Chavez MD Primary Care Provider [phone] Encounter Details Date Type Department Care Team (Late st Contact Info) Description 04/26/2004 Outpatient Historical [facility] Support Serv. (Adt Cardiology-[facility]) [address] [place] [address] Miguel Carias Social History Tobacco Use Types Packs/Day Years Used Date Smoking Tobacco: Never Assessed Sex and Gender Information Value Date Recorded Sex Assigned at Not on file Legal Sex Male 4:57 AM NUCLEAR SUPERVISING OPERATOR Gender Identity Not on file Sexual Orientation Not on file documented as of this encounter Plan of Treatment Upcoming Encounters Date Type Department Care Team (Late st Contact Info) Description 05/13/2025 8:30 AM NUCLEAR SUPERVISING OPERATOR Office Visit [facility] Oncology and Hematology - [place] [address] [place] [address] [address] Robbi Tripathi MD [address] [facility] [address] [place] [address] documented as of this encounter Visit Diagnoses Not on filedocumented in this encounter Care Teams Viscose Cellar Charge Hand Relationship Specialty Start Date End Date Melanie Chavez MD [address] [place] [address] PCP - General Family Practice 09/12/18 documented as of this encounter
--- OUTSIDE RECORDS SUMMARY | 2025-05-06 09:09 | XMS_ITS | Encounter Summary ---
Author Organization [facility] Address [address] [place] [address] Care Team Providers Care Payment Specialist Name Role Phone Melanie Chavez MD Primary Care Provider [phone] Encounter Details Date Type Department Care Team (Late Contact Info) Description 06/28/1999 Outpatient Historical Division of Neurology [address] [facility], [address] [place] [address] (Excluded Provider) [place] [address] [facility] [address] [place] [address] Social History Tobacco Use Types Packs/Day Years Used Date Smoking Tobacco: Never Assessed Sex and Gender Information Value Date Recorded Sex Assigned at Not on file Legal Sex Male 4:57 AM SKETCHER Gender Identity Not on file Sexual Orientation Not on file documented as of this encounter Plan of Treatment Upcoming Encounters Date Type Department Care Team (Late Contact Info) Description 05/13/2025 8:30 AM SKETCHER Office Visit [facility] Oncology and Hematology - G[address] [facility] [address] [address] Robbi Tripathi MD [address] [facility] [address] [place] [address] documented as of this encounter Visit Diagnoses Not on filedocumented in this encounter Care Teams Payment Specialist Relationship Specialty Start Date End Date Melanie Chavez MD [address] [place] [address] PCP - General Family Practice 09/12/18 documented as of this encounter
--- OUTSIDE RECORDS SUMMARY | 2025-05-06 09:09 | XMS_ITS | Encounter Summary ---
Author Organization [facility] Address [address] [facility] [place] [address] Care Team Providers Care Balance Wheel Screw Hole Driller Name Role Phone Mohan Daly MD Primary Care Provider [phone] Encounter Details Date Type Department Care Team (Late st Contact Info) Description 06/14/2022 Lab Requisition [facility] Care Pathology Lab [address] [place] [address] Luiza Moncada MD [facility] [address] [address] Mantle cell lymphoma, intra-abdominal lymph nodes Social History Tobacco Use Types Packs/Day Years Used Date Smoking Tobacco: Never Assessed Sex and Gender Information Value Date Recorded Sex Assigned at Not on file Legal Sex Male 5:48 PM ACCOUNTANT HELPER Gender Identity Not on file Sexual Orientation Not on file documented as of this encounter Plan of Treatment Not on file documented as of this encounter Procedures Procedure Name Priority Date/Time Associated Diagnosis Comments FLOW CYTOMETRY BONE MARROW Routine 06/14/2022 8:30 AM ACCOUNTANT HELPER Mantle cell lymphoma, intra-abdominal lymph nodes (CMS/HCC) documented in this encounter Results * FLOW CYTOMETRY BONE MARROW (06/14/2022 8:30 AM ACCOUNTANT HELPER) Case Report Flow Cytometry Case: [id number] Authorizing Provider: Luiza Moncada MD Collected: 06/14/2022 08:30 AM Ordering Location: [facility] Pathology Lab Received: 06/14/2022 03:26 PM Pathologist: Kelsea Navarro Mai, DO Specimen: Bone Marrow, L Hip 06/14/2022 6:00 PM [facility] PATHOLOGY [facility] Final Diagnosis Bone marrow, flow cytometric immunophenotypic analysis: - CD5-positive mature B-cell leukemia/lymphoma - See interpretation 06/14/2022 6:00 PM [facility] at [address] ACCOUNTANT HELPER Flow Cytometry Interpretation The bone marrow specimen [...] the flow cytometry specimen is reviewed for software quality automation engineer purposes. The sample shows a minute marrow particle. The bone marrow aspirate specimen shows involvement by a CD5-positive mature B-cell leukemia/lymphoma. The patient's diagnosis of mantle cell lymphoma is noted and the immunophenotypic findings are compatible with the diagosis. Correlation with clinical findings, the concurrent bone marrow core biopsy (accession number pending), and relevant cytogenetic/molecu lar studies is required. 06/14/2022 6:00 PM [facility] Flow Cytometry Results Differential Result Comment Flow Cell Count /uL 26,700 Total Viability % 93.0 Lymphocytes % 31 Dim CD45 Region % 6 Monocytes % 7 Granulocytes % 56 06/14/2022 6:00 PM [facility] Reason for test Mantle cell lymphoma, intra-abdominal lymph nodes (CMS/HCC) 200.43 06/14/2022 6:00 PM [facility] Client Specimen ID # [id number] 06/14/2022 6:00 PM [facility] Number of markers 10 were performed. A-1 Flow CD3 A-3 Flow CD10 A-5 Flow CD20 A-6 Flow CD23 A-2 Flow CD5 A-4 Flow CD19 A-7 Flow CD34 A-8 Flow CD45 A-9 [place]+CD19+ A-10 Lambda+CD19+ 06/14/2022 6:00 PM [facility] Disclaimer Test performed at [facility] [place], [address] [facility], [place], [place], [address]. *The established laboratory minimum viability is 70%. [...] high complexity clinical testing. 06/14/2022 6:00 PM [facility] Embedded Images 6:00 PM [facility] Pathology/Cytolo gy BONE MARROW SPECIMEN / Unknown 06/14/2022 8:30 AM ACCOUNTANT HELPER 06/14/2022 3:26 PM ACCOUNTANT HELPER Luiza Moncada MD LAB - PATHOLOGY/CYTOLOGY ORDERAB LES Final Result [facility] PATHOLOGY LAB [address] [facility]. 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
--- OUTSIDE RECORDS SUMMARY | 2025-05-06 09:09 | XMS_ITS | Encounter Summary ---
Author Organization [facility] Address [address] [place] [address] Care Team Providers Care Store Clerk Cashier Name Role Phone Melanie Chavez MD Primary Care Provider [phone] Reason for Visit * Reason Comments Medication Refill Encounter Details Date Type Department Care Team (Late Contact Info) Description 02/02/2019 Refill [facility] Oncology [facility] Hematology [facility] [address] [place] [address] Robbi Tripathi MD [address] [employer] [address] [place] [address] Mantle cell lymphoma, unspecified body region (CMS/HCC) Social History Tobacco Use Types Packs/Day Years Used Date Smoking Tobacco: Former Cigarettes 0 Q uit: 04/17/2004 Alcohol Use Standard Drinks/Week Comments No 0 (1 standard drink = 0.6 oz pur e alcohol) Sex and Gender Information Value Date Recorded Sex Assigned at Not on file Legal Sex Male 4:57 AM FISH HATCHERY SUPERINTENDENT Gender Identity Not on file Sexual Orientation Not on file documented as of this encounter Plan of Treatment Upcoming Encounters Date Type Department Care Team (Late st Contact Info) Description 05/13/2025 8:30 AM FISH HATCHERY SUPERINTENDENT Office Visit [facility] Oncology [facility] Hematology [facility] [address] [place] [address] Robbi Tripathi MD [address] [employer] [address] [place] [address] documented as of this encounter Visit Diagnoses Diagnosis Mantle cell lymphoma, unspecified body region (CMS/HCC) documented in this encounter Care Teams Store Clerk Cashier Relationship Specialty Start Date End Date Melanie Chavez MD [address] [place] [phone] PCP - General Family Practice 09/12/18 documented as of this encounter
--- OUTSIDE RECORDS SUMMARY | 2025-05-06 09:09 | XMS_ITS | Encounter Summary ---
Author Organization [facility] [place] [facility] Address [address] [facility] [place] [address] Care Team Providers Care Linseed Oil Order Filler Name Role Phone Mohan Daly MD Primary Care Provider [phone] Encounter Details Date Type Department Care Team (Late st Contact Info) Description 06/18/2022 Lab Requisition [facility] Care Pathology Lab [address] [place] [address] Luiza Moncada MD [facility] [address] [address] Illness, unspecified Social History Tobacco Use Types Packs/Day Years Used Date Smoking Tobacco: Never Assessed Sex and Gender Information Value Date Recorded Sex Assigned at Not on file Legal Sex Male 5:[address] GUARD Gender Identity Not on file Sexual Orientation Not on file documented as of this encounter Plan of Treatment Not on file documented as of this encounter Procedures Procedure Name Priority Date/Time Associated Diagnosis Comments BONE MARROW BIOPSY (STL) Routine 06/14/2022 8:[address] GUARD Illness, unspecified documented in this encounter Results * BONE MARROW BIOPSY (STL) (06/14/2022 8:[address] GUARD) Case Report Bone Marrow Patholog y Report Case: [id number] Authorizing Provider: Luiza Moncada MD Collected: 06/14/2022 08:30 AM Ordering Location: [facility] Pathology Lab Received: 06/18/2022 09:02 AM Pathologist: Ilene Nguyen MD Specimens: A) - Bone Marrow Clot B) - Bone Marrow Core 06/18/2022 4:38 PM [facility] Final Diagnosis Bone marrow, aspirate, clot section, and core biopsy: - Variably cellular marrow with maturing trilineage hematopoiesis and ~30% involvement by mantle cell lymphoma. - See description. Peripheral blood smear: - Leukopenia. - Normochromic, normocytic anemia. - See description. 06/18/2022 4:38 PM [facility] at [address]ARD AP Comment Overall, the bone marrow specimen is variably cellular with foci of maturing trilineage hematopoiesis. There is extensive involvement by recurrent/residual mantle cell lymphoma, estimated to comprise 30% of the marrow cellularity by immunohistochemistry. Correlation with clinical findings and relevant cytogenetic/molecular testing is required. 06/18/2022 4:38 PM [facility] Peripheral Smear Description [...] normal. Platelet morphology: normal. 06/18/2022 4:38 PM [facility] Bone Marrow Aspirate [...] by small, rare spicule. 06/18/2022 4:38 PM [facility] Bone Marrow Core [...] and CD5 are expressed by admixed T-cells. [id number] B-cells are estimated to comprise 30% of the marrow cellularity. 06/18/2022 4:38 PM [facility] Flow Cytometry Summary Concurrent flow cytometry ([id number]) shows a CD5-positive mature B-cell leukemia/lymphoma. 06/18/2022 4:38 PM [facility] Clinical History History of mantle cell lymphoma; last treatment in 2018. 06/18/2022 4:38 PM [facility] Materials Received Received are 21 slides and three blocks (A1, A2, B1) labeled AB23-2 along with a copy of the outside pathology report. [place] [address]. All original materials are returned to the referring institution, along with a copy of our final report. 06/18/2022 4:38 PM [facility] Disclaimer The performance characteristics of all immunohistochemical and indirect immunofluorescence stains (if any) cited in this report were determined by the Histopathology Laboratory of [facility]. Some of these tests were [...] [facility] at [facility], [facility] [place] [address]. 06/18/2022 4:[address]ARD [facility] PATHOLOG[facility] LAB Embedded Images 06/18/2022 4:[address] GUARD [facility] PATH[facility] LAB Pathology/Cytology BONE MARROW SPECIMEN / Unknown 06/14/2022 8:[address] GUARD 06/18/2022 9:[address] GUARD Miscellaneous samples (specimen) BONE MARROW SPECIMEN / Unknown 06/14/2022 8:[address] GUARD 06/18/2022 9:[address] GUARD Luiza Moncada MD LAB - PATHOLOGY/CYTOLOGY ORDERAB LES Final Result [facility] PATHOLOGY LAB [facility] [address] [phone] documented in this encounter Visit Diagnoses Diagnosis Illness, unspecified documented in this encounter Care Teams Linseed Oil Order Filler Relationship Specialty Start Date End Date Mohan Daly MD [address] [place] [address] PCP - General 03/12/08 documented as of this encounter
--- OUTSIDE RECORDS SUMMARY | 2025-05-06 09:09 | XMS_ITS | Encounter Summary ---
Author Organization [facility] Address [address] [place] [address] Care Team Providers Care Plate Maker Name Role Phone Melanie Chavez MD Primary Care Provider [phone] Encounter Details Date Type Department Care Team (Late st Contact Info) Description 02/05/2019 Telephone [facility] Oncology and Hematology - Gio [address] [facility] [address] [place] [address] Robbi Tripathi MD [address] [facility] [address] [place] [address] Social History Tobacco Use Types Packs/Day Years Used Date Smoking Tobacco: Former Cigarettes 0 Q uit: 04/17/2004 Alcohol Use Standard Drinks/Week Comments No 0 (1 standard drink = 0.6 oz pur e alcohol) Sex and Gender Information Value Date Recorded Sex Assigned at Not on file Legal Sex Male 4:57 AM FIBERGLASS BOAT FINISHER Gender Identity Not on file Sexual Orientation [...] [place] - 02/05/2019 10:46 AM CDT Kathie from [facility]; [phone]; medication Privigen in all strenglths not available - not coming on 02/06/19. All IVIG drugs in this category are affected as well. Meds are sent out randomly, in different strengths & different quantity; not sent on supply & demand. documented in this encounter Plan of Treatment Upcoming Encounters Date Type Department Care Team (Late st Contact Info) Description 05/13/2025 8:30 AM FIBERGLASS BOAT FINISHER Office Visit [facility] Oncology and Hematology - Gio [address] [facility] [address] [place] [address] Robbi Tripathi MD [address] [facility] [address] [place] [address] documented as of this encounter Visit Diagnoses Not on filedocumented in this encounter Care Teams Plate Maker Relationship Specialty Start Date End Date Melanie Chavez MD [address] [place] [address] PCP - General Family Practice 09/12/18 documented as of this encounter
--- OUTSIDE RECORDS SUMMARY | 2025-05-06 09:09 | XMS_ITS | Clinical Summary ---
Author Organization [facility] [employer] Address [address] [place] [address] Care Team Providers Care Patient Access Associate Name Role Phone Mohan Daly MD Primary Care Provider [phone] Source Comments [facility] [employer],non-owned Affiliates and Associated Physician Practices is amultiple site organization consisting of ambulatory clinics and hospital sitesin [place], [place], [place] and [place]. This disclosure is being madepursuant to the Care Everywhere program and may not contain all information available regarding this patient. Last updated 18.[facility] [employer] Social History Tobacco Use Types Packs/Day Years Used Date Smoking Tobacco: Never Assessed Sex and Gender Information Value Date Recorded Sex Assigned at Not on file Legal Sex Male 5:48 PM PRODUCTION LEAD Gender Identity Not on file Sexual [...] 12/31/1975 ZOSTER VACCINE (1 of 2) 12/31/1975 DEPRESSION SCREENING 06/03/2024 COVID-19 VACCINE (2024-2 6 season) 2025 INFLUENZA VACCINE (#1) 2025 Respiratory Syncytial Virus (RSV) Vaccine Pt: [...] age to complete this topic [place] [address] MEDICARE [employer] [place] [employer] SELF PAY NO INSURANCE Member Subscriber Plan / Payer (Ef fective for All Dates) Name:Min Toro Member ID:Not on file Relation to Subscriber:Not on file Name:MIN TORO Subscriber ID:Not on file (Home) Address: [address] [place] [address] [place] [address] Payer ID:Not on file Group ID:Not on file Type:Self Pay Address: [place], [place] [address] MEDICARE [employer] [place] [employer] Care Teams Patient Access Associate Relationship Specialty Start Date End Date Mohan Daly MD [address] [place] [address] PCP - General 03/12/08
--- OUTSIDE RECORDS SUMMARY | 2025-05-06 09:09 | XMS_ITS | Clinical Summary ---
Author Organization [facility] Address [address] [place] [address] Care Team Providers Care Corporate Real Estate Manager Name Role Phone Melanie Chavez MD Primary Care Provider [phone] Allergies Active Allergy Reactions Criticality Noted Date Comments Adhesive Rash Medium 04/17/2016 Medications hydroCHLOROthi azide (HYDRODIURIL) 12.5 mg tablet take 1 tablet by oral route every day 0 1 Active diazePAM (VALIUM) 10 mg tablet take 1 tablet (10MG) by oral route every day as needed 0 1 Active Additional Information Patient not taking.Reported on 04/28/2025 traMADol (ULTRAM) 50 mg tablet take 1 tablet (50MG) by oral route every 6 hours as needed 0 1 Active naproxen (NAPROSYN) 500 mg tablet Take 1 tablet (500 mg total) by mouth 2 (two) times a day 2 Active cyclobenzaprin e (FLEXERIL) 10 mg tablet 1 tablet (10 mg total) 2 Active tamsulosin (FLOMAX) 0.4 mg extended release capsule Take 1 capsule (0.4 mg total) by mouth daily 2 Active sildenafiL (VIAGRA) 100 mg tablet daily as needed for erectile dysfunction Active lisinopriL (PRINIVIL,ZEST RIL) 10 mg tablet Take 1 tablet (10 mg total) by mouth daily 90 tablet 1 5 Active zanubrutinib (Brukinsa) 160 mg tablet Take 1 tablet (160 mg total) by mouth 2 (two) times a day Do not chew or crush tablets. Tablets may be split in half. Active lisinopril (PRINIVIL,ZEST RIL) 10 mg tablet take 1 tablet by oral route every day 0 1 025 Discontinu ed(Reorder ) armodafinil (NUVIGIL) 250 mg tablet take 1 by Oral route every day 0 1 025 Discontinu ed(No longer taking - Do not display on AVS) zolpidem (AMBIEN) 10 mg tablet TAKE 1 TABLET(10 MG) BY MOUTH EVERY NIGHT NEEDED FOR INSOMNIA 2 025 Discontinu ed(No longer taking - Do not display on AVS) Active Problems Problem Noted Date Diagnosed Date Hypogammaglobulinemia 03/11/2020 Non morbid obesity due to excess calories 2016 Benign hypertension 04/17/2016 Assessment & Plan (04/28/2025 12:07 PM MANUAL EQUIPMENT MECHANIC): Chronic uncontrolled. HCTZ 12.5mg daily Add Lisinopril 10mg daily Patient to call with blood pressure readings in 2 weeks. 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 Lumbago 12/08/2012 Carpal tunnel syndrome 04/11/2012 Spinal stenosis of cervical region 10/12/2011 Cervical disc disorder with myelopathy 2 Cervicalgia 10/08/2011 Assessment & Plan (04/28/2025 12:07 PM MANUAL EQUIPMENT MECHANIC): As per pain clinic Encounters Date Type Department Care Team Description 04/28/2025 11:00 AM MANUAL EQUIPMENT MECHANIC Office Visit [facility] at [address] [place] [phone] Melanie Chavez MD Benign hypertension (Primary Dx); Mantle cell lymphoma, unspecified body region (HCC); Cervicalgia; Hyperchylomicronemia; Localized edema 04/28/2025 Telephone [facility] at [address] [phone] Melanie Chavez MD 04/19/2025 Telephone [facility] at [address] [phone] Melanie Chavez MD from Last 3 Months Immunizations Immunization Administration Dates Next Due Influenza, Quadrivalent, Raina l Culture-based MDCK, Preservative Free, Antibiotic Free, Intramuscular 06/04/2017 Influenza, Trivalent, IM (MDV) 06/04/2017,2015,06/03/2015 Influenza, Unspecified 06/03/2015 Td, Not Adsorbed 06/03/2013 Tdap 10/25/2022,04/17/2016 Tetanus Toxoid, Unspecified 06/03/2013 Surgical History Surgery [...] - 2001 Tobacco Cessation:Counseling Given: Not Answered Alcohol Use Standard Drinks/Week Comments Never 0 (1 standard drink = 0.6 oz pur e alcohol) AUDIT-C Answer Date Recorded Q1: How often do you have a drink containing alcohol? Never 04/28/2025 Q2: How many drinks containi ng alcohol do you have on a typical day when you are drinking? Patient does not drink Q3: How often do you have si x or more drinks on one occasion? Never 04/28/2025 Sex and Gender Information Value Date Recorded Sex Assigned at Not on file Legal Sex Male 5:48 AM MANUAL EQUIPMENT MECHANIC Gender Identity Not on file Sexual Orientation Not on file Last Filed Vital Signs Vital Sign Reading Time Taken Comments Blood Pressure 131/86 04/28/2025 11:03 AM MANUAL EQUIPMENT MECHANIC Pulse 63 04/28/2025 11:03 AM MANUAL EQUIPMENT MECHANIC Temperature - - Respiratory Rate 12 04/28/2025 11:0 3 AM MANUAL EQUIPMENT MECHANIC Oxygen Saturation 96% 04/28/2025 11: 03 AM MANUAL EQUIPMENT MECHANIC Inhaled Oxygen Concentration - - Weight 110.4 kg (243 lb 6.4 oz) 025 11:03 AM MANUAL EQUIPMENT MECHANIC Height 185.4 cm (6' 0.99) 04/28/2025 1 1:03 AM MANUAL EQUIPMENT MECHANIC Body Mass Index 32.12 04/28/2025 11:03 AM MANUAL EQUIPMENT MECHANIC Plan of Treatment Health Maintenance Due Date Last Done Comments Colon Cancer Screening-Colonoscopy 1955 Depression Screening 1956 Fall Risk Assessment 1955 Hepatitis C Screening 1955 Prostate Cancer Screening-PSA 1956 Hepatitis B Screening 1974 Pneumococcal vaccine 65+ (1 of 2 - PCV) 12/31/1975 Zoster Vaccine (1 of 2) 12/31/1975 Abdominal Aortic Aneurysm (A AA) Screen 2021 11/02/2019, 10/16/2016, 08/15/2016 Well Visit 65+ 2021 Influenza Vaccine (#1) 2025 8, 06/04/2017, 04/18/2016, Additional history exists DTaP/Tdap/Td Vaccine (3 - Td or Tdap) 10/25/2032 10/25/2022, 04/17/2016, 06/03/2013 Insurance MEDICARE [employer] [place]ICARE [place] Care Teams Corporate Real Estate Manager Relationship Specialty Start Date End Date Melanie Chavez MD PCP - General Family Medicine 03/09/22
--- OUTSIDE RECORDS SUMMARY | 2025-05-06 09:09 | XMS_ITS | Encounter Summary ---
Author Organization [facility] Address [address] [place] [address] Care Team Providers Care Almond Blancher Hand Name Role Phone Melanie Chavez MD Primary Care Provider [phone] Encounter Details Date Type Department Care Team (Late Contact Info) Description 08/08/1999 Outpatient Historical [facility] MRI DEPT (Excluded Provider) [place] [address] [facility] [address] [place] [address] Cervicalgia (Primary Dx) Social History Tobacco Use Types Packs/Day Years Used Date Smoking Tobacco: Never Assessed Sex and Gender Information Value Date Recorded Sex Assigned at Not on file Legal Sex Male 4:57 AM SECONDARY HISTORY TEACHER Gender Identity Not on file Sexual Orientation Not on file documented as of this encounter Plan of Treatment Upcoming Encounters Date Type Department Care Team (Late Contact Info) Description 05/13/2025 8:30 AM SECONDARY HISTORY TEACHER Office Visit [facility] Oncology and Hematology - [place] [address] [facility] [address] [address] Robbi Tripathi MD [address] [facility] [address] [place] [address] documented as of this encounter Visit Diagnoses Diagnosis Cervicalgia- Primary documented in this encounter Care Teams Almond Blancher Hand Relationship Specialty Start Date End Date Melanie Chavez MD [address] [place] [address] PCP - General Family Practice 09/12/18 documented as of this encounter
--- OUTSIDE RECORDS SUMMARY | 2025-05-06 09:09 | XMS_ITS | Clinical Summary ---
Author Organization [facility] Address [address] [place] [address] Care Team Providers Care Pipeline Executive Name Role Phone Melanie Chavez MD Primary Care Provider [phone] Allergies Active Allergy Reactions Criticality Noted Date [...] (GIVEN AT PRESCRIBERS OFFICE). 1200 mL 6 12/30/19 19 Active armodafiniL (NUVIGIL) 250 mg tablet TK 1 T PO QD IN THE MORNING 06/28/19 20 Active cyclobenzaprin e (FLEXERIL) 10 mg tablet TAKE 1 TABLET BY MOUTH EVERY 8 HOURS NEEDED 05/28/20 20 Active lisinopriL (PRINIVIL) 10 mg tablet Take [...] unit) Capsule Take by mouth. A ctive anastrozole (ARIMIDEX) 1 mg tablet Take 1 Tablet by mouth every 7 days. 11/14/19 Active zanubrutinib 160 mg Tablet Take 1 Tablet (160 mg) by mouth 2 times daily. 60 Tablet 2 04/15/2025 11:41 AM TREE CUTTER 04/12/20 Active zanubrutinib (Brukinsa) 80 mg capsule Take 2 Capsules (160 mg) by mouth 2 times daily. 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 Mantle cell lymphoma 04/17/2016 Encounters Date Type Department Care Team Description 05/04/2025 External Device Data STL ABSTRACTION Provider, Abstract 04/16/2025 Specialty Pharmacy [facility] [address] [place] [phone] Anastasia Bower, PHARMACIST 04/12/2025 Specialty Pharmacy [facility] [address] [place] [phone] Anastasia Bower, PHARMACIST 04/12/2025 Refill [facility] Oncology and Hematology [facility] [address] [place] [address] Robbi Tripathi MD 04/06/2025 External Device Data STL ABSTRACTION Provider, Abstract 03/24/2025 External Device Data STL ABSTRACTION Provider, Abstract 03/18/2025 8:30 AM CDT Office Visit [facility] Oncology and Hematology [facility] [address] [place] [phone] Robbi Tripathi MD 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) 03/16/2025 Refill [facility] Oncology and Hematology [facility] [address] [place] [address] Robbi Tripathi MD 03/16/2025 Specialty Pharmacy [facility] [address] [place] [phone] Anastasia Bower, PHARMACIST 03/15/2025 Orders Only [facility] Oncology and Hematology - [place] [address] [place] [phone] Robbi Tripathi MD 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) 03/11/2025 Specialty Pharmacy [facility] [address] [place] [phone] Anastasia Bower, PHARMACIST 02/16/2025 External Device Data STL ABSTRACTION Provider, Abstract 02/15/2025 Orders Only [facility] Oncology and Hematology - [place] [address] [place] [address] Robbi Tripathi MD 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) 02/10/2025 Specialty Pharmacy [facility] [address] [place] [phone] Anastasia Bower, PHARMACIST 02/10/2025 Specialty Pharmacy [facility] [address] [place] [phone] Shantelle Grijalva, PHARMACIST 02/10/2025 Specialty Pharmacy [facility] [address] [place] [phone] Shantelle Grijalva, PHARMACIST from Last 3 Months Family History Medical History Relation Name Comments Cancer Brother Cancer Father Relation Name Status Comments Brother Father Mother Alive Social History Tobacco Use Types Packs/Day Years Used Date Smoking Tobacco: Former Cigarettes 0 Q uit: 04/17/2004 Tobacco Cessation:Counseling Given: Not Answered Alcohol Use Standard Drinks/Week Comments No 0 (1 standard drink = 0.6 oz pur e alcohol) Sex and Gender Information Value Date Recorded Sex Assigned at Not on file Legal Sex Male 4:57 AM TREE CUTTER Gender Identity Not on file Sexual Orientation Not on file Last Filed Vital Signs Vital Sign Reading Time Taken Comments Blood Pressure 149/98 03/18/2025 8:26 AM CDT Pulse 52 03/18/2025 8:23 AM CDT Temperature 36.2 C (97.2 F) 03/18/2025 8:23 AM CDT Respiratory Rate 16 03/18/2025 8:23 AM CDT Oxygen Saturation 93% 03/18/2025 8:23 AM CDT Inhaled Oxygen Concentration - - Weight 108.5 kg (239 lb 3.2 oz) 03/18/2025 8:23 AM CDT Height 182.9 cm (6') 08/18/2021 9:05 AM CDT Body Mass Index 32.44 08/18/2021 9:05 AM CDT Plan of Treatment Upcoming Encounters Date Type Department Care Team (Late st Contact Info) Description 05/13/2025 8:30 AM TREE CUTTER Office Visit [facility] Oncology and Hematology [facility] [address] [facility] [address] [place] [address] Robbi Tripathi MD [address] [facility] [address] [place] [address] Health Maintenance Due Date Last Done Comments Pre-Diabetes and Diabetes Screening 1956 DTAP/TDAP/TD VACCINES (1 - Tdap) 12/31/1975 PNEUMOCOCCAL VACCINE 50+ YEARS (1 of 2 - PCV) 12/30/18 76 Traditional Medicare (ACO) Annual Wellness Visit 12/30 ZOSTER VACCINE (1 of 2) 12/31/1975 FIT-DNA Q 3 years 2001 FIT/FOBT Q 1 year 2001 Flex Sig/CT Colonography Q 5 years 2001 RSV VACCINE (60+ or ) (1 - Risk 50-74 years 1-dose series) 2006 Abdominal Aortic Aneurysm (AAA) Screening 2021 INFLUENZA VACCINE (#1) 2025 06/04/2017 COLORECTAL SCREENING 06/10/2033 06/10/2023 Colorectal Cancer Screening 06/10/2033 Procedures Procedure Name Priority Date/Time Associated Diagnosis Comments COMPREHENSIVE METABOLIC PANEL Routine 03/15/2025 1:48 PM CDT from Last 3 Months Results * COMPREHENSIVE METABOLIC PANEL (03/15/2025 1:48 PM CDT) Blood Robbi Tripathi MD CHEMISTRY ORDERABLES Final Resu lt from Last 3 Months Insurance MEDICARE PART A AND B [facility] MEDICARE PART A AND B RX [place] Commercial RX [employer] Medicare Part D RX PHARMACY [email or web address], [employer] Commercial Advance Directives For more information, please contact: [phone] Documents on File Type Date Recorded Patient Administrative Executive Expl anation Advance Directive Living Will 04/17/2016 1:05 PM Care Teams Pipeline Executive Relationship Specialty Start Date End Date Melanie Chavez MD [address] [place] [phone] PCP - General Family Practice 09/12/18
--- OUTSIDE RECORDS SUMMARY | 2025-05-06 09:09 | XMS_ITS ---
Author Organization [facility] Address [address] [place] [address] Care Team Providers Care Driver Trainer Name Role Phone Melanie Chavez MD Primary Care Provider [phone] Non-Hodgkin and Mantle Cell Lymphoma Status:Enrolled (Active) Start date:02/10/2025 Enrollment date:02/10/2025 Current support & services provided:Clinical Management, Refill Management, Benefits and PA Management, Financial Assistance Linked medications:zanubrutinib (Active) Linked problems:Mantle cell lymphoma (CMS/HCC) (Active) Continued Care and Services Coordination
--- OUTSIDE RECORDS SUMMARY | 2025-05-06 09:09 | XMS_ITS | Encounter Summary ---
Author Organization [facility] Address [address] [place] [address] Care Team Providers Care Graduate Rn Name Role Phone Melanie Chavez MD Primary Care Provider [phone] Encounter Details Date Type Department Care Team (Late st Contact Info) Description 05/04/2025 External Device Data STL ABSTRACTION Provider, Abstract NO ADDRESS ON FILE Social History Tobacco Use Types Packs/Day Years Used Date Smoking Tobacco: Former Cigarettes 0 Q uit: 04/17/2004 Alcohol Use Standard Drinks/Week Comments No 0 (1 standard drink = 0.6 oz pur e alcohol) Sex and Gender Information Value Date Recorded Sex Assigned at Not on file Legal Sex Male 4:57 AM SUPERVISOR TRAVEL TRAILER Gender Identity Not on file Sexual Orientation Not on file documented as of this encounter Plan of Treatment Upcoming Encounters Date Type Department Care Team (Late st Contact Info) Description 05/13/2025 8:30 AM SUPERVISOR TRAVEL TRAILER Office Visit [facility] Oncology and Hematology - [place] [address] [place] [address] [place] [phone] [place] [address] [place] [phone] documented as of this encounter Visit Diagnoses Not on filedocumented in this encounter Care Teams Graduate Rn Relationship Specialty Start Date End Date Melanie Chavez MD [address] [place] [address] PCP - General Family Practice 09/12/18 documented as of this encounter
--- OUTSIDE RECORDS SUMMARY | 2025-05-06 09:09 | XMS_ITS | Encounter Summary ---
Author Organization [facility] Address [address] [place] [address] Care Team Providers Care Er Manager Name Role Phone Melanie Chavez MD Primary Care Provider [phone] Encounter Details Date Type Department Care Team (Latest Contact Info) Description 07/19/1999 Outpatient Historical [facility] [place] Disturbance of skin sensation (Primary Dx) Social History Tobacco Use Types Packs/Day Years Used Date Smoking Tobacco: Never Assessed Sex and Gender Information Value Date Recorded Sex Assigned at Not on file Legal Sex Male 4:57 AM DIRT SHOVELER Gender Identity Not on file Sexual Orientation Not on file documented as of this encounter Plan of Treatment Upcoming Encounters Date Type Department Care Team (Late st Contact Info) Description 05/13/2025 8:30 AM DIRT SHOVELER Office Visit [facility] Oncology and Hematology - [place] [address] [place] [address] [address] Robbi Tripathi MD [address] [place] [address] documented as of this encounter Visit Diagnoses Diagnosis Disturbance of skin sensation- Primary documented in this encounter Care Teams Er Manager Relationship Specialty Start Date End Date Melanie Chavez MD [address] [place] [address] PCP - General Family Practice 09/12/18 documented as of this encounter
--- OUTSIDE RECORDS SUMMARY | 2025-05-06 09:09 | XMS_ITS | Encounter Summary ---
Author Organization [facility] Address [address] [place] [address] Care Team Providers Care Cvicu Nurse Name Role Phone Melanie Chavez MD Primary Care Provider [phone] Encounter Details Date Type Department Care Team (Late Contact Info) Description 02/03/2004 Outpatient Historical [facility] MRI DEPT Jacob Arshad MD [address] [place] [address] BACKACHE NOS (Primary Dx) Social History Tobacco Use Types Packs/Day Years Used Date Smoking Tobacco: Never Assessed Sex and Gender Information Value Date Recorded Sex Assigned at Not on file Legal Sex Male 4:57 AM ACID PATROLLER Gender Identity Not on file Sexual Orientation Not on file documented as of this encounter Plan of Treatment Upcoming Encounters Date Type Department Care Team (Late Contact Info) Description 05/13/2025 8:30 AM ACID PATROLLER Office Visit [facility] Oncology and Hematology - [place] [address] [place] [address] [address] Robbi Tripathi MD [address] [facility] [address] [place] [address] documented as of this encounter Visit Diagnoses Diagnosis Backache, unspecified- Primary documented in this encounter Care Teams Cvicu Nurse Relationship Specialty Start Date End Date Melanie Chavez MD [address] [place] [address] PCP - General Family Practice 09/12/18 documented as of this encounter
--- OUTSIDE RECORDS SUMMARY | 2025-05-06 09:09 | XMS_ITS | Encounter Summary ---
Author Organization [facility] Address [address] [place] [address] Care Team Providers Care Commercial Designer Name Role Phone Melanie Chavez MD Primary Care Provider [phone] Reason for Visit * Reason Comments Medication Refill Encounter Details Date Type Department Care Team (Late Contact Info) Description 08/15/2018 Refill [facility] Oncology [facility] Hematology [facility] [address] [place] [address] Robbi Tripathi MD [address] [place] [address] Social History Tobacco Use Types Packs/Day Years Used Date Smoking Tobacco: Former Cigarettes 0 Q uit: 04/17/2004 Alcohol Use Standard Drinks/Week Comments No 0 (1 standard drink = 0.6 oz pur e alcohol) Sex and Gender Information Value Date Recorded Sex Assigned at Not on file Legal Sex Male 4:57 AM BUNG SEWER Gender Identity Not on file Sexual Orientation Not on file documented as of this encounter Plan of Treatment Upcoming Encounters Date Type Department Care Team (Late Contact Info) Description 05/13/2025 8:30 AM BUNG SEWER Office Visit [facility] Oncology [facility] Hematology [facility] [address] [place] [address] Robbi Tripathi MD [address] [place] [address] documented as of this encounter Visit Diagnoses Not on filedocumented in this encounter Care Teams Commercial Designer Relationship Specialty Start Date End Date Melanie Chavez MD [address] [place] [address] PCP - General Family Practice 09/12/18 documented as of this encounter
--- OUTSIDE RECORDS SUMMARY | 2025-05-06 09:09 | XMS_ITS | Encounter Summary ---
Author Organization [facility] Address [address] [place] [address] Care Team Providers Care Handbell Choir Director Name Role Phone Melanie Chavez MD Primary Care Provider [phone] Encounter Details Date Type Department Care Team (Latest Contact Info) Description 01/10/2005 Outpatient Historical [facility] BackerAkhil MD NO ADDRESS ON FILE LUMBAR DISC DISPLACEMENT (Primary Dx) Social History Tobacco Use Types Packs/Day Years Used Date Smoking Tobacco: Never Assessed Sex and Gender Information Value Date Recorded Sex Assigned at Not on file Legal Sex Male 4:57 AM CEO AND PRESIDENT Gender Identity Not on file Sexual Orientation Not on file documented as of this encounter Plan of Treatment Upcoming Encounters Date Type Department Care Team (Late st Contact Info) Description 05/13/2025 8:30 AM CEO AND PRESIDENT Office Visit [facility] Hematology - [place] [address] [facility] [address] [place] [address] Robbi Tripathi MD [address] [facility] [address] [place] [address] documented as of this encounter [...] Primary documented in this encounter Care Teams Handbell Choir Director Relationship Specialty Start Date End Date Melanie Chavez MD [address] [place] [address] PCP - General Family Practice 09/12/18 documented as of this encounter
--- OUTSIDE RECORDS SUMMARY | 2025-05-06 09:09 | XMS_ITS | Encounter Summary ---
Author Organization [facility] Address [address] [facility] [place] [address] Care Team Providers Care Department Coordinator Name Role Phone Mohan Daly MD Primary Care Provider [phone] Encounter Details Date Type Department Care Team (Late st Contact Info) Description 10/07/2024 Lab Requisition [facility] - Pathology Lab [address] [place] [address] Steven Nava MD [address] [facility] [address] [place] [address] Illness, unspecified Social History Tobacco Use Types Packs/Day Years Used Date Smoking Tobacco: Never Assessed Sex and Gender Information Value Date Recorded Sex Assigned at Not on file 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 Gender Identity Not on file Sexual Orientation Not on file documented as of this encounter Plan of Treatment Not on file documented as of this encounter Procedures Procedure Name Priority Date/Time Associated Diagnosis Comments PATHOLOGY TISSUE Routine 10/05/2024 1:52 PM CDT Illness, unspecified documented in this encounter Results * PATHOLOGY TISSUE (10/05/2024 1:52 PM CDT) Case Report Surgical Pathology Report Case: [id number] Authorizing Provider: Steven Nava Collected: 10/05/2024 01:52 PM MD Daniel Ordering Location: [facility] - Received: 10/07/2024 02:13 PM Pathology Lab Pathologist: Jayne Mari MD Specimen: Parotid Gland 10/08/2024 9:[address] 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 at 0942 CDT Microscopic Description and Comment Histologic sections show effacement of normal glandular structures by a dense lymphoid infiltrate. Immunohistochemistry performed at the referring institution ([facility]) shows the lymphoid infiltrate to be immunoreactive for CD45. MCK (cytokeratin) and synaptophysin are negative. Additional immunohistochemistry performed at [facility] shows that the lymphoma cells are positive for CD20, PAX-5, or cyclin D1. 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 10/08/2024 9:[address] [facility] Clinical History Mantle cell lymphoma. 10/08/2024 9:[address] [facility] Materials Received Received are 6 slide(s) and 1 block(s) labeled [id number] along with a copy of the outside pathology report. [place] [address]. All original materials are returned to the referring institution, along with a copy of our final report. 10/08/2024 9:[address] [facility] Pathologist Location at [facility] 10/08/2024 9:[address] [facility] Disclaimer The performance characteristics of all immunohistochemical and indirect immunofluorescence stains (if any) cited in this report were determined by the [facility] of [facility]. Some of these tests were developed [...] the attending (teaching) pathologist. 10/08/2024 9:[address] [facility] Embedded Images 10/08/2024 9:43 AM CDT [facility] Pathology/Cytolo gy ENTIRE PAROTID GLAND / Unknown 10/05/2024 1:52 PM CDT 10/07/2024 2:13 PM CDT Steven Nava MD LAB - PATHOLOGY/CYT OLOGY ORDERABLES Final Result Performing Organization Address City/State/[facility] Co de Phone Number [facility] [address] [phone] documented in this encounter Visit Diagnoses Diagnosis Illness, unspecified documented in this encounter Care Teams Department Coordinator Relationship Specialty Start Date End Date Mohan Daly MD [address] [place] [address] PCP - General 03/12/08 documented as of this encounter
--- OUTSIDE RECORDS SUMMARY | 2025-05-06 09:10 | XMS_ITS | Encounter Summary ---
Author Organization [facility] [employer] Address [address] [place] [address] Care Team Providers Care Floor Cashier Name Role Phone Melanie Chavez MD Primary Care Provider [phone] Reason for Visit * Reason Comments Medication Refill Encounter Details Date Type Department Care Team (Late Contact Info) Description 03/05/2019 Refill [facility] Oncology and Hematology [address] [place] [address] Robbi Tripathi MD [facility] [address] [place] [phone] Mantle cell lymphoma, unspecified body region (CMS/HCC) Social History Tobacco Use Types Packs/Day Years Used Date Smoking Tobacco: Former Cigarettes 0 Q uit: 04/17/2004 Alcohol Use Standard Drinks/Week Comments No 0 (1 standard drink = 0.6 oz pur e alcohol) Sex and Gender Information Value Date Recorded Sex Assigned at Not on file 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 Gender Identity Not on file Sexual Orientation Not on file documented as of this encounter Plan of Treatment Upcoming Encounters Date Type Department Care Team (Late st Contact Info) Description 05/13/2025 8:30 AM REJECTED ITEMS CLERK Office Visit [facility] Oncology and Hematology [address] [place] [address] Robbi Tripathi MD [address] [employer] [address] [place] [address] documented as of this encounter Visit Diagnoses Diagnosis Mantle cell lymphoma, unspecified body region (CMS/HCC) documented in this encounter Care Teams Floor Cashier Relationship Specialty Start Date End Date Melanie Chavez MD [address] [place] [id number] PCP - General Family Practice 09/12/18 documented as of this encounter
== END 2025-05-06 08:46 | disposition home or self-care (01) ==
PROVIDERS: PCP Family Medicine; Visit Provider Internal Medicine Hematology & Oncology
DX: C83.13 Mantle cell lymphoma, intra-abdominal lymph nodes (principal)
CPT/HCPCS: 78815; A9552